=== PATIENT | male | born 1955 | race Caucasian/White ===

== ENCOUNTER 2019-01-12 19:38 | Emergency (ER) | payer BC, SELFPAY ==
[2019-01-12 20:09] VITALS: BP 138/86; PULSE 68; RESP 16; TEMP 36.8; O2SAT 96
--- NOTE | 2019-01-12 20:43 | W.ED.GENAD ---
Discharge Plan Disposition Patient Disposition: HOME Discharge Details Chief Complaint: EyeProblem Clinical Impression: Acute viral conjunctivitis of right eye Primary Care Provider: Jadiel Gregorio ED Provider: Dawit Lewis Home Meds and New Rx's Prescriptions: No Action multivitamin [Daily Multi-Vitamin] 1 EACH tablet 1 ea PO DAILY RF: 0 aspirin 325 MG tablet 325 mg PO DAILY Qty: 1 RF: 0 ibuprofen 200 MG capsule 200 mg PO PRN RF: 0 citalopram [Celexa] 10 MG tablet 10 mg PO DAILY Qty: 90 RF: 4 hydrochlorothiazide 25 MG tablet 25 mg PO QAM Qty: 90 RF: 4 Flovent HFA 220 mcg/actuation HFA aerosol inhaler 440 mcg Inhalation DAILY Qty: 1 RF: 12 Discharge Instructions Instructions: Conjunctivitis (ED) Additional Instructions: Her symptoms are most likely due to a virus, commonly the adenovirus. This condition is highly contagious, fortunately it is usually short-lived and self-limited, meaning that it should resolve similar to the way a common cold runs its course. We recommend Visine drops for symptom relief, warm wet washcloth application to eyelid 3-4 times daily as needed for symptom relief. In the event that you develop eye pain, change in vision, nausea and vomiting, headache, fever, chills or any worsening condition, we recommend returning promptly to the emergency depart. Referrals: Jadiel Gregorio, [Primary Care Provider] - [facility] General Date/Time Provider Initiated Documentation: 01/12/19 20:15. HPI Narrative: Patient presents with a 3-day history of right eye irritation and redness, with clear drainage as of the last 2 days. Today he has developed a scratchy throat as well. He states his granddaughter had same symptoms when he saw her 4 days ago. Her symptoms have resolved. He denies any eye pain, vision change, headache, nausea, vomiting. He does not wear contact lenses. No recent injury or illness. Related Data Home Medications Medication Instructions Recorded Confirmed multivitamin [Daily Multi-Vitamin] 1 ea PO DAILY 09/27/15 01/12/19 aspirin 325 mg PO DAILY #1 tab-cap 05/08/16 01/12/19 ibuprofen 200 mg PO PRN 01/25/17 01/12/19 citalopram [Celexa] 10 mg PO DAILY #90 tab-cap 11/06/17 01/12/19 hydrochlorothiazide 25 mg PO QAM #90 tab-cap 11/06/17 01/12/19 fluticasone propionate 220 440 mcg INHALATION DAILY #1 inhaler 09/01/18 01/12/19 mcg/actuation HFA aerosol inhaler Previous Rx's Medication Instructions Recorded citalopram [Celexa] 10 mg PO DAILY #90 tab-cap 11/06/17 hydrochlorothiazide 25 mg PO QAM #90 tab-cap 11/06/17 fluticasone propionate 220 440 mcg INHALATION DAILY #1 inhaler 09/01/18 mcg/actuation HFA aerosol inhaler Allergies Allergy/AdvReac Type Severity Reaction Status Date / Time cyclobenzaprine Allergy Unknown Itching Unverified 01/12/19 20:12 enoxaparin AdvReac Severe Thrombocyto Unverified 01/12/19 20:12 penia ropinirole AdvReac Severe severe Unverified 01/12/19 20:12 twitching all over General Stated Complaint: EyeProblem ANDRA: 4 Review of Systems Constitutional Denies chills, Denies fatigue, Denies fever(s) and Denies lethargy Eyes Denies loss of vision ENT Denies nasal congestion and Denies sore throat Cardiovascular Denies chest pain and Denies dyspnea Respiratory Denies cough and Denies dyspnea Gastrointestinal Denies abdominal pain, Denies nausea and Denies vomiting Musculoskeletal Denies back pain, Denies muscle weakness and Denies numbness Integumentary/Breasts Denies rash Neurologic Denies focal weakness, Denies loss of vision and Denies numbness Endocrine Denies fatigue Hematologic/Lymphatic Denies easy bruising COUNTS INCLUDE 234 BEDS AT THE [facility] Medical History Asthma GERD (gastroesophageal reflux disease) HTN (hypertension) Sleep apnea Surgical History Arthroplasty of knee Colonoscopy - MAC (05/31/17) Fracture, Open Treatment MPI (~12/2011) José Fundoplication (~11/1998) Repair of inguinal hernia (~1999) Vasectomy Family History FAMILY HISTORY Heart disease Mother Neoplasm Father Heart disease Grandmother Neoplasm Son No problems noted. Daughter No problems noted. Maternal Aunt Neoplasm Maternal Aunt Neoplasm Social History Smoking/Tobacco Use Status: Never Alcohol Intake: never Drug use: Current Sobriety Do you feel safe at home: Yes Do you feel safe in your relationship?: Yes Exam Const General: cooperative, healthy appearing and no acute distress HENMT Head: normal to inspection Ears: hearing grossly normal bilaterally Eyes Eyelids: eyelids normal Conjunctivae: conjunctival abnormality right conjunctival injection Sclera: sclerae normal Pupils: PERRL EOM: EOM intact bilaterally Resp Effort & Inspection: normal respiratory effort Auscultation: clear to auscultation bilaterally Cardio Rate: regular rate Rhythm: regular rhythm Heart Sounds: no murmurs Skin General skin exam: no rashes or lesions noted Neuro General: alert, awake and oriented x3 Speech: speech normal Extrem General: normal to inspection Course Vital Signs Temperature 36.8 C 01/12/19 20:09 Pulse 68 01/12/19 20:09 Respiratory Rate 16 01/12/19 20:09 Blood Pressure 138/86 01/12/19 20:09 Pulse Oximetry 96 01/12/19 20:09 Temperature 36.8 C 01/12/19 20:09 Temperature Source Skin 01/12/19 20:09 Pulse 68 01/12/19 20:09 Respiratory Rate 16 01/12/19 20:09 Respiratory Effort Non-Labored 01/12/19 20:13 Blood Pressure 138/86 01/12/19 20:09 Blood Pressure Position Sitting 01/12/19 20:09 Pulse Oximetry 96 01/12/19 20:09 Oxygen Delivery Method Room Air 01/12/19 20:09 Oxygen Flow Rate 0 01/12/19 20:09 Pain Level 0 01/12/19 20:09
--- NOTE | 2019-01-12 23:05 | ED.GENADUL_ITS ---
Discharge Plan Disposition Patient Disposition: HOME Discharge Details Chief Complaint: EyeProblem Clinical Impression: Acute viral conjunctivitis of right eye Primary Care Provider: Jadiel Gregorio ED Provider: Dawit Lewis Home Meds and New Rx's Prescriptions: No Action multivitamin [Daily Multi-Vitamin] 1 EACH tablet 1 ea PO DAILY RF: 0 aspirin 325 MG tablet 325 mg PO DAILY Qty: 1 RF: 0 ibuprofen 200 MG capsule 200 mg PO PRN RF: 0 citalopram [Celexa] 10 MG tablet 10 mg PO DAILY Qty: 90 RF: 4 hydrochlorothiazide 25 MG tablet 25 mg PO QAM Qty: 90 RF: 4 Flovent HFA 220 mcg/actuation HFA aerosol inhaler 440 mcg Inhalation DAILY Qty: 1 RF: 12 Discharge Instructions Instructions: Conjunctivitis (ED) Additional Instructions: Her symptoms are most likely due to a virus, commonly the adenovirus. This condition is highly contagious, fortunately it is usually short-lived and self- limited, meaning that it should resolve similar to the way a common cold runs its course. We recommend Visine drops for symptom relief, warm wet washcloth application to eyelid 3-4 times daily as needed for symptom relief. In the event that you develop eye pain, change in vision, nausea and vomiting, headache, fever, chills or any worsening condition, we recommend returning promptly to the emergency depart. Referrals: Jadiel Gregorio, [Primary Care Provider] - [facility] General Date/Time Provider Initiated Documentation: 01/12/19 20:15 . HPI Narrative: Patient presents with a 3-day history of right eye irritation and redness, with clear drainage as of the last 2 days. Today he has developed a scratchy throat as well. He states his granddaughter had same symptoms when he saw her 4 days ago. Her symptoms have resolved. He denies any eye pain, vision change, headache, nausea, vomiting. He does not wear contact lenses. No recent injury or illness. Related Data Home Medications Medication Instructions Recorded Confirmed multivitamin [Daily Multi-Vitamin] 1 ea PO DAILY 09/27/15 01/12/19 aspirin 325 mg PO DAILY #1 tab-cap 05/08/16 01/12/19 ibuprofen 200 mg PO PRN 01/25/17 01/12/19 citalopram [Celexa] 10 mg PO DAILY #90 tab-cap 11/06/17 01/12/19 hydrochlorothiazide 25 mg PO QAM #90 tab-cap 11/06/17 01/12/19 fluticasone propionate 220 440 mcg INHALATION DAILY #1 inhaler 09/01/18 01/12/19 mcg/actuation HFA aerosol inhaler Previous Rx's Medication Instructions Recorded citalopram [Celexa] 10 mg PO DAILY #90 tab-cap 11/06/17 hydrochlorothiazide 25 mg PO QAM #90 tab-cap 11/06/17 fluticasone propionate 220 440 mcg INHALATION DAILY #1 inhaler 09/01/18 mcg/actuation HFA aerosol inhaler Allergies Allergy/AdvReac Type Severity Reaction Status Date / Time cyclobenzaprine Allergy Unknown Itching Unverified 01/12/19 20:12 enoxaparin AdvReac Severe Thrombocyto Unverified 01/12/19 20:12 penia ropinirole AdvReac Severe severe Unverified 01/12/19 20:12 twitching all over General Stated Complaint: EyeProblem ANDRA: 4 Review of Systems Constitutional Denies chills, Denies fatigue, Denies fever(s) and Denies lethargy Eyes Denies loss of vision ENT Denies nasal congestion and Denies sore throat Cardiovascular Denies chest pain and Denies dyspnea Respiratory Denies cough and Denies dyspnea Gastrointestinal Denies abdominal pain, Denies nausea and Denies vomiting Musculoskeletal Denies back pain, Denies muscle weakness and Denies numbness Integumentary/Breasts Denies rash Neurologic Denies focal weakness, Denies loss of vision and Denies numbness Endocrine Denies fatigue Hematologic/Lymphatic Denies easy bruising [facility] Medical History Asthma GERD (gastroesophageal reflux disease) HTN (hypertension) Sleep apnea Surgical History Arthroplasty of knee Colonoscopy - MAC (05/31/17) Fracture, Open Treatment MPI (~12/2011) José Fundoplication (~11/1998) Repair of inguinal hernia (~1999) Vasectomy Family History FAMILY HISTORY Heart disease Mother Neoplasm Father Heart disease Grandmother Neoplasm Son No problems noted. Daughter No problems noted. Maternal Aunt Neoplasm Maternal Aunt Neoplasm Social History Smoking/Tobacco Use Status: Never Alcohol Intake: never Drug use: Current Sobriety Do you feel safe at home: Yes Do you feel safe in your relationship?: Yes Exam Const General: cooperative, healthy appearing and no acute distress HENMT Head: normal to inspection Ears: hearing grossly normal bilaterally Eyes Eyelids: eyelids normal Conjunctivae: conjunctival abnormality right conjunctival injection Sclera: sclerae normal Pupils: PERRL EOM: EOM intact bilaterally Resp Effort & Inspection: normal respiratory effort Auscultation: clear to auscultation bilaterally Cardio Rate: regular rate Rhythm: regular rhythm Heart Sounds: no murmurs Skin General skin exam: no rashes or lesions noted Neuro General: alert, awake and oriented x3 Speech: speech normal Extrem General: normal to inspection Course Vital Signs Temperature 36.8 C 01/12/19 20:09 Pulse 68 01/12/19 20:09 Respiratory Rate 16 01/12/19 20:09 Blood Pressure 138/86 01/12/19 20:09 Pulse Oximetry 96 01/12/19 20:09 Temperature 36.8 C 01/12/19 20:09 Temperature Source Skin 01/12/19 20:09 Pulse 68 01/12/19 20:09 Respiratory Rate 16 01/12/19 20:09 Respiratory Effort Non-Labored 01/12/19 20:13 Blood Pressure 138/86 01/12/19 20:09 Blood Pressure Position Sitting 01/12/19 20:09 Pulse Oximetry 96 01/12/19 20:09 Oxygen Delivery Method Room Air 01/12/19 20:09 Oxygen Flow Rate 0 01/12/19 20:09 Pain Level 0 01/12/19 20:09
== END 2019-01-12 20:15 | disposition home or self-care (01) ==
PROVIDERS: Emergency Provider Physician Assistant Medical; PCP Emergency Medicine
DX: H10.31 Unspecified acute conjunctivitis, right eye (principal); I10 Essential (primary) hypertension
CPT/HCPCS: 99283

== ENCOUNTER 2019-02-25 10:52 | Outpatient (CLI) | payer BC, SELFPAY ==
--- NOTE | 2019-02-25 10:15 | DI.RAD_ITS ---
SYMPTOM/DIAGNOSIS: BILAT KNEE PAIN LEFT KNEE: Medial tibiofemoral joint space narrowing is noted. There is articular sclerosis and mild periarticular hypertrophic spurring evident. The distal portion of an intramedullary amalia and screw fixation device is identified in the distal femur. SUMMARY: Severe DJD left knee. RIGHT KNEE: Medial tibiofemoral joint space narrowing and articular sclerosis and mild hypertrophic spurring are demonstrated. Also patellofemoral joint DJD is evident. There is a probable joint effusion. SUMMARY: Severe DJD right knee.
== END 2019-02-25 11:12 ==
PROVIDERS: PCP Emergency Medicine; Visit Provider Emergency Medicine
DX: Z98.890 Other specified postprocedural states (principal); M25.561 Pain in right knee; M25.562 Pain in left knee; M25.461 Effusion, right knee; M17.0 Bilateral primary osteoarthritis of knee
CPT/HCPCS: 73562

== ENCOUNTER 2019-03-31 01:38 | Outpatient (CLI) | payer BC, SELFPAY ==
[2019-03-31 11:30] LABS: Abs Immature Grans 0.06 k/cumm (0.0-0.09); Absolute Basophil Count 0.03 k/cumm (0.0-0.2); Absolute Eosinophil Count 0.13 k/cumm (0.0-0.7); Absolute Lymphocyte Count 1.54 k/cumm (1.2-3.4); Absolute Monocyte Count 0.58 k/cumm (0.11-0.7); Absolute Neutrophil Count 4.13 k/cumm (1.2-6.7); Basophils % 0.5; HCT 51.6 % (40.0-50.0); HGB 17.1 g/dL (13.5-17.5); Immature Grans % 0.9; Lymphocytes % 23.8; Mean Corp. HGB Concentration 33.1 g/dL (32.0-36.0); Mean Corpuscular Hemoglobin 31.6 pg (27.0-33.0); Mean Corpuscular Volume 95.4 fL (80-95); Mean Platelet Volume 10.2 fL (8.0-11.0); Neutrophils % 63.8; Platelet Count 181 x1000/uL (130-400); RBC 5.41 m/cumm (4.50-6.00); RBC Distribution Width 14.2 % (11.8-14.1); White Blood Cell Count 6.47 k/cumm (4.4-10.8)
[2019-03-31 11:39] LABS: ALT 36 U/L (12-78); AST 29 U/L (15-37); Albumin 3.6 g/dL (3.4-5.0); Alkaline Phosphatase 84 U/L (46-116); Anion Gap 8.3 mmol/L (3-11); BUN 25 mg/dL (7-18); Bilirubin, Total 0.8 mg/dL (0.2-1.0); CO2 28.7 mmol/L (21.0-32.0); CREATININE 1.31 mg/dL (0.70-1.30); Calcium 8.8 mg/dL (8.5-10.1); Calculated LDL 108 mg/dL; Chloride 104 mmol/L (98-107); Cholesterol 180 mg/dL (50-200); Estimated GFR 55.09 (mL/min/1.73m2); Glucose 103 mg/dL (70-100); HDL Cholesterol 50 mg/dL (40-60); Potassium 3.7 mmol/L (3.5-5.1); Sodium 141 mmol/L (136-145); Total Protein 7.2 g/dL (6.4-8.2); Triglyceride 114 mg/dL (30-150)
[2019-03-31 12:02] LABS: C-Reactive Protein 0.44 mg/dL (0.0-0.3)
[2019-03-31 12:48] LABS: ESR 8 mm/hr (1-20)
== END 2019-03-31 01:58 ==
PROVIDERS: PCP Emergency Medicine; Visit Provider Family Medicine
DX: R07.9 Chest pain, unspecified (principal)
CPT/HCPCS: 36415; 80053; 80061; 83721; 85652; 85025; 86140

== ENCOUNTER 2019-04-02 10:38 | Observation (INO) | payer BC, SELFPAY ==
[2019-04-02] VITALS (32 sets, daily range): BP systolic 107–152; BP diastolic 58–89; PULSE 60–76; RESP 13–33; TEMP 36–37.2; O2SAT 92–97
--- NOTE | 2019-04-02 11:00 | DI.RAD_ITS ---
SYMPTOM/DIAGNOSIS: CHEST PAIN, SOB PA AND LATERAL CHEST: The heart appears enlarged. The lungs are generally clear except for some changes of scarring. No gross interval change in appearance in comparison with previous examination of 03/2016. No pleural effusion is seen. IMPRESSION: No evidence of acute process.
--- NOTE | 2019-04-02 11:01 | W.ED.GENAD ---
Discharge Plan Discharge Details Chief Complaint: Chest Pain Primary Care Provider: Jadiel Gregorio ED Provider: Chuck Augustin Home Meds and New Rx's Prescriptions: No Action potassium 99 mg tablet 2.5 meq PO DAILY RF: 0 nitroglycerin [Nitrostat] 0.4 mg tablet, sublingual 0.4 mg SL Q5-15M PRN (Reason: chest pain) Qty: 20 RF: 0 multivitamin [Daily Multi-Vitamin] 1 EACH tablet 1 ea PO DAILY RF: 0 aspirin 325 MG tablet 325 mg PO DAILY Qty: 1 RF: 0 ibuprofen 200 MG capsule 200 mg PO PRN RF: 0 Flovent HFA 220 mcg/actuation HFA aerosol inhaler 440 mcg Inhalation DAILY Qty: 1 RF: 12 citalopram [Celexa] 10 mg tablet 10 mg PO DAILY Qty: 90 RF: 4 hydrochlorothiazide 25 mg tablet 25 mg PO QAM Qty: 90 RF: 4 Medical Decision Making 63-year-old male with a history of hypertension presents to the emergency department complaint of chest pain this morning. He describes approximately 6 months of an escalating pattern of exertional chest discomfort that resolves with rest. He was seen in the primary care physician's office on March 30, states that labs were drawn, he was prescribed nitroglycerin and referred for an outpatient cardiology work-up. This morning he awoke with substernal left-sided chest pain that radiated to the arm. It was mild. He did not take his nitroglycerin but did take his morning aspirin and hydrochlorothiazide. He arrives to the emergency department with a blood pressure 152/73, pulse is 74, normal temperature and oxygenation. He has an unchanged EKG from the office visit on March 30 with the exception of subtle lateral T wave changes. Would note that he has new right bundle branch block pattern versus comparison from treadmill stress test of 2016. At that time at [address] depressions noted in V3 through V6. Differential diagnosis includes angina that is been in a progressive pattern now with rest discomfort this morning, acute NH. 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 He was given single sublingual nitroglycerin, 2 mg of morphine with resolution of his pain. Diagnostic studies reveal unremarkable chest x-ray, CBC that shows hematocrit slightly elevated at 52, chemistries with mild elevation of BUN 21, creatinine 1.2, negative troponin, negative BNP. Given the patient's hypertension, escalating pattern of pain, previously abnormal exercise stress test, I do feel he needs to be admitted for serial cardiac troponins, further risk stratification. ECG Data Attestation: I personally reviewed and interpreted this ECG (s) as follows: Prior ECG tracings: available for review Interpretation: Normal sinus rhythm with a rate of 72, there is interventricular conduction delay and right bundle branch block pattern with T wave inversions throughout the precordium, the slight lateral T wave inversions are somewhat different than that from March 30. Otherwise no significant change. The intraventricular conduction delay is new from comparison of treadmill stress test of April 25, 2016 HPI General Mode of arrival: ambulatory. Date/Time Provider Initiated Documentation: 04/02/19 10:42. Limitations to Documentation: no limitations. Information obtained by: patient and family. History of Present Illness 63 year old M presents to the emergency department with the chief complaint of Chest pain at rest this morning, intermittently for weeks to months, described as mild, with intensity rated at 2. Quality is described as dull and constant, and is localized to the chest and left. Patient extremity. Patient started experiencing this hour(s) and it has been constant. Rest improves symptom(s), Movement worsens symptoms . Patient notes denies shortness of breath and syncope. Patient did receive the following treatments prior to arrival, none Related Data Home Medications Medication Instructions Recorded Confirmed multivitamin [Daily Multi-Vitamin] 1 ea PO DAILY 09/27/15 04/02/19 aspirin 325 mg PO DAILY #1 tab-cap 05/08/16 04/02/19 ibuprofen 200 mg PO PRN 01/25/17 04/02/19 fluticasone propionate 220 440 mcg INHALATION DAILY #1 inhaler 09/01/18 04/02/19 mcg/actuation HFA aerosol inhaler citalopram 10 mg tablet 10 mg PO DAILY #90 tab-cap 01/30/19 04/02/19 hydrochlorothiazide 25 mg tablet 25 mg PO QAM #90 tab-cap 01/30/19 04/02/19 nitroglycerin 0.4 mg sublingual 0.4 mg SL Q5-15M PRN #20 tab 03/30/19 04/02/19 tablet potassium 99 mg tablet 2.5 meq PO DAILY 03/30/19 04/02/19 Previous Rx's Medication Instructions Recorded fluticasone propionate 220 440 mcg INHALATION DAILY #1 inhaler 09/01/18 mcg/actuation HFA aerosol inhaler citalopram 10 mg tablet 10 mg PO DAILY #90 tab-cap 01/30/19 hydrochlorothiazide 25 mg tablet 25 mg PO QAM #90 tab-cap 01/30/19 nitroglycerin 0.4 mg sublingual 0.4 mg SL Q5-15M PRN #20 tab 03/30/19 tablet Allergies Allergy/AdvReac Type Severity Reaction Status Date / Time cyclobenzaprine Allergy Unknown Itching Verified 04/02/19 10:46 enoxaparin AdvReac Severe Thrombocyto Verified 04/02/19 10:46 penia ropinirole AdvReac Severe severe Verified 04/02/19 10:46 twitching all over General Stated Complaint: Chest Pain ANDRA: 2 Review of Systems Review of Systems Reports some curtailing of exertion over the past 6 months due to chest pains. No recent illness. Seen in the office on March 30. systems reviewed and otherwise negative [facility] Medical History Asthma GERD (gastroesophageal reflux disease) HTN (hypertension) Sleep apnea Surgical History Arthroplasty of knee Colonoscopy - MAC (05/31/17) Fracture, Open Treatment MPI (~12/2011) José Fundoplication (~11/1998) Repair of inguinal hernia (~1999) Vasectomy Family History FAMILY HISTORY Heart disease Mother Neoplasm Father Heart disease Grandmother Neoplasm Son No problems noted. Daughter No problems noted. Maternal Aunt Neoplasm Maternal Aunt Neoplasm Social History Smoking/Tobacco Use Status: Never Alcohol Intake: current Alcohol Intake frequency: a few times a week Alcohol type: beer Drug use: Current Sobriety Do you feel safe at home: Yes Do you feel safe in your relationship?: Yes Exam Narrative Exam Narrative: GEN: awake, alert, oriented 3. Pleasant, well groomed, interactive. HEAD: Normocephalic, atraumatic ENT: Mucous membranes moist, oropharynx unremarkable, External ear exam unremarkable EYES: PERRL, EOMI NECK: Full ROM, no PAVITHRA, no menigismus CHEST/RESP: Nontender, clear to auscultation bilateral, no wheeze/rhonchi/rales CARDIOVASCULAR: RRR, no murmur, rub ty. 2+ Rad pulse bilateral ABDOMEN: Soft, nontender, no mass. +Bowel sounds EXT: Full ROM, no edema, no rash Neuro: Grossly normal neurologic exam, conversant, interactive. Psych: Speech fluent, thoughts congruent, affect normal Course Vital Signs Temperature 37.2 C 04/02/19 10:44 Pulse 74 04/02/19 10:44 Respiratory Rate 27 H 04/02/19 10:44 Blood Pressure 152/73 H 04/02/19 10:44 Pulse Oximetry 96 04/02/19 10:44 Temperature 37.2 C 04/02/19 10:44 Temperature Source Temporal Artery Scan 04/02/19 10:44 Pulse 74 04/02/19 10:44 Respiratory Rate 27 H 04/02/19 10:47 Respiratory Effort 04/02/19 10:47 Respiratory Depth Normal 04/02/19 10:47 Respiratory Pattern Normal 04/02/19 10:47 Blood Pressure 152/73 H 04/02/19 10:44 Pulse Oximetry 96 04/02/19 10:44 Oxygen Delivery Method Room Air 04/02/19 10:44 Oxygen Flow Rate 0 04/02/19 10:44 Pain Level 3 04/02/19 10:47
[2019-04-02 11:25] LABS: PTT Activated 24.1 sec (21.0-31.4); Prothrombin Time 10.2 sec (9.3-11.0)
[2019-04-02 11:29] LABS: Abs Immature Grans 0.05 k/cumm (0.0-0.09); Absolute Basophil Count 0.04 k/cumm (0.0-0.2); Absolute Eosinophil Count 0.09 k/cumm (0.0-0.7); Absolute Lymphocyte Count 1.79 k/cumm (1.2-3.4); Absolute Monocyte Count 0.64 k/cumm (0.11-0.7); Absolute Neutrophil Count 4.41 k/cumm (1.2-6.7); Basophils % 0.6; Eosinophils % 1.3; HCT 52.9 % (40.0-50.0); HGB 17.4 g/dL (13.5-17.5); Immature Grans % 0.7; Lymphocytes % 25.5; Mean Corp. HGB Concentration 32.9 g/dL (32.0-36.0); Mean Corpuscular Hemoglobin 31.2 pg (27.0-33.0); Mean Platelet Volume 9.7 fL (8.0-11.0); Monocytes % 9.1; Neutrophils % 62.8; Platelet Count 197 x1000/uL (130-400); RBC 5.57 m/cumm (4.50-6.00); RBC Distribution Width 14.2 % (11.8-14.1); White Blood Cell Count 7.02 k/cumm (4.4-10.8)
[2019-04-02 11:35] LABS: ALT 37 U/L (12-78); AST 21 U/L (15-37); Albumin 3.8 g/dL (3.4-5.0); Alkaline Phosphatase 95 U/L (46-116); Anion Gap 9.4 mmol/L (3-11); BUN 21 mg/dL (7-18); Bilirubin, Total 0.5 mg/dL (0.2-1.0); CO2 27.6 mmol/L (21.0-32.0); CREATININE 1.29 mg/dL (0.70-1.30); Chloride 104 mmol/L (98-107); Estimated GFR 56.07 (mL/min/1.73m2); Glucose 121 mg/dL (70-100); Magnesium 1.9 mg/dL (1.8-2.4); Potassium 3.5 mmol/L (3.5-5.1); Sodium 141 mmol/L (136-145)
[2019-04-02 11:40] LABS: Troponin I < 0.05 ng/mL (0.00-0.06)
[2019-04-02 11:58] LABS: NT-proBNP 14 pg/mL
--- NOTE | 2019-04-02 12:08 | NUR.NOTE ---
2v cxr completed Nursing Note:
[2019-04-02] MEDS: Normal Saline 1,000 ML 125 ML IV ×2 (13:45→21:14)
[2019-04-02] MEDS: Potassium Chloride 20 MEQ TABCR 40 MEQ PO (14:06)
[2019-04-02] MEDS: Magnesium Oxide 400 MG TAB PO (14:07)
[2019-04-02] MEDS: Atorvastatin 40 MG TAB PO (14:10)
[2019-04-02] MEDS: Heparin 5,000 UNITS/ML VIAL 5000 UNITS SC ×2 (15:02→21:13)
[2019-04-02 16:51] LABS: Troponin I < 0.05 ng/mL (0.00-0.06)
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
[2019-04-02] MEDS: Acetaminophen 325 MG TAB PO (18:27)
[2019-04-02 19:27] LABS: Troponin I < 0.05 ng/mL (0.00-0.06)
[2019-04-02] MEDS: Metoprolol 25 MG TAB PO (19:42)
--- NOTE | 2019-04-02 23:16 | NUR.NOTE ---
Pt abdi state she wants to be called tomorrow morning prior to her procedure, CC informed.
[2019-04-03] VITALS (10 sets, daily range): BP systolic 121–138; BP diastolic 64–86; PULSE 54–83; RESP 16–20; TEMP 35.8–37.1; O2SAT 94–97
[2019-04-03] MEDS: Normal Saline 1,000 ML 125 ML IV ×3 (04:06→18:34)
[2019-04-03] MEDS: Heparin 5,000 UNITS/ML VIAL 5000 UNITS SC ×2 (06:04→14:57)
[2019-04-03 07:06] LABS: Abs Immature Grans 0.07 k/cumm (0.0-0.09); Absolute Basophil Count 0.05 k/cumm (0.0-0.2); Absolute Eosinophil Count 0.19 k/cumm (0.0-0.7); Absolute Lymphocyte Count 1.77 k/cumm (1.2-3.4); Absolute Monocyte Count 0.51 k/cumm (0.11-0.7); Absolute Neutrophil Count 3.07 k/cumm (1.2-6.7); Basophils % 0.9; Eosinophils % 3.4; HGB 16.1 g/dL (13.5-17.5); Immature Grans % 1.2; Lymphocytes % 31.3; Mean Corp. HGB Concentration 32.9 g/dL (32.0-36.0); Mean Corpuscular Hemoglobin 31.5 pg (27.0-33.0); Mean Corpuscular Volume 95.9 fL (80-95); Mean Platelet Volume 9.5 fL (8.0-11.0); Neutrophils % 54.2; Platelet Count 177 x1000/uL (130-400); RBC 5.11 m/cumm (4.50-6.00); RBC Distribution Width 14.1 % (11.8-14.1); White Blood Cell Count 5.66 k/cumm (4.4-10.8)
[2019-04-03 07:30] LABS: Anion Gap 9.6 mmol/L (3-11); BUN 20 mg/dL (7-18); CO2 24.4 mmol/L (21.0-32.0); CREATININE 1.23 mg/dL (0.70-1.30); Calcium 8.3 mg/dL (8.5-10.1); Calculated LDL 81 mg/dL; Chloride 108 mmol/L (98-107); Cholesterol 143 mg/dL (50-200); Estimated GFR 59.24 (mL/min/1.73m2); Glucose 94 mg/dL (70-100); HDL Cholesterol 38 mg/dL (40-60); Magnesium 1.9 mg/dL (1.8-2.4); Potassium 4.1 mmol/L (3.5-5.1); Sodium 142 mmol/L (136-145); Triglyceride 124 mg/dL (30-150)
[2019-04-03 07:32] LABS: Troponin I < 0.05 ng/mL (0.00-0.06)
[2019-04-03] MEDS: Citalopram 10 MG TAB PO (07:44)
[2019-04-03] MEDS: Omeprazole 20 MG CAPCR PO (07:44)
[2019-04-03] MEDS: Mometasone 220 MCG 14 DOSE INHALER 2 PUFF IH (08:23)
--- NOTE | 2019-04-03 09:00 | MERGE_ITS ---
*[facility]* *[facility]* [address] [place] [address] Date of study: 04/03/2019 Transthoracic Echocardiography M-mode, complete 2D, complete spectral Doppler, and color Doppler *STUDY CONCLUSIONS* Summary: 1. Left ventricle: The cavity size was normal. Wall thickness was increased in a pattern of mild LVH. Systolic function was normal. The estimated ejection fraction was 60-65%. Wall motion was normal; there were no regional wall motion abnormalities. 2. Right ventricle: The cavity size was normal. Systolic function was normal. 3. Pulmonary arteries: Pulmonary systolic pressure was increased, in the range of 40mm Hg to 45mm Hg. 4. Inferior vena cava: The vessel was patent and normal in size. The respirophasic diameter changes were in the normal range (greater than or equal to 50%), consistent with normal central venous pressure. *PATIENT PRESENTATION* Height: 170.2cm (67in ) S/D Pressure: 132 / 86 Weight: 112.9kg (248.5lb ) BSA: 2.36m^2 Test start time: 09:10 AM. Test stop time: 10:00 AM. PERFORMING Unknown CONSULTING Ovidio Paz ORDERING Ovidio Paz REFERRING Ovidio Paz PERFORMING [facility] SALOON KEEPER RT Janelle Gloria)(KEITH)LUCIANO *PROCEDURE DATA* Procedure information: The patient was identified by two identifiers. This study was interpreted by [facility]. Pertinent images and digital data are archived for permanent storage and are available for subsequent review. No prior study was available for comparison. Study status: Routine. Transthoracic echocardiography. M-mode, complete 2D, complete spectral Doppler, and color Doppler. A Transthoracic Echocardiogram was performed. Scanning was performed from the parasternal, apical, subcostal, and suprasternal notch acoustic windows. Images were obtained using an [id number] cardiac ultrasound machine. Image quality was adequate. Study completion: The patient tolerated the procedure well. There were no complications. History: PMH: Chest pain. *CARDIAC ANATOMY* Left ventricle: The cavity size was normal. Wall thickness was increased in a pattern of mild LVH. Systolic function was normal. The estimated ejection fraction was 60-65%. Wall motion was normal; there were no regional wall motion abnormalities. Findings consistent with diastolic dysfunction. There was no evidence of elevated ventricular filling pressure by Doppler parameters. Aortic valve: Trileaflet; normal thickness leaflets. Mobility was not restricted. Doppler: Transvalvular velocity was within the normal range. There was no stenosis. There was no significant regurgitation. VTI ratio of LVOT to aortic valve: 0.89. Valve area (VTI): 2.7cm^2. Indexed valve area (VTI): 1.2cm^2/m^2. Peak velocity ratio of LVOT to aortic valve: 0.87. Valve area (Vmax): 2.7cm^2. Indexed valve area (Vmax): 1.1cm^2/m^2. Mean velocity ratio of LVOT to aortic valve: 0.79. Valve area (Vmean): 2.4cm^2. Indexed valve area (Vmean): 1cm^2/m^2. Mean gradient (S): 4mm Hg. Peak gradient (S): 7.9mm Hg. Aorta: Aortic root: The aortic root was normal in size. Ascending aorta: The ascending aorta was normal in size. Mitral valve: Structurally normal valve. Mobility was not restricted. Doppler: Transvalvular velocity was within the normal range. There was no evidence for stenosis. There was trivial regurgitation. Valve area by pressure half-time: 4.3cm^2. Indexed valve area by pressure half-time: 1.8cm^2/m^2. Peak gradient (D): 3.6mm Hg. Left atrium: The atrium was normal in size. Right ventricle: The cavity size was normal. Systolic function was normal. Pulmonic valve: The pulmonary valve appears to be grossly normal. Doppler: Transvalvular velocity was within the normal range. There was no evidence for stenosis. There was no significant regurgitation. Tricuspid valve: Structurally normal valve. Doppler: Transvalvular velocity was within the normal range. There was no evidence for stenosis. There was mild regurgitation. Pulmonary artery: Poorly visualized. Pulmonary systolic pressure was increased, in the range of 40mm Hg to 45mm Hg. Right atrium: The atrium was normal in size. Pericardium: There was no pericardial effusion. Systemic veins: Inferior vena cava: Well visualized. The vessel was patent and normal in size. The respirophasic diameter changes were in the normal range (greater than or equal to 50%), consistent with normal central venous pressure. Baseline ECG: Normal sinus rhythm. Measurements Left ventricle Value Reference LV ID, ED, PLAX 4.4 cm 3.5 - 6.0 LV ID, ES, PLAX 2.6 cm 2.1 - 4.0 LV PW thickness, ED, PLAX 1.3 cm --------- LV end-diastolic volume, 1-p A2C 82 ml --------- LV ejection fraction, 1-p A2C 75 % --------- LV end-diastolic volume, 1-p A4C 88 ml --------- LV ejection fraction, 1-p A4C 73 % --------- LV e', lateral 0.116 m/sec --------- LV E/e', lateral 8 --------- LV e', medial 0.094 m/sec --------- LV E/e', medial 10 --------- LV e', average 0.105 m/sec --------- LV E/e', average 9 --------- Ventricular septum Value Reference IVS thickness, ED, PLAX 1.3 cm --------- LVOT Value Reference LVOT ID, A-P 2.0 cm --------- LVOT area 3.1 cm^2 --------- LVOT peak velocity, S 1.21 m/sec --------- LVOT mean velocity, S 0.75 m/sec --------- LVOT VTI, S 27.7 cm --------- LVOT peak gradient, S 5.9 mm Hg --------- LVOT mean gradient, S 2.7 mm Hg --------- Stroke volume (SV), LVOT DP 85 ml --------- Stroke index (SV/bsa), LVOT DP 36 ml/m^2 --------- Aortic valve Value Reference Aortic valve peak velocity, S 1.4 m/sec --------- Aortic valve mean velocity, S 0.9 m/sec --------- Aortic valve VTI, S 31.0 cm --------- Aortic mean gradient, S 4 mm Hg --------- Aortic peak gradient, S 7.9 mm Hg --------- VTI ratio, LVOT/AV 0.89 --------- Aortic valve area, VTI 2.7 cm^2 --------- Velocity ratio, peak, LVOT/AV 0.87 --------- Aortic valve area, peak velocity 2.7 cm^2 --------- Velocity ratio, mean, LVOT/AV 0.79 --------- Aortic valve area, mean velocity 2.4 cm^2 --------- Aortic valve area/bsa, mean velocity 1 cm^2/m^2 --------- Aorta Value Reference Aortic root ID, ED 3.4 cm --------- Ascending aorta ID, A-P, S 3.1 cm --------- Left atrium Value Reference LA ID, A-P, ES 4.0 cm --------- LA ID/bsa, A-P 1.7 cm/m^2 <=2.2 LA volume/bsa, ES, 1-p A4C 19 ml/m^2 --------- LA/aortic root ratio 1.19 --------- Mitral valve Value Reference Mitral E-wave peak velocity 0.95 m/sec --------- Mitral A-wave peak velocity 0.65 m/sec --------- Mitral deceleration time 176 ms 150 - 230 Mitral pressure half-time 51 ms --------- Mitral peak gradient, D 3.6 mm Hg --------- Mitral E/A ratio, peak 1.47 --------- Mitral valve area, PHT, DP 4.3 cm^2 --------- Pulmonary veins Value Reference Pulmonary vein peak velocity, S 0.61 m/sec --------- Pulmonary vein peak velocity, D 0.72 m/sec --------- Pulmonary vein velocity ratio, peak, 0.84 --------- S/D Pulmonary vein A-wave reversal peak 0.42 m/sec --------- velocity Tricuspid valve Value Reference Tricuspid regurg peak velocity 3.4 m/sec --------- Tricuspid peak RV-RA gradient 46.2 mm Hg --------- Legend: (L) and (H) maribell values outside specified reference range. I have personally reviewed the images and have reviewed and edited the reported findings. Electronically signed by Belia Hadley 04/03/2019 10:37
[2019-04-03] MEDS: Normal Saline Flush 10 ML SYR IVP ×3 (09:08→17:56)
--- NOTE | 2019-04-03 10:30 | MERGEMPI_ITS ---
*[facility]* [address] [place] [address] Myocardial Perfusion Imaging - SPECT Regadenoson Date of study: 04/03/2019 *PATIENT PRESENTATION* Height: 170.2cm (67in) Blood Pressure: Weight: 113.6kg (250lb) BSA: 2.37m^2 Referring physician: Belia Hadley Ordering physician: Ovidio Paz Impressions: Abnormal study after pharmacologic stress. Summary: 1. Myocardial perfusion imaging: There is a moderate sized, moderately intense, fully reversible defect involving the apical anterior and apical wall(s). This suggests moderate ischemia in the distribution of the left anterior descending coronary artery. 2. The calculated left ventricular ejection fraction after stress: 53%. LV global systolic function is normal. No left ventricular regional motion abnormality. History: REASON FOR TESTING: PROGRESSIVE MIDSTERNAL CHEST PAIN, PREVIOUSLY WITH EXERTION, NOW AT REST. PREVIOUS STRESS TEST IN 2016 PMH: JUSTIN WITH CPAP USE, PMR, ASTHMA, HX OF PE, HYPERTENSION, GERD WITH BETTYE FUNDOPLICATION, BPH AND DEPRESSION, OBESITY. FAMILY HX: FATHER-CAD, ANGINA. SON-WPW WITH SURGERY AT AGE 18. SMOKING: NEVER SMOKER EXCERCISE: NO REGULAR EXCERCISE. Risk factors: Family history of coronary artery disease. Obesity. Cholesterol: 143mg/dl. HDL: 38mg/dl. LDL: 81mg/dl. Triglycerides: 124mg/dl. ALLERGIES: CYCLOBENAZPRINE, ENOXAPARIN, ROPINROLE. HOME MEDICATIONS: POTASSIUM CHLORIDE 2.5 MEQ DAILY, NITROGLYCERIN 0.4 MG PRN, MULTIVITAMIN 1 DAILY, HYDROCHLOROTHIAZIDE 25 MG DAILY, FLUTICASONE PROPIONATE 22MCG/ACT HFA AEROSOL INHALER, CITALOPRAM 10 MG DAILY. ASPIRIN 325 MG DAILY. SEE INPATIENT MED LIST. Imaging Technique: Protocol: Regadenoson. Acquisition: Gated SPECT; 1 day - rest/stress. The patient was imaged in the supine position. Attenuation correction used. Isotope administration: - Rest. Tc[99m]-sestamibi. Dose: 12.1mCi. Injection time: 11:00 AM. Injection to stress time: 00:45. - Stress. Tc[99m]-sestamibi. Dose: 37mCi. Injection time: 12:52 PM. 1-2 min before end of exercise Baseline ECG: LAST EKG 04/02/19 SINUS RHYTHM , RBBB WITH LEFT AXIS-BIFASCICULAR BLOCK, NON-SPECIFIC T-ABNORMALITY. TODAY'S EKG- SINUS RHYTHM, HR 62. Stress protocol: +--------+--+ + + !Stage !HR!BP (mmHg) !Comments ! +--------+--+ + + !Baseline!62!162/86 (111)! ! +--------+--+ + + !1 min !76!172/90 (117)!Inject Regadenoson.! +--------+--+ + + !2 min !90!162/84 (110)! ! +--------+--+ + + !4 min !85!166/86 (113)! ! +--------+--+ + + !6 min !79!168/86 (113)! ! +--------+--+ + + * Stress results: The rate-pressure product for the peak heart rate and blood pressure was 49243qv Hg/min. Stress ECG: LEXISCAN TESTING ENDED IN 6 MINS, 45 SECS EFFECT OF MEDICATION NO LONGER PRESENT. MAX HR WAS 93, WITH A HYPERTENSIVE BLOOD PRESSURE RESPONSE. ECTOPY:NONE NOTED. ANGINA: REPORTED 1/10 CHEST PRESSURE IN MINUTE 4 OF TESTING, 0/10 AT MINUTE 6. ISCHEMIA: NO ISCHEMIC CHANGES NOTED. Myocardial perfusion: Imaging information: gated. Left ventricular size is normal. There is a moderate sized, moderately intense, fully reversible defect involving the apical anterior and apical wall(s). This suggests moderate ischemia in the distribution of the left anterior descending coronary artery. Ventricular Function (Wall Motion): The calculated left ventricular ejection fraction after stress: 53%. LV global systolic function is normal. No left ventricular regional motion abnormality. Study data: Belia Hadley MD supervised and was readily available during the procedure. This study was interpreted by [facility]. Study status: Routine. Consent: The risks, benefits, and alternatives to the procedure were explained to the patient and informed consent was obtained. Procedure: Initial setup. A baseline ECG was recorded. Surface ECG leads and manual cuff blood pressure measurements were monitored. Heart sounds: Normal. Lung sounds: Normal. Regadenoson stress test. Stress testing was performed, with regadenoson by intravenous bolus, for a total dose of 0.4mgover 10.00sec, followed by a 5ml saline flush. The infusion was terminated due to per protocol. The patient was unable to exercise due to I20.9. Study completion: All catheters inserted during the procedure were removed. The patient tolerated the procedure well and was discharged from the lab. Discharge: The patient left the laboratory in stable condition. Birthdate: Patient birthdate: 1955. Sex: Gender: male. Study date: Study date: 04/03/2019. Study time: 00:01 AM. Signature Documentation: - The imaging portion of this study was interpreted by Nuclear Digital Business Analyst Belia Hadley MD. - The imaging portion of this study was interpreted by Nuclear Radiologist Chuck Omer MD. - The Stress ECG portion of this study was interpreted by Belia Hadley MD. Electronically signed by Belia Hadley 04/03/2019 15:26
[2019-04-03] MEDS: Magnesium Oxide 400 MG TAB PO (11:44)
[2019-04-03] MEDS: Regadenoson 0.4 MG/5 ML SYR IVP (13:29)
[2019-04-03] MEDS: Acetaminophen 325 MG TAB PO (15:55)
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
[2019-04-03 17:38] LABS: PTT Activated 25.4 sec (21.0-31.4)
--- NOTE | 2019-04-03 17:45 | NUR.NOTE ---
Nursing Note: Report phoned to Saundra at [facility]. All questions answered
[2019-04-03] MEDS: Atorvastatin 40 MG TAB PO (17:54)
[2019-04-03] MEDS: Aspirin 325 MG TAB PO (17:54)
[2019-04-03] MEDS: Multivitamin TAB 1 TAB PO (17:55)
[2019-04-03] MEDS: hydroCHLOROthiazide 25 MG TAB PO (17:55)
== END 2019-04-03 19:04 | disposition short-term general hospital (02) ==
LOC: ER 13:20 → MS 14:02
PROVIDERS: Admitting Provider Internal Medicine; Emergency Provider Emergency Medicine; PCP Emergency Medicine; Visit Provider Internal Medicine
DX: R07.9 Chest pain, unspecified (principal); I24.9 Acute ischemic heart disease, unspecified; K21.9 Gastro-esophageal reflux disease without esophagitis; I10 Essential (primary) hypertension; G47.33 Obstructive sleep apnea (adult) (pediatric); F32.9 Major depressive disorder, single episode, unspecified
CPT/HCPCS: 36415; 78452; 80048; 80053; 80061; 83721; 93005; 94640; 99219; 99239; 99285; 71046; 83735; 83880; 84484; 85025; 85610; 85730; 93010; 93017; 93306; 99217; 99284; G0378; J1644; J2785

== ENCOUNTER 2019-05-18 11:30 | Outpatient (RCR) | payer BC, SELFPAY | END 2019-05-25 23:59 | disposition home or self-care (01) | LOC: CR 11:30 | PROVIDERS: PCP Emergency Medicine; Visit Provider Family Medicine | DX: Z51.89 Encounter for other specified aftercare (principal) ==

== ENCOUNTER 2019-05-26 04:28 | Outpatient (RCR) | payer BC, SELFPAY | END 2019-06-25 23:59 | disposition home or self-care (01) | LOC: CR 04:28 | PROVIDERS: PCP Emergency Medicine; Visit Provider Family Medicine | DX: Z51.89 Encounter for other specified aftercare (principal) ==

== ENCOUNTER 2019-06-12 01:32 | Outpatient (CLI) | payer BC, SELFPAY ==
[2019-06-12 12:55] LABS: HCT 48.5 % (40.0-50.0); HGB 16.3 g/dL (13.5-17.5); Mean Corp. HGB Concentration 33.6 g/dL (32.0-36.0); Mean Corpuscular Hemoglobin 31.5 pg (27.0-33.0); Mean Corpuscular Volume 93.8 fL (80-95); Mean Platelet Volume 10.1 fL (8.0-11.0); Platelet Count 234 x1000/uL (130-400); RBC 5.17 m/cumm (4.50-6.00); RBC Distribution Width 13.7 % (11.8-14.1); White Blood Cell Count 6.28 k/cumm (4.4-10.8)
[2019-06-12 13:05] LABS: INR 1.1 (0.9-1.1); Prothrombin Time 10.6 sec (9.3-11.0)
[2019-06-12 13:19] LABS: Calculated LDL 39 mg/dL; Cholesterol 101 mg/dL (50-200); HDL Cholesterol 46 mg/dL (40-60); Triglyceride 83 mg/dL (30-150)
== END 2019-06-12 01:52 ==
PROVIDERS: PCP Emergency Medicine; Visit Provider Emergency Medicine
DX: I24.9 Acute ischemic heart disease, unspecified (principal); R23.8 Other skin changes
CPT/HCPCS: 36415; 80061; 85027; 85610

== ENCOUNTER 2019-10-22 19:01 | Emergency (ER) | payer OTHER, SELFPAY ==
--- NOTE | 2019-10-22 19:00 | DI.RAD_ITS ---
EXAM: XR HIP LT COMPLETE AP PELVIS INDICATION: fall, left hip pain, s/p ORIF. COMPARISON: LEFT HIP 1 VIEW from 10/13/2015 TECHNIQUE: 2D digital imaging was performed. FINDINGS: Intramedullary amalia and compression screw are again noted. There is an old healed proximal femoral fr acture. No new femoral fracture is seen. There is been no change in the hardware alignment. The hi p joint space is well maintained. There is no widening of the SI joints or pubic symphysis. Degener ative changes are noted in the lower lumbar spine. IMPRESSION: No acute abnormality. DATA REPOSITORY: RADIATION DOSE DELIVERED:
[2019-10-22 19:03] VITALS: PULSE 74; RESP 16; TEMP 36.8; O2SAT 97
--- NOTE | 2019-10-22 19:54 | DI.VRAD_ITS ---
Addendum created by Trent Kaur MD on 10/22/2019 9:25:38 PM EST Please see the report of the CT scan of the left lower extremity of 10/22/2019 for description of a minimally displaced left acetabular fracture. Initial report created on 10/22/2019 7:53:48 PM EST PROCEDURE INFORMATION: Exam: XR Left Hip with Pelvis when Performed Exam date and time: 10/22/2019 7:25 PM Age: 63 years old Clinical indication: Other: Fall, lt hip pain, S/P orif in 2014 TECHNIQUE: Imaging protocol: XR Left hip with pelvis when performed. Views: 2 or 3 views. COMPARISON: CR LEFT HIP 1 VIEW 10/13/2015 9:30 AM FINDINGS: Bones/joints: Bone mineralization is normal. There has been ORIF of a left intertrochanteric femoral fracture. And orthopedic nail is seen transfixing the left intertrochanteric femoral region and femoral head. There is a long intramedullary amalia extending to the supracondylar region of the left femur. No acute fractures identified. The orthopedic hardware appears in stable, expected position. There is no evidence of dislocation of the left hip or pelvis. 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 There is degenerative disc disease of the lower lumbar and lumbosacral spine. Soft tissues: Unremarkable. Vasculature: Prostatic calcifications overlie the symphysis pubis. IMPRESSION: 1. No acute fracture or dislocation. 2. Status post ORIF of an old, healed fracture of the left proximal femur without evidence of complication. 3. Degenerative disc disease and spondylosis at the lumbosacral junction. Dictated and Authenticated by: Trent Kuar MD. Ordering:ANNIE Katz MD
--- NOTE | 2019-10-22 19:58 | W.ED.GENAD ---
Discharge Plan Disposition Patient Disposition: HOME Discharge Details Chief Complaint: Orthopedic Clinical Impression: Closed pelvic fracture Primary Care Provider: Jadiel Gregorio ED Provider: Sterling Go Home Meds and New Rx's Prescriptions: No Action potassium 99 mg tablet 2.5 meq PO DAILY RF: 0 nitroglycerin [Nitrostat] 0.4 mg tablet, sublingual 0.4 mg SL Q5-15M PRN (Reason: chest pain) Qty: 20 RF: 0 aspirin 81 mg tablet,chewable 81 mg PO DAILY RF: 0 clopidogrel [Plavix] 75 mg tablet 75 mg PO DAILY RF: 0 atorvastatin [Lipitor] 80 mg tablet 80 mg PO DAILY RF: 0 amlodipine 2.5 mg tablet 2.5 mg PO DAILY Qty: 90 RF: 3 multivitamin [Daily Multi-Vitamin] 1 EACH tablet 1 ea PO DAILY RF: 0 hydrochlorothiazide 25 mg tablet 25 mg PO QAM Qty: 90 RF: 4 metoprolol succinate 50 mg tablet extended release 24 hr 50 mg PO DAILY Qty: 90 RF: 3 Discharge Instructions Instructions: Pelvic Fracture (ED) Additional Instructions: Your x-rays/CAT scans are significant for a fracture involving the socket of your pelvis. This is a nonsurgical injury. Discussed these findings with the on-call orthopedist Dr. Whiting. He recommends weightbearing as tolerated with a Anurag and/or walker. Take Tylenol 1000 mg every 8 hours for pain. If pain becomes severe despite rest and Tylenol return to the emergency department or contact your primary care provider's office. Ortho will contact you within the next 5 to 7 days for follow-up. Referrals: Corey Jama MD [ [facility] STAFF PHYSICIAN] - 1 week Discharge Data Discharge Date/Time-TO BE ENTERED AT DEPARTURE: 10/22/19 22:20 Medical Decision Making This is a nontoxic-appearing 63-year-old male who presents to the emergency department status post fall status post slipping on the ice. His initial x-ray is negative for acute fracture involving the proximal left femur. ORIF hardware intact. Attempted to have patient place full weight on his left lower extremity and was unable to do so secondary to pain. Therefore was decided to pursue CT scan. CT scan of his lower extremity demonstrates a acute traumatic fracture of the left acetabular roof extending down the anterior acetabular pillar with minimal separation. This is not seen on plain films. Case discussed with Dr. Whiting from orthopedics. He recommends weightbearing as tolerated and DVT prophylaxis with baby aspirin. Patient already on aspirin and Plavix. Discussed findings with the patient and the need for Ortho follow-up. He is comfortable with this plan and will be discharged home [facility] General Date/Time Provider Initiated Documentation: 10/22/19 19:10. HPI Narrative: Patient is a 63-year-old male with significant past medical history status post left ORIF for hip fracture presents to the emergency department status post fall. Patient states that he slipped on the ice landing on his left hip. He had pain along the posterior lateral aspect of his left hip. No groin pain. Is been unable to place weight over the extremity. He denies any head injury or LOC. Has not taken anything for the pain. Related Data Home Medications Medication Instructions Recorded Confirmed multivitamin [Daily Multi-Vitamin] 1 ea PO DAILY 09/27/15 10/22/19 hydrochlorothiazide 25 mg tablet 25 mg PO QAM #90 tab-cap 01/30/19 10/22/19 nitroglycerin 0.4 mg sublingual 0.4 mg SL Q5-15M PRN #20 tab 03/30/19 10/22/19 tablet potassium 99 mg tablet 2.5 meq PO DAILY 03/30/19 10/22/19 amlodipine 2.5 mg tablet 2.5 mg PO DAILY #90 tab 04/08/19 10/22/19 aspirin 81 mg chewable tablet 81 mg PO DAILY 04/08/19 10/22/19 atorvastatin 80 mg tablet 80 mg PO DAILY 04/08/19 10/22/19 clopidogrel 75 mg tablet 75 mg PO DAILY 04/08/19 10/22/19 metoprolol succinate 50 mg 50 mg PO DAILY #90 tab 09/09/19 10/22/19 tablet,extended release 24 hr Previous Rx's Medication Instructions Recorded hydrochlorothiazide 25 mg tablet 25 mg PO QAM #90 tab-cap 01/30/19 nitroglycerin 0.4 mg sublingual 0.4 mg SL Q5-15M PRN #20 tab 03/30/19 tablet amlodipine 2.5 mg tablet 2.5 mg PO DAILY #90 tab 04/08/19 metoprolol succinate 50 mg 50 mg PO DAILY #90 tab 09/09/19 tablet,extended release 24 hr Allergies Allergy/AdvReac Type Severity Reaction Status Date / Time cyclobenzaprine Allergy Unknown Itching Verified 10/22/19 19:17 enoxaparin AdvReac Severe Thrombocyto Verified 10/22/19 19:17 penia ropinirole AdvReac Severe severe Verified 10/22/19 19:17 twitching all over General Stated Complaint: Orthopedic ANDRA: 3 Review of Systems Musculoskeletal Musculoskeletal: Reports abnormal gait, Denies deformity, Reports limited range of motion, Denies muscle weakness, Denies numbness and Denies tingling Neurologic Neurologic: Reports abnormal gait, Denies numbness and Denies tingling [facility] Medical History Acute coronary syndromes (Acute) LAD stent Asthma GERD (gastroesophageal reflux disease) HTN (hypertension) Sleep apnea Surgical History Arthroplasty of knee Colonoscopy - MAC (05/31/17) 03/10/2010 Fracture, Open Treatment 12/06/14; FIRST METATARSAL 06/12/15; LEFT FEMUR FX MPI (~12/2011) NEG José Fundoplication (~11/1998) Repair of inguinal hernia (~1999) LEFT Vasectomy Family History FAMILY HISTORY Heart disease Mother Neoplasm BREAST Father Heart disease Grandmother Neoplasm BREAST Son No problems noted. Daughter No problems noted. Maternal Aunt Neoplasm BREAST Maternal Aunt Neoplasm BREAST Social History Smoking/Tobacco Use Status: Never Alcohol Intake: current Alcohol Intake frequency: a few times a week Alcohol type: beer Drug use: Current Sobriety Do you feel safe at home: Yes Do you feel safe in your relationship?: Yes Exam Const General: cooperative, comfortable and no acute distress Orientation: alert, awake and oriented x3 HENMT Head: normal to inspection, no palpable skull fracture, normocephalic and atraumatic Eyes General: appearance normal, both eyes and all related structures Neck Neck: normal visual inspection and full ROM Chest Chest: normal inspection of the chest and normal palpation of entire chest wall Resp Effort & Inspection: normal respiratory effort and able to speak in complete sentences Cardio Pulses: normal peripheral pulses Back/Spine/Pelvis Thoracic/Lumbar Spine: thoracic and lumbar spine normal to inspection Pelvis: no pain with anterior-posterior compression Skin Trauma: no lacerations or abrasions Neuro General: alert, awake and oriented x3 Cranial Nerves: CN's II-XI intact bilaterally Motor: muscle tone normal throughout Sensory Exam: no sensory deficits noted Extrem Left lower extremity: full ROM and hip/thigh Details: tenderness Location: of the hip Location: laterally, posteriorly and over the great trochanter and normal ROM; no abrasions, no ecchymosis and no crepitus Course Vital Signs Vital signs: Vital Signs Temperature 36.8 C 10/22/19 19:03 Pulse 74 10/22/19 19:03 Respiratory Rate 16 10/22/19 19:03 Pulse Oximetry 97 10/22/19 19:03 Temperature 36.8 C 10/22/19 19:03 Temperature Source Skin 10/22/19 19:03 Pulse 74 10/22/19 19:03 Respiratory Rate 16 10/22/19 19:03 Respiratory Effort 10/22/19 19:03 Pulse Oximetry 97 10/22/19 19:03 Oxygen Delivery Method Room Air 10/22/19 19:03 Oxygen Flow Rate 0 10/22/19 19:03 Pain Level 3 10/22/19 19:03
[2019-10-22] MEDS: Ketorolac 15 MG/ML VIAL IVP (20:02)
[2019-10-22 20:15] VITALS: BP 133/66; PULSE 57; RESP 16; O2SAT 95
--- NOTE | 2019-10-22 20:27 | NUR.NOTE ---
Nursing Note: Attempted to ambulate patient per providers orders. Pt able to stand with minimal weightbearing, but unable to ambulate due to pain. Provider informed.
[2019-10-22 20:30] VITALS: BP 139/66; PULSE 61; RESP 16; O2SAT 97
--- NOTE | 2019-10-22 20:52 | DI.CT_ITS ---
EXAM: CT LOWER EXTREMITY LT WO CLINICAL HISTORY: severe left hip pain, unable to WB, s/p ORIF TECHNIQUE: Noncontrast. The field of view includes above the acetabulum through the proximal femora l shaft. FINDINGS: There is a nondisplaced fracture through the anterior column of the acetabulum which extends to invo lve a small portion of the acetabular roof. There is no significant separation at the articular surfa ce. Orthopedic hardware is again noted in the left proximal femur. No acute femoral fracture is seen . IMPRESSION: Nondisplaced fracture of the anterosuperior acetabulum.
[2019-10-22 21:00] VITALS: BP 133/75; PULSE 56; RESP 16; O2SAT 96
--- NOTE | 2019-10-22 21:22 | DI.VRAD_ITS ---
PROCEDURE INFORMATION: Exam: CT Left Lower Extremity Without Contrast, Hip Exam date and time: 10/22/2019 8:46 PM Age: 63 years old Clinical indication: Patient HX: Severe left hip pain. Unable to weight bear, S/P orif. TECHNIQUE: Imaging protocol: CT of the Left lower extremity without contrast was performed. Exam focused on the hip. Radiation optimization: All CT scans at this facility use at least one of these dose optimization techniques: automated exposure control; mA and/or kV adjustment per patient size (includes targeted exams where dose is matched to clinical indication); or iterative reconstruction. COMPARISON: CR XR HIP LT COMPLETE AP PELVIS 10/22/2019 7:24 PM FINDINGS: Bones/joints: There has been ORIF of a proximal left femoral intertrochanteric fracture. And orthopedic pin is seen transfixing the left femoral neck and head. There is a long intramedullary amalia in expected position. Its distal tip is not included in the CT study, but is seen in the comparison digital examination of 10/22/2019. There is a minimally displaced acute traumatic fracture of the left acetabular roof extending down the anterior pillar of the citalopram. Some cortical step-offs are seen. This fracture is not clearly seen on the comparison plain film examination of 10/22/2019. There is no evidence of dislocation at the left hip joint. Soft tissues: There is mild hemarthrosis. IMPRESSION: 1. Acute traumatic fracture of the left acetabular roof extending down the anterior acetabular pillar with minimal separation of a bony fragment. 2. Mild hemarthrosis. Dictated and Authenticated by: Trent Kaur MD. Ordering:ANNIE Katz MD
[2019-10-22 22:15] VITALS: BP 135/66; PULSE 56; RESP 16; O2SAT 95
== END 2019-10-22 22:20 | disposition home or self-care (01) ==
PROVIDERS: Emergency Provider Physician Assistant; PCP Emergency Medicine
DX: M25.552 Pain in left hip (principal); S32.435A Nondisplaced fracture of anterior column [iliopubic] of left acetabulum, initial encounter for closed fracture; W00.0XXA Fall on same level due to ice and snow, initial encounter; Y99.0 Civilian activity done for income or pay; I10 Essential (primary) hypertension
CPT/HCPCS: 96374; 99284; 73502; 73700; E0114; J1885

== ENCOUNTER 2019-12-22 12:59 | Outpatient (CLI) | payer OTHER, SELFPAY ==
--- NOTE | 2019-12-22 12:45 | DI.RAD_ITS ---
EXAM: XR PELVIS AP CLINICAL HISTORY: fu pelvis fracture TECHNIQUE: COMPARISON: LEFT FEMUR from 06/12/2015 LEFT HIP 1 VIEW from 09/01/2015 XR HIP LT COMPLETE AP PELVIS from 10/22/2019 FINDINGS: Single AP view was obtained. There is no significant change in alignment of previously noted gamma n ail of the left femur. Previously noted acetabular fracture appears unchanged in alignment in compar talya with the examination of October 22. No additional new findings. IMPRESSION:
== END 2019-12-22 13:19 ==
PROVIDERS: PCP Emergency Medicine; Visit Provider Student in an Organized Health Care Education/Training Program
DX: S32.435D Nondisplaced fracture of anterior column [iliopubic] of left acetabulum, subsequent encounter for fracture with routine healing (principal)
CPT/HCPCS: 72170

== ENCOUNTER 2020-04-27 12:46 | Outpatient (REF) | payer BC, SELFPAY ==
[2020-04-27 23:38] LABS: Anion Gap 9.2 mmol/L (3-11); BUN 22 mg/dL (7-18); CO2 27.8 mmol/L (21.0-32.0); CREATININE 1.12 mg/dL (0.70-1.30); Calcium 9.3 mg/dL (8.5-10.1); Calculated LDL 66 mg/dL (<100); Chloride 106 mmol/L (98-107); Cholesterol 136 mg/dL (<200); Glucose 89 mg/dL (74-106); HDL Cholesterol 48 mg/dL (40-60); Potassium 3.7 mmol/L (3.5-5.1); Sodium 143 mmol/L (136-145); Triglyceride 110 mg/dL (<150)
[2020-04-28 18:09] LABS: PSA, Screening 0.3 ng/mL (0.0-4.5)
== END 2020-04-27 13:06 ==
LOC: LBN 12:46
PROVIDERS: PCP Emergency Medicine; Visit Provider Emergency Medicine
DX: I25.119 Atherosclerotic heart disease of native coronary artery with unspecified angina pectoris (principal); I10 Essential (primary) hypertension; Z12.5 Encounter for screening for malignant neoplasm of prostate
CPT/HCPCS: 80048; 80061; 84153

== ENCOUNTER 2020-05-09 00:41 | Outpatient (CLI) | payer BC, SELFPAY ==
--- NOTE | 2020-05-09 07:15 | DI.NM_ITS ---
APPROVED REPORT Exam: Pharmacologic Patient Location: Out-Patient Room/Bed: Stress Nurse: Kina Caban RN BMI: 40.34 Baseline Rhythm: Sinus Rhythm, RBBB Indications: Patient reports intermittent left sided chest ???aching??? pain with both rest and activ ity (lasting approximately 15 seconds), similar to symptoms prior to his stent placements. He also st ates he has been having episodes where he ???feels like my heart beat is up into my throat???, and he just feels odd when this happens. Medical History Cardiac Medications: Atorvastatin, Amlodipine, Metoprolol, Aspirin, Hydrochlorothiazide, Nitroglyceri ne. Allergies: Enoxaparin, Ropinirole, Cyclobenzaprine. Cardiac Risk Factors: FHX of CAD, HTN, Hyperlipidemia, Asthma Previous Cardiac Procedures: PCI, Stent placement X2 in March of 2019 per patient. Pretest Chest Pain Characteristics: None reported per patient. Exercise History: Sedentary Physical Disabilities: Knees, Back. Lung Sounds: Clear to auscultation Heart Sounds: Regular Stress Test Details Test: Pharmacologic stress testing performed using 0.4 mg of regadenoson per 5 mL given IV over 10 s econds. Reason for pharmacologic stress test: physical limitation. Nuclear Acquisition: Rest Tc-99m/Stress Tc-99m 1 day Rest Isotope: Tc-99m Sestamibi. Dose: 12.1 Date: 05/09/2020 Injection Time: 0910 Stress Isotope: Tc-99m Sestamibi. Dose: 37.3 Date: 05/09/2020 Injection Time: 1115 HR Resting HR Supine: 56 bpm Max Heart Rate (APMHR): 155 bpm Target HR (85% APMHR): 131 bpm Max HR Achieved: 85 bpm % of APMHR: 54 BP Resting BP Supine: 144/82 mmHg Max BP: 150/86 mmHg ECG Resting ECG: Sinus Rhythm, RBBB Comment: Noted T wave inversion in lead V2 post Lexiscan injection--remained inverted throughout stre ss test. ST Change: No significant St segment wave changes noted. Arrhythmia: None Recovery ECG: Sinus Rhythm Recovery ST Change: Normal Recovery Arrhythmia: None Clinical Stress Symptoms: No symptoms reported per patient. Stress ECG Conclusion 1. This is a pharmacological stress test. 2. There was no symptoms suggestive of ischemia. 3. The EKG portion of this exam is nondiagnostic. Stress Test Summary STAGE HR BP Symptoms NOTES Supine 56 144/82 1 min post Lexiscan injection 72 150/86 3 min post Lexiscan injection 76 140/90 6 min post Lexiscan injection 75 144/76 9 min post Lexiscan injection 69 142/80 MPI Conclusion Ejection fraction was 54% with stress. There were no wall motion abnormalities. There is no evidence of ischemia on the imaging portion of the exam. This represents a normal SPECT stress test. Radiologist Interpretation Radiologist agrees with Statistician [employer]'s Interpretation. Radiologist Interpretation by: Chuck Omer MD Interpretation Date/Time: 05/09/2020 14:44:55
[2020-05-09] MEDS: Regadenoson 0.4 MG/5 ML SYR IVP (11:56)
== END 2020-05-09 01:01 ==
PROVIDERS: PCP Emergency Medicine; Visit Provider Emergency Medicine
DX: R07.89 Other chest pain (principal); Z95.5 Presence of coronary angioplasty implant and graft; Z82.49 Family history of ischemic heart disease and other diseases of the circulatory system; I10 Essential (primary) hypertension; E78.5 Hyperlipidemia, unspecified; I45.19 Other right bundle-branch block
CPT/HCPCS: 78452; 93017; J2785

== ENCOUNTER 2021-03-17 13:17 | Outpatient (CLI) | payer BC, SELFPAY ==
--- NOTE | 2021-03-17 | DI.RAD_ITS ---
Exam(s) XR HUMERUS LT EXAM: XR HUMERUS LT CLINICAL HISTORY: LT ARM PAIN, M79.602. TECHNIQUE: 2D digital imaging was performed. COMPARISON: No exams were available for comparison FINDINGS: BONES: No acute fracture is present. No bony destructive lesion is seen. Mild degenerative changes a t the glenohumeral joint with spurring at the undersurface of the acromion and AC joint. Elbow joint unremarkable. SOFT TISSUE: Normal. IMPRESSION: Degenerative changes of the shoulder. DATA REPOSITORY: RADIATION DOSE DELIVERED:
--- NOTE | 2021-03-17 | DI.RAD_ITS ---
Exam(s) XR FOREARM LT EXAM: XR FOREARM LT CLINICAL HISTORY: ARM PAIN LT, M79.602. TECHNIQUE: 2D digital imaging was performed. COMPARISON: CR XR HUMERUS LT from 03/17/2021 FINDINGS: BONES: No acute fracture is present. No bony destructive lesion is seen. Visualized portion of elbow and wrist joints are unremarkable. SOFT TISSUE: Small metallic bony density seen in the ne medial distal subcutaneous fat. IMPRESSION: Small metallic foreign body. No fracture dislocation. DATA REPOSITORY: RADIATION DOSE DELIVERED:
--- NOTE | 2021-03-17 16:35 | DI.VRAD_ITS ---
PROCEDURE INFORMATION: Exam: XR Left Humerus Exam date and time: 03/17/2021 4:01 PM Age: 65 years old Clinical indication: Other: Left arm pain after fall last week TECHNIQUE: Imaging protocol: XR Left humerus. Views: 2 or more views. COMPARISON: CR LEFT SHOULDER COMPLETE 06/12/2015 12:55 PM FINDINGS: Bones/joints: No evidence for a fracture, Soft tissues: Unremarkable. IMPRESSION: Unremarkable radiographic study. No fracture identified. Dictated and Authenticated by: Thai Garcia MD. Ordering:MABEL Stout MD
--- NOTE | 2021-03-17 16:35 | DI.VRAD_ITS ---
PROCEDURE INFORMATION: Exam: XR Left Forearm Exam date and time: 03/17/2021 4:01 PM Age: 65 years old Clinical indication: Patient HX: Left arm pain after fall last week. TECHNIQUE: Imaging protocol: XR Left forearm. Views: 2 views. COMPARISON: No relevant prior studies available. FINDINGS: Bones/joints: No evidence for a fracture. Alignment is anatomic. Soft tissues: Unremarkable. IMPRESSION: Unremarkable radiographic study. No fracture identified. Dictated and Authenticated by: Thai Garcia MD. Ordering:MABEL Stout MD
== END 2021-03-17 13:37 ==
PROVIDERS: PCP Emergency Medicine; Visit Provider Physician Assistant Medical
DX: M79.602 Pain in left arm (principal); M19.012 Primary osteoarthritis, left shoulder; M79.5 Residual foreign body in soft tissue
CPT/HCPCS: 73060; 73090

== ENCOUNTER 2021-03-28 09:39 | Outpatient (CLI) | payer BC, SELFPAY ==
--- NOTE | 2021-03-28 13:30 | DI.MRI_ITS ---
Exam(s) MR UPPER JOINT LT WO EXAM: MR UPPER JOINT LT WO CLINICAL HISTORY: S59.842A L ARM INJURY S46.212A STRAIN OF MUSCLE, FASCIA AND TENDON TECHNIQUE: Multiplanar multisequence MRI of the shoulder was performed. COMPARISON: CR,XR XR HUMERUS LT from 03/17/2021 CR,XR XR FOREARM LT from 03/17/2021 CR,XR XR FOREARM LT from 03/17/2021 CR,XR XR HUMERUS LT from 03/17/2021 FINDINGS: MARROW:There is no evidence of fracture,, bone contusion, nor significant osseous lesions ARTICULATIONS: No significant elbow joint effusion evident MEDIAL EPICONDYLE/COMMON FLEXOR TENDON: No significant findings MEDIAL COLLATERAL LIGAMENT COMPLEX: The anterior bundle between the medial epicondyle to the sublime tubercle of the coronoid process of the ulna is intact. The posterior bundle is also intact. LATERAL EPICONDYLE/COMMON EXTENSOR TENDON: There is fluid signal abnormality at the attachment site o f the common extensor tendon to the lateral epicondyle, consistent with focal tearing. LATERAL COLLATERAL LIGAMENT COMPLEX: No significant findings. TRICEPS TENDON: No significant findings. BRACHIALIS TENDON: No significant findings. BICEPS BRACHII TENDON: There is a full-thickness tear of the biceps tendon at the level of the radial tuberosity. The tendon is torn and retracted approximately 5 centimetres. There is also edema in t he musculotendinous junction of the biceps. CUBITAL TUNNEL: Ulnar nerve exhibits normal appearance and position no evidence of impingement. IMPRESSION: 1. There is a full-thickness tear of the distal biceps tendon. The tendon is retracted approximately 5 centimetres. There is no abnormal intraosseous signal at the level of the radial tuberosity itsel f. 2. Lateral epicondylitis with partial tearing of the common extensor tendon attachment. 3. No collateral ligament tears evident. DATA REPOSITORY:
--- NOTE | 2021-03-28 16:38 | DI.VRAD_ITS ---
PROCEDURE INFORMATION: Exam: MR Left Upper Extremity Joint Without Contrast; Elbow Exam date and time: 03/28/2021 4:11 PM Age: 65 years old Clinical indication: Pain; Elbow; Left; Patient HX: Recent injury TECHNIQUE: Imaging protocol: MR of the Left upper extremity without contrast. Exam focused on the elbow. COMPARISON: CR XR FOREARM LT 03/17/2021 4:10 PM FINDINGS: Bones and cartilage: Normal Joint spaces: Normal Ulnar (medial) collateral ligament: Unremarkable. No tear. Radial collateral ligament of the elbow: Unremarkable. No tear. Annular ligament of the radius: Unremarkable. No tear. Tendon of the biceps brachii: Full-thickness tear of the biceps tendon from its attachment to the bicipital tuberosity of the radius. Torn tendon is retracted approximately 5 cm and the retracted portion of the tendon is thickened and irregular and surrounded by soft tissue thickening and edema. No fluid collection is identified and no discrete hematoma is identified. There is edema in the distal myotendinous junction of the biceps muscle. Heterogeneous appearance of the biceps aponeurosis suspicious for partial tearing. Tendon of the brachialis: Unremarkable. No tear. Triceps tendon: Unremarkable. No tear. Common flexor tendon: Unremarkable. No tear. Common extensor tendon: Thickening and increased T2 signal of the common extensor tendon where it attach is to the humerus with fluid along the undersurface attachment consistent with focal tearing. The fluid is signal measures approximately 9 mm by 4 mm by 8 mm in craniocaudad, transverse, and AP dimension.. Muscles: Edema in the distal myotendinous biceps muscle. Soft tissues: Unremarkable. IMPRESSION: 1. Full-thickness tear of the distal biceps tendon from its attachment to the radius with approximately 5 cm of retraction 2. Probable partial tearing of the biceps aponeurosis 3. Lateral epicondylitis with high-grade partial tearing the common extensor tendon attachment at the humerus. Dictated and Authenticated by: Tasia Lund MD. Ordering:YESSICA Desai MD
== END 2021-03-28 09:59 ==
PROVIDERS: PCP Emergency Medicine; Visit Provider Physician Assistant
DX: S46.212A Strain of muscle, fascia and tendon of other parts of biceps, left arm, initial encounter (principal); M77.12 Lateral epicondylitis, left elbow; X58.XXXA Exposure to other specified factors, initial encounter
CPT/HCPCS: 73221

== ENCOUNTER 2021-03-29 11:24 | Outpatient (CLI) | payer BC, SELFPAY ==
[2021-03-29 11:52] LABS: Source Nasal/Nares
[2021-03-29 14:24] LABS: COVID-19 PCR Negative (Negative)
== END 2021-03-29 11:25 | disposition home or self-care (01) ==
LOC: LBO 11:25
PROVIDERS: PCP Emergency Medicine; Visit Provider Student in an Organized Health Care Education/Training Program
DX: Z20.822 Contact with and (suspected) exposure to COVID-19 (principal); Z01.818 Encounter for other preprocedural examination
CPT/HCPCS: 87635

== ENCOUNTER 2021-03-30 09:17 | Day surgery (SDC) | payer BC, SELFPAY ==
[2021-03-30] VITALS (9 sets, daily range): BP systolic 109–151; BP diastolic 65–83; PULSE 63–72; RESP 10–16; TEMP 36.3–36.7; O2SAT 94–97; BMI 42.0
[2021-03-30] MEDS: Lactated Ringers 1,000 ML 100 ML IV (10:19)
--- NOTE | 2021-03-30 10:30 | RT.EKG_ITS ---
APPROVED REPORT Exam: Resting ECG Reason for Exam: Preop Testing, Cardiac History Patient Location: O HR:62 bpm ECG Measurements Heart Rate 62 AXIS DE 187 P 47 QRSd 136 QRS -33 QT 438 T 8 QTc 443 Conclusion Sinus rhythm...normal P axis, V-rate 60- 99 Right bundle branch block...QRSd>120, terminal axis(90,270)
--- NOTE | 2021-03-30 10:32 | ANES.PREOP_ITS ---
General Info Date of Service Date Performed: 03/30/21 Height: 5 ft 6 in Weight: 118.2 kg Body Mass Index (BMI): 42.0 Surgical Procedure: Operation Date: 03/30/21 10:25 Proposed Procedures Side Surgeon p Distal Biceps Tendon Repair, PA Assist Left Kevin Whiting MD Meds Allergies and Home Medications Allergies Allergy/AdvReac Type Severity Reaction Status Date / Time cyclobenzaprine Allergy Unknown Itching Verified 03/30/21 09:29 enoxaparin AdvReac Severe Thrombocyto Verified 03/30/21 09:29 penia ropinirole AdvReac Severe severe Verified 03/30/21 09:29 twitching all over Home Medication Medication Instructions Recorded multivitamin [Daily Multi-Vitamin] 1 ea PO DAILY 09/27/15 potassium 99 mg tablet 2.5 meq PO DAILY 03/30/19 aspirin 81 mg chewable tablet 81 mg PO DAILY #90 tab 08/02/20 nitroglycerin 0.4 mg sublingual 0.4 mg SL Q5-15M PRN #20 tab 02/14/21 tablet metoprolol succinate 50 mg 25 mg PO HS tab 03/28/21 tablet,extended release 24 hr amlodipine 2.5 mg PO HS 03/29/21 atorvastatin 20 mg PO HS 03/29/21 hydrochlorothiazide 25 mg PO QAM 03/29/21 Current Visit Medications: Current Medications Generic Name Dose Route Start Last Admin Trade Name Freq PRN Reason Stop Dose Admin Ringer's Solution 1,000 mls @ 100 mls/hr 03/30/21 06:00 03/30/21 10:19 IV 04/28/21 23:59 100 mls/hr INFUSION TIM Administration Cefazolin Sodium 3,000 mg/ 100 mls @ 200 mls/hr 03/30/21 06:00 Sodium Chloride IVPB 03/30/21 16:00 PREOP TIM IV Miscellaneous Supplies 1 each 03/30/21 06:00 Iv Access IV 04/28/21 23:59 DIRECTED TIM Sodium Chloride 0 ml 03/30/21 06:00 Normal Saline Flush 10 Ml Syr IV 04/28/21 23:59 PRN PRN Sodium Chloride 0 ml 03/30/21 06:00 Normal Saline 10 Ml Vial IJ 04/28/21 23:59 DIRECTED PRN Sterile Water 0 ml 03/30/21 06:00 Water,Injection,Sterile 10 Ml Vial IJ 04/28/21 23:59 DIRECTED PRN [facility] Active Problems Active Problems: Problem Status Onset Code Microhematuria 02/09/14 R31.29 Sleep apnea, unspecified 01/25/17 G47.30 Polyp of colon K63.5 Polymyalgia rheumatica M35.3 Myoclonic jerking while sleeping 09/27/15 G25.3 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 Mild intermittent asthma without complication 05/08/16 J45.20 Microhematuria 01/25/17 R31.29 Increased body mass index R63.8 Iatrogenic pulmonary embolism and infarction 07/25/79 T81.718A, I26.99 Hypertension I10 Gastroesophageal reflux disease K21.9 Fracture of right hip 09/27/15 S72.001A Dyspnea on effort 05/08/16 R06.09 Depressive disorder F32.9 BPH without urinary obstruction N40.0 Status post vasectomy Z98.52 Status post inguinal hernia repair Z98.890, Z87.19 Status post José fundoplication Z98.890 Hyperuricemia E79.0 History of orthopedic surgery 06/13/15 Z98.890 History of open reduction and internal fixation (ORIF) procedure Z98.890 History of lumbar discectomy Z98.890 History of arthroscopy of knee Z98.890 Chest pain at rest R07.9 DVT prophylaxis Z29.9 Discharge planning issues Z02.9 Closed pelvic fracture 10/22/19 S32.9XXA 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 Walter last seen 01/2021 doesnt need to f/u for 1 year Angina concurrent with and due to arteriosclerosis of coronary artery Asthma GERD (gastroesophageal reflux disease) History of herniated intervertebral disc patient reports 03/2008 HTN (hypertension) Rupture of left distal biceps tendon Sleep apnea Surgical History Surgical History Arthroplasty of knee Colonoscopy - MAC (05/31/17) 03/10/2010 Fracture, Open Treatment 12/06/14; FIRST METATARSAL 06/12/15; LEFT FEMUR FX MPI (~12/2011) NEG José Fundoplication (~11/1998) Repair of inguinal hernia (~1999) LEFT Vasectomy Tobacco Smoking/Tobacco Use Status: Never Alcohol Alcohol Intake: current Alcohol intake frequency: a few times a week Alcohol type: beer Substance Use Substance use: Current Sobriety Substance use type: does not use Vital Signs and Lab Results Vital Signs Most Recent Vital Signs in EMR: Most Recent Vital Signs Temp Pulse Resp BP Pulse Ox 36.7 C 68 16 127/83 94 03/30/21 09:36 03/30/21 09:36 03/30/21 09:36 03/30/21 09:36 03/30/21 09:36 Lab Results Blood Type / Crossmatch: No Data to Display Complete Blood Count: No Data to Display Complete Metabolic Panel: No Data to Display Liver Function Panel: No Data to Display Coagulation Panel: No Data to Display Cardiac Panel: No Data to Display Arterial Blood Gas: No Data to Display Venous Blood Gas: No Data to Display Pancreas Panel: No Data to Display Thyroid Panel: No Data to Display Infectious Disease: Coronavirus (COVID-19)(PCR) Negative (Negative) 03/29/21 11:46 03/29/21 Coronavirus 2019 Source Nasal/Nares 03/29/21 11:46 03/29/21 Blood Cultures: No Data to Display Toxicology Panel: No Data to Display Imaging and Studies Imaging and Studies Stress Test Summary: Date of Exam: 05/09/20 Indications: Patient reports intermittent left sided chest ???aching??? pain with both rest and activity (lasting approximately 15 seconds), similar to symptoms prior to his stent placements. He also states he has been having episodes where he ???feels like my heart beat is up into my throat???, and he just feels odd when this happens. Stress ECG Conclusion 1. This is a pharmacological stress test. 2. There was no symptoms suggestive of ischemia. 3. The EKG portion of this exam is nondiagnostic. Echocardiogram Summary: Date of Exam: 04/03/19 Summary: 1. Left ventricle: The cavity size was normal. Wall thickness was increased in a pattern of mild LVH. Systolic function was normal. The estimated ejection fraction was 60-65%. Wall motion was normal; there were no regional wall motion abnormalities. 2. Right ventricle: The cavity size was normal. Systolic function was normal. 3. Pulmonary arteries: Pulmonary systolic pressure was increased, in the range of 40mm Hg to 45mm Hg. 4. Inferior vena cava: The vessel was patent and normal in size. The respirophasic diameter changes were in the normal range (greater than or equal to 50%), consistent with normal central venous pressure. Pulmonary Function Summary: DATE OF SERVICE: April 16, 2016 IMPRESSION: Mild obstructive airways disease with significant bronchodilator response. Elevated diffusion capacity sometimes can be seen with asthma. Therefore, clinical correlation recommended. If the diagnosis of asthma is in question and further clarification is needed, proceeding with methacholine challenge testing may prove to be useful. Anesthesia Assessment and Plan Anesthesia History Personal History: No History of Anesthesia Complications Family History: No Family History of Anesthesia Complications Exercise Tolerance Exercise Tolerance: Metabolic Equivalents>4 Pertinent Negatives Pertinent Negatives: No Symptoms of GERD Cardiac & Pulmonary Exam Cardiac Exam: Normal S1/S2 Heart Sounds Pulmonary Exam: Clear Bilateral Breath Sounds Airway Exam Known Difficult Airway: No Mallampati Class: 2 Mouth Opening: Normal (> 3cm) Thyromental Distance: Greater than 3 cm Neck Range of Motion: Full ROM Neck Circumference: Normal Teeth Condition: Normal Dentition ASA Classification ASA Score: ASA 3 Emergency Case?: No NPO Status NPO Status: NPO Clears >2 hours, Solids >8 hours Anesthesia Plan Resuscitation Status: Full Code Anesthesia Technique: General Anesthesia Airway Planned: LMA Monitors Used: Standard Monitors
--- NOTE | 2021-03-30 10:45 | DI.RAD_ITS ---
Exam(s) XR ELBOW LT LIMITED EXAM: XR ELBOW LT LIMITED CLINICAL HISTORY: Rupture of left distal biceps tendon. TECHNIQUE: 2D digital imaging was performed. COMPARISON: No exams were available for comparison FINDINGS: Fluoroscopy was provided intraoperatively during distal biceps tendon repair. Radiologist not present. Please refer to procedure report for details. IMPRESSION: Total fluoroscopy time 1:12 0.7 seconds Cumulative dose 0.40mGy DATA REPOSITORY: RADIATION DOSE DELIVERED:
--- NOTE | 2021-03-30 10:59 | NUR.NOTE ---
Fitted patient for left arm sling. DME paperwork signed by patient, need physician to sign.
--- NOTE | 2021-03-30 11:05 | NUR.NOTE ---
Nursing Note: Pt was brought over to the OR for Anesthesia to do a block. The MD has not been over to see the patient yet and surgical site has not been marked yet. Anesthesia was made aware and will touch base with MD. Also MD needs to sign the DME form for sling.
[2021-03-30] MEDS: ceFAZolin 3,000 MG in Normal Saline 100 ML 200 MG IVPB (11:33)
[2021-03-30] MEDS: Ketorolac 15 MG/ML VIAL IVP (14:13)
--- NOTE | 2021-03-30 14:14 | W.PM.DSUDISC ---
Discharge Plan Disposition Patient Disposition: HOME Condition: Stable Discharge Details Reason For Visit: L DISTAL TENDON BICEP REPAIR Attending Provider: Kevin Whiting Primary Care Provider: Jadiel Gregorio Home Meds and New Rx's Prescriptions: New naproxen 250 mg tablet 250 - 500 mg PO BID PRN (Reason: Moderate pain or swelling) Qty: 30 RF: 0 tramadol 50 mg Tablet 50 mg PO Q8H PRN PRN (Reason: severe pain) Qty: 12 RF: 0 Continued potassium 99 mg tablet 2.5 meq PO DAILY RF: 0 metoprolol succinate 50 mg tablet extended release 24 hr 25 mg PO HS RF: 0 multivitamin [Daily Multi-Vitamin] 1 EACH tablet 1 ea PO DAILY RF: 0 aspirin 81 mg tablet,chewable 81 mg PO DAILY Qty: 90 RF: 8 nitroglycerin [Nitrostat] 0.4 mg tablet, sublingual 0.4 mg SL Q5-15M PRN (Reason: chest pain) Qty: 20 RF: 0 atorvastatin 20 mg tablet 20 mg PO HS RF: 0 amlodipine 2.5 mg tablet 2.5 mg PO HS RF: 0 hydrochlorothiazide 25 mg tablet 25 mg PO QAM RF: 0 Discharge Instructions Additional Instructions: Surgery: Left distal biceps tendon repair Activity: May use hand and wrist for light activities of daily living. Do not lift any weight. Sling for 6 weeks when out of the home. Otherwise, may rest forearm on pillows or carry at your side. Recommend ice and elevation to minimize swelling and discomfort. Gently progress to full range of motion of the elbow. May start strengthening after 8 weeks. Gradual return to heavy lifting after 3 months. A physical therapy prescription will be sent electronically to start in a few weeks. Resume Aspirin 81 mg daily tomorrow morning Naproxen 250 mg take 1-2 every 12 hours with a meal as needed for moderate pain Tramadol 50 mg take 1 every 8 hours as needed for severe pain You may use [id number] Tylenol (acetaminophen) as needed for mild pain. These pain medications may be taken all at once or in different combinations as needed. Also, recommend Colace (docusate) as a stool softener as surgery and pain medicine cause constipation. Dressings: Leave dressing in place until follow-up. Keep clean and dry at all times. May shower after 5 days by covering operative site. May adjust, unwrapped, and rewrap Joe bandage as necessary for comfort. Follow-up: 10-[address] Whiting (10:45 AM on 04/12/21) Let us know right away if you develop any redness, drainage, fevers, chest pain, or trouble breathing. Do not drink alcohol or drive for at least 24 hours after anesthesia. Please call the office during business hours with any questions or concerns. Referrals: Kevin Whiting MD [ [facility] STAFF PHYSICIAN] - Discharge Orders Discharge Orders: Discharge Order (Routine); Ordered 03/30/21 Ordered By: Kevin Whiting DS: Diagnosis Discharge Diagnosis (1) Rupture of left distal biceps tendon: Status: Suspected
--- NOTE | 2021-03-30 14:15 | W.PM.OP ---
Date of service: 03/30/21 Time of Service: 12:00 Operative Note Operative Note DATE OF PROCEDURE: 03/30/21 PRE-OP DIAGNOSIS: Left distal biceps tendon rupture POST-OP DIAGNOSIS: same PROCEDURE: Left distal biceps tendon repair, CPT #57695 SURGEON: Kevin Whiting SOCIAL WORK ASSISTANT: Edward Wen ANESTHESIA TYPE: Local By Surgeon, General LMA/ETT and Primary Nerve Block Refer to Anesthesia Record ESTIMATED BLOOD LOSS: 15 PATHOLOGY: none sent TOURNIQUET TIME: 0 COMPLICATIONS: None Patient was transported to: PACU Patient's condition: stable Implants: Arthrex distal biceps button Indications: Please see complete medical record for details. Findings: Completely ruptured and moderately retracted and scarred distal biceps tendon Procedure Description: In the operating room, general anesthesia was induced. The patient was positioned supine on the operating room table. All bony prominences were well-padded. Preoperative antibiotics were administered. The upper extremity was prepped and draped in the usual sterile fashion. The correct patient, procedure, and side of the procedure were all verified prior to incision. Fluoroscopy was used to localize the radial tuberosity. 15 cc of 1% lidocaine containing epinephrine was infiltrated about the planned transverse incision distal to the antecubital fossa. Sharp incision was used through the skin followed by blunt dissection for all deeper layers. Superficial branching veins and nerves were released with Metzenbaums and retracted radially and laterally. The radial tuberosity was approached with the elbow in full supination. Careful hemostasis was achieved by avoiding branching vessels. The radial tuberosity was exposed and cleared of bursal tissue and minimal tendon remnant. Attention was then turned to finding the tendon, and it was located at the proximal margin of the incision and delivered in felxion into reach of a clamp. It was bulbous, enlarged and had adhesions to surrounding tissue. Once freed up, bulbous end was trimmed and sized to fit an 8 mm socket. Fiber loop FiberWire was used to prep the end of the tendon and it was placed into a 8 mm graft tube for sizing confirmation and compression. The tendon was then placed back in the wound out of the way. Retractors placed with minimal tension radially exposing the radial tuberosity once again and position and trajectory optimized. Proper location of the guidepin confirmed with AP fluoroscopy. The bicortical spade tip was then carefully drilled in an anterior to posterior direction taking care to stop immediately after penetrating the far cortex. An 8 mm low-profile reamer was then used over the spade tip guidewire to ream a unicortical socket while taking care to thoroughly irrigate and remove all bony debris and avoid any cortical perforation ulnarly or dorsally. The FiberWire suture ends were then passed appropriately through the cortical button. A free tapered needle was then used to pass the free end of each FiberWire back through the distal tendon stump a few centimeters proximally exiting just above the third to last whipstitch and repeated for each free end. The cortical button was then placed on the handle and manual tension placed on the sutures while the administrative sales assistant maintained appropriate supination and flexion. The spade tip guidewire was removed. The socket and wound were copiously irrigated exposing the prepared socket and bicortical path. The button was passed into the socket and through the far cortex. The handle was used to release the button and then downward pressure used to ensure the button deployed on the far side. The sutures were manually withdrawn as unit confirming button fixation and placement on the far cortex. Next, under direct visualization each free suture and was sequentially tensioned delivering the tendon end into the socket. An elevator was used to confirm no tendon catching socket edge and the tendon was fully seated in the socket with creep removed from the construct and tension maintained with the elbow flexed, pronated, and extended. Final AP and lateral fluoroscopy confirmed appropriate socket creation and hardware placement. Final tension was confirmed and the suture ends were securely tied together over the tendon maintaining compression into the socket. The elbow was tested through full extension and pronation and the tendon repair demonstrated excellent anatomy and secure fixation. The elbow was then bumped into gentle flexion to release tension from the repair. The wound was copiously irrigated with normal saline. There was excellent hemostasis deeply and superficially. Subcutaneous tissue was closed using 2-0 Monocryl. The skin was closed using skin glue followed by a Mepilex bandage. Given the stability of repair, the extremity was placed into a sling to maintain 90 degrees of flexion while allowing progressive early motion. Radial pulse was confirmed. The patient awoke from anesthesia without complication and was transferred to the recovery room in a stable condition.
--- NOTE | 2021-03-30 14:15 | W.ANESPOSTOP ---
Postoperative Evaluation Date, Time and Location Date Performed: 03/30/21 Time Performed: 14:00 Patient Location: Day Surgery Unit Vital Signs Most Recent Imported Vital Signs: Most Recent Vital Signs Temp Pulse Resp BP Pulse Ox 36.5 C 68 15 137/78 96 03/30/21 13:54 03/30/21 13:54 03/30/21 13:54 03/30/21 13:54 03/30/21 13:54 Pain Score Most Recent Pain Score: Most Recent Pain Score Pain Level 0 03/30/21 13:54 Assessment Mental Status: Awake (Alert & Oriented to Patient Baseline) Airway and Respiratory Function: Patent airway with normal (patient baseline) respiratory exam Cardiovascular Function: Hemodynamically Stable Hydration Status: Adequately Hydrated Nausea & Vomiting: No Nausea or Vomiting Pain: Pt. Denies Any Pain Peripheral Nerve Block: Regional nerve block not resolved at time of post operative discharge
--- NOTE | 2021-03-30 14:34 | W.ANESNERVE ---
Nerve Block Single Injection Procedure Date and Time Date Performed: 03/30/21 Procedure Start: 11:47 Location Where Procedure Performed Procedure Location: PACU Reason Performed: Postoperative Analgesia Requesting Provider: Kevin Whiting Timeout Performed Timeout Performed: Yes Monitoring Used ECG, Blood Pressure and SpO2 Sterility Sterility: Hand Hygiene, Surgical Cap, Surgical Mask, Sterile Gloves and Chlorhexidine Sedation Given During Procedure Sedation Given (Indicate Dose Given): Versed IV Dose:: 2mg versed Patient Mental Status Patient Mental Status: Awake Nerve Block 1st Nerve Block: Laterality: Left Block Type: Supraclavicular Needle / Catheter Used: 80mm SonoPlex II Local Anesthetic Bolus (Indicate Dose Given): Lidocaine used for local infiltration of skin, Injected in 3-5ml increments after negative blood aspiration, Bupivacaine 0.5% Dose:: 10mL and Exparel Dose:: 10mL Additives (Indicate Dose Given): None Ultrasound: Sterile probe cover and gel used Ultrasound Image Saved?: Yes Nerve Stimulator: Not Used Paresthesia: None Procedure Tolerated: No Complications and Patient tolerated well Procedure Outcome: Successful Performed By: Yesy Ceron Supervised By: Jordan Wolfe
[2021-03-30] MEDS: Acetaminophen 500 MG TAB 1000 MG PO (14:38)
== END 2021-03-30 15:32 | disposition home or self-care (01) ==
PROVIDERS: PCP Emergency Medicine; Visit Provider Student in an Organized Health Care Education/Training Program
PROC: (CPT 24341; principal; 2021-03-30 10:15)
DX: S46.212A Strain of muscle, fascia and tendon of other parts of biceps, left arm, initial encounter (principal); W10.9XXA Fall (on) (from) unspecified stairs and steps, initial encounter; I25.10 Atherosclerotic heart disease of native coronary artery without angina pectoris; I25.2 Old myocardial infarction; Z95.5 Presence of coronary angioplasty implant and graft; J45.909 Unspecified asthma, uncomplicated
CPT/HCPCS: 24342; 76942; 73070; 93005; 93010; J0690; J1100; J1885; J2001; J2250; J2405; J2704

== ENCOUNTER 2021-04-28 01:50 | Outpatient (CLI) | payer BC, SELFPAY ==
[2021-04-28 12:39] LABS: Anion Gap 9.6 mmol/L (3-11); BUN 21 mg/dL (7-18); CO2 27.4 mmol/L (21.0-32.0); CREATININE 1.3 mg/dL (0.70-1.30); Calculated LDL 59 mg/dL (<100); Chloride 105 mmol/L (98-107); Cholesterol 130 mg/dL (<200); Estimated GFR 55.23 (mL/min/1.73m2); Glucose 148 mg/dL (74-106); HDL Cholesterol 47 mg/dL (40-60); Potassium 3.6 mmol/L (3.5-5.1); Sodium 142 mmol/L (136-145); Triglyceride 122 mg/dL (<150)
== END 2021-04-28 01:51 | disposition home or self-care (01) ==
LOC: LOS 01:50
PROVIDERS: PCP Emergency Medicine; Visit Provider Emergency Medicine
DX: I10 Essential (primary) hypertension (principal); I24.9 Acute ischemic heart disease, unspecified
CPT/HCPCS: 36415; 80048; 80061

== ENCOUNTER 2022-02-27 15:12 | Outpatient (REF) | payer BC, SELFPAY | END 2022-02-27 15:13 | disposition home or self-care (01) | LOC: LBN 15:12 | PROVIDERS: PCP Nurse Practitioner Family; Visit Provider Family Medicine | DX: R31.9 Hematuria, unspecified (principal) | CPT/HCPCS: 87086 ==

== ENCOUNTER 2022-03-01 04:19 | Outpatient (CLI) | payer BC, SELFPAY ==
[2022-03-01 12:57] LABS: ALT 45 U/L (16-63); AST 28 U/L (15-37); Albumin 3.8 g/dL (3.4-5.0); Alkaline Phosphatase 85 U/L (46-116); Anion Gap 9.6 mmol/L (3-11); BUN 25 mg/dL (7-18); Bilirubin, Total 0.6 mg/dL (0.2-1.0); CO2 25.4 mmol/L (21.0-32.0); CREATININE 1.3 mg/dL (0.70-1.30); Calcium 9.4 mg/dL (8.5-10.1); Chloride 103 mmol/L (98-107); Estimated GFR 55.06 (mL/min/1.73m2); Glucose 100 mg/dL (74-106); Potassium 3.6 mmol/L (3.5-5.1); Sodium 138 mmol/L (136-145); Total Protein 7.6 g/dL (6.4-8.2)
[2022-03-01 13:12] LABS: Calculated LDL 57 mg/dL (<100); Cholesterol 128 mg/dL (<200); HDL Cholesterol 55 mg/dL (40-60); Triglyceride 80 mg/dL (<150)
[2022-03-01 22:49] LABS: PSA, Diagnostic 0.3 ng/mL (<=4.5)
[2022-03-02 09:56] LABS: HIV-1/2 Ag & Ab Screen Negative (Negative)
[2022-03-02 10:14] LABS: Hepatitis C Ab w Rflx HCV PCR Negative (Negative)
== END 2022-03-01 04:20 | disposition home or self-care (01) ==
LOC: LOS 04:19
PROVIDERS: PCP Nurse Practitioner Family; Visit Provider Family Medicine
DX: I10 Essential (primary) hypertension (principal); I24.9 Acute ischemic heart disease, unspecified; N40.1 Benign prostatic hyperplasia with lower urinary tract symptoms; Z11.59 Encounter for screening for other viral diseases; Z11.4 Encounter for screening for human immunodeficiency virus [HIV]
CPT/HCPCS: 36415; 80053; 80061; 86803; 87389; 84153

== ENCOUNTER → 2023-06-21 08:11 | Outpatient (BNVA) | payer MEDICARE, SELFPAY | PROVIDERS: PCP Nurse Practitioner Family; Referring Provider Nurse Practitioner Family | DX: M17.11 Unilateral primary osteoarthritis, right knee (principal); M17.12 Unilateral primary osteoarthritis, left knee | CPT/HCPCS: 20610; J1040 ==

== ENCOUNTER 2023-08-20 19:49 | Emergency (ER) | payer MEDICARE, SELFPAY ==
[2023-08-20 20:15] VITALS: BP 148/83; PULSE 81; RESP 18; TEMP 36.6; O2SAT 94
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
--- NOTE | 2023-08-20 20:30 | DI.RAD_ITS ---
Exam(s) XR CHEST 2V PA LATERAL EXAM: XR CHEST 2V PA LATERAL CLINICAL HISTORY: cough. TECHNIQUE: 2D digital imaging was performed. COMPARISON: No exams were available for comparison FINDINGS: 2 views: Heart size is normal. The mediastinum is not widened. Lungs are clear. No infiltrates nor pleural effusions. IMPRESSION: No acute pulmonary findings. DATA REPOSITORY: RADIATION DOSE DELIVERED:
[2023-08-20] MEDS: Dexamethasone 10 MG/ML VIAL PO (20:57)
--- NOTE | 2023-08-20 21:48 | DI.VRAD_ITS ---
PROCEDURE INFORMATION: Exam: XR Chest Exam date and time: 08/20/2023 9:02 PM Age: 67 years old Clinical indication: Shortness of breath TECHNIQUE: Imaging protocol: Radiologic exam of the chest. Views: 2 views. COMPARISON: CR XR CHEST 2V PA LATERAL 04/02/2019 11:58 AM FINDINGS: Lungs: There is slightly increased lung markings at the bases bilaterally, suggestive of mild linear atelectasis. No significant pulmonary consolidation. Small round density in the left hilum may represent a calcified granuloma. Pleural spaces: No pneumothorax. No pleural effusion. Heart/Mediastinum: No cardiomegaly. Bones/joints: Decreased height in the lower thoracic vertebral bodies are suggestive of compression deformities, acute versus chronic. IMPRESSION: 1. No significant consolidation. 2. Compression deformities in the lower thoracic spine. Correlate with clinical findings and any point tenderness to evaluate acuity/chronicity. Dictated and Authenticated by: Micaela Lopez MD. Ordering:GALE Zarate MD
--- NOTE | 2023-08-21 07:53 | NUR.NOTE ---
Accessed chart to determine orders for EKG and to determine whether or not one needs to be cancelled. Nursing Note:
== END 2023-08-20 22:00 | disposition home or self-care (01) ==
PROVIDERS: Emergency Provider Emergency Medicine; PCP Nurse Practitioner Family
DX: R05.9 Cough, unspecified (principal); R06.02 Shortness of breath
CPT/HCPCS: 94640; 99283; 71046; J1100

== ENCOUNTER 2023-10-29 09:41 | Outpatient (CLI) | payer MEDICARE, SELFPAY ==
[2023-10-29 10:23] LABS: Hemoglobin A1C 5.4 % (<5.7)
[2023-10-29 10:50] LABS: CREATININE 1.2 mg/dL (0.70-1.30); Calculated LDL 61 mg/dL (<100); Cholesterol 133 mg/dL (<200); Estimated GFR 65.87 (mL/min/1.73m2); HDL Cholesterol 51 mg/dL (40-60); Potassium 3.3 mmol/L (3.5-5.1); TSH (W/Ref FT4) 0.46 uIU/mL (0.36-3.74); Triglyceride 106 mg/dL (<150)
== END 2023-10-29 09:42 | disposition home or self-care (01) ==
LOC: LBO 09:42
PROVIDERS: PCP Nurse Practitioner Family; Visit Provider Nurse Practitioner Family
DX: I24.9 Acute ischemic heart disease, unspecified (principal); R53.83 Other fatigue; E66.01 Morbid (severe) obesity due to excess calories
CPT/HCPCS: 36415; 80061; 82565; 83036; 84132; 84443

== ENCOUNTER → 2024-02-10 08:05 | Outpatient (BNVA) | payer MEDICARE, SELFPAY | PROVIDERS: PCP Nurse Practitioner Family; Referring Provider Nurse Practitioner Family | DX: M17.11 Unilateral primary osteoarthritis, right knee (principal); M17.12 Unilateral primary osteoarthritis, left knee | CPT/HCPCS: 99213 ==

== ENCOUNTER 2024-03-26 11:41 | Outpatient (CLI) | payer MEDICARE, SELFPAY ==
--- NOTE | 2024-03-26 09:45 | DI.RAD_ITS ---
Exam(s) XR KNEE LT 2V AP,LAT XR KNEE RT 2V AP,LAT XR STANDING ALIGNMENT EXAM: XR STANDING ALIGNMENT and XR bilateral knee 2 V CLINICAL HISTORY: eval alignment , pre TKA. TECHNIQUE: 2D digital imaging was performed. Eight images were obtained. COMPARISON: CR XR knee RT 3V AP,lat,luz from 02/25/2019 CR XR knee LT 3V AP,lat,luz from 02/25/2019 CR,XR XR HIP LT COMPLETE AP PELVIS from 10/22/2019 CR XR PELVIS AP from 12/22/2019 FINDINGS: BONES: There is again seen an intramedullary amalia in the healed proximal left femoral fracture. Joint s are well maintained. In the left knee, there is marked narrowing of the medial femoral tibial join t. There is chondrocalcinosis seen in the lateral femoral tibial joint. Osteophytes are seen in all 3 joint compartments. In the right knee, there is marked narrowing of the medial femoral tibial leandro nt. Osteophytes are seen in the patella and the medial femoral tibial joint. There is narrowing of the patellofemoral joint. There is a small joint effusion. The ankles are well maintained. There i s a left tibial deformity suggesting an old healed fracture.The right lower extremity is 1.4 cm longe r than the left lower extremity. SOFT TISSUE: Normal. IMPRESSION: Marked degenerative changes of the knees as described above. DATA REPOSITORY: RADIATION DOSE DELIVERED:
== END 2024-03-26 11:42 | disposition home or self-care (01) ==
LOC: DIORS 11:41
PROVIDERS: PCP Nurse Practitioner Family; Referring Provider Nurse Practitioner Family; Visit Provider Student in an Organized Health Care Education/Training Program
DX: M17.12 Unilateral primary osteoarthritis, left knee (principal); M17.11 Unilateral primary osteoarthritis, right knee
CPT/HCPCS: 20610; J1010; 73560; 77073

== ENCOUNTER 2024-04-30 03:23 | Outpatient (CLI) | payer MEDICARE, SELFPAY ==
[2024-04-30 08:57] LABS: HCT 48.4 % (40.0-50.0); HGB 16.5 g/dL (13.5-17.5); MCHC 34.1 % (32.0-36.0); MCV 94 fL (80-95); MPV 9.3 fL (8.0-11.0); Platelet Count 176 10^3/uL (130-400); RBC 5.16 10^6/uL (4.36-5.78); RDW 13.5 % (11.8-14.1); RDW-SD 46.2 fL; WBC 6.96 10^3/uL (4.4-10.8)
[2024-04-30 09:21] LABS: Anion Gap 8.1 mmol/L (3-11); BUN 20 mg/dL (7-18); CO2 27.9 mmol/L (21.0-32.0); CREATININE 1.4 mg/dL (0.70-1.30); Calcium 9.6 mg/dL (8.5-10.1); Chloride 103 mmol/L (98-107); Estimated GFR 54.41 (mL/min/1.73m2); Glucose 110 mg/dL (74-106); Potassium 3.4 mmol/L (3.5-5.1); Sodium 139 mmol/L (136-145)
== END 2024-04-30 03:24 | disposition home or self-care (01) ==
LOC: LBO 03:23
PROVIDERS: PCP Nurse Practitioner Family; Visit Provider Student in an Organized Health Care Education/Training Program
DX: M17.12 Unilateral primary osteoarthritis, left knee (principal); Z01.818 Encounter for other preprocedural examination
CPT/HCPCS: 36415; 80048; 85027

== ENCOUNTER 2024-05-12 07:06 | Day surgery (SDC) | payer MEDICARE, SELFPAY ==
[2024-05-12] VITALS (21 sets, daily range): BP systolic 123–146; BP diastolic 63–78; PULSE 57–76; RESP 11–22; TEMP 36.1–36.7; O2SAT 88–99; BMI 44.2
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
[2024-05-12] MEDS: Celecoxib 200 MG CAP 400 MG PO (07:44)
[2024-05-12] MEDS: Gabapentin 300 MG CAP PO (07:44)
[2024-05-12] MEDS: Acetaminophen 500 MG TAB 1000 MG PO (07:45)
[2024-05-12] MEDS: Lactated Ringers 1,000 ML 80 ML IV (07:58)
--- NOTE | 2024-05-12 08:44 | ANES.PREOP_ITS ---
General Info Date of Service Date Performed: 05/12/24 Height: 5 ft 6 in Weight: 124.3 kg Body Mass Index (BMI): 44.2 Surgical Procedure: Operation Date: 05/12/24 09:25 Proposed Procedure Side Surgeon p Knee Total Arthroplasty w/OrthAlign, Cementless CR Left Corey Jama MD Meds Allergies and Home Medications Allergies Allergy/AdvReac Type Severity Reaction Status Date / Time cyclobenzaprine Allergy Unknown Itching Verified 05/12/24 07:36 enoxaparin AdvReac Severe Thrombocyto Verified 05/12/24 07:36 penia ropinirole AdvReac Severe severe Verified 05/12/24 07:36 twitching all over Home Medication ?Medication ?Instructions ?Recorded multivitamin (Daily Multi-Vitamin 1 ea PO DAILY 09/27/15 tablet) metoprolol succinate 50 mg 50 mg PO DAILY #90 tabs 05/15/23 tablet,extended release 24 hr atorvastatin 20 mg tablet 20 mg PO HS #90 tabs 06/10/23 albuterol sulfate 90 mcg/actuation 2 puff inhalation Q6H PRN 08/22/23 aerosol inhaler shortness of breath or wheezing #8.5 grams citalopram 10 mg tablet (Celexa) 10 mg PO DAILY #90 tab-caps 11/11/23 amlodipine 2.5 mg tablet 2.5 mg PO HS #90 tabs 03/16/24 hydrochlorothiazide 25 mg tablet 25 mg PO QAM #90 tabs 03/19/24 nitroglycerin 0.4 mg sublingual 0.4 mg sublingual Q5-15M PRN chest 04/02/24 tablet (Nitrostat) pain #20 tabs acetaminophen 500 mg tablet 1,000 mg (2 x 500 mg) PO Q8H PRN 05/12/24 pain #90 tabs aspirin 81 mg tablet,delayed 81 mg PO BID 30 days #60 tabs 05/12/24 release celecoxib 200 mg capsule (Celebrex) 200 mg PO BID PRN #60 caps 05/12/24 dexamethasone 4 mg tablet 4 mg PO DAILY #2 tabs 05/12/24 docusate sodium 100 mg capsule 100 mg PO BID #30 caps 05/12/24 (Colace) gabapentin 300 mg capsule 300 mg PO QHS #14 caps 05/12/24 oxycodone 5 mg tablet 5 mg PO Q4H PRN #18 tabs 05/12/24 pantoprazole 40 mg tablet,delayed 40 mg PO DAILY #14 tabs 05/12/24 release Current Visit Medications: Current Medications Generic Name Dose Route Start Last Admin Trade Name Aury PRN Reason Stop Dose Admin Acetaminophen 1,000 mg 05/12/24 06:00 05/12/24 07:45 Acetaminophen 500 Mg Tab PO 06/10/24 23:59 1,000 mg PREOP TIM Administration Celecoxib 400 mg 05/12/24 06:00 05/12/24 07:44 Celecoxib 200 Mg Cap PO 06/10/24 23:59 400 mg PREOP TIM Administration Gabapentin 300 mg 05/12/24 06:00 05/12/24 07:44 Gabapentin 300 Mg Cap PO 06/10/24 23:59 300 mg PREOP TIM Administration Hydromorphone HCl 0.5 mg 05/12/24 07:14 Hydromorphone 2 Mg/Ml Syr IVP 06/11/24 07:13 Q2H PRN PRN Ringer's Solution 1,000 mls @ 80 mls/hr 05/12/24 06:00 05/12/24 07:58 IV 06/10/24 23:59 80 mls/hr INFUSION TIM Administration Cefazolin Sodium 3,000 mg/ 100 mls @ 200 mls/hr 05/12/24 06:00 Sodium Chloride IV 06/10/24 23:59 PREOP TIM Tranexamic Acid/Sodium Chloride 1,000 mg in 100 mls @ 600 mls/hr 05/12/24 06:00 IVPB 06/10/24 23:59 PREOP TIM Cefazolin Sodium/Dextrose 1 gm in 50 mls @ 100 mls/hr 05/12/24 08:00 Ancef Duplex IVPB 05/13/24 00:29 Q8H TIM IV Miscellaneous Supplies 1 each 05/12/24 06:00 Iv Access IV 06/10/24 23:59 DIRECTED TIM Oxycodone HCl 0 mg 05/12/24 07:14 Oxycodone 5 Mg Tab PO 06/11/24 07:13 Q3H PRN PRN Pain Sodium Chloride 0 ml 05/12/24 06:00 Normal Saline Flush 10 Ml Syr IV 06/10/24 23:59 PRN PRN Sodium Chloride 0 ml 05/12/24 06:00 Normal Saline 10 Ml Vial IJ 06/10/24 23:59 DIRECTED PRN Sterile Water 0 ml 05/12/24 06:00 Water,Injection,Sterile 10 Ml Vial IJ 06/10/24 23:59 DIRECTED PRN PFSH Active Problems Active Problems: Problem Status Onset Code Arthritis of left knee Acute M17.12 Obesity, morbid, BMI 40.0-49.9 Acute E66.01 Abnormal blood creatinine level Acute R79.89 Benign localized prostatic hyperplasia with lower urinary tract symptoms (LUTS) Acute N40.1 Arthritis of right knee Chronic M17.11 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 Acute coronary syndromes Acute I24.9 Hyperuricemia Acute E79.0 Depressive disorder Acute F32.9 Dyspnea on effort Acute 05/08/16 R06.09 Fracture of right hip Acute 09/27/15 S72.001A Hypertension Acute I10 Iatrogenic pulmonary embolism and infarction Acute 07/25/79 T81.718A, I26.99 Microhematuria Acute 01/25/17 R31.29 Mild intermittent asthma without complication Acute 05/08/16 J45.20 Good's metatarsalgia Acute G57.60 Myoclonic jerking while sleeping Acute 09/27/15 G25.3 Polyp of colon Acute K63.5 Sleep apnea, unspecified Acute 01/25/17 G47.30 Medical History Medical History (Updated 05/08/24 @ 15:44 by Rogers Oviedo) Hx of myocardial infarction 2019 History of herniated intervertebral disc patient reports 03/2008 Gastroesophageal reflux disease Hernia surgery and no more GERD. Polymyalgia rheumatica Does not bother him at this point. 10/18 Asthma HTN (hypertension) GERD (gastroesophageal reflux disease) Sleep apnea Surgical History Surgical History Vasectomy José Fundoplication (~11/1998) MPI (~12/2011) NEG Repair of inguinal hernia (~1999) LEFT Fracture, Open Treatment 12/06/14; FIRST METATARSAL 06/12/15; LEFT FEMUR FX Colonoscopy - MAC (05/31/17) 03/10/2010 Tobacco Smoking/Tobacco Use Status: Never Second hand exposure: Yes Alcohol Alcohol Intake: current Alcohol intake frequency: holidays/special occasions only Alcohol type: beer Substance Use Substance use: Never Substance use type: does not use Vital Signs and Lab Results Vital Signs Most Recent Vital Signs in EMR: Most Recent Vital Signs Temp Pulse Resp BP Pulse Ox 36.7 C 67 18 137/78 95 05/12/24 07:38 05/12/24 07:38 05/12/24 07:38 05/12/24 07:38 05/12/24 07:38 Lab Results Blood Type / Crossmatch: No Data to Display Complete Blood Count: White Blood Count 6.96 10^3/uL (4.4-10.8) 04/30/24 08:45 Red Blood Count 5.16 10^6/uL (4.36-5.78) 04/30/24 08:45 Hemoglobin 16.5 g/dL (13.5-17.5) 04/30/24 08:45 Hematocrit 48.4 % (40.0-50.0) 04/30/24 08:45 Platelet Count 176 10^3/uL (130-400) 04/30/24 08:45 Complete Metabolic Panel: Sodium 139 mmol/L (136-145) 04/30/24 08:45 Potassium 3.4 mmol/L (3.5-5.1) L 04/30/24 08:45 Chloride 103 mmol/L (98-107) 04/30/24 08:45 Carbon Dioxide 27.9 mmol/L (21.0-32.0) 04/30/24 08:45 BUN 20 mg/dL (7-18) H 04/30/24 08:45 Creatinine 1.4 mg/dL (0.70-1.30) H 04/30/24 08:45 Est GFR (CKD-EPI 2020) 54.41 (mL/min/1.73m2) 04/30/24 08:45 Calcium 9.6 mg/dL (8.5-10.1) 04/30/24 08:45 Glucose 110 mg/dL (74-106) H 04/30/24 08:45 Liver Function Panel: No Data to Display Coagulation Panel: No Data to Display Cardiac Panel: No Data to Display Arterial Blood Gas: No Data to Display Venous Blood Gas: No Data to Display Pancreas Panel: No Data to Display Thyroid Panel: No Data to Display Infectious Disease: No Data to Display Blood Cultures: No Data to Display Toxicology Panel: No Data to Display Imaging and Studies Imaging and Studies Study information below may be from another EMR and interpreted by another provider. Please see original notes in EMR for more complete details. EKG Summary: 03/30/21 Sinus rhythm...normal P axis, V-rate 60- 99 Right bundle branch block...QRSd>120, terminal axis(90,270 Stress Test Summary: Date: 05/05/24 No ischemia Inferolateral infarct pattern due to diaphragmatic attenuation: no true myocardial infarct Preserved global and regional LV systolic function Date of Exam: 05/09/20 Indications: Patient reports intermittent left sided chest ???aching??? pain with both rest and activity (lasting approximately 15 seconds), similar to symptoms prior to his stent placements. He also states he has been having episodes where he ???feels like my heart beat is up into my throat???, and he just feels odd when this happens. Stress ECG Conclusion 1. This is a pharmacological stress test. 2. There was no symptoms suggestive of ischemia. 3. The EKG portion of this exam is nondiagnostic. Echocardiogram Summary: Date of Exam: 04/03/19 Summary: 1. Left ventricle: The cavity size was normal. Wall thickness was increased in a pattern of mild LVH. Systolic function was normal. The estimated ejection fraction was 60-65%. Wall motion was normal; there were no regional wall motion abnormalities. 2. Right ventricle: The cavity size was normal. Systolic function was normal. 3. Pulmonary arteries: Pulmonary systolic pressure was increased, in the range of 40mm Hg to 45mm Hg. 4. Inferior vena cava: The vessel was patent and normal in size. The respirophasic diameter changes were in the normal range (greater than or equal to 50%), consistent with normal central venous pressure. Pulmonary Function Summary: DATE OF SERVICE: April 16, 2016 IMPRESSION: Mild obstructive airways disease with significant bronchodilator response. Elevated diffusion capacity sometimes can be seen with asthma. Therefore, clinical correlation recommended. If the diagnosis of asthma is in question and further clarification is needed, proceeding with methacholine challenge testing may prove to be useful. Anesthesia Assessment and Plan Anesthesia History Personal History: No History of Anesthesia Complications Family History: No Family History of Anesthesia Complications Exercise Tolerance Exercise Tolerance: Metabolic Equivalents>4 Pertinent Negatives Pertinent Negatives: No Symptoms of GERD, No Major Cardiovascular Symptoms or Complaints (Hx of STENTS), No Major Pulmonary Symptoms or Complaints and No Hi story of CVA/TIA Cardiac & Pulmonary Exam Cardiac Exam: Normal S1/S2 Heart Sounds Pulmonary Exam: Clear Bilateral Breath Sounds Implantable Cardiac Device Does patient have a Pacemaker or an ICD?: No Airway Exam Known Difficult Airway: No Mallampati Class: 2 Mouth Opening: Normal (> 3cm) Thyromental Distance: Greater than 3 cm Neck Range of Motion: Full ROM Neck Circumference: Normal Teeth Condition: Normal Dentition ASA Classification ASA Score: ASA 3 Emergency Case?: No NPO Status NPO Status: NPO Clears >2 hours, Solids >8 hours Anesthesia Plan Resuscitation Status: Full Code Anesthesia Technique: Spinal Anesthesia Airway Planned: Natural Airway Pain Management: Surgeon and patient request nerve block Monitors Used: Standard Monitors
--- NOTE | 2024-05-12 09:40 | W.ANESNERVE ---
Nerve Block Single Injection Procedure Date and Time Date Performed: 05/12/24 Procedure Start: 09:21 Location Where Procedure Performed Procedure Location: Day Surgery Unit Reason Performed: Postoperative Analgesia Requesting Provider: Corey Jama Timeout Performed Timeout Performed: Yes Monitoring Used ECG, Blood Pressure, SpO2 and See EMR for corresponding vital signs Sterility Sterility: Hand Hygiene, Surgical Cap, Surgical Mask, Sterile Gloves and Chlorhexidine Sedation Given During Procedure Sedation Given (Indicate Dose Given): No Sedation given Patient Mental Status Patient Mental Status: Awake Nerve Block 1st Nerve Block: Laterality: Left Block Type: Adductor Canal Ultrasound Image Saved?: Yes Needle / Catheter Used: 120mm SonoPlex II Local Anesthetic Bolus (Indicate Dose Given): Lidocaine used for local infiltration of skin, Injected in 3-5ml increments after negative blood aspiration and Bupivacaine 0.25% Dose:: 15ml Additives (Indicate Dose Given): None Ultrasound: Sterile probe cover and gel used Nerve Stimulator: Supplement to Ultrasound use Paresthesia: None Procedure Tolerated: No Complications Procedure Outcome: Successful Performed By: Reid Valdes Supervised By: Blanca Joshua
[2024-05-12] MEDS: ceFAZolin 3,000 MG in Normal Saline 100 ML 200 MG IV (10:05)
[2024-05-12] MEDS: TRANEXAMIC ACID/SOD. CHL. 1,000 MG/100 ML BAG 600 MG IVPB (10:14)
--- NOTE | 2024-05-12 13:19 | W.PM.OP ---
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 Depuy Attune Cementless Cruciate Retaining Femoral Component, Size 7 2. Depuy Attune Cementless Fixed Bearing Tibial Component, Size 7 3. Depuy Attune 7x8 CR/FB Poly 4. Depuy Attune Patellar Component, Size 38 Indications: I have seen Rico in clinic for symptoms of LEFT knee arthritis, confirmed with radiographic findings. [NAME] has exhausted nonoperative methods and was having significant limitations in daily function and desired better function and less pain. I discussed the technical details of a knee replacement. I explained the risks of the procedure to include, but not limited to, bleeding, infection, pain, stiffness, fracture, damage to nerves and vessels, damage to muscles and tendons, loosening, need for repeat procedure, blood clot and cardiopulmonary demise. Despite these risks, [NAME] elected to proceed. Findings: There was significant signs of arthritis throughout the knee. Procedure Description: Rico was greeted in the preoperative holding area where the correct side was identified and marked. The consent was reviewed with the patient and signed. The history and physical was updated. All questions were answered. Preoperative mediacations were administered: Acetaminophen 1000mg, Celebrex 400mg, and Gabapentin 300mg. An adductor canal block was then administered by the anesthesia team in the DSU. Rico was taken back to the operating room. A spinal anesthestic was then administered. The patient was placed into the supine position on the operating room table. A nonsterile tourniquet was placed high onto the leg. Posts were placed for positioning during the procedure. All bony prominences were well padded. Prophylactic antibiotics in the form of Cefazolin were administered. 1g of Tranxemic Acid was given intravenously within 30 minutes of incision. The left leg was then prepped with Chloraprep and draped in a standard fashion with impervious stockinette. A second prep with Chloraprep was performed prior to application of Iodine impregnated skin protection. A timeout to confirm correct identity, side and site, procedure, allergies, anesthesia, and medical concerns was performed. With the knee in some flexion, a midline incision was made overlying the knee. Full thickness skin flaps were raised once the extensor mechanism was encountered. These were raised medially and laterally. Any bleeding was controlled with electrocautery. Once the extensor mechanism was fully exposed, a medial parapatellar arthrotomy was performed in a flexed position. All bleeding from the arthrotomy and the geniculate arteries was coagulated. A medial subperiosteal peel was performed with electrocautery to the midcoronal plane. Due to the significant varus deformity the entire medial tibial plateau was exposed. The fat pad was removed while keeping the patellar tendon protected. The anterior distal femur synovium was removed for later visualization. The ACL and PCL were resected and the anterior horn of the lateral meniscus was transected. The knee was then flexed with the patella everted. Large osteophytes from the tibia were removed. Large osteophytes from the femur were removed. There was large amounts of bone projecting medially off the femur and in the soft tissues in the medial capsule. These are slowly released and resected out of the soft tissue envelope and off of their host bone. A single starting pin was then placed 1cm anterior to the PCL insertion and the notch in the direction of the femoral head. The OrthoAlign device was applied over the pin. It was oriented to be in line with the epicondylar axis and the trochlear groove. It was then pinned into place. The navigation computer was then turned on and calibrated. The distal femur cut was set at 1 degrees varus and 3.5 degrees flexion. The distal femur cutting guide then was positioned for a 9mm cut. The distal femur was cut with an oscillating saw while protecting the soft tissues. The tibia was then addressed. The OrthoAlign device was placed over the tibial tubercle and medial tibia and secured into position. Once again, OrthoAlign was calibrated and then set for a 2 degree varus cut and 5.5 degrees of posterior slope. With this locked into position, the cut thickness stylus was used to assess cut thickness. The medial side, most involved side, was set for a 2mm cut. This was then held in position and pinned into place with 2 additional pins and a cross pin for stability. The medial and lateral collateral ligaments were protected and the cut was performed. With this completed, it was assessed and noted to be of appropriate dimensions. The guide and OrthoAlign was removed. A spacer block was inserted and the knee was brought into extension to ensure enough space was present. . The Orthoalign gap balancing device was then placed in extension. This was used to ensure that the ligaments were properly balanced with up to 2 to 3 mm laxity laterally compared medially. The extension gap was measured as 18mm. The knee was then brought into 90 degrees of flexion and the ligament wireline operator was once again placed. Under the same amount of force the flexion gap was measured. The Attune specific jig was placed and the flexion gap was made to match the extension gap. The femur was then sized as a size 7. The 4-in-1 cutting guide was the placed. An bianca wing was used to confirm appropriate position of the anterior cut to avoid notching. This cutting guide was ensured to be flush on the cut surface and then pinned into place with headed pins. While protecting the soft tissues, quad tendon, and collateral ligaments, the anterior and posterior cuts were performed with a saw. The central two pins were removed and the posterior and anterior chamfers were cut next. The notch-cutting guide was placed. This was pinned to lateralize the femoral component as much as possible while keeping it flush on the cut surface. This was then pinned into position. A saw was used to make the notch cut. A rasp smoothed the cut surfaces. The medial and lateral menisci were removed. A trial femoral component was then inserted, impacted down to the cut surfaces, and the lug holes were drilled. A provisional trial tibial component was placed and the knee was brought through range of motion. There was noted to be excellent extension and flexion. There was no significant instability. The patella was tracking without thumbs. A size 8mm polyethylene component provided the best range of motion and stability with less than 2mm gapping with medial and lateral stress and full extension without significant hyperextension. The tibial cut surface was fully exposed. The tibia was then sized as a 7. The tibia had been previously marked during trialing to correspond to the center of the tibial component to help with rotation. The trial was aligned to this maribell, approximately rotated to the medial 1/3rd of the tibial tubercle. The trial was pinned into place. The tibia was prepared with a reamer and a keel punch and lug holes. The knee was then brought into extension and the patella was measured as 27mm. Using the patellar clamp and cut guide, this was resected to a flat surface with at least 13mm of thickness remaining. The size 38 patella fit the best. This was oriented and then clamped into position. The lugs were drilled. The trial components were removed. The final components were opened on the back table. The periosteal and capsular tissues, especially posteriorly, around the knee were then systematically injected with a periarticular cocktail consisting of 246mg of Ropivacaine, 0.5mg of Epinephrine, 0.08mg of Clonidine, and 30mg of Ketorolac, diluted to 100cc. On the back table, with the implants opened, the cement was mixed. One batch of high viscosity cement was prepared with vacuum assistance. After the cement was ready a small amount was placed on the cut surface of the patella and the patellar button was clamped into position and held. While the cement was hardening, the cementless knee components were placed. Starting with the tibial component, the tibia was subluxed anteriorly and the lug holes of the component were lined up. The tibia was then impacted with an impactor and mallet until the tibial component was in contact with the tibia. Then, the femoral component was inserted. The lug holes were aligned and the component was impacted into position. The final polyethylene component was inserted. The knee was irrigated with Surgiphor Betadine solution. This was allowed to sit in the knee for 3 minutes and then it was thoroughly irrigated out with saline. After the cement had finally cured, approximately 15min, the clamp was removed from the patella and the knee was taken through range of motion. The patella was tracking with a no-thumbs technique. The capsule was then reapproximated with a No. 1 Vicryl and a #2 FiberWire at multiple locations. The capsule was finally closed with a No. 2 Stratafix, barbed suture. The second dosing of 1g TXA was started. Deep tissues were then reapproximated with 0 Vicryl and 2-0 Vicryl. The skin was closed with a running 3-0 Monocryl in a subcuticular fashion. This was reinforced with skin glue. A Mepilex silver dressing was applied along with a [id number] DARA wrap. A CryoCuff was applied. Rico was transferred to the hospital bed without difficulty an suffering no apparent complication. He has a good prognosis. Physical therapy will start today and without restrictions, weight-bearing as tolerated. Aspirin 81mg BID will be used for DVT prophylaxis.
--- NOTE | 2024-05-12 13:55 | W.ANESPOSTOP ---
Postoperative Evaluation Date, Time and Location Date Performed: 05/12/24 Time Performed: 13:55 Patient Location: Day Surgery Unit Vital Signs Most Recent Imported Vital Signs: Most Recent Vital Signs Temp Pulse Resp BP Pulse Ox 36.1 C L 74 16 123/63 94 05/12/24 13:36 05/12/24 13:36 05/12/24 13:36 05/12/24 13:36 05/12/24 13:36 Pain Score Most Recent Pain Score: Most Recent Pain Score Pain Level 2 05/12/24 13:36 Assessment Mental Status: Awake (Alert & Oriented to Patient Baseline) Airway and Respiratory Function: Patent airway with normal (patient baseline) respiratory exam Cardiovascular Function: Hemodynamically Stable Hydration Status: Adequately Hydrated Nausea & Vomiting: No Nausea or Vomiting Pain: Pain is tolerable per patient Peripheral Nerve Block: Regional nerve block not resolved at time of post operative discharge Teaching Patient Teaching: Discussed Safe Use of Pain Medication Given Likely or Known JUSTIN
--- NOTE | 2024-05-12 14:28 | PT.INIE ---
PT Notes Visit Reasons: left knee DJD Physical Therapy Day Surgery Initial Evaluation Date: 05-12-2024 Referring Doctor: Dr. Jama PT Orders: PT CONSULT: PT eval and treat status post Ortho surgery Precautions: As tolerated Patient Profile/Admitting Diagnosis: Patient is 68-year-old man presenting status post elective left TKA on 05/12/2024. Postop uncomplicated. PMHX: OA left knee, obesity BPH, arthritis right knee, ACS, depressive disorder, NGUYEN, PE, history of right hip fracture, HTN, asthma, Good's metatarsalgia, sleep apnea Social History/Home Situation: patient resides with in single-family home 3 steps to enter with railing on right. Patient independent ambulation, ADLs. 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 Patient assist with outdoor tasks. 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 Equipment Owned/DME: Crutches, walker, cane, tub seat, hand-held shower, adjustable bed Subjective: Patient reports slight numbness in left lower extremity which she is present prior to surgery. Objective: General Observation: Patient awake seated in chair Cryo/Cuff in place to left knee. Mental Status: Alert and oriented x 4; slight delay in response to questions Pain: Left knee 2/10 pre and post session ROM: [] Right Upper Extremity: Within normal limits Left Upper Extremity: Within normal limits Right Lower Extremity: Within normal limits Left Lower Extremity: Left hip and ankle within normal limits, knee 5 to 94 degrees Strength: [] Right Upper Extremity: 5/5 Left Upper Extremity: 5/5 Right Lower Extremity: 5/5 Left Lower Extremity: Hip 3 -/5; knee 3 -/5 unable to perform long arc quad and straight leg raise without lag patient required cues to perform quad set without use of compensation from hamstring and glutes. Ankle 3 out of 5 Sensation: Intact left lower extremity except slightly diminished left foot which patient reports is present prior to hospitalization Bed Mobility/Transfers: Supine to sit independent Sit to supine min assist for left lower extremity Sit to stand supervision Stand to sit supervision Bed to chair supervision with FWW Gait: Patient ambulates with FWW step to pattern decreased left knee flexion during swing phase, early heel off, absent heel strike foot flat on acceptance on left 100 feet supervision Balance: [] Static Sitting: Normal Dynamic Sitting: Good Static Standing: Good with FWW Dynamic Standing: Fair plus with FWW Special Tests: [] Mobility Limitations Standardized Measure [] [facility] AM-PAC 6 clicks Basic Mobility Inpatient Short Form: [] Raw Score: 20 CMS Score: 35.83% disability Informed Consent/Education: Patient instructed in purpose of PT consult. Packet containing TKA exercise protocol has been given to patient. Education and training on initial set of exercises that can be done at home have been completed with patient. Patient and instructed in techniques to ensure compensation for/assessment of lightheadedness/dizziness upon standing to reduce risk for falls Assessment: Patient presents with clinical signs and symptoms consistent with current/admitting diagnoses that have resulted to mobility limitations, gait instability, generalized weakness, and impairment of motor control as demonstrated by the following impairment level findings: 1. Decreased strength to left knee major muscle groups 2. Impaired standing balance 3. Limitation of joint range of motion in left knee Impairments are contributing to the following functional limitations: 1. Inability to safely ambulate without assistive device 2. Increase completion time for mobility ADL performance 3. Increased fall risk Patient is assessed as a moderate complexity based on the following: History: 68-year-old male with impairment level findings, functional limitations, and past medical history as indicated above Examination: Demonstrable impairment in strength, balance, and mobility level with underlying impairments and functional limitations as documented above Presentation: Stable Decision Making: Moderate Goals: N/A Plan of Care/Treatment Plan: N/A. DISCHARGE RECOMMENDATIONS: Home with outpatient PT as scheduled; home exercise program until follow-up TREATMENT CODE/TIME: 51159, [id number] Thank you for the opportunity to participate in the care of this patient. Please sign an return this page within 30 days if you agree with the above POC. Thank you! Physician Signature Date [facility]
== END 2024-05-12 14:40 | disposition home or self-care (01) ==
PROVIDERS: PCP Nurse Practitioner Family; Visit Provider Student in an Organized Health Care Education/Training Program
PROC: (CPT 27447; principal; 2024-05-12 09:15)
DX: M17.12 Unilateral primary osteoarthritis, left knee (principal); M21.162 Varus deformity, not elsewhere classified, left knee; I10 Essential (primary) hypertension; K21.9 Gastro-esophageal reflux disease without esophagitis; G47.30 Sleep apnea, unspecified; I25.2 Old myocardial infarction; J45.20 Mild intermittent asthma, uncomplicated; E66.01 Morbid (severe) obesity due to excess calories; Z68.41 Body mass index [BMI] 40.0-44.9, adult
CPT/HCPCS: 20985; 27447; 76942; 97162; 97530; C1776; J0665; J0690; J1100; J2001; J2371; J2401; J2405; J2704

== ENCOUNTER 2024-05-25 11:45 | Outpatient (CLI) | payer MEDICARE, SELFPAY ==
--- NOTE | 2024-05-25 09:26 | DI.RAD_ITS ---
Exam(s) XR KNEE LT 1V XR STANDING ALIGNMENT EXAM: XR STANDING ALIGNMENT and XR knee LT 1 V CLINICAL HISTORY: 1ST POST OP S/P L TKA. TECHNIQUE: 2D digital imaging was performed. Five images were obtained. COMPARISON: CR XR KNEE RT 2V AP,LAT from 03/26/2024 CR XR STANDING ALIGNMENT from 03/26/2024 CR XR KNEE LT 2V AP,LAT from 03/26/2024 FINDINGS: BONES: The hips are well maintained. There is again seen an intramedullary amalia within a healed left proximal femoral fracture. Marked degenerative changes are seen in the medial compartment of the rig ht knee. The findings are characterized by joint space narrowing and osteophytes. The patient is no w status post left total knee replacement. The orthopedic hardware appears in good position. The an kles are well maintained. There is an old healed deformity of the distal left tibia.The right lower extremity is 1.6 cm longer than the left lower extremity. Postsurgical changes are seen of the 1st m etatarsal of the left foot. SOFT TISSUE: Normal. IMPRESSION: 1. Status post left total knee replacement. 2. Marked degenerative changes are again seen in the medial right knee. DATA REPOSITORY: RADIATION DOSE DELIVERED:
== END 2024-05-25 11:46 | disposition home or self-care (01) ==
LOC: DIORS 11:46
PROVIDERS: PCP Nurse Practitioner Family; Visit Provider Student in an Organized Health Care Education/Training Program
DX: Z96.652 Presence of left artificial knee joint (principal); Z47.1 Aftercare following joint replacement surgery
CPT/HCPCS: 99024; 73560; 77073

== ENCOUNTER → 2024-07-06 09:58 | Outpatient (BNVA) | payer MEDICARE, SELFPAY | PROVIDERS: PCP Nurse Practitioner Family; Visit Provider Student in an Organized Health Care Education/Training Program ==

== ENCOUNTER 2024-07-06 13:04 | Outpatient (CLI) | payer MEDICARE, SELFPAY ==
[2024-07-06 11:13] LABS: HCT 47.7 % (40.0-50.0); HGB 15.8 g/dL (13.5-17.5); MCH 31.3 pg (27.0-33.0); MCHC 33.1 % (32.0-36.0); MCV 95 fL (80-95); MPV 9.2 fL (8.0-11.0); Platelet Count 191 10^3/uL (130-400); RBC 5.04 10^6/uL (4.36-5.78); RDW 13.5 % (11.8-14.1); RDW-SD 46.7 fL
[2024-07-06 11:50] LABS: Anion Gap 8.8 mmol/L (3-11); BUN 18 mg/dL (7-18); CO2 29.2 mmol/L (21.0-32.0); CREATININE 1.3 mg/dL (0.70-1.30); Calcium 9.6 mg/dL (8.5-10.1); Chloride 105 mmol/L (98-107); Estimated GFR 59.47 (mL/min/1.73m2); Glucose 105 mg/dL (74-106); Potassium 3.7 mmol/L (3.5-5.1); Sodium 143 mmol/L (136-145)
--- OUTSIDE RECORDS SUMMARY | 2024-07-06 13:08 | XMS_ITS | Encounter Summary ---
Author Organization [facility] Address [facility] [place] [address] Care Team Providers Care Outdoor Advertising Leasing Agent Name Role Phone Jg, Jadiel MARTINEZ Primary Care Provider [phone] Reason for Visit * Reason Comments Coronary Artery Disease Hypertension Encounter Details Date Type Department Care Team (Latest Contact Info) Description 02/19/2022 2:20 PM EDT Office Visit Cardiology at [address] [place] [id number] Jerzy Espinal MD [facility] [place] [address] ASCVD (arteriosclerotic cardiovascular disease); Essential hypertension Social History Tobacco Use Types Packs/Day Years Used Date Smoking Tobacco: Never Smokeless Tobacco: Never Alcohol Use Standard Drinks/Week Comments Yes 5 (1 standard drink = 0.6 oz pur e alcohol) ocassoinal Sex and Gender Information Value Date Recorded Sex Assigned at Not on file Gender Identity Not on file Sexual Orientation Not on file documented as of this encounter Last Filed Vital Signs Vital Sign Reading Time Taken Comments Blood Pressure 148/84 02/19/2022 2:22 PM EDT Pulse 71 02/19/2022 2:22 PM EDT Temperature - - Respiratory Rate - - Oxygen Saturation - - Inhaled Oxygen Concentration - - Weight 122.5 kg (270 lb) 02/19/2022 2:17 PM EDT Height 167.6 cm (5' 6) 02/19/2022 2:17 PM EDT Body Mass Index 43.58 02/19/2022 2:17 PM EDT documented in this encounter Patient Instructions * Patient Instructions* Jerzy Espinal MD - 02/19/2022 3:04 PM EDT Please take your blood pressure once in the morning, and after 7-10 readings give us a call with those results documented in this encounter Progress Notes * Jerzy Espinal MD - 02/19/2022 2:20 PM EDT Images from the original note were not included. Subjective: Patient ID: Cj De Los Santos is a 66 y.o. male who presents on follow-up for: Chief Complaint Patient presents with ??? Coronary Artery Disease ??? Hypertension HPI Last seen by me 01/2021, at which time no changes were made. Since then, he has been doing relatively well. Has chronic nyha ii dyspnea unchanged, no orthopnea/pnd. No angina at reasonable activity level. Current Outpatient Medications: ??? atorvastatin (Lipitor) 20 mg Tablet, TAKE ONE TABLET BY MOUTH EVERY EVENING, Disp: 90 tablet, Rfl: 2 ??? aspirin 81 mg Tablet, Chewable, CHEW AND SWALLOW 1 TABLET BY MOUTH ONCE DAILY, Disp: 90 tablet,Rfl: 2 ??? amLODIPine (NORVASC) 2.5 mg Tablet, Take 2.5 mg by mouth daily., Disp: , Rfl: ??? MULTI-VITAMIN ORAL, Take 1 tablet by mouth daily., Disp: , Rfl: ??? hydroCHLOROthiazide (HYDRODIURIL) 25 mg Tablet, Take 25 mg by mouth daily., Disp: , Rfl: 0 ??? citalopram (CELEXA) 10 mg Tablet, Take 10 mg by mouth nightly., Disp: , Rfl: 0 ??? Potassium 99 mg Tablet, Take 99 mg by mouth daily., Disp: , Rfl: ??? metoprolol succinate (TOPROL XL) 50 mg Tablet Sustained Release 24 hr, Take 1 tablet by mouth daily. (Patient not taking: Reported on 02/19/2022), Disp: 30 tablet, Rfl: 12 ??? nitroGLYcerin (NITROSTAT) 0.4 mg Tablet, Sublingual, Take 0.4 mg by mouth as needed. Chest pain, Disp: , Rfl: 0 Patient Active Problem List Diagnosis ??? Obesity ??? ASCVD (arteriosclerotic cardiovascular disease) Cardiac Catheterization: (04/06/2019) LEFT dominance Access: 6F RRA Indication: USA Artery Lesion Intervention LM Mild diffuse LAD m TO D2: os 90% 2.75 x 12 Rj Angioplasty --> 40% LCx Mild diffuse RCA Mild diffuse EF 65%, no wmas ??? Essential hypertension ??? JUSTIN (obstructive sleep apnea) Objective: BP 148/84 (BP Location (NBP): Left arm, Patient Position: Sitting, BP Cuff Sizes: Large Adult (32-43 cm)) Pulse 71 Ht 167.6 cm (5' 6) Wt 122.5 kg (270 lb) BMI 43.58 kg/m?? Gen: pleasant male in NAD Cor: rrr, s1/s2 of nl character and amplitude, no m/r/g. Estimated RAP not elevated. Carotids with normal upstroke without bruit. Pulm: CTAB. Normal diaphragmatic movement without use of accessory muscles Assessment and Plan: ASCVD (arteriosclerotic cardiovascular disease) No angina per history. - Anti-Thrombosis: asa 81. - Statin: lipitor 20 - Anti-anginals: norvacs 2.5, GTN PRN Essential hypertension Well controlled on current regimen. - norvasc 2.5 - hctz 25 RTC 6p months Jerzy Espinal MD documented in this encounter Miscellaneous Notes * Assessment & Plan Note - Jerzy Espinal MD - 03/21/2022 8:18 AM EDT Associated Problem(s): Hyperpiesia Well controlled on current regimen. - norvasc 2.5 - hctz 25 * Assessment & Plan Note - Jerzy Espinal MD - 02/19/2022 2:45 PM EDT Associated Problem(s): ASCVD (arteriosclerotic cardiovascular disease) No angina per history. - Anti-Thrombosis: asa 81. - Statin: lipitor 20 - Anti-anginals: norvacs 2.5, GTN PRN documented in this encounter Plan of Treatment Upcoming Encounters Date Type Department Care Team (Late st Contact Info) Description 04/20/2025 9:00 AM EDT Office Visit Cardiology at [address] [place] [address] Jerzy Espinal MD [facility] [place] [address] documented as of this encounter Visit Diagnoses Diagnosis ASCVD (arteriosclerotic cardiovascular disease) Unspecified cardiovascular disease Essential hypertension Unspecified essential hypertension documented in this encounter Care Teams Outdoor Advertising Leasing Agent Relationship Specialty Start Date End Date Jadiel Gregorio DO [address] [place] [address] PCP - General 10/17/10 06/25/22 documented as of this encounter
--- OUTSIDE RECORDS SUMMARY | 2024-07-06 13:08 | XMS_ITS | Encounter Summary ---
Author Organization Formerly [facility], 1928–1983 Address [facility] [place] [address] Care Team Providers Care Radiology Technician Name Role Phone Tim Octaviano Reed APRN Primary Care Provider +1- [phone] Reason for Visit * Reason Comments Coronary Artery Disease Preoperative Cardiovascular Encounter Details Date Type Department Care Team (Latest Contact Info) Description 04/20/2024 11:00 AM EDT Office Visit Cardiology at [address] [phone] Jerzy Espinal MD [facility] [place] [address] ASCVD (arteriosclerotic cardiovascular disease); Hyperpiesia Social History Tobacco Use Types Packs/Day Years [...] Sign Reading Time Taken Comments Blood Pressure 144/94 04/20/2024 11:01 AM EDT Pulse 69 04/20/2024 11:01 AM EDT Temperature - - Respiratory Rate - - Oxygen Saturation - - Inhaled Oxygen Concentration - - Weight 124.7 kg (275 lb) 04/20/2024 11:01 AM EDT Height 167.6 cm (5' 6) 04/20/2024 11:01 AM EDT Body Mass Index 44.39 04/20/2024 11:01 AM EDT documented in this encounter Progress Notes * Jerzy Espinal MD - 04/20/2024 11:00 AM EDT Images from the original note were not included. Subjective: Patient ID: Cj De Los Santos is a 68 y.o. male who presents on follow-up for: Chief Complaint Patient presents with Coronary Artery Disease Preoperative Cardiovascular HPI Last seen by me 02/2023, at which time no changes were made. Since then, his exertion level has become increasingly limited by his knees. In this setting, he has become more reliant on things like scooters to locomote about a store, and thus has beocme increasingly dyspneic when trying to do things around the house (ie: if I'm on my feet for more than 5 minutes I have to sit down). He is seeking surgical therapy for the bilateral knee ailment (will startwith left knee) Does not check bp at home. Recent other OV's had been with SBP 120s, and thus he stopped toprol. Current Outpatient Medications Medication Instructions amLODIPine (NORVASC) 2.5 mg, Oral, DAILY aspirin 81 mg Tablet, Chewable CHEW AND SWALLOW 1 TABLET BY MOUTH ONCE DAILY atorvastatin (Lipitor) 20 mg Tablet TAKE ONE TABLET BY MOUTH EVERY EVENING citalopram (CELEXA) 10 mg, Oral, NIGHTLY hydroCHLOROthiazide (HYDRODIURIL) 25 mg, Oral, DAILY metoprolol succinate XL (TOPROL XL) 50 mg, Oral, DAILY MULTI-VITAMIN ORAL 1 tablet, Oral, DAILY nitroGLYcerin (NITROSTAT) 0.4 mg, Oral, PRN, Chest pain Patient Active Problem List Diagnosis ASCVD (arteriosclerotic cardiovascular disease) Cardiac Catheterization: (04/06/2019) LEFT dominance Access: 6F RRA Indication: USA Artery Lesion Intervention LM Mild diffuse LAD m TO D2: os 90% 2.75 x 12 Rj Angioplasty --> 40% LCx Mild diffuse RCA Mild diffuse EF 65%, no wmas Obesity Hyperpiesia JUSTIN (obstructive sleep apnea) Objective: BP (!) 144/94 (BP Location (NBP): Right arm, Patient Position: Sitting, BP Cuff Sizes: Large Adult (32-43 cm)) Pulse 69 Ht 167.6 cm (5' 6) Wt 124.7 kg (275 lb) BMI 44.39 kg/m?? Gen: pleasant male in NAD Cor: rrr, s1/s2 of nl character and amplitude, no pathologic m/r/g. Estimated RAP not elevated. Carotids with normal upstroke without bruit. Pulm: CTAB. Normal diaphragmatic movement without use of accessory muscles EKG: nsr via RBBB Assessment and Plan: ASCVD (arteriosclerotic cardiovascular disease) No angina per history. - Anti-Thrombosis: asa 81 - Statin: lipitor 20 - Anti-anginals: GTN PRN, norvasc Hyperpiesia Not untowardly uncontrolled here. With upcoming surgery I would defer on making any changes at thistime. However, should SBP > 135 more often than not at home, would advise increasing norvasc to 5 - norvasc 2.5 - hctz 25 Patient cannot get to > 4 METs of exertion by history. Thus, per guidelines stress testing is indicated for risk stratification. Of note, only if there is a severe photopenia will his low-intermediate cardiac risk be altered for an intermediate risk surgery.. Would optimally remain on ASA during the jovani- operative interface to reduce risk of MACE, unless surgical team felt it posed a prohibitive risk of bleeding (if such were the case, can hold ASA 7 days prior and restart as per surgical team). - RxNST RTC 12 months Jerzy Espinal MD Addendum RxNST reviewed. No ischemia. Preserved LV systolic function. No further cardiac diagnostics/therapeutics indicated prior to planned orthopedic surgery, with risk stratification profile aforementioned. documented in this encounter Miscellaneous Notes * Assessment & Plan Note - Jerzy Espinal MD - 04/20/2024 11:22 AM EDT Associated Problem(s): Hyperpiesia Not untowardly uncontrolled here. With upcoming surgery I would defer on making any changes at thistime. However, should SBP > 135 more often than not at home, would advise increasing norvasc to 5 - norvasc 2.5 - hctz 25 * Assessment & Plan Note - Jerzy Espinal MD - 04/20/2024 11:11 AM EDT Associated Problem(s): ASCVD (arteriosclerotic cardiovascular disease) No angina per history. - Anti-Thrombosis: asa 81 - Statin: lipitor 20 - Anti-anginals: GTN PRN, norvasc documented in this encounter Plan of Treatment Upcoming Encounters Date Type Department Care Team (Late st Contact Info) Description 04/20/2025 9:00 AM EDT Office Visit Cardiology at [address] [place] [phone] Jerzy Espinal MD [facility] [place] [address] documented as of this encounter Visit Diagnoses Diagnosis ASCVD (arteriosclerotic cardiovascular disease) Unspecified cardiovascular disease Hyperpiesia Unspecified essential hypertension documented in this encounter Care Teams Radiology Technician Relationship Specialty Start Date End Date Octaviano Dumont APRN [address] [facility] [address] [place] [address] PCP - General Family Medicine 06/26/22 documented as of this encounter
--- OUTSIDE RECORDS SUMMARY | 2024-07-06 13:08 | XMS_ITS | Encounter Summary ---
Author Organization [facility] Address [facility] [place] [address] Care Team Providers Care Upfitter Name Role Phone Tim Octaviano Reed APRN Primary Care Provider +1- [phone] Encounter Details Date Type Department Care Team (Latest Contact Info) Description 05/05/2024 9:20 AM EDT Ext Surgery or Single Event [address] [place] [address] Jerzy Espinal MD [facility] [place] [address] ASCVD (arteriosclerotic cardiovascular disease); Pre-operative cardiovascular examination Social History Tobacco Use Types Packs/Day Years Used Date Smoking Tobacco: Never Smokeless Tobacco: Never Alcohol Use Standard Drinks/Week Comments Yes 5 (1 standard drink = 0.6 oz pur e alcohol) ocassoinal Sex and Gender Information Value Date Recorded Sex Assigned at Not on file Gender Identity Not on file Sexual Orientation Not on file documented as of this encounter Progress Notes * Jerzy Espinal MD - 05/05/2024 9:20 AM EDT Lexiscan MIBI Stress Test- Final Report Cj De Los Santos 1955 [facility] Referring: Manan Indication: pre-operative Date: 05/05/2024 Clinical: Max Exercise: Lexiscan 0.4mg IV Symptoms: none EKG Baseline: nsr via rbbb Ischemic Changes: none Arrhythmias: none Details: Rest Images: 10.5 mC MIBI, SPECT: - moderate intensity inferolateral perfusion deficit Stress Images: 29.2 mC MIBI, SPECT: -mild intesntiy inferolateral perfusion deficit Gated Images: no wall motion abnormalities, EF normal, no TID IMPRESSION: No ischemia 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 Electronically Signed: Jerzy Espinal MD, 05/05/2024 6:13 PM documented in this encounter Plan of Treatment Upcoming Encounters Date Type Department Care Team (Late st Contact Info) Description 04/20/2025 9:00 AM EDT Office Visit Cardiology at [address] [phone] Jerzy Espinal MD [facility] [place] [address] documented as of this encounter Procedures Procedure Name Priority Date/Time Associated Diagnosis Comments STRESS TEST SCAN 05/05/2024 12:0 0 AM EDT ECG SCAN 05/05/2024 12:00 AM EDT documented in this encounter Results * Scan Doc: Stress Test (05/05/2024 12:00 AM EDT) Anatomical Region Laterality Modality Other Narrative 05/05/2024 12:00 AM EDT Ordered by an unspecified provider. Scanning Provider MEDIA MGR SCAN EXT O RDR/RSLT * Scan Doc: ECG (05/05/2024 12:00 AM EDT) Narrative 05/05/2024 12:00 AM EDT Ordered by an unspecified provider. Scanning Provider MEDIA MGR SCAN EXT O RDR/RSLT documented in this encounter Visit Diagnoses Diagnosis ASCVD (arteriosclerotic cardiovascular disease) Unspecified cardiovascular disease Pre-operative cardiovascular examination documented in this encounter Care Teams Upfitter Relationship Specialty Start Date End Date Octaviano Dumont APRN [address] [place], [place] [address] [place] [address] PCP - General Family Medicine 06/26/22 documented as of this encounter
--- OUTSIDE RECORDS SUMMARY | 2024-07-06 13:08 | XMS_ITS | Encounter Summary ---
Author Organization [facility] [place] [address] Care Team Providers Care Leader Writer Name Role Phone Tim Octaviano Reed APRN Primary Care Provider +1- [phone] Encounter Details Date Type Department Care Team (Late st Contact Info) Description 03/31/2024 Telephone Cardiology at [address] [place] [address] Jerzy Espinal MD [facility] [place] [address] Social History Tobacco Use Types Packs/Day Years Used Date Smoking Tobacco: Never Smokeless Tobacco: Never Alcohol Use Standard Drinks/Week Comments Yes 5 (1 standard drink = 0.6 oz pur e alcohol) ocassoinal Sex and Gender Information Value Date Recorded Sex Assigned at Not on file Gender Identity Not on file Sexual Orientation Not on file documented as of this encounter Miscellaneous Notes * Telephone Encounter - Kym Tavares RN - 03/31/2024 1:15 PM EDT Kayla from [facility] calls regarding an upcoming surgery for patient. He is scheduled to have a left total knee replacement done on 05/12/[address] Espinal to clear patient for surgery during his March office visit. Kayla states they do not have a form for the belting and webbing inspector to fill out; a mention of clearing for surgery in the office note would suffice. documented in this encounter Plan of Treatment Upcoming Encounters Date Type Department Care Team (Late st Contact Info) Description 04/20/2025 9:00 AM EDT Office Visit Cardiology at [address] [place] [address] Jerzy Espinal MD [facility] [place] [address] documented as of this encounter Visit Diagnoses Not on filedocumented in this encounter Care Teams Leader Writer Relationship Specialty Start Date End Date Octaviano Dumont APRN [address] [place] [address] [address] [facility] [address] [place] [address] PCP - General Family Medicine 06/26/22 documented as of this encounter
--- OUTSIDE RECORDS SUMMARY | 2024-07-06 13:08 | XMS_ITS | Encounter Summary ---
Author Organization [facility] Address [facility] [place] [address] Care Team Providers Care Studio Technician Video Operator Name Role Phone TimCarrieabdirahman Reed APRN Primary Care Provider +1- [phone] Reason for Visit * Reason Comments Coronary Artery Disease Hypertension Encounter Details Date Type Department Care Team (Latest Contact Info) Description 03/18/2023 8:40 AM EDT Office Visit Cardiology at [address] [phone] Jerzy Espinal MD [facility] [place] [address] ASCVD (arteriosclerotic cardiovascular disease); Hyperpiesia Social History [...] Sign Reading Time Taken Comments Blood Pressure 141/79 03/18/2023 8:53 AM EDT Pulse 72 03/18/2023 8:53 AM EDT Temperature - - Respiratory Rate 18 03/18/2023 8:53 AM EDT Oxygen Saturation - - Inhaled Oxygen Concentration - - Weight 121.6 kg (268 lb) 03/18/2023 8:53 AM EDT Height 170.2 cm (5' 7) 03/18/2023 8:53 AM EDT Body Mass Index 41.97 03/18/2023 8:53 AM EDT documented in this encounter Progress Notes * Jerzy Espinal MD - 03/18/2023 8:40 AM EDT Images from the original note were not included. Subjective: Patient ID: Cj De Los Santos is a 67 y.o. male who presents on follow-up for: Chief Complaint Patient presents with Coronary Artery Disease Hypertension HPI Last seen by me 06/2022, at which time no changes were made. Since then, he has been doing well. Is not active, and has put on about 20 caloric lbs since June. With this, he has noted an increase in chronic dyspnea to nyha Ii-iii. No orthopnea, pnd, angina. Mild circadian peripheral edema Does not check bp often at home. However, at other providers' offices it has been reasonable Current Outpatient Medications Medication Instructions amLODIPine (NORVASC) [...] Hyperpiesia JUSTIN (obstructive sleep apnea) Objective: BP 141/79 (BP Location (NBP): Left arm, Patient Position: Sitting, BP Cuff Sizes: Large Adult (32-43 cm)) Pulse 72 Resp 18 Ht 170.2 cm (5' 7) Wt 121.6 kg (268 lb) BMI 41.97 kg/m?? Gen: pleasant male in NAD Cor: rrr, s1/s2 of nl character and amplitude, no m/r/g. Estimated RAP not elevated. Carotids with normal upstroke without bruit. Pulm: CTAB. Normal diaphragmatic movement without use of accessory muscles Assessment and Plan: ASCVD (arteriosclerotic cardiovascular disease) No angina per history. - Anti-Thrombosis: asa 81 - Statin: lipitor 20 - Anti-anginals: GTN PRN, norvasc 2.5, toprol 50 Hyperpiesia Well controlled on current regimen. Advised increasing activity, for both conditioning and weight loss. - norvasc 2.5 - hctz 25 - NB: toprol has had a beneficial effect on the bp Dyspnea is due to deconditioning/caloric weight gain. I do not see volume overload on exam RTC 12 months Jerzy Espinal MD documented in this encounter Miscellaneous Notes * Assessment & Plan Note - Jerzy Espinal MD - 03/18/2023 9:10 AM EDT Associated Problem(s): Hyperpiesia Well controlled on current regimen. Advised increasing activity, for both conditioning and weight loss. - norvasc 2.5 - hctz 25 - NB: toprol has had a beneficial effect on the bp * Assessment & Plan Note - Jerzy Espinal MD - 03/18/2023 8:56 AM EDT Associated Problem(s): ASCVD (arteriosclerotic cardiovascular disease) No angina per history. - Anti-Thrombosis: asa 81 - Statin: lipitor 20 - Anti-anginals: GTN PRN, norvasc 2.5, toprol 50 documented in this encounter Plan of Treatment Upcoming Encounters Date Type Department Care Team (Late st Contact Info) Description 04/20/2025 9:00 AM EDT Office Visit Cardiology at [address] [phone] Jerzy Espinal MD [facility] [place] [address] documented as of this encounter Visit Diagnoses Diagnosis ASCVD (arteriosclerotic cardiovascular disease) Unspecified cardiovascular disease Hyperpiesia Unspecified essential hypertension documented in this encounter Care Teams Studio Technician Video Operator Relationship Specialty Start Date End Date Octaviano Dumont APRN [address] [place] [address] PCP - General Family Medicine 06/26/22 documented as of this encounter
--- OUTSIDE RECORDS SUMMARY | 2024-07-06 13:08 | XMS_ITS | Encounter Summary ---
Author Organization [facility] [place] [address] Care Team Providers Care Regional Sales Leader Name Role Phone Octaviano Dumont APRN Primary Care Provider +1- [phone] Encounter Details Date Type Department Care Team (Latest Contact Info) Description 03/18/2023 Travel Social History Tobacco Use Types Packs/Day Years Used Date Smoking Tobacco: Never Smokeless Tobacco: Never Alcohol Use Standard Drinks/Week Comments Yes 5 (1 standard drink = 0.6 oz pur e alcohol) ocassoinal Sex and Gender Information Value Date Recorded Sex Assigned at Not on file Gender Identity Not on file Sexual Orientation Not on file documented as of this encounter Plan of Treatment Upcoming Encounters Date Type Department Care Team (Late st Contact Info) Description 04/20/2025 9:00 AM EDT Office Visit Cardiology at [address] [place] [address] Jerzy Espinal MD [facility] [place] [address] documented as of this encounter Visit Diagnoses Not on filedocumented in this encounter Care Teams Regional Sales Leader Relationship Specialty Start Date End Date Octaviano Dumont APRN [address] [place] [address] PCP - General Family Medicine 06/26/22 documented as of this encounter
--- OUTSIDE RECORDS SUMMARY | 2024-07-06 13:08 | XMS_ITS | Encounter Summary ---
Author Organization [facility] [place] [address] Care Team Providers Care Director Of User Experience Name Role Phone Jg, Jaidel MARTINEZ Primary Care Provider [phone] Reason for Visit * Reason Comments Medication Refill Encounter Details Date Type Department Care Team (Late st Contact Info) Description 07/31/2020 Refill Cardiology at [address] [phone] Jerzy Espinal MD [facility] [place] [address] Medication Refill Social History Tobacco Use Types Packs/Day Years [...] 9:00 AM EDT Office Visit Cardiology at [address] [phone] Jerzy Espinal MD [facility] [place] [address] documented as of this encounter Visit Diagnoses Diagnosis Atherosclerosis of cherokee coronary artery of cherokee heart, angina presence unspecified documented in this encounter Care Teams Director Of User Experience Relationship Specialty Start Date End Date Jadiel Gregorio DO [address] [place] [address] PCP - General 10/17/10 06/25/22 documented as of this encounter
--- OUTSIDE RECORDS SUMMARY | 2024-07-06 13:08 | XMS_ITS | Encounter Summary ---
Author Organization [facility] Address [facility] [place] [address] Care Team Providers Care House Painting Instructor Name Role Phone Tim Octaviano Reed APRN Primary Care Provider +1- [phone] Reason for Visit * Reason Onset Date Comments Medical Clearance 05/06/2024 Encounter Details Date Type Department Care Team (Late st Contact Info) Description 05/06/2024 Telephone Cardiology at [address] [place] [address] Jerzy Espinal MD [facility] [place] [address] Medical Clearance Social History Tobacco Use Types Packs/Day Years [...] encounter Miscellaneous Notes * Telephone Encounter - Veronika Augustin RN - 05/07/2024 1:56 PM EDT Nuclear Stress Test was reviewed. Normal study. OK to proceed with surgery * Telephone Encounter - Veronika Augustin RN - 05/07/2024 10:45 AM EDT Cj called again requesting results/clearance related to stress test and communication of this to [facility] * Telephone Encounter - Veronika Augustin, RN - 05/06/2024 10:37 AM EDT Cj called to remind that he needs cardiac/medical clearance for [facility] before procedure next Saturday documented in this encounter Plan of Treatment Upcoming Encounters Date Type Department Care Team (Late st Contact Info) Description 04/20/2025 9:00 AM EDT Office Visit Cardiology at [address] [place] [phone] Jerzy Espinal MD [facility] [place] [place] [address] documented as of this encounter Visit Diagnoses Not on filedocumented in this encounter Care Teams House Painting Instructor Relationship Specialty Start Date End Date Octaviano Dumont APRN [address] [facility] [facility] [address] [facility] [address] [place] [address] PCP - General Family Medicine 06/26/22 documented as of this encounter
--- OUTSIDE RECORDS SUMMARY | 2024-07-06 13:08 | XMS_ITS | Encounter Summary ---
Author Organization [facility] [place] [address] Care Team Providers Care Painter Helper Name Role Phone Jadiel Gregorio DO Primary Care Provider [phone] Reason for Visit * Reason Onset Date Comments Reminder Appointment 02/10/2021 telephonic reminder to [place] Encounter Details Date Type Department Care Team (Late st Contact Info) Description 02/10/2021 Telephone Cardiology at [address] [address] Veronika Augustin, RN Reminder Appointment (telephonic reminder to [place]) Social History Tobacco Use Types Packs/Day Years [...] 9:00 AM EDT Office Visit Cardiology at [address] [address] Jerzy Espinal MD [facility] [place] [address] documented as of this encounter Visit Diagnoses Not on filedocumented in this encounter Care Teams Painter Helper Relationship Specialty Start Date End Date Jadiel Gregorio DO [address] [place] [address] [address] [place] [address] PCP - General 10/17/10 06/25/22 documented as of this encounter
--- OUTSIDE RECORDS SUMMARY | 2024-07-06 13:08 | XMS_ITS | Continuity of Care Document ---
Author Organization [facility] Address [address] [place] [address] Care Team Providers Care Sampler First Name Role Phone MATI MEANS Primary Care Physicia n Encounter LTTL_PR FIN NBR [id number] Date(s): 05/05/24 - 05/05/24 [facility] [address] [place] [address] [place] Discharge Disposition: Home or Self Care Attending Physician: LULU MCQUEEN MD Admitting Physician: LULU MCQUEEN MD Referring Physician: LULU MCQUEEN MD Allergies, Adverse Reactions, Alerts Substance Criticality Severity Reaction Reaction Severity Status enoxaparin Unable to assess criticality Unknown Thrombocytopenia Active Flexeril Unable to assess criticality Unknown Itching Active rOPINIRole Unable to assess criticality Unknown Agitation Active Vital Signs Most recent to oldest [Reference Range]: 1 Weight 124.7 kg (04/30/24 9:37 AM) Weight Dosing 124.700 kg (04/30/24 9:37 AM) Height 167.6 cm (04/30/24 9:37 AM) Patient Care team information Care Team Personnel Name: MATI MEANS Position: No Access Member Role: Primary Care Physician Address: [address] [place], [place] [address] [place], [place] [address] Care Team Related Persons Name: CAITY BURRIS Insurance Providers Guarantor name: LIZA FATUMA Health Plan Information #: 1 Payer: MEDICARE [facility] Member Number: [id number] Policy Number: NA Health Plan Information #: 2 Payer: [employer] MEDICARE [facility] Member Number: [id number] Policy Number: NA Health Plan Information #: 3 Payer: [employer] Member Number: NA Policy Number: NA
--- OUTSIDE RECORDS SUMMARY | 2024-07-06 13:08 | XMS_ITS | Encounter Summary ---
Author Organization [facility] [place] [address] Care Team Providers Care Career Counselor Name Role Phone Octaviano Dumont APRN Primary Care Provider +1- [phone] Encounter Details Date Type Department Care Team (Latest Contact Info) Description 04/20/2024 Travel Social History Tobacco Use Types Packs/Day [...] 9:00 AM EDT Office Visit Cardiology at [address] [place] [address] Jerzy Espinal MD [facility] [place] [address] documented as of this encounter Visit Diagnoses Not on filedocumented in this encounter Care Teams Career Counselor Relationship Specialty Start Date End Date Octaviano Dumont APRN [address] [place] [address] PCP - General Family Medicine 06/26/22 documented as of this encounter
--- OUTSIDE RECORDS SUMMARY | 2024-07-06 13:08 | XMS_ITS | Encounter Summary ---
Author Organization [facility] [place] [address] Care Team Providers Care Index Editor Name Role Phone Tim Octaviano Reed APRN Primary Care Provider +[phone]- [phone] Encounter Details Date Type Department Care Team (Late st Contact Info) Description 04/21/2024 Telephone Cardiology at [address] [place] [address] Jerzy Espinal MD [facility] [place] [address] Social History Tobacco Use Types Packs/Day Years [...] Telephone Encounter - Veronika Augustin RN - 04/21/2024 12:05 PM EDT The conversation and discussion centered on Rico's goal for clearance to have surgery May 12 and can he have that now. He does not recollect being told yesterday that the EKG was not normal and that he must have a stress test before Dr. Espinal can give cardiac clearance information to his surgeon. Talking points, all of which Rico heard, but with hesitancy to accept: EKG was abnormal No way can Dr. Espinal approve you for surgery without a stress test Rico hopes the stress test scheduling is expedited. * Telephone Encounter - Francy Mace - 04/21/2024 9:19 AM EDT Patient called on 04/21/24 @ 9:15 a.m.. He said he would like to know the results of his EKG done @ his OV on 04/20/24 w/ Dr. Espinal. He can be reached @ [phone]. documented in this encounter Plan of Treatment Upcoming Encounters Date Type Department Care Team (Late st Contact Info) Description 04/20/2025 9:00 AM EDT Office Visit Cardiology at [address] [place] [address] Jerzy Espinal MD [facility] [place] [address] documented as of this encounter Visit Diagnoses Not on filedocumented in this encounter Care Teams Index Editor Relationship Specialty Start Date End Date Octaviano Dumont, SUE [address] [facility] [address] [place] [address] PCP - General Family Medicine 06/26/22 documented as of this encounter
--- OUTSIDE RECORDS SUMMARY | 2024-07-06 13:08 | XMS_ITS | Encounter Summary ---
Author Organization [facility]ly [facility] Address [facility] [place] [address] Care Team Providers Care Light Rail Vehicle Operator Name Role Phone Jg, Jadiel MARTINEZ Primary Care Provider [phone] Reason for Visit * Reason Comments Coronary Artery Disease Encounter Details Date Type Department Care Team (Late st Contact Info) Description 02/13/2021 1:40 PM EDT Office Visit Cardiology at [address] [place] [phone] Jerzy Espinal MD [facility] [place] [address] Coronary artery disease involving twin hills coronary artery of twin hills heart without angina pectoris; Hyperpiesia Social History Tobacco Use Types Packs/Day [...] Sign Reading Time Taken Comments Blood Pressure 133/81 02/13/2021 1:43 PM EDT Pulse 66 02/13/2021 1:43 PM EDT Temperature - - Respiratory Rate - - Oxygen Saturation - - Inhaled Oxygen Concentration - - Weight 117.9 kg (260 lb) 02/13/2021 1:39 PM EDT Height 167.6 cm (5' 6) 02/13/2021 1:39 PM EDT Body Mass Index 41.97 02/13/2021 1:39 PM EDT documented in this encounter Patient Instructions * Patient Instructions* Jerzy Espinal MD - 02/13/2021 1:40 PM EDT Decrease Metoprolol to [id number] per day for 3 days. If the top number of your blood pressure remains less than 150, you can stop the metoprolol. documented in this encounter Progress Notes * Jerzy Espinal MD - 02/13/2021 1:40 PM EDT Images from the original note were not included. Subjective: Patient ID: Cj De Los Santos is a 65 y.o. male who presents on follow-up for: Chief Complaint Patient presents with ??? Coronary Artery Disease HPI Last seen by me 03/2020 via telephony, at which time plavix was discontinued. Since then, he has been doing well, without issue of angina nor new untoward dyspnea. hes enjoying the warm weather without exertional encumbrance. Chronic nyha ii dyspnea due to obesity bp well controlled at home Current Outpatient Medications: ??? atorvastatin (Lipitor) 20 [...] by mouth daily., Disp: , Rfl: ??? Potassium 99 mg Tablet, Take 99 mg by mouth daily., Disp: , Rfl: ??? metoprolol succinate (TOPROL XL) 50 mg Tablet Sustained Release 24 hr, Take 1 tablet by mouth daily., Disp: 30 tablet, Rfl: 12 ??? hydroCHLOROthiazide (HYDRODIURIL) 25 mg Tablet, Take 25 mg by mouth daily., Disp: , Rfl: 0 ??? nitroGLYcerin (NITROSTAT) 0.4 mg Tablet, Sublingual, Take 0.4 mg by mouth as needed. Chest pain, Disp: , Rfl: 0 ??? citalopram (CELEXA) 10 mg Tablet, Take 10 mg by mouth nightly., Disp: , Rfl: 0 Patient Active Problem List Diagnosis ??? Coronary artery disease involving twin hills coronary artery of [place] heart without angina pectoris Cardiac Catheterization: (04/06/2019) LEFT dominance Access: 6F RRA Indication: USA Artery Lesion Intervention LM Mild diffuse LAD m TO D2: os 90% 2.75 x 12 Angioplasty --> 40% LCx Mild diffuse RCA Mild diffuse EF 65%, no wmas ??? Hyperpiesia ??? JUSTIN (obstructive sleep apnea) Objective: BP 133/81 (BP Location (NBP): Left arm, Patient Position: Standing, BP Cuff Sizes: Adult (25-34 cm)) Pulse 66 Ht 167.6 cm (5' 6) Wt 117.9 kg (260 lb) BMI 41.97 kg/m?? Gen: pleasant male in NAD Cor: rrr, s1/s2 of nl character and amplitude, no m/r/g. Estimated RAP not elevated. Carotids with normal upstroke without bruit. Pulm: CTAB. Normal diaphragmatic movement without use of accessory muscles Assessment and Plan: Coronary artery disease involving twin [place] coronary artery of twin [place] heart without angina pectoris No angina per history. - Anti-Thrombosis: asa 81. - Statin: lipitor 20 - Anti-anginals: norvacs 2.5, toprol 50, GTN PRN Hyperpiesia Well controlled on current regimen. - norvasc 2.5 - hctz 25 RTC 12 months Jerzy Espinal MD documented in this encounter Miscellaneous Notes * Assessment & Plan Note - Jerzy Espinal MD - 02/15/2021 1:37 PM EDT Associated Problem(s): Hyperpiesia Well controlled on current regimen. - norvasc 2.5 - hctz 25 * Assessment & Plan Note - Jerzy Espinal MD - 02/15/2021 1:36 PM EDT Associated Problem(s): ASCVD (arteriosclerotic cardiovascular disease) No angina per history. - Anti-Thrombosis: asa 81. - Statin: lipitor 20 - Anti-anginals: norvacs 2.5, toprol 50, GTN PRN documented in this encounter Plan of Treatment Upcoming Encounters Date Type Department Care Team (Late st Contact Info) Description 04/20/2025 9:00 AM EDT Office Visit Cardiology at [address] [place] [address] Jerzy Espinal MD [facility] [place] [address] documented as of this encounter Visit Diagnoses Diagnosis Coronary artery disease involving twin [place] coronary artery of [place] heart without angina pectoris Hyperpiesia Unspecified essential hypertension documented in this encounter Care Teams Light Rail Vehicle Operator Relationship Specialty Start Date End Date Jadiel Gregorio DO [address] [place] [address] [place] [address] PCP - General 10/17/10 06/25/22 documented as of this encounter
--- OUTSIDE RECORDS SUMMARY | 2024-07-06 13:08 | XMS_ITS | Encounter Summary ---
Author Organization [facility] Address [facility] [address] Care Team Providers Care Casino Porter Name Role Phone Tim Octaviano Reed APRN Primary Care Provider [phone]- [phone] Encounter Details Date Type Department Care Team (Latest Contact Info) Description 06/26/2022 9:00 AM EDT Office Visit Cardiology at [address] [phone] Jerzy Espinal MD [facility] [place] [address] ASCVD (arteriosclerotic cardiovascular disease); Hyperpiesia Social History [...] Sign Reading Time Taken Comments Blood Pressure 116/68 06/26/2022 9:06 AM EDT Pulse 60 06/26/2022 9:06 AM EDT Temperature - - Respiratory Rate - - Oxygen Saturation - - Inhaled Oxygen Concentration - - Weight 112 kg (247 lb) 06/26/2022 9:06 AM EDT Height 167.6 cm (5' 6) 06/26/2022 9:06 AM EDT Body Mass Index 39.87 06/26/2022 9:06 AM EDT documented in this encounter Progress Notes * Jerzy Espinal MD - 06/26/2022 9:00 AM EDT Images from the original note were not included. Subjective: Patient ID: Cj De Los Santos is a 66 y.o. male who presents on follow-up for: No chief complaint on file. HPI Last seen by me 01/2022, at which time no changes were made. Since then, he has intentionally lost about 23 lbs of caloric weight. He has been using a variety of OTC/herbal medicines for this task. He had stopped the toprol for time, but noted his SBP would increase to 150- 160s; he restarted it and the BP has come back to normal. NO angina nor untoward dyspnea. Current Outpatient Medications: ??? atorvastatin (Lipitor) 20 [...] mouth nightly., Disp: , Rfl: 0 ??? metoprolol succinate XL (Toprol XL) 50 mg Tablet Sustained Release 24 hr, Take 1 tablet by mouth daily., Disp: 30 tablet, Rfl: 12 Patient Active Problem List Diagnosis ??? Obesity ??? ASCVD (arteriosclerotic cardiovascular disease) Cardiac Catheterization: (04/06/2019) LEFT dominance Access: 6F RRA Indication: [place] Artery Lesion Intervention LM Mild diffuse LAD m TO D2: os 90% 2.75 x 12 Rj Angioplasty --> 40% LCx Mild diffuse RCA Mild diffuse EF 65%, no wmas ??? Hyperpiesia ??? JUSTIN (obstructive sleep apnea) Objective: BP 116/68 (BP Location (NBP): Left arm, Patient Position: Sitting, BP Cuff Sizes: Large Adult (32-43 cm)) Pulse 60 Ht 167.6 cm (5' 6) Wt 112 kg (247 lb) BMI 39.87 kg/m?? Gen: pleasant male in NAD Cor: rrr, s1/s2 of nl character and amplitude, no m/r/g. Estimated RAP not elevated. Carotids with normal upstroke without bruit. Pulm: CTAB. Normal diaphragmatic movement without use of accessory muscles Assessment and Plan: ASCVD (arteriosclerotic cardiovascular disease) No angina per history. - Anti-Thrombosis: asa 81. - Statin: lipitor 20 - Anti-anginals: GTN PRN, norvasc 2.5, toprol 50 Hyperpiesia Well controlled on current regimen. Reviewed that as weight loss continues, I'd imagine the medications for BP will be able to be trimmed. He will call in 2 weeks with BP log; if SBP < 130, will recommend stopping the hctz. - norvasc 2.5 - hctz 25 - because it seems like he had a beneficial bp response to toprol, will continue it RTC 7 months Jerzy Espinal MD documented in this encounter Miscellaneous Notes * Assessment & Plan Note - Jerzy Espinal MD - 06/26/2022 9:27 AM EDT Associated Problem(s): Hyperpiesia Well controlled on current regimen. Reviewed that as weight loss continues, I'd imagine the medications for BP will be able to be trimmed. He will call in 2 weeks with BP log; if SBP < 130, will recommend stopping the hctz. - norvasc 2.5 - hctz 25 - because it seems like he had a beneficial bp response to toprol, will continue it * Assessment & Plan Note - Jerzy Espinal MD - 06/26/2022 9:26 AM EDT Associated Problem(s): ASCVD (arteriosclerotic cardiovascular disease) No angina per history. - Anti-Thrombosis: asa 81. - Statin: lipitor 20 - Anti-anginals: GTN PRN, norvasc 2.5, toprol 50 documented in this encounter Plan of Treatment Upcoming Encounters Date Type Department Care Team (Late st Contact Info) Description 04/20/2025 9:00 AM EDT Office Visit Cardiology at [address] [place] [address] Jerzy Espinal MD [facility] [place] [address] documented as of this encounter Visit Diagnoses Diagnosis ASCVD (arteriosclerotic cardiovascular disease) Unspecified cardiovascular disease Hyperpiesia Unspecified essential hypertension documented in this encounter Care Teams Casino Porter Relationship Specialty Start Date End Date Octaviano Dumont, BORING MILL SET UP OPERATOR [address] [place] [address] PCP - General Family Medicine 06/26/22 documented as of this encounter
--- OUTSIDE RECORDS SUMMARY | 2024-07-06 13:08 | XMS_ITS | Encounter Summary ---
Author Organization [facility] [place] [address] Care Team Providers Care Salesperson Women'S Hats Name Role Phone TimCarrieabdirahman Reed APRN Primary Care Provider [phone]- [phone] Encounter Details Date Type Department Care Team (Late st Contact Info) Description 04/21/2024 Orders Only Cardiology at [address] [phone] Jerzy Espinal MD [facility] [place] [address] ASCVD (arteriosclerotic cardiovascular disease); Pre-operative cardiovascular examination [...] 9:00 AM EDT Office Visit Cardiology at [address] [phone] Jerzy Espinal MD [facility] [place] [address] Scheduled Orders Name Type Priority Associated Diagnoses Orde r Schedule Nuclear Pharmacologic Stress Cardiology Cardiac Services Routine ASCVD (arteriosclerotic cardiovascular disease) Pre-operative cardiovascular examination Expected: 04/21/2024, Expires: 10/21/2024 documented as of this encounter Visit Diagnoses Diagnosis ASCVD (arteriosclerotic cardiovascular disease) Unspecified cardiovascular disease Pre-operative cardiovascular examination documented in this encounter Care Teams Salesperson Women'S Hats Relationship Specialty Start Date End Date Octaviano Dumont APRN [address] [place] [address] PCP - General Family Medicine 06/26/22 documented as of this encounter
--- OUTSIDE RECORDS SUMMARY | 2024-07-06 13:08 | XMS_ITS | Encounter Summary ---
Author Organization [facility] Address [facility] [place] [address] Care Team Providers Care Mammography Tech Name Role Phone Octaviano Dumont APRN Primary Care Provider [phone]- [phone] Encounter Details Date Type Department Care Team (Late st Contact Info) Description 09/17/2023 Telephone Cardiology at [address] [place] [address] Jerzy Espinal MD [facility] [place] [address] Social History Tobacco Use Types Packs/Day Years [...] Telephone Encounter - Kym Tavares RN - 09/17/2023 9:00 AM EST Cj calls into the office to request moving his next appointment with Dr. Espinal up. Per patient he is experiencing fatigue that has been ongoing since his last visit with Dr. Espinal in February 2023. He states he has had no new diagnosis or medications. Per Cj he has been wearing his bipap every night but still wakes up fatigued. He states he had a recent cold and has some ongoing shortnessof breath but no pain or edema. He states he has not contacted his PCP and it was encouraged for him to update his PCP with his symptoms and Dr. Espinal would be made aware of above. documented in this encounter Plan of Treatment Upcoming Encounters Date Type Department Care Team (Late st Contact Info) Description 04/20/2025 9:00 AM EDT Office Visit Cardiology at [address] [place] [address] Jerzy Espinal MD [facility] [place] [address] documented as of this encounter Visit Diagnoses Not on filedocumented in this encounter Care Teams Mammography Tech Relationship Specialty Start Date End Date Octaviano Dumont APRN [address] [facility] 1 [place] [address] PCP - General Family Medicine 06/26/22 documented as of this encounter
--- OUTSIDE RECORDS SUMMARY | 2024-07-06 13:08 | XMS_ITS | Encounter Summary ---
Author Organization [facility] [place] [address] Care Team Providers Care Computer Systems Security Administrator Name Role Phone Jadiel Gregorio DO Primary Care Provider [phone] Reason for Visit * Reason Comments Medication Refill Encounter Details Date Type Department Care Team (Late st Contact Info) Description 09/11/2020 Refill Cardiology at [address] [phone] Jerzy Espinal MD [facility] [place] [address] Medication Refill Social History Tobacco Use Types [...] 9:00 AM EDT Office Visit Cardiology at [address] [phone] Jerzy Espinal MD [facility] [place] [address] documented as of this encounter Visit Diagnoses Not on filedocumented in this encounter Care Teams Computer Systems Security Administrator Relationship Specialty Start Date End Date Jadiel Gregorio DO [address] [place] [address] PCP - General 10/17/10 06/25/22 documented as of this encounter
--- OUTSIDE RECORDS SUMMARY | 2024-07-06 13:08 | XMS_ITS | Encounter Summary ---
Author Organization [facility] [place] [address] Care Team Providers Care Merit System Director Name Role Phone Jadiel Gregorio Primary Care Provider Encounter Details Date Type Department Care Team (Late st Contact Info) Description 02/13/2021 External Results Cardiology at [address] [phone] Jerzy Espinal MD [facility] [place] [address] Social History Tobacco Use Types Packs/Day Years [...] 9:00 AM EDT Office Visit Cardiology at [address] [phone] Jerzy Espinal MD [facility] [place] [address] documented as of this encounter Procedures Procedure Name Priority Date/Time Associated Diagnosis Comments BASIC METABOLIC PANEL Routine 04/27/2020 documented in this encounter Results * Basic Metabolic Panel (non-fasting) (04/27/2020) Glucose 89 Blood Urea Nitrogen 22 Creatinine 1.12 Est Glomerular Filtration Rate >60 Sodium 143 Potassium 3.7 Chloride 106 Carbon Dioxide 28 Calcium 9.3 Blood 04/27/2020 Historical Provider CHEMISTRY ORDERAB LES documented in this encounter Visit Diagnoses Not on filedocumented in this encounter Care Teams Merit System Director Relationship Specialty Start Date End Date Jadiel Gregorio DO [address] [place] [address] PCP - General 10/17/10 06/25/22 documented as of this encounter
--- OUTSIDE RECORDS SUMMARY | 2024-07-06 13:08 | XMS_ITS | Continuity of Care Document ---
Author Organization [facility] Address [address] [place] [address] Care Team Providers Care News Intern Name Role Phone Octaviano Dumont Primary Care Physician Encounter [facility] [id number] Date(s): 04/23/24 - 04/23/24 [facility] [address] [place] [address] Discharge Disposition: Home Allergies, Adverse Reactions, Alerts Substance Criticality Severity Reaction Reaction Severity Status cyclobenzaprine Unable to assess criticality Unknown Active enoxaparin Unable to assess criticality Unknown Active rOPINIRole Unable to assess criticality Unknown Active Assessment and Plan Future Appointments Medications amLODIPine 2.5 mg oral tablet 2.5 mg = 1 tab, Oral, Daily, # 30 tab, 0 Refill(s) Start Date: 01/05/23 Status: Ordered aspirin 81 mg oral capsule 81 mg = 1 cap, Oral, Daily, do not exceed 48 capsules in 24 hours, # 30 cap, 0 Refill(s) Start Date: 01/05/23 Status: Ordered atorvastatin 20 mg oral tablet 20 mg = 1 tab, Oral, Daily, # 30 tab, 0 Refill(s) Start Date: 01/05/23 Status: Ordered citalopram 10 mg oral tablet 10 mg = 1 tab, Oral, Daily, # 90 tab, 0 Refill(s) Start Date: 01/05/23 Status: Ordered hydroCHLOROthiazide 25 mg oral tablet 25 mg = 1 tab, Oral, Daily, 0 Refill(s) Start Date: 01/05/23 Status: Ordered naproxen 250 mg oral tablet 250 mg = 1 tab, Oral, BID, # 180 tab, 0 Refill(s) Start Date: 01/05/23 Status: Ordered nitroglycerin 0.4 mg sublingual tablet 0.4 mg = 1 tab, SL, every 5 min, PRN as needed for chest pain, not to exceed 3 doses/15 min--if pain persists, seek medical attention, # 25 tab, 0 Refill(s) Start Date: 01/05/23 Status: Ordered potassium chloride 99 mg oral tablet 99 mg = 1 tab, Oral, Daily, # 100 tab, 0 Refill(s) Start Date: 01/05/23 Status: Ordered Problem List Condition Confirmation Course Effective Dates Status H ealth Status Informant Acute ischemic heart disease Confirmed Active Benign essential HTN Confirmed Active Coronary arteriosclerosis Confirmed Active Obesity Confirmed Active Obstructive sleep apnea, adult Confirmed Active Social History Social History Type Response Tobacco Never tobacco user T obacco Use:. Sex Male Sex Representation Male (finding) Patient Care team information Care Team Personnel Name: Octaviano Dumont Position: No Access Member Role: Primary Care Physician Address: [address] Care Team Related Persons Name: CAITY BURRIS Insurance Providers Guarantor name: JADE BURRIS Health Plan Information #: 1 Payer: [employer] Member Number: NA Policy Number: NA Health Plan Information #: 2 Payer: [employer] Member Number: NA Policy Number: NA
--- OUTSIDE RECORDS SUMMARY | 2024-07-06 13:08 | XMS_ITS | Clinical Summary ---
Author Organization [facility] Address [facility] [place] [address] Care Team Providers Care Head Of Product Name Role Phone Tim Octaviano Reed APRN Primary Care Provider [phone] Allergies Active Allergy Reactions Criticality Noted Date Comments Enoxaparin Other (See Comments) Medium 04/03/2019 thrombocytopenia Cyclobenzaprine Itching Medium 04/03/2019 Ropinirole Other (See Comments) Medium 04/03/2019 Increased agitation Medications Medication Sig Dispensed Refills Start Date End Date Status hydroCHLOROthiazide (HYDRODIURIL) 25 mg Tablet Take 25 mg by mouth daily. 0 01/30/2019 Active nitroGLYcerin (NITROSTAT) 0.4 mg Tablet, Sublingual Take 0.4 mg by mouth as needed. Chest pain 0 03/30/2019 Active citalopram (CELEXA) 10 mg Tablet Take 10 mg by mouth nightly. 0 01/30/2019 Active amLODIPine (NORVASC) 2.5 mg Tablet Take 2.5 mg by mouth daily. Active MULTI-VITAMIN ORAL Take 1 tablet by mouth daily. Active aspirin 81 mg Tablet, ChewableIndications :Atherosclerosis of [place] coronary artery of [place] heart, angina presence unspecified CHEW AND SWALLOW 1 TABLET BY MOUTH ONCE DAILY 90 tablet 2 08/01/2020 Active atorvastatin (Lipitor) 20 mg Tablet TAKE ONE TABLET BY MOUTH EVERY EVENING 90 tablet 2 09/12/2020 Active metoprolol succinate XL (Toprol XL) 50 mg Tablet Sustained Release 24 hr Take 1 tablet by mouth daily. 30 tablet 12 06/26/2022 Active Additional Information Patient not taking.Reported on 04/20/2024 Active Problems Problem Noted Date Diagnosed Date Obesity 07/24/2021 ASCVD (arteriosclerotic cardiovascular disease) 04/03/2019 Overview (02/19/2022): Cardiac Catheterization: (04/06/2019) LEFT dominance Access: 6F RRA Indication: [place] Artery Lesion Intervention LM Mild diffuse LAD m TO D2: os 90% 2.75 x 12 [place] Angioplasty --> 40% LCx Mild diffuse RCA Mild diffuse EF 65%, no wmas Assessment & Plan (04/20/2024 11:11 AM EDT): No angina per history. - Anti-Thrombosis: asa 81 - Statin: lipitor 20 - Anti-anginals: GTN PRN, norvasc Assessment & Plan (03/18/2023 8:56 AM EDT): No angina per history. - Anti-Thrombosis: asa 81 - Statin: lipitor 20 - Anti-anginals: GTN PRN, norvasc 2.5, toprol 50 Assessment & Plan (06/26/2022 9:27 AM EDT): No angina per history. - Anti-Thrombosis: asa 81. - Statin: lipitor 20 - Anti-anginals: GTN PRN, norvasc 2.5, toprol 50 Assessment & Plan (02/19/2022 2:45 PM EDT): No angina per history. - Anti-Thrombosis: asa 81. - Statin: lipitor 20 - Anti-anginals: norvacs 2.5, GTN PRN Assessment & Plan (02/15/2021 1:36 PM EDT): No angina per history. - Anti-Thrombosis: asa 81. - Statin: lipitor 20 - Anti-anginals: norvacs 2.5, toprol 50, GTN PRN Assessment & Plan (04/19/2020 8:41 AM EDT): No angina per history. - Anti-Thrombosis: asa 81. Can stop plavix - Statin: lipitor 20 - Anti-anginals: norvacs 2.5, toprol 50, GTN PRN Assessment & Plan (07/20/2019 8:46 AM EST): No angina per history. - Antiplatelets: continue dapt x 1 year (03/2020). Asa lifelong - Statin: continue lipitor 40 for now; may decrease to 20 after running out in setting of rather low LDL - anti-anginals: toprol 50, norvasc 2.5 - endorsed increased activity Assessment & Plan (04/16/2019 4:30 PM EDT): No evidence of angina since cath. - Antiplatelets: continue dapt x 1 year (03/2020). Asa lifelong - Statin: lipitor 80 can be decreased to 40 (non-STEMI presentation) - anti-anginals: toprol 50, norvasc 2.5 - endorsed cardiac rehab Hyperpiesia 04/03/2019 Assessment & Plan (04/20/2024 11:22 AM EDT): Not untowardly uncontrolled here. With upcoming surgery I would defer on making any changes at this time. However, should SBP > 135 more often than not at home, would advise increasing norvasc to 5 - norvasc 2.5 - hctz 25 Assessment & Plan (03/18/2023 9:10 AM EDT): Well controlled on current regimen. Advised increasing activity, for both conditioning and weight loss. - norvasc 2.5 - hctz 25 - NB: toprol has had a beneficial effect on the bp Assessment & Plan (06/26/2022 9:28 AM EDT): Well controlled on current regimen. Reviewed that as weight loss continues, I'd imagine the medications for BP will be able to be trimmed. He will call in 2 weeks with BP log; if SBP < 130, will recommend stopping the hctz. - norvasc 2.5 - hctz 25 - because it seems like he had a beneficial bp response to toprol, will continue it Assessment & Plan (03/21/2022 8:18 AM EDT): Well controlled on current regimen. - norvasc 2.5 - hctz 25 Assessment & Plan (02/15/2021 1:37 PM EDT): Well controlled on current regimen. - norvasc 2.5 - hctz 25 Assessment & Plan (04/19/2020 8:40 AM EDT): Well controlled on current regimen. Reviewed that with weight loss the BP will improve and he will be able to possibly discontinue some medications - norvasc 2.5 - hctz 25 Assessment & Plan (07/20/2019 8:45 AM EST): BP well controlled at home. No changes to current regimen Assessment & Plan (04/16/2019 4:29 PM EDT): Controlled here. - continue norvasc 2.5, hctz 25 - BP log; to bring to f/u appt JUSTIN (obstructive sleep apnea) 11/30/2010 Resolved Problems Problem Noted Date Diagnosed Date Resolved Date Obstructive sleep apnea syndrome 02/19/2022 02/19/2022 Acute ischemic heart disease 07/24/2021 02/19/2022 Encounters Date Type Department Care Team Description 05/06/2024 Telephone Cardiology at [address] [phone] Jerzy Espinal MD Medical Clearance 05/05/2024 9:20 AM EDT Ext Surgery or Single Event [facility] [address] [place] [address] Jerzy Espinal MD ASCVD (arteriosclerotic cardiovascular disease); Pre-operative cardiovascular examination 04/21/2024 Orders Only Cardiology at [address] [phone] Jerzy Espinal MD ASCVD (arteriosclerotic cardiovascular disease); Pre-operative cardiovascular examination 04/21/2024 Telephone Cardiology at [address] [phone] Jerzy Espinal MD 04/20/2024 11:00 AM EDT Office Visit Cardiology at [place] [address] [place] [address] Jerzy Espinal MD ASCVD (arteriosclerotic cardiovascular disease); Hyperpiesia 04/20/2024 Travel from Last 3 Months Immunizations Name Administration Dates Next Due Td Adult (not absorbed) 09/03/2006,04/22/1998 Family History Medical History Relation Comments Chronic Obstructive Pulmonary Disease Father Coronary Artery Disease Father Cancer Mother breast Relation Status Comments Father Mother Social History Tobacco Use Types Packs/Day Years Used Date Smoking Tobacco: Never Smokeless Tobacco: Never Alcohol Use Standard Drinks/Week Comments Yes 5 (1 standard drink = 0.6 oz pur e alcohol) ocassoinal Sex and Gender Information Value Date Recorded Sex Assigned at Not on file Gender Identity Not on file Sexual Orientation Not on file Last Filed Vital Signs Vital Sign Reading Time Taken Comments Blood Pressure 144/94 04/20/2024 11:01 AM EDT Pulse 69 04/20/2024 11:01 AM EDT Temperature 36.7 ??C (98.1 ??F) 04/06/2019 8:18 AM ED T Respiratory Rate 18 03/18/2023 8:53 AM EDT Oxygen Saturation 96% 04/06/2019 10:52 AM EDT Inhaled Oxygen Concentration - - Weight 124.7 kg (275 lb) 04/20/2024 11:01 AM EDT Height 167.6 cm (5' 6) 04/20/2024 11:01 AM EDT Body Mass Index 44.39 04/20/2024 11:01 AM EDT Plan of Treatment Upcoming Encounters Date Type Department Care Team (Late st Contact Info) Description 04/20/2025 9:00 AM EDT Office Visit Cardiology at [place] [address] [place] [phone] Jerzy Espinal MD [facility] [place] [address] Health Maintenance Due Date Last Done Comments CT Colonography 1954 Colonoscopy 1954 Colorectal Cancer Screening 1954 FIT DNA 1954 FIT 1954 Sigmoidoscopy (10 year) with FIT yearly 1954 Sigmoidoscopy 1954 Hepatitis C Screening 1972 Zoster vaccine (1 of 2) 2004 Tetanus/Diphtheria/Pertussis Vaccines (1 - Tdap) 09/04/2006 09/03/2006, 04/22/1998 Advance Directive 2009 Pneumoccocal Vaccine: 65+ (1 of 1 - PCV) 11/23/2019 Diabetes Screening (HgbA1C o r Glucose) 04/27/2023 04/27/2020, 04/06/2019, 04/05/2019, Additional history exists Covid-19 Vaccine (1 - 2023-2 5 season) 2024 Influenza (Flu) vaccine (1 o f 1 - Influenza standard series) 04/26/2024 Procedures Procedure Name Priority Date/Time Associated Diagnosis Comments ECG SCAN 05/05/2024 12:00 AM EDT STRESS TEST SCAN 05/05/2024 12:0 0 AM EDT EKG 12-LEAD Routine 04/20/2024 11:16 AM EDT BASIC METABOLIC PANEL Routine 04/27/2020 from Last 3 Months or Most Recently Relevant to Health Maintenance Results * Scan Doc: Stress Test (05/05/2024 12:00 AM EDT) Anatomical Region Laterality Modality Other Narrative 05/05/2024 12:00 AM EDT Ordered by an unspecified provider. Scanning Provider MEDIA MGR SCAN EXT O RDR/RSLT * Scan Doc: ECG (05/05/2024 12:00 AM EDT) Narrative 05/05/2024 12:00 AM EDT Ordered by an unspecified provider. Scanning Provider MEDIA MGR SCAN EXT O RDR/RSLT * EKG 12 Lead (04/20/2024 11:16 AM EDT) Ventricular rate 69 BPM MUSE SYSTEM Atrial Rate 69 BPM MUSE SYSTEM P-R Interval 166 ms MUSE SYSTEM QRS Duration 130 ms MUSE SYSTEM Q-T Interval 412 ms MUSE SYSTEM QTC Calculated (Bezet) 441 ms MUSE SYSTEM Calculated P Broadway 15 degrees MUSE SYSTEM Calculated R [place] -37 degrees MUSE SYSTEM Calculated T [place] 15 degrees MUSE SYSTEM INTERPRETATION Normal sinus rhythm Left axis deviation Right bundle branch block Abnormal ECG When compared with ECG of 20-JUL-2019 08:22, No significant change was found Confirmed by MD Espinal Daniel ([id number]) on 04/30/2024 10:41:36 AM MUSE SYSTEM 04/20/2024 11:1 6 AM EDT 04/30/2024 10:41 AM EDT Unknown ECG ORDERABLES MUSE SYSTEM * Basic Metabolic Panel (non-fasting) (04/27/2020) Glucose 89 Blood Urea Nitrogen 22 Creatinine 1.12 Est Glomerular Filtration Rate >60 Sodium 143 Potassium 3.7 Chloride 106 Carbon Dioxide 28 Calcium 9.3 Blood 04/27/2020 Historical Provider CHEMISTRY ORDERAB LES from Last 3 Months or Most Recently Relevant to Health Maintenance Advance Directives * Full Code (Latest Code Status on File) Date Activated Date Inactivated Comments 04/03/2019 9:32 PM 04/06/2019 2:23 PM Question Answer Comments Does patient have capacity to make decision: Yes Care Teams Head Of Product Relationship Specialty Start Date End Date Octaviano Dumont APRN [address] [place] [address] [address] [place] [address] PCP - General Family Medicine 06/26/22
--- OUTSIDE RECORDS SUMMARY | 2024-07-06 13:08 | XMS_ITS | Encounter Summary ---
Author Organization [facility] [place] [address] Care Team Providers Care Wheel Of Fortune Dealer Name Role Phone JgJadiel hernandes Primary Care Provider Encounter Details Date Type Department Care Team (Late st Contact Info) Description 02/06/2021 External Results Cardiology at [address] [phone] Jerzy Espinal MD [facility] [place] [address] Social History Tobacco Use Types Packs/Day Years [...] 9:00 AM EDT Office Visit Cardiology at [address] [phone] Jerzy Espinal MD [facility] [place] [address] documented as of this encounter Procedures Procedure Name Priority Date/Time Associated Diagnosis Comments EXTERNAL LIPID LAB RESULTS PANEL Routine 04/03/2019 documented in this encounter Results * Lipid External Results (04/03/2019) Cholesterol, Total 143 HDL Cholesterol 38 LDL Cholesterol 81 Triglyceride 124 04/03/2019 Historical Provider POINT OF CARE LAURIE T ORDERABLES documented in this encounter Visit Diagnoses Not on filedocumented in this encounter Care Teams Wheel Of Fortune Dealer Relationship Specialty Start Date End Date Jadiel Gregorio DO [address] [place] [address] PCP - General 10/17/10 06/25/22 documented as of this encounter
--- OUTSIDE RECORDS SUMMARY | 2024-07-06 13:09 | XMS_ITS | Encounter Summary ---
Author Organization [facility] [place] [address] Care Team Providers Care Jewelry Jobber Name Role Phone Jadiel Gregorio DO Primary Care Provider Encounter Details Date Type Department Care Team (Late st Contact Info) Description 01/08/2014 [place] [phone] Jadiel Gregorio DO [address] [place], [place] [address] Social History Tobacco Use Types Packs/Day Years Used Date Smoking Tobacco: Never Assessed Sex and Gender Information Value Date Recorded Sex Assigned at Not on file Gender Identity Not on file Sexual Orientation Not on file documented as of this encounter Plan of Treatment Upcoming Encounters Date Type Department Care Team (Late st Contact Info) Description 04/20/2025 9:00 AM EDT Office Visit Cardiology at [address] [place] [phone] Jerzy Espinal MD [facility] [place] [address] documented as of this encounter Visit Diagnoses Not on filedocumented in this encounter Care Teams Jewelry Jobber Relationship Specialty Start Date End Date Jadiel Gregorio DO [address] [place], [place] [address] PCP - General 10/17/10 06/25/22 documented as of this encounter
--- OUTSIDE RECORDS SUMMARY | 2024-07-06 13:09 | XMS_ITS | Encounter Summary ---
Author Organization [facility] Address [facility] [place] [address] Care Team Providers Care Fueler Name Role Phone Jg, Jadiel MARTINEZ Primary Care Provider [phone] Reason for Visit * Reason Comments Coronary Artery Disease Encounter Details Date Type Department Care Team (Latest Contact Info) Description 04/19/2020 8:20 AM EDT TH Visit (TeleHealth) Cardiology at [address] [phone] Jerzy Espinal MD [facility] [place] [address] Coronary artery disease involving [place] coronary artery of [place] heart without angina pectoris; Hyperpiesia Social History [...] Sign Reading Time Taken Comments Blood Pressure 125/81 04/19/2020 8:10 AM EDT Pulse 61 04/19/2020 8:10 AM EDT Temperature - - Respiratory Rate - - Oxygen Saturation - - Inhaled Oxygen Concentration - - Weight 115.2 kg (254 lb) 04/19/2020 8:10 AM EDT Height 167.6 cm (5' 6) 04/19/2020 8:10 AM EDT Body Mass Index 41 04/19/2020 8:10 AM EDT documented in this encounter Progress Notes * Jerzy Espinal MD - 04/19/2020 8:20 AM EDT CARDIOLOGY TELE VISIT NOTE, 04/19/20 The patient consented to this being a virtual visit. Patient Active Problem List Diagnosis ??? Coronary artery disease involving [place] coronary artery of [place] heart without angina pectoris Cardiac Catheterization: (04/06/2019) LEFT dominance Access: 6F RRA Indication: [place] Artery Lesion Intervention LM Mild diffuse LAD m TO D2: os 90% 2.75 x 12 Angioplasty --> 40% LCx Mild diffuse RCA Mild diffuse EF 65%, no wmas ??? Hyperpiesia ??? JUSTIN (obstructive sleep apnea) HPI: Cj De Los Santos is a 64 y.o. year old male who presents on follow-up for: Chief Complaint Patient presents with ??? Coronary Artery Disease Last seen by me 06/2019, at which time no changes were made Since then, he has been doing well. He gets chronic nyha ii dyspnea, but overall feels better sincethe PCI last year. No angina pectoris. BP well controlled at home No bleeding on dapt Brief ROS: + fatigue, has to nap in the PM + odd work hours Else negative Medications (Reviewed with patient): Current Outpatient Medications: ??? atorvastatin (LIPITOR) 20 mg Tablet, Take 1 tablet by mouth every evening., Disp: 90 tablet, Rfl: 3 ??? aspirin 81 mg Tablet, Chewable, Take 81 mg by mouth daily., Disp: 90 tablet, Rfl: 3 ??? amLODIPine (NORVASC) 2.5 mg Tablet, Take [...] by mouth nightly., Disp: , Rfl: 0 Objective Data: BP 125/81 Pulse 61 Ht 167.6 cm (5' 6) Wt 115.2 kg (254 lb) BMI 41.00 kg/m?? Hyperpiesia Well controlled on current regimen. Reviewed that with weight loss the BP will improve and he will be able to possibly discontinue some medications - norvasc 2.5 - hctz 25 Coronary artery disease involving [place] coronary artery of [place] heart without angina pectoris No angina per history. - Anti-Thrombosis: asa 81. Can stop plavix - Statin: lipitor 20 - Anti-anginals: norvacs 2.5, toprol 50, GTN PRN RTC 9 months Jerzy Espinal MD documented in this encounter Miscellaneous Notes * Assessment & Plan Note - Jerzy Espinal MD - 04/19/2020 8:41 AM EDT Associated Problem(s): ASCVD (arteriosclerotic cardiovascular disease) No angina per history. - Anti-Thrombosis: asa 81. Can stop plavix - Statin: lipitor 20 - Anti-anginals: norvacs 2.5, toprol 50, GTN PRN * Assessment & Plan Note - Jerzy Espinal MD - 04/19/2020 8:37 AM EDT Associated Problem(s): Hyperpiesia Well controlled on current regimen. Reviewed that with weight loss the BP will improve and he will be able to possibly discontinue some medications - norvasc 2.5 - hctz 25 documented in this encounter Plan of Treatment Upcoming Encounters Date Type Department Care Team (Late st Contact Info) Description 04/20/2025 9:00 AM EDT Office Visit Cardiology at [address] [place] [phone] Jerzy Espinal MD [facility] [place] [address] documented as of this encounter Visit Diagnoses Diagnosis Coronary artery disease involving [place] coronary artery of [place] heart without angina pectoris Hyperpiesia Unspecified essential hypertension documented in this encounter Care Teams Fueler Relationship Specialty Start Date End Date Jadiel Gregorio DO [address] [place] [address] PCP - General 10/17/10 06/25/22 documented as of this encounter
--- OUTSIDE RECORDS SUMMARY | 2024-07-06 13:09 | XMS_ITS | Encounter Summary ---
Author Organization [facility] [place] [address] Care Team Providers Care Training Facilitator Name Role Phone Jadiel Gregorio DO Primary Care Provider [phone] Encounter Details Date Type Department Care Team (Latest Contact Info) Description 01/11/2014 9:45 AM EDT - 01/11/2014 11:59 PM EDT Hospital Encounter XRay at [address] [place] [address] CLINIC, DR MCCOLLUM Discharge Disposition: Home Social History Tobacco Use Types Packs/Day Years Used Date Smoking Tobacco: Never Assessed Sex and Gender Information Value Date Recorded Sex Assigned at Not on file Gender Identity Not on file Sexual Orientation Not on file documented as of this encounter Medications at Time of Discharge Medication Sig Dispensed Refills Start Date End Date citalopram (CELEXA) 10 mg/5 mL suspension Take 10 mg by mouth daily. 04/03/2019 documented as of this encounter Plan of Treatment Upcoming Encounters Date Type Department Care Team (Late st Contact Info) Description 04/20/2025 9:00 AM EDT Office Visit Cardiology at [address] [place] [address] Jerzy Espinal MD [facility] [place] [address] documented as of this encounter Visit Diagnoses Not on filedocumented in this encounter Care Teams Training Facilitator Relationship Specialty Start Date End Date Jadiel Gregorio DO [address] [place] [address] [facility] [address] [place] [address] PCP - General 10/17/10 06/25/22 documented as of this encounter
--- OUTSIDE RECORDS SUMMARY | 2024-07-06 13:09 | XMS_ITS | Encounter Summary ---
Author Organization [facility] [place] [address] Care Team Providers Care Camera Technician Name Role Phone Jadiel Gregorio DO Primary Care Provider [phone] Encounter Details Date Type Department Care Team (Late st Contact Info) Description 08/14/2019 Orders Only Cardiology at [address] [phone] Araceli Robert RN Atherosclerosis of [place] coronary artery of [place] heart, angina presence unspecified Social History Tobacco Use Types Packs/Day Years [...] AM EDT Office Visit Cardiology at [address] [phone] Jerzy Espinal MD [facility] [place] [address] documented as of this encounter Visit Diagnoses Diagnosis Atherosclerosis of [place] coronary artery of [place] heart, angina presence unspecified documented in this encounter Care Teams Camera Technician Relationship Specialty Start Date End Date Jadiel Gregorio DO [address] [place] [address] [address] [place] [address] PCP - General 10/17/10 06/25/22 documented as of this encounter
--- OUTSIDE RECORDS SUMMARY | 2024-07-06 13:09 | XMS_ITS | Encounter Summary ---
Author Organization [facility] [place] [address] Care Team Providers Care Laborer Landscape Name Role Phone Jadiel Gregorio DO Primary Care Provider Encounter Details Date Type Department Care Team (Late st Contact Info) Description 11/06/2010 2:40 PM EDT Office [place] [address] Damien Shea MD [facility] [place] [address] Social History Tobacco Use Types Packs/Day Years [...] 9:00 AM EDT Office Visit Cardiology at [address] [place] [phone] Jerzy Espinal MD [facility] [place] [address] documented as of this encounter Visit Diagnoses Not on filedocumented in this encounter Care Teams Laborer Landscape Relationship Specialty Start Date End Date Jadiel Gregorio DO [address] [place], [place] [address] PCP - General 10/17/10 06/25/22 documented as of this encounter
--- OUTSIDE RECORDS SUMMARY | 2024-07-06 13:09 | XMS_ITS | Encounter Summary ---
Author Organization [facility] [address] Care Team Providers Care Personnel Worker Name Role Phone JgJadiel hernandes Primary Care Provider [phone] Reason for Visit * Reason Onset Date Comments Pre Procedure Call 08/20/2012 Encounter Details Date Type Department Care Team (Late st Contact Info) Description 08/20/2012 Telephone [facility] [address] [place] [phone] Leonila Gutierres LPN Pre Procedure Call Social History Tobacco Use Types Packs/Day Years Used Date Smoking Tobacco: Never Assessed Sex and Gender Information Value Date Recorded Sex Assigned at Not on file Gender Identity Not on file Sexual Orientation Not on file documented as of this encounter Miscellaneous Notes * Telephone Encounter - Leonila Gutierres LPN - 08/20/2012 9:21 AM EST . documented in this encounter Plan of Treatment Upcoming Encounters Date Type Department Care Team (Late st Contact Info) Description 04/20/2025 9:00 AM EDT Office Visit Cardiology at [address] [phone] Jerzy Espinal MD [facility] [place] [address] documented as of this encounter Visit Diagnoses Not on filedocumented in this encounter Care Teams Personnel Worker Relationship Specialty Start Date End Date Jadiel Gregorio DO [address] [place] [address] PCP - General 10/17/10 06/25/22 documented as of this encounter
--- OUTSIDE RECORDS SUMMARY | 2024-07-06 13:09 | XMS_ITS | Encounter Summary ---
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 Name Role Phone Jadiel Gregorio DO Primary Care Provider Encounter Details Date Type Department Care Team (Late st Contact Info) Description 01/11/2014 [place] [phone] Jadiel Gregorio DO [address] [place] [address] Social History Tobacco Use Types Packs/Day Years [...] 9:00 AM EDT Office Visit Cardiology at [address] [place] [phone] Jerzy Espinal MD [facility] [address] documented as of this encounter Procedures Procedure Name Priority Date/Time Associated Diagnosis Comments REQUEST FOR 2ND READ CT CHEST Routine 01/11/2014 10:13 AM EDT documented in this encounter Results * Request for 2nd read CT Chest (01/11/2014 10:13 AM EDT) Anatomical Region Laterality Modality Chest Other 01/11/2014 10:1 3 AM EDT Narrative 01/11/2014 10:37 AM EDT Examination OUTSIDE CT CHEST Clinical History COUGH W/ABNORMAL CHEST XRAY CHEST CT: I BELIEVE A REINTERPRETATION OF THIS EXAM MAY ALTER CARE OF PATIENT Comparison None Technique The patient was scanned from the thoracic inlet through the diaphragm using IV contrast. Findings There are bibasilar opacities more on the right than left most consistent with platelike atelectasis (series 3, image 40, series 25122, image 11 and series 66577, image 13). ??However, a small component of pneumonia cannot be completely excluded. ??The lungs are otherwise clear. ??No enlarged lymph nodes or pleural effusions are seen. ?? Below the diaphragm, the density of the liver, 50 HU, is much less than that of the spleen, 94 HU, (series 3 image 55) suggesting diffuse fatty infiltration of the liver. There are few surgical clips in the region of the GE junction. The upper abdomen is otherwise unremarkable. No significant bony abnormality is seen. ?? Impression Mild bibasilar atelectasis. Hepatic steatosis. Procedure Note Crow Ramos MD - 01/11/[address] CHEST Clinical History COUGH W/ABNORMAL CHEST XRAY CHEST CT: I BELIEVE A REINTERPRETATION OF THIS EXAM MAY ALTER CARE OF PATIENT Comparison None Technique The patient was scanned from the thoracic inlet through the diaphragmusing IV contrast. Findings There are bibasilar opacities more on the right than left most consistentwith platelike atelectasis (series 3, image 40, series 18900, image 11 andseries 53345, image 13). However, a small component of pneumonia cannot becompletely excluded. The lungs are otherwise clear. No enlarged lymph nodes orpleural effusions are seen. Below the diaphragm, the density of the liver, 50 HU, is much less thanthat of the spleen, 94 HU, (series 3 image 55) suggesting diffuse fattyinfiltration of the liver. There are few surgical clips in the region of the GE junction.The upper abdomen is otherwise unremarkable. No significant bony abnormality is seen. Impression Mild bibasilar atelectasis. Hepatic steatosis. Jadiel Gregorio DO IMG OUTSIDE INTERPRE TATION ORDERABLES documented in this encounter Visit Diagnoses Not on filedocumented in this encounter Care Teams Basting Machine Operator Relationship Specialty Start Date End Date Jadiel Gregorio DO [address] [place] [address] PCP - General 10/17/10 06/25/22 documented as of this encounter
--- OUTSIDE RECORDS SUMMARY | 2024-07-06 13:09 | XMS_ITS | Encounter Summary ---
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 Interventions Self-Care Promotion independence encouraged -- Potter Fall Risk History of Falling -- 0 Secondary Diagnosis -- 15 Ambulatory Aids -- 0 Intravenous Therapy/Heparin/Saline Lock -- 20 Gait/Transferring -- 0 Mental Status -- 0 Score -- 35 OTHER Potter Fall Risk -- Med Goal: Infection Control Outcome: Ongoing (Interventions Implemented as Appropriate) 04/05/19 0739 Safety Interventions Isolation Precautions standard precautions maintained Infection Prevention rest/sleep promoted Coping Strategies Supportive Measures active listening utilized Goal: Interdisciplinary Rounds/Family Conf Outcome: Ongoing (Interventions Implemented as Appropriate) OUTCOME EVALUATION NOTE: OUTCOME SUMMARY: VSS on RA. SR. No complaints of CP or SOB. No reports of pain or discomfort this shift. Will continue to monitor PLAN MOVING FORWARD: D/C planning as appropriate INDIVIDUALIZED FALL PREVENTION INTERVENTIONS: Patient-specific fall risk factors per assessment: [current deficits]: Unfamiliar environment, telemetry, pulse ox, general weakness Assistance [level of assistance required for transfers and ambulation]: SBA, non-stick socks/slippers Supervision [direct monitoring required during toileting and ADLs]: Eyes on, arms reach, hands on Surveillance [continuous indirect monitoring]: Hourly purposeful rounding, call madera in reach, roomkept free of obstacles Patient-specific fall prevention interventions for sensory deficits provided, if applicable: Lighting adjusted for task/safety CPG GOAL OUTCOME EVALUATION: Ongoing * Plan of Care - Love García RN - 04/05/2019 4:05 AM EDT Problem: Patient Care Overview Goal: Plan of Care Review Outcome: Ongoing (Interventions Implemented as Appropriate) 04/04/19201804/05/19 0403 Coping/Psychosocial Plan Of Care Reviewed With patient -- Plan of Care Review Progress -- improving OUTCOME EVALUATION NOTE: OUTCOME SUMMARY: Rico had an uneventful night. Sinus rhythm/sinus adryn on tele with very little ectopy. Denied painor shortness of breath through shift. O2 sats maintained in mid/high 90s on room air. Slept well between cares. Right radial and right femoral sites WDL. PLAN MOVING FORWARD: Discharge INDIVIDUALIZED FALL PREVENTION INTERVENTIONS: Patient-specific fall risk factors per assessment: [current deficits]: Assistance [level of assistance required for transfers and ambulation]: Supervision [direct monitoring required during toileting and ADLs]: Surveillance [continuous indirect monitoring]: telemetry and pulse ox Patient-specific fall prevention interventions for sensory deficits provided, if applicable: CPG GOAL OUTCOME EVALUATION: * Plan of Care - Te Sullivan RN - 04/04/2019 5:55 PM EDT Problem: Patient Care Overview Goal: Plan of Care Review Outcome: Ongoing (Interventions Implemented as Appropriate) 04/04/19 1745 Coping/Psychosocial Plan Of Care Reviewed With patient;spouse;daughter Goal: Fall Prevention-Safe Patient Handling Outcome: Ongoing (Interventions Implemented as Appropriate) 04/03/19 2100 04/04/19 0513 04/04/19 0600 Restraint Interventions Safety Promotion/Fall Prevention -- -- safety round/check completed Activity Activity Type -- activity adjusted per tolerance;ambulated in room -- Activity Assistance Provided -- assistance, stand-by -- Assistive Device Utilized none -- -- Positioning Body Position -- independent -- Daily Care Interventions Self-Care Promotion -- independence encouraged -- Potter Fall Risk History of Falling 0 -- -- Secondary Diagnosis 15 -- -- Ambulatory Aids 0 -- -- Intravenous Therapy/Heparin/Saline Lock 20 -- -- Gait/Transferring 0 -- -- Mental Status 0 -- -- Score 35 -- -- OTHER Potter Fall Risk Med -- -- Goal: Infection Control Outcome: Ongoing (Interventions Implemented as Appropriate) 04/03/19 2100 04/04/19 0513 Safety Interventions Isolation Precautions -- standard precautions maintained Infection Prevention -- rest/sleep promoted;environmental surveillance performed Coping Strategies Supportive Measures active listening utilized;self-care encouraged;verbalization of feelings encouraged -- Goal: Interdisciplinary Rounds/Family Conf Outcome: Ongoing (Interventions Implemented as Appropriate) OUTCOME EVALUATION NOTE: OUTCOME SUMMARY: VSS on RA. SR/SB on tele. Cardiac cath successful. Pt received a WAITE to the mid LAD, 100% occluded.Pt c/o CP when arrived back to [facility] 11/02. Sublingual nitro relieved some of the pain. Pt also c/onausea which resolved on its own. Approach through right radial and right femoral, no hematoma on either site. TR band off at 1500. VS stable, denies CP; will continue to monitor. PLAN MOVING FORWARD: D/C planning as appropriate INDIVIDUALIZED FALL PREVENTION INTERVENTIONS: Patient-specific fall risk factors per assessment: [current deficits]: Unfamiliar environment, telemetry, pulse ox, general weakness Assistance [level of assistance required for transfers and ambulation]: SBA, non-stick socks/slippers Supervision [direct monitoring required during toileting and ADLs]: Eyes on, arms reach, hands on Surveillance [continuous indirect monitoring]: Hourly purposeful rounding, call madera in reach, roomkept free of obstacles Patient-specific fall prevention interventions for sensory deficits provided, if applicable: Lighting adjusted for task/safety CPG GOAL OUTCOME EVALUATION: Ongoing * Brief Op Note - Balwinder Black MD - 04/04/2019 12:43 PM EDT Images from the original note were not included. Preliminary Cardiac Catheterization Procedure Note: Patient Name: Jade Burris : [id number] MR#: [id number] Case Date: 04/04/2019 Shipping Agent: Surgeon(s) and Role: * Balwinder Black MD - Primary * James Garza PA - Physician Freight Delivery Driver Preoperative diagnosis: acs Postoperative diagnosis: * ASCVD * Procedure(s) performed: Coronary angio Stent insertion Bilateral injection Access: right radial, right MACHINE MAINTENANCE (Perclosed) A time-out was conducted prior to the start of the procedure to verify the correct patient and procedure, procedure location, and all relevant critical information. Preliminary findings: 1. 911 EMERGENCY SERVICES DISPATCHER of the mid LAD; crossed with 911 EMERGENCY SERVICES DISPATCHER techniques and dual injections 2. Left dominant, mild disease in other vessels. Angiomax used for anticoagulation in light of potential heparin allergy. Plavix loaded post procedure. The patient tolerated the procedures smoothly and was transferred from the cardiac catheterization lab to the next level of care in stable condition. No evident early complications. Full report to follow. Balwinder Black MD * Plan of Care - Natalie Bonilla PA - 04/04/2019 10:47 AM EDT Images from the original note were not included. Cardiac cath Pre Procedure Note The indications, expected benefits and potential risks of heart catheterization were reviewed in detail with the patient. The potential for , heart attack, stroke, kidney failure, hemorrhage, allergic reaction, vascular complications and infection were reviewed in detail. The possibility of stenting and other percutaneous intervention with associated risk was reviewed. The possible need for emergent coronary artery bypass surgery was reviewed. After a discussion about the above, and havinganswered all questions posed, the patient was provided with a consent which was reviewed and signed. ASA: 2: Patient with mild systemic disease Mallampati: I: soft palate, fauces, tonsillar pillars and uvula can be seen Sedation Plan: moderate (conscious sedation) Assessment and Plan: Proceed with cardiac cath today, see progress note from today for further details. MILTON DONOVAN 04/04/2019 Pager [phone] * Plan of Care - Andi Stuart RN - 04/04/2019 5:21 AM EDT Problem: Patient Care Overview Goal: Plan of Care Review Outcome: Ongoing (Interventions Implemented as Appropriate) 04/03/192099 Coping/Psychosocial Plan Of Care Reviewed With patient;spouse;daughter OUTCOME EVALUATION NOTE: OUTCOME SUMMARY: Rico had a good night. VS/I&O as documented, see flowsheet. Sinus daryn on telemetry, see scanned docs. Pt denies CP and SOB. Patient kept NPO after midnight for cath upcoming procedure. Call madera within reach. Will continue to monitor. PLAN MOVING FORWARD: Cath procedure. Discharge Planning. CPG GOAL OUTCOME EVALUATION: Ongoing. Goal: Fall Prevention-Safe Patient Handling Outcome: Ongoing (Interventions Implemented as Appropriate) 04/03/19209904/04/19512 Restraint Interventions Safety Promotion/Fall Prevention -- safety round/check completed;activity supervised;nonskid shoes/slippers when out of bed Activity Activity Type -- activity adjusted per tolerance;ambulated in room Activity Assistance Provided -- assistance, stand-by Assistive Device Utilized none -- Positioning Body Position -- independent Daily Care Interventions Self-Care Promotion -- independence encouraged Goal: Infection Control Outcome: Ongoing (Interventions Implemented as Appropriate) 04/03/19 2100 04/04/19 0513 Safety Interventions Isolation Precautions -- standard precautions maintained Infection Prevention -- rest/sleep promoted;environmental surveillance performed Coping Strategies Supportive Measures active listening utilized;self-care encouraged;verbalization of feelings encouraged -- documented in this encounter Plan of Treatment Upcoming Encounters Date Type Department Care Team (Late st Contact Info) Description 04/20/2025 9:00 AM EDT Office Visit Cardiology at [address] [place] [address] Jerzy Espinal MD [facility] [place] [address] [place] [address] Scheduled Referrals Name Type Priority Associated Diagnoses Orde r Schedule Referral to Cardiac Rehab Outpatient Referral Routine S/P coronary artery stent placement Ordered: 04/06/2019 documented as of this encounter Procedures Procedure Name Priority Date/Time Associated Diagnosis Comments ECHO COMPLETE Routine 04/06/2019 9:02 AM EDT Unstable angina BMP W/FASTING GLUCOSE Routine 04/06/2019 5:05 AM EDT HEMOGRAM Routine 04/06/2019 5:05 AM EDT DIFFERENTIAL, AUTOMATED Routine 04/06/20 19 5:05 AM EDT CBC (WITH DIFF) Routine 04/06/2019 5:05 AM EDT TROPONIN STAT 04/06/2019 5:05 AM EDT CK Routine 04/06/2019 5:05 AM EDT BMP W/FASTING GLUCOSE Routine 04/05/2019 4:17 AM EDT HEMOGRAM Routine 04/05/2019 4:17 AM EDT DIFFERENTIAL, AUTOMATED Routine 04/05/20 19 4:17 AM EDT CBC (WITH DIFF) Routine 04/05/2019 4:17 AM EDT TROPONIN STAT 04/05/2019 4:17 AM EDT CK Routine 04/05/2019 4:17 AM EDT TROPONIN STAT 04/04/2019 4:52 PM EDT CK STAT 04/04/2019 4:52 PM EDT EKG 12-LEAD Routine 04/04/2019 1:10 PM EDT Unstable angina CARDIAC CATHETERIZATION Routine 04/04/20 12:50 PM EDT EKG 12-LEAD STAT 04/04/2019 12:38 PM EDT Unstable angina APTT Timed 04/04/2019 7:00 AM EDT HEMOGRAM Routine 04/04/2019 2:55 AM EDT DIFFERENTIAL, AUTOMATED Routine 04/04/20 19 2:55 AM EDT CREATININE Routine 04/04/2019 2:55 AM EDT APTT Timed 04/04/2019 2:55 AM EDT CBC (WITH DIFF) Routine 04/04/2019 2:55 AM EDT BUN Routine 04/04/2019 2:55 AM EDT TROPONIN STAT 04/04/2019 2:55 AM EDT HEMOGLOBIN A1C Routine 04/04/2019 2:55 AM EDT ELECTROLYTES PANEL Routine 04/04/2019 2: 55 AM EDT EKG 12-LEAD Routine 04/03/2019 10:56 PM EDT Unstable angina HEPARIN (UNFRACTIONATED) LEVEL STAT 04/03/2019 9:55 PM EDT HEMOGRAM Routine 04/03/2019 9:55 PM EDT DIFFERENTIAL, AUTOMATED Routine 04/03/20 19 9:55 PM EDT APTT STAT 04/03/2019 9:55 PM EDT PROTHROMBIN TIME STAT 04/03/2019 9:55 PM EDT CBC (WITH DIFF) Routine 04/03/2019 9:55 PM EDT TROPONIN Routine 04/03/2019 9:55 PM EDT PRO-BRAIN NATRIURETIC PEPTIDE Routine 04/03/2019 9:55 PM EDT MAGNESIUM Routine 04/03/2019 9:55 PM EDT HEPATIC FUNCTION PANEL Routine 9 9:55 PM EDT BASIC METABOLIC PANEL Routine 04/03/2019 9:55 PM EDT documented in this encounter Results * ECHO COMPLETE (04/06/2019 9:02 AM EDT) EF 65 HEARTLAB SYSTEM Anatomical Region Laterality Modality Other 04/06/2019 Narrative 04/06/2019 9:14 AM EDT Procedure: ?Transthoracic Echocardiogram Patient: ?FATUMA Chase ? (Age): 1955(63y) Med Rec#: ? [id number] ?Sex: ?M ? [place] [facility] [place] / Wt: ??167(cm)/112(kg) Pt. Loc: ?Adult Floor ? BSA: ?2.18 Study Date: ?? 04/06/2019 ?Pt. Type: Outpatient Tape: ? Referring: OVIDIO PAZ A Reading: Felipe Porras ??([id number]) Gamer: Jonatan Lombardo RDCS Diagnosis: *Unstable angina (I20.0) Indication: ?? Unstable angina Rhythm: ? Sinus BP: ? 145/88 SUMMARY: 1. The left ventricular chamber size is normal. Mild concentric left ventricular hypertrophy is observed. There is normal global left ventricular systolic function. The quantitative left ventricular ejection fraction by biplane Ledbetter's method is 65%. There are no left ventricular segmental wall motion abnormalities. 2. Right ventricular chamber size and systolic function are within normal limits. The estimated pulmonary artery systolic pressure is 27 mmHg. 3. The left atrium is normal in size. The right atrium appears normal. 4. There is no hemodynamically significant valve disease. 5. See remainder of report for additional findings. 6. No prior study for comparison. Findings ? : Study Quality: ? Adequate Left Ventricle: ? The left ventricular chamber size is normal. ?Mild concentric left ventricular hypertrophy is observed. ?There is no evidence of LVOT obstruction. ?No ventricular septal defect is visualized. ?There is normal global left ventricular systolic function. ?The quantitative left ventricular ejection fraction by biplane Ledbetter's method is 65%. ?There are no left ventricular segmental wall motion abnormalities. ?Doppler assessment is consistent with normal left sided filling pressure. Left Atrium: ? The left atrium is normal in size. 31 ml/m2. ?No atrial septal defect is visualized. Right Ventricle: ? Right ventricular chamber size, wall thickness, and systolic function are within normal limits. ?No pulmonary hypertension is noted. ?The estimated pulmonary artery systolic pressure is 27 mmHg. Right Atrium: ? The right atrium appears normal. Aortic Valve: ? The aortic valve is trileaflet. The leaflets are thin with normal excursion. There is no aortic stenosis or regurgitation present. Mitral Valve: ? The mitral valve appears normal in structure and function. ?There is no evidence of mitral valve leaflet prolapse. ?There is trace mitral regurgitation present. Tricuspid Valve: ? The tricuspid valve appears normal in structure and function. ?There is trace tricuspid regurgitation present. Pulmonic Valve: ? The pulmonic valve appears normal in structure and function. Pericardium: ? The pericardium appears normal and there is no evidence of a pericardial effusion. Aorta: ? The aortic root is normal in size. ?The ascending aorta was not well visualized. ?There is no evidence of coarctation of the aorta. Pulmonary Artery: ? The main pulmonary artery appears normal. Venous: ? The inferior vena cava appears normal in size. ?There is a greater than 50% respiratory change in the inferior vena cava dimension. Misc: ? There is no hemodynamically significant valve disease. ?See remainder of report for additional findings. ?Two-dimensional echo, spectral Doppler and color Doppler performed. Chambers 2D ?Value ?Units (Range) ? IVSd (2D) ? 1.3 ?cm ? LVPWd (2D) ?1.1 ?cm ? IVS:LVPW ratio (2D) 1.1 ?ratio ? RWT (2D) ?0.5 ?ratio ? RWT PW (2D) ? 0.4 ?ratio ? LVIDd (2D) ?5.1 ?cm ? LVIDs (2D) ?3.5 ?cm ? LVIDd (2D) index ?2.3 ?cm/m2 ? LVIDs (2D) index ?1.6 ?cm/m2 ? LV FS (2D) ?30 ? % ? EF Teichholz (2D) ?? 57 ? % ? Ao root diameter (2D3.3 ?cm (2.1 - 3.6) ? Volumes/Mass ?Value ?Units (Range) ? LA Area 4 CH ?22 ? cm2 (<21) ? RA AREA 4CH ? 15 ? cm2 ? LA ESV BP (MOD) inde30.7 ? ml/m2 ? LV ESV SP 4CH (MOD) 51 ? ml ? LV ESV SP 2CH (MOD) 60 ? ml ? LV EDV BP ? 167 ?ml ? LV ESV BP ? 58 ? ml ? LV EDV BP index ? 76.6 ? ml/m2 ? LV ESV BP index ? 26.6 ? ml/m2 ? BP EF (MOD) ? 65 ? % ? LV mass (2D) ?238.3 ?g ? LV mass (2D) index ??109.3 ?g/m2 ? Diastolic/Systolic Function ?Value ?Units (Range) ? MV E-wave Vmax ?0.8 ?m/sec ? MV deceleration [id number] ?msec ? MV A-wave Vmax ?0.5 ?m/sec ? MV E:A ratio ?1.6 ?ratio ? LV septal e' Vmax ?? 0.1 ?m/sec ? LV lateral e' Vmax ??0.1 ?m/sec ? LV average e' Vmax ??0.1 ?m/sec ? LV E:e' septal ratio8.2 ?ratio ? LV E:e' lateral rati6.7 ?ratio ? LV average E:e' rati7.5 ?ratio ? Tricuspid Valve ?Value ?Units (Range) ? TAPSE ? 2.6 ?cm ? RV lateral s' Vmax ??0.1 ?m/sec ? TR Vmax ? 2.5 ?m/sec ? TR peak gradient ?24 ? mmHg ? RAP ? 3 ?mmHg ? RVSP ?27 ? mmHg ? Wall Motion: Segment Name ?Rest ? Base-Anteroseptal ?? Normal ? Base-Anterior ? Normal ? Base-Anterolateral ??Normal ? Base-Posterolateral Normal ? Base-Inferior ? Normal ? Base-Inferoseptal ?? Normal ? Mid-Anteroseptal ?Normal ? Mid-Anterior ?Normal ? Mid-Anterolateral ?? Normal ? Mid-Posterolateral ??Normal ? Mid-Inferior ?Normal ? Mid-Inferoseptal ?Normal ? Reva-Septal ? Normal ? Reva-Anterior ? Normal ? Reva-Lateral ?Normal ? Reva-Inferior ? Normal ? Reva-Tip ?Normal ? This report has been electronically signed by: Felipe Porras MD ? 04/06/2019 09:13:38 Images reviewed and interpretation verified [facility] Procedure Note Felipe Porras MD - 04/06/2019 Procedure: Transthoracic Echocardiogram Patient: FATUMA WYLIE(Age): 1955(63y) Med Rec#: [id number] Sex: M [place] [facility] [place] Wt: 167(cm)/112(kg) Pt. Loc: Adult Floor BSA: 2.18 Study Date: 04/06/2019 Pt. Type: Outpatient Tape: Referring: OVIDIO PAZ A Reading: Felipe Porars ([id number]) Gamer: Jonatan Lombardo [facility] Diagnosis: *Unstable angina (I20.0) Indication: Unstable angina Rhythm: Sinus BP: 145/88 SUMMARY: 1. The left ventricular chamber size is normal. Mild concentric left ventricular hypertrophy is observed. There is normal global left ventricular systolic function. The quantitative left ventricular ejection fraction by biplane Ledbetter's method is 65%. There are no left ventricular segmental wall motion abnormalities. 2. Right ventricular chamber size and systolic function are within normal limits. The estimated pulmonary artery systolic pressure is 27 mmHg. 3. The left atrium is normal in size. The right atrium appears normal. 4. There is no hemodynamically significant valve disease. 5. See remainder of report for additional findings. 6. No prior study for comparison. Findings : Study Quality: Adequate Left Ventricle: The left ventricular chamber size is normal. Mild concentric left ventricular hypertrophy is observed. There is no evidence of LVOT obstruction. No ventricular septal defect is visualized. There is normal global left ventricular systolic function. The quantitative left ventricular ejection fraction by biplane Ledbetter's method is 65%. There are no left ventricular segmental wall motion abnormalities. Doppler assessment is consistent with normal left sided filling pressure. Left Atrium: The left atrium is normal in size. 31 ml/m2. No atrial septal defect is visualized. Right Ventricle: Right ventricular chamber size, wall thickness, and systolic function are within normal limits. No pulmonary hypertension is noted. The estimated pulmonary artery systolic pressure is 27 mmHg. Right Atrium: The right atrium appears normal. Aortic Valve: The aortic valve is trileaflet. The leaflets are thin with normal excursion. There is no aortic stenosis or regurgitation present. Mitral Valve: The mitral valve appears normal in structure and function. There is no evidence of mitral valve leaflet prolapse. There is trace mitral regurgitation present. Tricuspid Valve: The tricuspid valve appears normal in structure and function. There is trace tricuspid regurgitation present. Pulmonic Valve: The pulmonic valve appears normal in structure and function. Pericardium: The pericardium appears normal and there is no evidence of a pericardial effusion. Aorta: The aortic root is normal in size. The ascending aorta was not well visualized. There is no evidence of coarctation of the aorta. Pulmonary Artery: The main pulmonary artery appears normal. Venous: The inferior vena cava appears normal in size. There is a greater than 50% respiratory change in the inferior vena cava dimension. Misc: There is no hemodynamically significant valve disease. See remainder of report for additional findings. Two-dimensional echo, spectral Doppler and color Doppler performed. Chambers 2D Value Units (Range) IVSd (2D) 1.3 cm LVPWd (2D) 1.1 cm IVS:LVPW ratio (2D) 1.1 ratio RWT (2D) 0.5 ratio RWT PW (2D) 0.4 ratio LVIDd (2D) 5.1 cm LVIDs (2D) 3.5 cm LVIDd (2D) index 2.3 cm/m2 LVIDs (2D) index 1.6 cm/m2 LV FS (2D) 30 % EF Teichholz (2D) 57 % Ao root diameter (2D3.3 cm (2.1 - 3.6) Volumes/Mass Value Units (Range) LA Area 4 CH 22 cm2 (<21) RA AREA 4CH 15 cm2 LA ESV BP (MOD) inde30.7 ml/m2 LV ESV SP 4CH (MOD) 51 ml LV ESV SP 2CH (MOD) 60 ml LV EDV BP 167 ml LV ESV BP 58 ml LV EDV BP index 76.6 ml/m2 LV ESV BP index 26.6 ml/m2 BP EF (MOD) 65 % LV mass (2D) 238.3 g LV mass (2D) index 109.3 g/m2 Diastolic/Systolic Function Value Units (Range) MV E-wave Vmax 0.8 m/sec MV deceleration [id number] msec MV A-wave Vmax 0.5 m/sec MV E:A ratio 1.6 ratio LV septal e' Vmax 0.1 m/sec LV lateral e' Vmax 0.1 m/sec LV average e' Vmax 0.1 m/sec LV E:e' septal ratio8.2 ratio LV E:e' lateral rati6.7 ratio LV average E:e' rati7.5 ratio Tricuspid Valve Value Units (Range) TAPSE 2.6 cm RV lateral s' Vmax 0.1 m/sec TR Vmax 2.5 m/sec TR peak gradient 24 mmHg RAP 3 mmHg RVSP 27 mmHg Wall Motion: Segment Name Rest Base-Anteroseptal Normal Base-Anterior Normal Base-Anterolateral Normal Base-Posterolateral Normal Base-Inferior Normal Base-Inferoseptal Normal Mid-Anteroseptal Normal Mid-Anterior Normal Mid-Anterolateral Normal Mid-Posterolateral Normal Mid-Inferior Normal Mid-Inferoseptal Normal Reva-Septal Normal Reva-Anterior Normal Reva-Lateral Normal Reva-Inferior Normal Reva-Tip Normal This report has been electronically signed by: Felipe Porras MD 04/06/2019 09:13:38 Images reviewed and interpretation verified [facility] Pauline Winn MD ECHO ORDERABLES * (ABNORMAL) Differential, Automated (04/06/2019 5:05 AM EDT) Neutrophil % 62.4 % [facility] Neutrophil Absolute 4.69 1.70 - 6.10 x10(3)/[facility] Lymph % 23.1 % [facility] Lymphocytes Abs 1.7 0.9 - 3.2 x10(3)/[facility] Monocyte % 10.5 % [facility] Monocyte Abs 0.8 0.3 - 0.9 x10(3)/[facility] Eos % 1.7 % [facility] Eosinophils Abs 0.1 0.0 - 0.4 x10(3)/[facility] Basophil % 0.8 % [facility] Baso Absolute 0.1 0.0 - 0.1 x10(3)/[facility] Immature Gran % 1.50 % [facility] Comment: Immature granulocytes(IG's)percentage and absolute count will include metamyelocytes, myelocytes, and promyelocytes. Blood smears from CBCs yielding IG's will be scanned manually for concordance. If this scan disagrees with the automated IG or if promyelocytes are noted, a manual differential will be performed. Immature Gran Absolute 0.11(H) 0.00 - 0.04 x10(3)/[facility] Blood specimen (specimen) 04/06/2019 5:05 AM EDT 04/06/2019 5:34 AM EDT Narrative Resulting Agency Comment Spec In Lab Ashutosh Morelos MD HEMATOLOGY [facility] [facility] [place] [address] * (ABNORMAL) Hemogram (04/06/2019 5:05 AM EDT) White Blood Cell 7.5 4.0 - 9.5 x10(3)/[facility] LAB[facility]AT[facility] Red Blood Cell 5.19 4.58 - 5.54 x10(6)/[facility] LAB[facility]ORY Hemoglobin 16.3 13.7 - 16.5 gm/dL [facility] Hematocrit 49.5(H) 40.5 - 48.5 % [facility] Mean Cell Volume 95.4(H) 82.9 - 93.1 fL [facility] Mean Cell Hemoglobin 31.4 27.5 - 32.1 pg [facility] Mean Cell Hemoglobin Concentration 32.9 32.0 - 35.7 gm/dL [facility] Platelet 156 145 - 357 x10(3)/mc L [facility] RDW Standard Deviation 47.3(H) 36.0 - 45.0 fL [facility] RDW coefficient of variation 13.3 11.4 - 13.8 % [facility] Mean Platelet Volume 9.5 7.6 - 12.9 [facility] LAB[facility]ATORY NRBC% auto 0.0 % [facility] NRBC Absolute 0.000 0.000 - 0.000 x10(3)/mc L [facility] Blood specimen (specimen) 04/06/2019 5:05 AM EDT 04/06/2019 5:34 AM EDT Narrative Resulting Agency Comment Spec In Lab Ashutosh Morelos MD HEMATOLOGY [place]RE[place] GIRARD [facility] [place] [address] * (ABNORMAL) BMP w/fasting Glucose (04/06/2019 5:05 AM EDT) Glucose Fasting 95 65 - 99 mg/dL [facility] Comment: ?Fasting* Glucose Interpretive Criteria Normal ?65-99 mg/dL Impaired Fasting glucose ?100-125 mg/dL Consistent with Diabetes Mellitus ? >or= 126 mg/dL *Fasting is defined as no caloric intake for at least 8 hours In the absence of unequivocal hyperglycemia a plasma glucose value of >or= 126 mg/dL should be repeated on a subsequent day. Diagnosis and Classification of Diabetes Mellitus, Position Statement from the [place] [employer]. ??Diabetes Care, Volume 33, Supplement 1, Aug 2009 Blood Urea Nitrogen 21(H) 10 - 20 mg/dL [facility] Creatinine 1.09 0.80 - 1.50 mg/dL [facility] Sodium 140 135 - 145 mmol/L [facility] Potassium 4.1 3.5 - 5.0 mmol/L [facility] Comment: Please note: ??Patients with WBC >100,000 may have falsely elevated Potassium levels. ??For accurate Potassium quantification in these patients send serum separator tube (gold top) for subsequent determinations. ??Contact the Clinical Chemistry Laboratory if there are any questions. Chloride 108(H) 98 - 107 mmol/L [facility] Carbon Dioxide 25 22 - 31 mmol/L [facility] Anion Gap 7 5 - 15 mmol/L [facility] Calcium 8.7 8.5 - 10.5 mg/dL [facility] Est Glomerular Filtration Rate 71 >=60 mL/min/1. 73 m?? [facility] Comment: The eGFR was calculated using the CKD-EPI equation. As with all creatinine based estimates of kidney function, eGFR values calculated with the CKD-EPI equation are not accurate in patients with acute kidney failure, extremes of body mass or the acutely ill. http://[employer]/[facility] TULS[facility]kf eGFR 83 >=60 mL/min/1. 73 m?? [facility] Comment: The eGFR was calculated using the CKD-EPI equation. As with all creatinine based estimates of kidney function, eGFR values calculated with the CKD-EPI equation are not accurate in patients with acute kidney failure, extremes of body mass or the acutely ill. http://[employer]/DHnkf Blood specimen (specimen) 04/06/2019 5:05 AM EDT 04/06/2019 5:34 AM EDT Narrative Resulting Agency Comment Spec In Lab Pauline Winn MD CHEMISTRY ORDERABLE S Performing Organization Address City/[facility]/ZIP Co de Phone Number [facility] [place] [address] * CK (04/06/2019 5:05 AM EDT) Creatine Kinase 123 0 - 200 unit/L [facility] Blood specimen (specimen) 04/06/2019 5:05 AM EDT 04/06/2019 5:34 AM EDT Narrative Resulting Agency Comment Spec In Lab Pauline Winn MD CHEMISTRY ORDERABLE S Performing Organization Address [facility] Co de Phone Number [facility] [place] [address] * (ABNORMAL) Troponin (04/06/2019 5:05 AM EDT) Troponin-T 0.05(H) 0.00 - 0.00 ng/mL [facility] Comment: The 99th percentile for Troponin T is less than 0.01 ng/mL, any detectable cTnT concentration using this assay should be considered elevated. According to the third universal definition of myocardial infarction the following criteria with a clinical presentation consistent with acute myocardial ischemia meets the diagnosis for a myocardial infarction (ID). Detection of a rise and/or fall of cTnT, with at least one value greater than the 99th percentile (> or = 0.01) and with at least one of the following ?? Symptoms of ischemia ?? New or presumed new significant OP-lixmhnd-K wave (ST-T) changes or new left bundle branch block (LBBB) ?? Development of pathologic Q waves in the ECG ?? Imaging evidence of new loss of viable myocardium or new regional wall motion abnormality ?? Identification of an intracoronary thrombus by angiography or autopsy Samples for cTnT testing should be obtained serially upon first assessment and again 3 to 6 hours later. If the clinical suspicion is high and previous samples have been negative an additional sample may be indicated. Reference: Third Maskell Definition of Myocardial Infarction. Journal of the [place] [employer] 2012;60:1581-98 Blood specimen (specimen) 04/06/2019 5:05 AM EDT 04/06/2019 5:34 AM EDT Narrative Resulting Agency Comment Spec In Lab Pauline Winn MD CHEMISTRY ORDERABLE S [facility] [place] [address] * (ABNORMAL) Differential, Automated (04/05/2019 4:17 AM EDT) Neutrophil % 66.6 % [facility] Neutrophil Absolute 6.24(H) 1.70 - 6.10 x10(3)/[facility] Lymph % 20.8 % [facility] Lymphocytes Abs 2.0 0.9 - 3.2 x10(3)/[facility] Monocyte % 10.1 % [facility] Monocyte Abs 1.0(H) 0.3 - 0.9 x10(3)/[facility] Eos % 1.4 % [facility] Eosinophils Abs 0.1 0.0 - 0.4 x10(3)/[facility] Basophil % 0.4 % [facility] Baso Absolute 0.0 0.0 - 0.1 x10(3)/[facility] LAB[facility] Immature Gran % 0.70 % [facility] Comment: Immature granulocytes(IG's)percentage and absolute count will include metamyelocytes, myelocytes, and promyelocytes. Blood smears from CBCs yielding IG's will be scanned manually for concordance. If this scan disagrees with the automated IG or if promyelocytes are noted, a manual differential will be performed. Immature Gran Absolute 0.07(H) 0.00 - 0.04 x10(3)/ L [facility] Blood specimen (specimen) 04/05/2019 4:17 AM EDT 04/05/2019 4:45 AM EDT Narrative Resulting Agency Comment Spec In Lab Ashutosh Morelos MD HEMATOLOGY [place]RE[place]IRARD [facility] [place] [address] * (ABNORMAL) Hemogram (04/05/2019 4:17 AM EDT) White Blood Cell 9.4 4.0 - 9.5 x10(3)/mc L [facility] Red Blood Cell 5.22 4.58 - 5.54 x10(6)/mc L [facility] Hemoglobin 16.5 13.7 - 16.5 gm/dL [facility] Hematocrit 49.2(H) 40.5 - 48.5 % [facility] Mean Cell Volume 94.3(H) 82.9 - 93.1 fL [facility] Mean Cell Hemoglobin 31.6 27.5 - 32.1 pg [facility] Mean Cell Hemoglobin Concentration 33.5 32.0 - 35.7 gm/dL [facility] Platelet 171 145 - 357 x10(3)/mc L [facility] RDW Standard Deviation 45.9(H) 36.0 - 45.0 fL [facility] RDW coefficient of variation 13.2 11.4 - 13.8 % [facility] Mean Platelet Volume 9.5 7.6 - 12.9 fL [facility] NRBC% auto 0.0 % [facility] NRBC Absolute 0.000 0.000 - 0.000 x10(3)/mc L [facility] Blood specimen (specimen) 04/05/2019 4:17 AM EDT 04/05/2019 4:45 AM EDT Narrative Resulting Agency Comment Spec In Lab Ashutosh Morelos MD HEMATOLOGY [place]IRARD [facility] [place] [address] * BMP w/fasting Glucose (04/05/2019 4:17 AM EDT) Glucose Fasting 97 65 - 99 mg/dL [facility] Comment: ?Fasting* Glucose Interpretive Criteria Normal ?65-99 mg/dL Impaired Fasting glucose ?100-125 mg/dL Consistent with Diabetes Mellitus ? >or= 126 mg/dL *Fasting is defined as no caloric intake for at least 8 hours In the absence of unequivocal hyperglycemia a plasma glucose value of >or= 126 mg/dL should be repeated on a subsequent day. Diagnosis and Classification of Diabetes Mellitus, Position Statement from the [place] [employer]. ??Diabetes Care, Volume 33, Supplement 1, Aug 2009 Blood Urea Nitrogen 19 10 - 20 mg/dL [facility] Creatinine 0.93 0.80 - 1.50 mg/dL [facility] Sodium 141 135 - 145 mmol/L [facility] Potassium 4.2 3.5 - 5.0 mmol/L [facility] Comment: Please note: ??Patients with WBC >100,000 may have falsely elevated Potassium levels. ??For accurate Potassium quantification in these patients send serum separator tube (gold top) for subsequent determinations. ??Contact the Clinical Chemistry Laboratory if there are any questions. Chloride 104 98 - 107 mmol/L [facility] Carbon Dioxide 27 22 - 31 mmol/L [facility] Anion Gap 10 5 - 15 mmol/L [facility] Calcium 9.2 8.5 - 10.5 mg/dL [facility] Est Glomerular Filtration Rate 86 >=60 mL/min/1. 73 m?? [facility] Comment: The eGFR was calculated using the CKD-EPI equation. As with all creatinine based estimates of kidney function, eGFR values calculated with the CKD-EPI equation are not accurate in patients with acute kidney failure, extremes of body mass or the acutely ill. http://[employer]/[facility]kf eGFR 100 >=60 mL/min/1. 73 m?? [facility] Comment: The eGFR was calculated using the CKD-EPI equation. As with all creatinine based estimates of kidney function, eGFR values calculated with the CKD-EPI equation are not accurate in patients with acute kidney failure, extremes of body mass or the acutely ill. http://[employer]/DHnkf Blood specimen (specimen) 04/05/2019 4:17 AM EDT 04/05/2019 4:45 AM EDT Narrative Resulting Agency Comment Spec In Lab Pauline Winn MD CHEMISTRY ORDERABLE S Performing Organization Address [facility] Co de Phone Number [facility] [place] [address] * CK (04/05/2019 4:17 AM EDT) Creatine Kinase 122 0 - 200 unit/L [facility] Blood specimen (specimen) 04/05/2019 4:17 AM EDT 04/05/2019 4:45 AM EDT Narrative Resulting Agency Comment Spec In Lab Pauline Winn MD CHEMISTRY ORDERABLE S Performing Organization Address [facility] Co de Phone Number [facility] [place] [address] * (ABNORMAL) Troponin (04/05/2019 4:17 AM EDT) Troponin-T 0.03(H) 0.00 - 0.00 ng/mL [facility] Comment: The 99th percentile for Troponin T is less than 0.01 ng/mL, any detectable cTnT concentration using this assay should be considered elevated. According to the third universal definition of myocardial infarction the following criteria with a clinical presentation consistent with acute myocardial ischemia meets the diagnosis for a myocardial infarction (ID). Detection of a rise and/or fall of cTnT, with at least one value greater than the 99th percentile (> or = 0.01) and with at least one of the following ?? Symptoms of ischemia ?? New or presumed new significant DS-hklaclf-I wave (ST-T) changes or new left bundle branch block (LBBB) ?? Development of pathologic Q waves in the ECG ?? Imaging evidence of new loss of viable myocardium or new regional wall motion abnormality ?? Identification of an intracoronary thrombus by angiography or autopsy Samples for cTnT testing should be obtained serially upon first assessment and again 3 to 6 hours later. If the clinical suspicion is high and previous samples have been negative an additional sample may be indicated. Reference: Third Maskell Definition of Myocardial Infarction. Journal of the [place] [employer] 2012;60:1581-98 Blood specimen (specimen) 04/05/2019 4:17 AM EDT 04/05/2019 4:45 AM EDT Narrative Resulting Agency Comment Spec In Lab Pauline Winn MD CHEMISTRY ORDERABLE S Performing Organization Address [facility] Co de Phone Number [facility] [place] [address] * CK (04/04/2019 4:52 PM EDT) Creatine Kinase 131 0 - 200 unit/L [facility] Blood specimen (specimen) 04/04/2019 4:52 PM EDT 04/04/2019 4:57 PM EDT Narrative Resulting Agency Comment Spec In Lab Pauline Winn MD CHEMISTRY ORDERABLE S Performing Organization Address [facility] Co de Phone Number [facility] [place] [address] * Troponin (04/04/2019 4:52 PM EDT) Troponin-T <0.01 0.00 - 0.00 ng/mL [facility] Comment: The 99th percentile for Troponin T is less than 0.01 ng/mL, any detectable cTnT concentration using this assay should be considered elevated. According to the third universal definition of myocardial infarction the following criteria with a clinical presentation consistent with acute myocardial ischemia meets the diagnosis for a myocardial infarction (ID). Detection of a rise and/or fall of cTnT, with at least one value greater than the 99th percentile (> or = 0.01) and with at least one of the following ?? Symptoms of ischemia ?? New or presumed new significant SX-icbxcum-P wave (ST-T) changes or new left bundle branch block (LBBB) ?? Development of pathologic Q waves in the ECG ?? Imaging evidence of new loss of viable myocardium or new regional wall motion abnormality ?? Identification of an intracoronary thrombus by angiography or autopsy Samples for cTnT testing should be obtained serially upon first assessment and again 3 to 6 hours later. If the clinical suspicion is high and previous samples have been negative an additional sample may be indicated. Reference: Third Maskell Definition of Myocardial Infarction. Journal of the [place] [employer] 2012;60:1581-98 Blood specimen (specimen) 04/04/2019 4:52 PM EDT 04/04/2019 4:57 PM EDT Narrative Resulting Agency Comment Spec In Lab Pauline Winn MD CHEMISTRY ORDERABLE S Performing Organization Address [facility] Co de Phone Number [facility] [place] [address] * EKG 12 Lead (04/04/2019 1:10 PM EDT) Ventricular rate 52 BPM MUSE SYSTEM Atrial Rate 52 BPM MUSE SYSTEM P-R Interval 168 ms MUSE SYSTEM QRS Duration 126 ms MUSE SYSTEM Q-T Interval 454 ms MUSE SYSTEM QTC Calculated (Bezet) 422 ms MUSE SYSTEM Calculated P Ovando 8 degrees MUSE SYSTEM Calculated R Ovando -40 degrees MUSE SYSTEM Calculated T Ovando -2 degrees MUSE SYSTEM INTERPRETATION Sinus bradycardia Left axis deviation Right bundle branch block Abnormal ECG When compared with ECG of 04-APR-2019 12:38, No significant change was found Confirmed by MD Franklyn, Ryan Reed ([id number]) on 04/05/2019 11:43:16 AM MUSE SYSTEM 04/04/2019 1:10 PM EDT 04/05/2019 11:43 AM EDT Ashutosh Morelos MD ECG ORDERABLES Performing Organization Address [facility] Co de Phone Number MUSE SYSTEM * CARDIAC CATHETERIZATION (04/04/2019 12:50 PM EDT) Anatomical Region Laterality Modality Other Narrative 04/04/2019 12:49 PM EDT ?[facility] ? Cardiac Catheterization/Intervention Report ? Patient Name: Fatmua, Jade ? Procedure Date: 04/04/2019 ? A #: [id number] ? Primary Physician: Wayne, Balwinder T ? Case #: [id number] ? File Name: [id number] ? Catheterization Order Number: [id number] ? [facility] ? Final Report [place], [place] ? Patient Name: ? Jade Burris ?ID#: ?[id number] ? : ?1955 ? Procedure Date: ? April 04, 2019 ?Case #: ? [id number] ? Room: ? 5 ? Case Physician: ? Balwinder Black M.D. ?Start: ?11:28 ? Admission: ??04/03/2019 ? Referring Physician: ??Ovidio Paz M.D. ?Discharge: ??04/06/2019 ? Procedures: ?* Coronary Angiography ?* Coronary Angioplasty ?* Coronary Stent Insertion ?* Vascular Closure Device Deployment ?* Access Site Angiography ? History ?Jade Burris is a 63 year old man. He has hypertension and a family ?history of coronary artery disease. The patient's smoking status is ?Never. He has hypercholesterolemia managed by diet and lipid therapy. The ?patient is also status post an acute non-ST elevation myocardial ?infarction. Prior to the initiation of this procedure, the patient was ?designated as ASA Class III. The [facility] clinical frailty scale is 5: Mildly ?Frail. ? Diagnostic Tests: ?Prior Coronary Angiography: ? LV ejection fraction within 6 months is 60%. ?Electrocardiography: ? EKG was assessed by ECG. EKG was Abnormal. EKG showed other ? abnormality. ?Medications Prior to Procedure: ? ASA, Beta Tate and Statin. ? Indications for Diagnostic Cath: ?The priority of the diagnostic procedure was Urgent. The indication for ?the lab technician visit is worsening angina. Chest pain symptom assessment ?was: Typical Angina. ? Technique: ?A 6 SLFr sheath was inserted in the right radial artery utilizing the ?Seldinger technique. A 6Fr sheath was inserted in the right femoral ?artery utilizing the Seldinger technique. The left coronary artery was ?injected utilizing a 5Fr ZULLY RADIAL catheter. A 5Fr ZULLY RADIAL ?catheter was used to inject the right coronary artery. Coronary ?angioplasty and coronary stent insertion were performed and the equipment ?utilized will be described in the intervention summary section. A total ?of 400cc of Omnipaque were opened, 240cc of Omnipaque were administered ?and 160cc of Omnipaque were wasted. Radiation: Fluoro time was 15.7 ?minutes, dose area product was 110,192 mGYcm2 and air kerma was 2,681 ?mGY. See the case log for additional details. ?The patient received the following medications prior to and during the ?procedure: ? Bivalirudin and Clopidogrel. ? Hemodynamics: ?Left Heart Pressures ? Resting: ? Syst Diast ? EDP ?a ?v ? m ?Ao 120 ?? 78 ?97 ? Coronary Angiography: ?Dominance: Left ?Left Main ? There was mild diffuse (<=25% stenosis) disease of the entire vessel ? segment of the left main artery. ?Left Anterior Descending ? There was mild diffuse (<=25% stenosis) disease of the entire vessel ? segment of the left anterior descending artery (LAD). ??The mid ? segment of the LAD had a single discrete total occlusion. ??Distal ? flow was via collaterals from the LAD and collaterals from the RCA. ? As a consequence of the catheterization/intervention procedures, a ? 90% stenosis developed in the ostial segment of the second diagonal ? branch (Diagonal 2) of the LAD. ?Left Circumflex ? There was mild diffuse (<=25% stenosis) disease of the entire vessel ? segment of the left circumflex artery (LCX). ?Right Coronary Artery ? There was mild diffuse (<=25% stenosis) disease of the entire vessel ? segment of the right coronary artery (RCA). ? Indication for Intervention: ?Coronary intervention was indicated for treatment of stable angina. The ?priority for the procedure was Urgent. The NCDR indication for the ?procedure was Other PCI Indication. LVEF within one week was 65%. Syntax ?Score was Low. ? Intervention Summary: ?Left Anterior Descending Artery ? Mid 100% ? Stent insertion was performed on the total occlusion in the ? mid segment of the LAD. This was a chronic total occlusion ? lesion. According to the ACC/AHA classification system, this ? lesion was a type C moderate risk lesion. Primary prevention ? of restenosis was the indication for stent insertion. This was ? the culprit lesion. A guidewire was placed across this lesion. ? Vessel flow pre intervention was GALILEO 0. Lesion length was ? 12mm. The lesion involves a bifurcation with the D2. This ? bifurcation lesion was treated with a single stent, side ? branch dilated post stent technique and a final kissing ? balloon post-dilation. ? Stent insertion was accomplished through a 6 Fr. EBU 3.5 ? guide. ??The lesion was predilated with a 2.50mm SPRINTER OTW ? 15 MM balloon with a maximum inflation pressure of 12 ? atmospheres. ??A premounted 2.75 x 12 mm Resolute YAMILA (MITCH) ? was deployed with a maximum inflation pressure of 16 ? atmospheres. ??Following stent deployment, the lesion was ? dilated using a 2.50mm NC EUPHORA 12 MM balloon with a maximum ? inflation pressure of 18 atmospheres. ? The final outcome was defined as successful. A coronary ? arteriolar vasodilator was administered as part of the ? intervention on this lesion. The residual stenosis following ? this intervention was 5%. The final GALILEO flow was 3. ?Second Diagonal Branch of the LAD ? Ostial 90% ? Angioplasty was performed on the 90% stenosis in the ostial ? segment of the Diagonal 2. This was a de terence lesion. This ? lesion was designated a type B1 low risk lesion based on ? ACC/AHA classification system. A guidewire was placed across ? this lesion. Vessel flow pre intervention was GALILEO 3. Lesion ? length was 8mm. ? Angioplasty was accomplished through a 6 Fr EBU 3.5 guide ? utilizing an APEX 12 MM balloon with a maximum size of 2.00mm ? and a maximum inflation pressure of 14 atmospheres. ? The final outcome was defined as successful. The residual ? stenosis following this intervention was 40%. The final GALILEO ? flow was 3. ? Vascular Access: ?Vascular Access Angiogram: ? A selective angiogram at the right femoral artery revealed mild ? diffuse disease. ?Vascular Access Management: ? Mechanical Compression of the right radial artery access site was ? performed. ? A Perclose was deployed at the right femoral artery access site. ? This device was successful. ? Dual Antiplatelet (DAPT) Recommendations: ?Drug eluting stent (MITCH) inserted. ?P2Y12 Loading dose Clopidogrel 600 mg PO given in lab. ?Recommend continuing clopidogrel 75 mg PO daily for 12 months. ??Recommend ?continuing aspirin 81 mg unless intolerant. ?The DAPT score is 2. ??The DAPT score calculates net clinical benefit of ?prolonged dual antiplatelet therapy following percutaneous coronary ?intervention. A DAPT Score of equal or greater than 2 suggests an ?increased risk of late stent thrombosis and MACCE. If the DAPT score is ?equal or greater than 2 and the patient tolerates the recommended ?duration of DAPT without bleeding or side effects, consider extending the ?DAPT to 30 months post procedure. ? Conclusions: ?* One vessel coronary artery disease (LAD) ?* Successful stent insertion of the mid LAD lesion ?* Successful angioplasty of the ostial D2 lesion ?* Recommend continuing clopidogrel 75 mg PO daily for 12 months (see DAPT ?Recommendations above for more information.) ? Complications/Events: ?The patient had no complications during these procedures. ? Recommendations: ?Based upon the results of this procedure, it was recommended that medical ?therapy be considered. ? Comments: ?911 EMERGENCY SERVICES DISPATCHER of the LAD with robust collaterals from a conus vessel from the RCA. ?Attempted anterograde crossing with contralateral injections. ??First wire ?was Fielder XT which was unable to cross. ??We then switched to a ?Confienza Pro which was able to cross into the more distal LAD. ??Position ?confirmed with distal injection. ??Switched to a Luge and balloon and ?stenting performed with final kissing inflation across the LAD/D1. ??Good ?angigoraphic result. ?The attending physician was present for the entire procedure. ?Dr. Balwinder Black M.D. was present during the moderate sedation ?intraservice time as documented by the sedation nurse. ??Case time = 00:53. ?Dr. Balwinder Black M.D. performed the coronary angiography, ?angioplasty-coronary, stent insertion-coronary, access site angiography and ?vascular closure device. ? Balwinder Black, M.D. ? Electronically Signed by: Balwinder Black, M.D. ? Report Finalized: 04/04/2019 ??12:43 ? Report Last Ammended: 08/06/2019 ??10:54 ? Procedure Note Balwinder Black MD - 08/06/2019 [facility] Cardiac Catheterization/Intervention Report Patient Name: Jade Burris Procedure Date: 04/04/2019 A #: [id number] Primary Physician: Balwinder Black Case #: [id number] File Name: [id number] Catheterization Order Number: [id number] [facility] FinalReport [place], [place] Patient Name: Jade Burris ID#:[id number] :1955 Procedure Date: April 04, 2019 Case #: [id number] Room: 5 Case Physician: Balwinder Black M.D. Start: 11:28 Admission:04/03/2019 Referring Physician: Ovidio Paz M.D. Discharge:04/06/2019 Procedures: * Coronary Angiography * Coronary Angioplasty * Coronary Stent Insertion * Vascular Closure Device Deployment * Access Site Angiography History Jade Burris is a 63 year old man. He has hypertension and afamily history of coronary artery disease. The patient's smoking status is Never. He has hypercholesterolemia managed by diet and lipidtherapy. The patient is also status post an acute non-ST elevation myocardial infarction. Prior to the initiation of this procedure, the patientwas designated as ASA Class III. The [facility] clinical frailty scale is 5:Mildly Frail. Diagnostic Tests: Prior Coronary Angiography: LV ejection fraction within 6 months is 60%. Electrocardiography: EKG was assessed by ECG. EKG was Abnormal. EKG showed other abnormality. Medications Prior to Procedure: ASA, Beta Tate and Statin. Indications for Diagnostic Cath: The priority of the diagnostic procedure was Urgent. The indicationfor the lab technician visit is worsening angina. Chest pain symptomassessment was: Typical Angina. Technique: A 6 SLFr sheath was inserted in the right radial artery utilizingthe Seldinger technique. A 6Fr sheath was inserted in the right femoral artery utilizing the Seldinger technique. The left coronary arterywas injected utilizing a 5Fr ZULLY RADIAL catheter. A 5Fr ZULLY RADIAL catheter was used to inject the right coronary artery. Coronary angioplasty and coronary stent insertion were performed and theequipment utilized will be described in the intervention summary section. Atotal of 400cc of Omnipaque were opened, 240cc of Omnipaque wereadministered and 160cc of Omnipaque were wasted. Radiation: Fluoro time was 15.7 minutes, dose area product was 110,192 mGYcm2 and air kerma was2,681 mGY. See the case log for additional details. The patient received the following medications prior to and duringthe procedure: Bivalirudin and Clopidogrel. Hemodynamics: Left Heart Pressures Resting: Syst Diast EDP a v m Ao 120 78 97 Coronary Angiography: Dominance: Left Left Main There was mild diffuse (<=25% stenosis) disease of the entirevessel segment of the left main artery. Left Anterior Descending There was mild diffuse (<=25% stenosis) disease of the entirevessel segment of the left anterior descending artery (LAD). The mid segment of the LAD had a single discrete total occlusion.Distal flow was via collaterals from the LAD and collaterals from theRCA. As a consequence of the catheterization/interventionprocedures, a 90% stenosis developed in the ostial segment of the seconddiagonal branch (Diagonal 2) of the LAD. Left Circumflex There was mild diffuse (<=25% stenosis) disease of the entirevessel segment of the left circumflex artery (LCX). Right Coronary Artery There was mild diffuse (<=25% stenosis) disease of the entirevessel segment of the right coronary artery (RCA). Indication for Intervention: Coronary intervention was indicated for treatment of stable angina.The priority for the procedure was Urgent. The NCDR indication for the procedure was Other PCI Indication. LVEF within one week was 65%.Syntax Score was Low. Intervention Summary: Left Anterior Descending Artery Mid 100% Stent insertion was performed on the total occlusion inthe mid segment of the LAD. This was a chronic totalocclusion lesion. According to the ACC/AHA classification system,this lesion was a type C moderate risk lesion. Primaryprevention of restenosis was the indication for stent insertion.This was the culprit lesion. A guidewire was placed across thislesion. Vessel flow pre intervention was GALILEO 0. Lesion lengthwas 12mm. The lesion involves a bifurcation with the D2. This bifurcation lesion was treated with a single stent, side branch dilated post stent technique and a final kissing balloon post-dilation. Stent insertion was accomplished through a 6 Fr. EBU 3.5 guide. The lesion was predilated with a 2.50mm SPRINTEROTW 15 MM balloon with a maximum inflation pressure of 12 atmospheres. A premounted 2.75 x 12 mm Resolute YAMILA(MITCH) was deployed with a maximum inflation pressure of 16 atmospheres. Following stent deployment, the lesion was dilated using a 2.50mm NC EUPHORA 12 MM balloon with amaximum inflation pressure of 18 atmospheres. The final outcome was defined as successful. A coronary arteriolar vasodilator was administered as part of the intervention on this lesion. The residual stenosisfollowing this intervention was 5%. The final GALILEO flow was 3. Second Diagonal Branch of the LAD Ostial 90% Angioplasty was performed on the 90% stenosis in theostial segment of the Diagonal 2. This was a de terence lesion.This lesion was designated a type B1 low risk lesion based on ACC/AHA classification system. A guidewire was placedacross this lesion. Vessel flow pre intervention was GALILEO 3.Lesion length was 8mm. Angioplasty was accomplished through a 6 Fr EBU 3.5 guide utilizing an APEX 12 MM balloon with a maximum size of2.00mm and a maximum inflation pressure of 14 atmospheres. The final outcome was defined as successful. The residual stenosis following this intervention was 40%. The finalTIMI flow was 3. Vascular Access: Vascular Access Angiogram: A selective angiogram at the right femoral artery revealed mild diffuse disease. Vascular Access Management: Mechanical Compression of the right radial artery access sitewas performed. A Perclose was deployed at the right femoral artery accesssite. This device was successful. Dual Antiplatelet (DAPT) Recommendations: Drug eluting stent (MITCH) inserted. P2Y12 Loading dose Clopidogrel 600 mg PO given in lab. Recommend continuing clopidogrel 75 mg PO daily for 12 months.Recommend continuing aspirin 81 mg unless intolerant. The DAPT score is 2. The DAPT score calculates net clinical benefitof prolonged dual antiplatelet therapy following percutaneous coronary intervention. A DAPT Score of equal or greater than 2 suggests an increased risk of late stent thrombosis and MACCE. If the DAPT scoreis equal or greater than 2 and the patient tolerates the recommended duration of DAPT without bleeding or side effects, considerextending the DAPT to 30 months post procedure. Conclusions: * One vessel coronary artery disease (LAD) * Successful stent insertion of the mid LAD lesion * Successful angioplasty of the ostial D2 lesion * Recommend continuing clopidogrel 75 mg PO daily for 12 months (seeDAPT Recommendations above for more information.) Complications/Events: The patient had no complications during these procedures. Recommendations: Based upon the results of this procedure, it was recommended thatmedical therapy be considered. Comments: 911 [employer] DISPATCHER of the LAD with robust collaterals from a conus vessel from theRCA. Attempted anterograde crossing with contralateral injections. Firstwire was Fielder XT which was unable to cross. We then switched to a Confienza Pro which was able to cross into the more distal LAD.Position confirmed with distal injection. Switched to a Luge and balloon and stenting performed with final kissing inflation across the LAD/D1.Good angigoraphic result. The attending physician was present for the entire procedure. Dr. Balwinder Black M.D. was present during the moderate sedation intraservice time as documented by the sedation nurse. Case time =00:53. Dr. Balwinder Black M.D. performed the coronary angiography, angioplasty-coronary, stent insertion-coronary, access siteangiography and vascular closure device. Balwinder Black M.D. Electronically Signed by: Balwinder Black M.D. Report Finalized: 04/04/2019 12:43 Report Last Ammended: 08/06/2019 10:54 Balwinder Black MD CARDIAC CATH ORDERAB LES * EKG 12 Lead (04/04/2019 12:38 PM EDT) Ventricular rate 51 BPM MUSE SYSTEM Atrial Rate 51 BPM MUSE SYSTEM P-R Interval 180 ms MUSE SYSTEM QRS Duration 138 ms MUSE SYSTEM Q-T Interval 450 ms MUSE SYSTEM QTC Calculated (Bezet) 414 ms MUSE SYSTEM Calculated P Ovando 12 degrees MUSE SYSTEM Calculated R Ovando -51 degrees MUSE SYSTEM Calculated T Ovando -5 degrees MUSE SYSTEM INTERPRETATION Sinus bradycardia Right bundle branch block Left anterior fascicular block Bifascicular block Cannot rule out Inferior infarct (masked by fascicular block?) , age undetermined Abnormal ECG When compared with ECG of 03-APR-2019 22:56, No significant change was found Confirmed by MD AMITA, PAULINE ([id number]) on 04/04/2019 12:51:40 PM MUSE SYSTEM 04/04/2019 12:3 8 PM EDT 04/04/2019 12:51 PM EDT Pauline Winn MD ECG ORDERABLES Performing Organization Address City/[facility]/ZIP Co de Phone Number MUSE SYSTEM * (ABNORMAL) APTT (04/04/2019 7:00 AM EDT) Partial Thromboplastin Time 60(H) 25 - 37 sec [facility] Comment: The PTT is NOT appropriate for heparin monitoring. Use the Anti-Xa level for heparin monitoring (HEP UFH) or LMWH monitoring (HEP LMW). A PTT less than 37 seconds generally indicates adequate hemostasis. Blood specimen (specimen) 04/04/2019 7:00 AM EDT 04/04/2019 7:12 AM EDT Narrative Resulting Agency Comment Spec In Lab Pauline Winn MD HEMATOLOGY ORDERABL ES [facility] [place] [address] * Troponin (04/04/2019 2:55 AM EDT) [facility] Troponin-T <0.01 0.00 - 0.00 ng/mL [facility] Comment: The 99th percentile for Troponin T is less than 0.01 ng/mL, any detectable cTnT concentration using this assay should be considered elevated. According to the third universal definition of myocardial infarction the following criteria with a clinical presentation consistent with acute myocardial ischemia meets the diagnosis for a myocardial infarction (ID). Detection of a rise and/or fall of cTnT, with at least one value greater than the 99th percentile (> or = 0.01) and with at least one of the following ?? Symptoms of ischemia ?? New or presumed new significant QB-yrwiybn-M wave (ST-T) changes or new left bundle branch block (LBBB) ?? Development of pathologic Q waves in the ECG ?? Imaging evidence of new loss of viable myocardium or new regional wall motion abnormality ?? Identification of an intracoronary thrombus by angiography or autopsy Samples for cTnT testing should be obtained serially upon first assessment and again 3 to 6 hours later. If the clinical suspicion is high and previous samples have been negative an additional sample may be indicated. Reference: Third Maskell Definition of Myocardial Infarction. Journal of the [place] [employer] 2012;60:1581-98 Blood specimen (specimen) 04/04/2019 2:55 AM EDT 04/04/2019 3:05 AM EDT Narrative Resulting Agency Comment Spec In Lab Ashutosh Morelos MD CHEMISTRY ORDER LOU [facility] [place] [address] * (ABNORMAL) Differential, Automated (04/04/2019 2:55 AM EDT) [facility] Neutrophil % 57.6 % [facility] Neutrophil Absolute 4.52 1.70 - 6.10 x10(3)/mc L [facility] Lymph % 27.3 % [facility] Lymphocytes Abs 2.1 0.9 - 3.2 x10(3)/[facility] Monocyte % 10.2 % [facility] Monocyte Abs 0.8 0.3 - 0.9 x10(3)/[facility] Eos % 3.1 % [facility] Eosinophils Abs 0.2 0.0 - 0.4 x10(3)/[facility] Basophil % 0.9 % [facility] Baso Absolute 0.1 0.0 - 0.1 x10(3)/[facility] Immature Gran % 0.90 % [facility] Comment: Immature granulocytes(IG's)percentage and absolute count will include metamyelocytes, myelocytes, and promyelocytes. Blood smears from CBCs yielding IG's will be scanned manually for concordance. If this scan disagrees with the automated IG or if promyelocytes are noted, a manual differential will be performed. Immature Gran Absolute 0.07(H) 0.00 - 0.04 x10(3)/[facility] Blood specimen (specimen) 04/04/2019 2:55 AM EDT 04/04/2019 3:05 AM EDT Narrative Resulting Agency Comment Spec In Lab Ashutosh Morelos MD HEMATOLOGY GARRETT GIRARD [facility] [place] [address] * (ABNORMAL) Hemogram (04/04/2019 2:55 AM EDT) White Blood Cell 7.8 4.0 - 9.5 x10(3)/[facility] Red Blood Cell 5.12 4.58 - 5.54 x10(6)/[facility] Hemoglobin 16.5 13.7 - 16.5 gm/dL [facility] Hematocrit 48.7(H) 40.5 - 48.5 % [facility] Mean Cell Volume 95.1(H) 82.9 - 93.1 fL [facility] Mean Cell Hemoglobin 32.2(H) 27.5 - 32.1 pg [facility] Mean Cell Hemoglobin Concentration 33.9 32.0 - 35.7 gm/dL [facility] Platelet 159 145 - 357 x10(3)/mc L [facility] RDW Standard Deviation 46.9(H) 36.0 - 45.0 fL [facility] RDW coefficient of variation 13.2 11.4 - 13.8 % [facility] Mean Platelet Volume 9.4 7.6 - 12.9 fL [facility] NRBC% auto 0.0 % [facility] NRBC Absolute 0.000 0.000 - 0.000 x10(3)/mc L [facility] Blood specimen (specimen) 04/04/2019 2:55 AM EDT 04/04/2019 3:05 AM EDT Narrative Resulting Agency Comment Spec In Lab Ashutosh Morelos MD HEMATOLOG[place] [address] * (ABNORMAL) APTT (04/04/2019 2:55 AM EDT) Partial Thromboplastin Time 66(H) 25 - 37 sec [facility] Comment: The PTT is NOT appropriate for heparin monitoring. Use the Anti-Xa level for heparin monitoring (HEP UFH) or LMWH monitoring (HEP LMW). A PTT less than 37 seconds generally indicates adequate hemostasis. Blood specimen (specimen) 04/04/2019 2:55 AM EDT 04/04/2019 3:05 AM EDT Narrative Resulting Agency Comment Spec In Lab Pauline Winn MD HEMATOLOGY ORDERABL ES [facility] [place] [address] * Creatinine (04/04/2019 2:55 AM EDT) Creatinine 0.92 0.80 - 1.50 mg/dL [facility] Est Glomerular Filtration Rate 88 >=60 mL/min/1.7 3 m?? [facility] Comment: The eGFR was calculated using the CKD-EPI equation. As with all creatinine based estimates of kidney function, eGFR values calculated with the CKD-EPI equation are not accurate in patients with acute kidney failure, extremes of body mass or the acutely ill. http://[employer]/[facility] TULSAnkf eGFR 102 >=60 mL/min/1.7 3 m?? [facility] Comment: The eGFR was calculated using the CKD-EPI equation. As with all creatinine based estimates of kidney function, eGFR values calculated with the CKD-EPI equation are not accurate in patients with acute kidney failure, extremes of body mass or the acutely ill. http://[employer]/[facility] Blood specimen (specimen) 04/04/2019 2:55 AM EDT 04/04/2019 3:05 AM EDT Narrative Resulting Agency Comment Spec In Lab Ashutosh Morelos MD CHEMISTRY ORDER LOU Performing Organization Address [facility] Co de Phone Number [facility] [place] [address] * BUN (04/04/2019 2:55 AM EDT) Blood Urea Nitrogen 19 10 - 20 mg/dL [facility] Blood specimen (specimen) 04/04/2019 2:55 AM EDT 04/04/2019 3:05 AM EDT Narrative Resulting Agency Comment Spec In Lab Ashutosh Morelos MD CHEMISTRY ORDER LOU Performing Organization Address City/[facility] Co de Phone Number [facility] [place] [address] * Electrolytes panel (04/04/2019 2:55 AM EDT) Sodium 140 135 - 145 mmol/L [facility] Potassium 4.1 3.5 - 5.0 mmol/L [facility] Comment: Please note: ??Patients with WBC >100,000 may have falsely elevated Potassium levels. ??For accurate Potassium quantification in these patients send serum separator tube (gold top) for subsequent determinations. ??Contact the Clinical Chemistry Laboratory if there are any questions. Chloride 106 98 - 107 mmol/L [facility] Carbon Dioxide 26 22 - 31 mmol/L [facility] Anion Gap 8 5 - 15 mmol/L [facility] Blood specimen (specimen) 04/04/2019 2:55 AM EDT 04/04/2019 3:05 AM EDT Narrative Resulting Agency Comment Spec In Lab Ashutosh Morelos MD CHEMISTRY ORDER LOU [facility] [place] [address] * Hemoglobin A1c (04/04/2019 2:55 AM EDT) Pathologist [facility] Hemoglobin A1c 5.3 4.3 - 5.6 % [facility] Comment: Reference Range: 4.3 - 5.6% 5.7 - 6.4% - Increased Risk of Developing Diabetes Mellitus >= 6.5% - Consistent with diagnosis of Diabetes Mellitus In the absence of hyperglycemia (i.e. plasma glucose > 200 mg/dL) or classic symptoms of hyperglycemia a repeat measurement of HbA1c should be performed on a separate sample to confirm the diagnosis. Diagnosis and Classification of Diabetes Mellitus, Diabetes Care 2013; 36: Suppl. 1, B27-96 Estimated Average Glucose 106 mg/dL [facility] Comment: eAG equivalents for HbA1c percentages: HbA1c(%) ?eAG(mg/dL) 6.0 ?126 6.5 ?140 7.0 ?154 7.5 ?169 8.0 ?183 8.5 ?197 9.0 ?212 9.5 ?226 10.0 ? 240 Limitations: The eAG calculation has not been validated on women, individuals below 18 years old and above 70 years old, and individuals with hemoglobinopathies. Additional resources are available on the ADA website. James QUIROZ, Karthik J, Yeyo R, et al. ??Translating the A1C assay into estimated average glucose values. ??Diabetes Care 2008:31(8):0896-1211. Blood specimen (specimen) 04/04/2019 2:55 AM EDT 04/04/2019 3:05 AM EDT Narrative Resulting Agency Comment Spec In Lab Ashutosh Morelos MD CHEMISTRY ORDER LOU [facility] [place] [address] * EKG 12 Lead (04/03/2019 10:56 PM EDT) Ventricular rate 55 BPM MUSE SYSTEM Atrial Rate 55 BPM MUSE SYSTEM P-R Interval 172 ms MUSE SYSTEM QRS Duration 130 ms MUSE SYSTEM Q-T Interval 454 ms MUSE SYSTEM QTC Calculated (Bezet) 434 ms MUSE SYSTEM Calculated P Ovando 16 degrees MUSE SYSTEM Calculated R Ovando -49 degrees MUSE SYSTEM Calculated T Ovando 8 degrees MUSE SYSTEM INTERPRETATION Sinus bradycardia Right bundle branch block Left anterior fascicular block Bifascicular block Abnormal ECG No previous ECGs available Confirmed by MD Espinal Daniel ([id number]) on 04/04/2019 12:40:14 PM MUSE SYSTEM 04/03/2019 10:5 6 PM EDT 04/04/2019 12:40 PM EDT Ashutosh Morelos MD ECG ORDERABLES MUSE SYSTEM * (ABNORMAL) APTT (04/03/2019 9:55 PM EDT) Partial Thromboplastin Time 59(H) 25 - 37 sec [facility] Comment: The PTT is NOT appropriate for heparin monitoring. Use the Anti-Xa level for heparin monitoring (HEP UFH) or LMWH monitoring (HEP LMW). A PTT less than 37 seconds generally indicates adequate hemostasis. Blood specimen (specimen) Venous Draw / Unknown 04/03/2019 9:55 PM EDT 04/03/2019 10:00 PM EDT Narrative Resulting Agency Comment Spec In Lab Ashutosh Morelos MD HEMATOLOGY ORDKatherin GIRARD Performing Organization Address [facility] de Phone Number [facility] [place] [address] * Prothrombin Time (04/03/2019 9:55 PM EDT) [facility] Prothrombin Time 12.3 9.4 - 12.5 sec [facility] International Normalization Ratio 1.1 [facility] Comment: An INR <2.0 indicates adequate procoagulant activity for hemostasis in most patients without underlying bleeding disorders, though the INR may not adequately reflect hemostatic capacity in patients with liver disease and synthetic impairment. The recommended target INR range for therapeutic anticoagulation is 2.0 ? 3.0 for most applications, though lower and higher ranges may be appropriate depending on clinical circumstances. Blood specimen (specimen) Venous Draw / Unknown 04/03/2019 9:55 PM EDT 04/03/2019 10:00 PM EDT Narrative Resulting Agency Comment Spec In Lab Ashutosh Morelos MD HEMATOLOGY ORDKatherin GIRARD Performing Organization Address City/[facility] Co de Phone Number [facility] [place] [address] * Troponin (04/03/2019 9:55 PM EDT) [facility] Troponin-T <0.01 0.00 - 0.00 ng/mL [facility] Comment: The 99th percentile for Troponin T is less than 0.01 ng/mL, any detectable cTnT concentration using this assay should be considered elevated. According to the third universal definition of myocardial infarction the following criteria with a clinical presentation consistent with acute myocardial ischemia meets the diagnosis for a myocardial infarction (ID). Detection of a rise and/or fall of cTnT, with at least one value greater than the 99th percentile (> or = 0.01) and with at least one of the following ?? Symptoms of ischemia ?? New or presumed new significant KQ-rskxjji-H wave (ST-T) changes or new left bundle branch block (LBBB) ?? Development of pathologic Q waves in the ECG ?? Imaging evidence of new loss of viable myocardium or new regional wall motion abnormality ?? Identification of an intracoronary thrombus by angiography or autopsy Samples for cTnT testing should be obtained serially upon first assessment and again 3 to 6 hours later. If the clinical suspicion is high and previous samples have been negative an additional sample may be indicated. Reference: Third Maskell Definition of Myocardial Infarction. Journal of the [place] [employer] 2012;60:1581-98 Blood specimen (specimen) Venous Draw / Unknown 04/03/2019 9:55 PM EDT 04/03/2019 10:00 PM EDT Narrative Resulting Agency Comment Spec In Lab Ashutosh Morelos MD CHEMISTRY ORDER LOU [facility] [place] [address] * (ABNORMAL) Differential, Automated (04/03/2019 9:55 PM EDT) Neutrophil % 64.7 % [facility] Neutrophil Absolute 5.98 1.70 - 6.10 x10(3)/mc L [facility] Lymph % 22.1 % [facility] Lymphocytes Abs 2.0 0.9 - 3.2 x10(3)/mc L [facility] Monocyte % 9.6 % [facility] Monocyte Abs 0.9 0.3 - 0.9 x10(3)/[facility] Eos % 2.5 % [facility] Eosinophils Abs 0.2 0.0 - 0.4 x10(3)/[facility] Basophil % 0.6 % [facility] Baso Absolute 0.1 0.0 - 0.1 x10(3)/[facility] Immature Gran % 0.50 % [facility] Comment: Immature granulocytes(IG's)percentage and absolute count will include metamyelocytes, myelocytes, and promyelocytes. Blood smears from CBCs yielding IG's will be scanned manually for concordance. If this scan disagrees with the automated IG or if promyelocytes are noted, a manual differential will be performed. Immature Gran Absolute 0.05(H) 0.00 - 0.04 x10(3)/[facility] Blood specimen (specimen) 04/03/2019 9:55 PM EDT 04/03/2019 10:00 PM EDT Narrative Resulting Agency Comment Spec In Lab Ashutosh Morelos MD HEMATOLOGY [place] [facility] [place] [address] * (ABNORMAL) Hemogram (04/03/2019 9:55 PM EDT) White Blood Cell 9.3 4.0 - 9.5 x10(3)/[facility] Red Blood Cell 4.96 4.58 - 5.54 x10(6)/[facility] Hemoglobin 15.9 13.7 - 16.5 gm/dL [facility] Hematocrit 46.2 40.5 - 48.5 % [facility] Mean Cell Volume 93.1 82.9 - 93.1 fL [facility] Mean Cell Hemoglobin 32.1 27.5 - 32.1 pg [facility] Mean Cell Hemoglobin Concentration 34.4 32.0 - 35.7 gm/dL [facility] Platelet 170 145 - 357 x10(3)/mc L [facility] RDW Standard Deviation 45.5(H) 36.0 - 45.0 fL [facility] RDW coefficient of variation 13.3 11.4 - 13.8 % [facility] Mean Platelet Volume 9.5 7.6 - 12.9 fL [facility] NRBC% auto 0.0 % [facility] NRBC Absolute 0.000 0.000 - 0.000 x10(3)/mc L [facility] Blood specimen (specimen) 04/03/2019 9:55 PM EDT 04/03/2019 10:00 PM EDT Narrative Resulting Agency Comment Spec In Lab Ashutosh Morelos MD HEMATOLOGY [place] Performing Organization Address City/[facility] Co de Phone Number [facility] [place] [address] * Hepatic Function Panel (04/03/2019 9:55 PM EDT) Protein, Total 6.5 6.1 - 8.0 gm/dL [facility] Albumin 3.5 3.2 - 5.2 gm/dL [facility] Aspartate Aminotransferase 22 0 - 39 unit/L [facility] Alanine Aminotransferase 22 0 - 55 unit/L [facility] Alkaline Phosphatase 68 40 - 130 unit/L [facility] Bilirubin, Total 0.4 0.2 - 1.3 mg/dL [facility] Bilirubin, Direct 0.1 0.0 - 0.3 mg/dL [facility] Blood specimen (specimen) 04/03/2019 9:55 PM EDT 04/03/2019 10:00 PM EDT Narrative Resulting Agency Comment Spec In Lab Ashutosh Morelos MD CHEMISTRY ORDER LOU [facility] [place] [address] * (ABNORMAL) pro-Brain Natriuretic Peptide (04/03/2019 9:55 PM EDT) [facility] NT-proBNP 198(H) <=125 pg/mL [facility] Blood specimen (specimen) 04/03/2019 9:55 PM EDT 04/03/2019 10:00 PM EDT Narrative Resulting Agency Comment Spec In Lab Ashutosh Morelos MD CHEMISTRY ORDER LOU [facility] [place] [address] * Magnesium (04/03/2019 9:55 PM EDT) [facility] Magnesium 0.86 0.69 - 1.07 mmol/L [facility] Blood specimen (specimen) 04/03/2019 9:55 PM EDT 04/03/2019 10:00 PM EDT Narrative Resulting Agency Comment Spec In Lab Ashutosh Morelos MD CHEMISTRY ORDER LOU Performing Organization Address City/[facility]/ZIP Co de Phone Number [facility] [place] [address] * Basic Metabolic Panel (non-fasting) (04/03/2019 9:55 PM EDT) [facility] Glucose 104 65 - 199 mg/dL [facility] Comment:Diabetes: >=200 mg/d L plus symptoms Blood Urea Nitrogen 19 10 - 20 mg/dL [facility] Creatinine 1.06 0.80 - 1.50 mg/dL [facility] Sodium 139 135 - 145 mmol/L [facility] Potassium 4.0 3.5 - 5.0 mmol/L [facility] Comment: Please note: ??Patients with WBC >100,000 may have falsely elevated Potassium levels. ??For accurate Potassium quantification in these patients send serum separator tube (gold top) for subsequent determinations. ??Contact the Clinical Chemistry Laboratory if there are any questions. Chloride 105 98 - 107 mmol/L [facility] Carbon Dioxide 24 22 - 31 mmol/L [facility] Anion Gap 10 5 - 15 mmol/L [facility] Calcium 8.9 8.5 - 10.5 mg/dL [facility] Est Glomerular Filtration Rate 74 >=60 mL/min/1. 73 m?? [facility] Comment: The eGFR was calculated using the CKD-EPI equation. As with all creatinine based estimates of kidney function, eGFR values calculated with the CKD-EPI equation are not accurate in patients with acute kidney failure, extremes of body mass or the acutely ill. http://[employer] eGFR 86 >=60 mL/min/1. 73 m?? [facility] Comment: The eGFR was calculated using the CKD-EPI equation. As with all creatinine based estimates of kidney function, eGFR values calculated with the CKD-EPI equation are not accurate in patients with acute kidney failure, extremes of body mass or the acutely ill. http://[employer]/[facility] – TULSAnkf Blood specimen (specimen) 04/03/2019 9:55 PM EDT 04/03/2019 10:00 PM EDT Narrative Resulting Agency Comment Spec In Lab Ashutosh Morelos MD CHEMISTRY ORDER LOU [facility] [place] [address] * Heparin (unfractionated) Level (04/03/2019 9:55 PM EDT) UF Heparin 0.34 IU/mL [facility] Comment: Guidelines for therapeutic unfractionated heparin levels are summarized below. Heparin (Anti-Xa) levels should be determined in a plasma sample that has been drawn 6 hours after a dose change i.e., steady-state has been reached. DRUG ?Dosing Schedule ? Target Peak Steady-State ?Heparin (Anti-Xa) Levels (Units/mL) Unfractionated ?Continuous infusion ?0.3-0.7 Heparin ?0.3-0.6 for some neurology indications Blood specimen (specimen) 04/03/2019 9:55 PM EDT 04/03/2019 10:00 PM EDT Narrative Resulting Agency Comment Spec In Lab Ashutosh Morelos MD HEMATOLOGY [place]IR[place] Performing Organization Address City/State/[facility] Co de Phone Number [facility] [place] [address] documented in this encounter Visit Diagnoses Diagnosis Unstable angina Intermediate coronary syndrome S/P coronary artery stent placement Postsurgical percutaneous transluminal coronary angioplasty status Unstable angina Intermediate coronary syndrome Hypertension Unspecified essential hypertension documented in this encounter Administered Medications Inactive Administered Medications - up to 3 most recent administrations Medication Order MAR Action Action Date Dose Rate Site acetaminophen (TYLENOL) tablet 650 mg 650 mg, Oral, EVERY 4 HOURS PRN, Starting on Sat04/03/19 at 2133, Until 04/06/19 at 1423, Pain, Headaches, Maximum dose of acetaminophen is 4000 mg from all sources in 24 hours., Routine Given 04/03/2019 11:01 PM EDT 650 mg argatroban 250 mg in sodium chloride 0.9% 250 mL infusion 2 mcg/kg/min ? 113.4 kg (13.608 mL/hr, rounded to 13.6 mL/hr), Intravenous, CONTINUOUS, Starting on Sat04/03/19 at 2230, Until 04/04/19 at 2040, All adjustments must be ordered by the prescriber aPTT less than 46 seconds = increase rate 20% aPTT 46-93 seconds = no change aPTT 94 seconds - 130 seconds = hold infusion for 2 hours, decrease infusion rate by 50% aPTT greater than 130 = hold infusion and repeat aPTT every 2 hours until aPTT 90 seconds or less, decrease infusion rate by 50% on restart Consult hematology if infusion rate adjustment will exceed 10 mcg/kg/min If aPTT is ABOVE goal, STOP infusion and contact prescriber STAT for new orders. New Bag 04/03/2019 11:00 PM EDT 2 mcg/kg/min 13.6 mL/hr aspirin chewable tablet 81 mg 81 mg, Oral, DAILY, First dose on Sat04/04/19 at 0900, Until Discontinued, Routine Given 04/06/2019 8:15 AM EDT 81 mg Given 04/05/2019 8:29 AM EDT 81 mg Given 04/04/2019 8:41 AM EDT 81 mg atorvastatin (LIPITOR) tablet 80 mg 80 mg, Oral, EVERY EVENING, First dose on Sat04/03/19 at 2200, Until Discontinued, Routine Given 04/05/2019 5:00 PM EDT 80 mg Given 04/04/2019 5:00 PM EDT 80 mg Given 04/03/2019 10:01 PM EDT 80 mg citalopram (CeleXA) tablet 10 mg 10 mg, Oral, NIGHTLY, First dose on Sat04/03/19 at 2200, Until Discontinued, Routine Given 04/05/2019 8:31 PM EDT 10 mg Given 04/04/2019 8:25 PM EDT 10 mg Given 04/03/2019 10:00 PM EDT 10 mg clopidogrel (PLAVIX) tablet 75 mg 75 mg, Oral, DAILY, First dose on Sat04/05/19 at 0900, Until Discontinued, Recovery (Recovery-Hospital Unit), Routine Given 04/06/2019 8:15 AM EDT 75 mg Given 04/05/2019 8:29 AM EDT 75 mg fluticasone propionate (FLOVENT) 220 mcg/actuation inhaler 2 puff 2 puff, Inhalation, 2 TIMES DAILY, First dose on Sat04/03/19 at 2300, Until Discontinued, Shake well; Rinse mouth after administration., Routine Given 04/06/2019 8:14 AM EDT 2 puffs Given 04/05/2019 8:30 PM EDT 2 puffs Given 04/05/2019 9:00 AM EDT 2 puffs HYDROmorphone (DILAUDID) tablet 2 mg 2 mg, Oral, EVERY 4 HOURS PRN, Starting on Sat04/04/19 at 1250, Until Sat04/06/19 at 1423, Pain, Cath (Recovery-Hospital Unit), Routine metoprolol succinate (TOPROL-XL) XL tablet 50 mg 50 mg, Oral, DAILY, First dose on Sat04/06/19 at 1200, Until Discontinued, DO NOT CRUSH OR OPEN, Routine Given 04/06/2019 11:08 AM EDT 50 mg metoprolol tartrate (LOPRESSOR) tablet 25 mg 25 mg, Oral, EVERY 6 HOURS SCHEDULED, First dose on Sat04/04/19 at 0000, Until Discontinued, Hold for SBP less than 100 mmHG or HR less than 50 beats per minute, Routine Given 04/06/2019 6:02 AM EDT 25 mg Given 04/06/2019 12:46 AM EDT 25 mg Given 04/05/2019 6:00 PM EDT 25 mg sodium chloride 0.9 % (flush) flush 5 mL 5 mL, Intravenous, 2 TIMES DAILY, First dose on Sat04/03/19 at 2200, Until Discontinued, Routine Given 04/06/2019 9:00 AM EDT 5 mLs Given 04/05/2019 9:00 AM EDT 5 mLs Given 04/04/2019 9:00 PM EDT 5 mLs sodium chloride 0.9 % (flush) flush 5 mL 5 mL, Intravenous, EVERY 12 HOURS, First dose on Sat04/03/19 at 2200, Until Discontinued, Cath (Day of Procedure), Routine Given 04/05/2019 10:00 PM EDT 5 mLs Given 04/03/2019 11:04 PM EDT 5 mLs sodium chloride 0.9 % (flush) flush 5-20 mL 5-20 mL, Intravenous, EVERY 1 MIN PRN, Starting on Sat04/03/19 at 2133, Until Sat04/06/19 at 1423, flush, Flush pertains to all indwelling lines. Flush per protocol found in the job aid using the link provided on this medication record., Routine Given 04/03/2019 10:07 PM EDT 5 mLs sodium chloride 0.9% infusion 125 mL/hr, Intravenous, CONTINUOUS, Starting on Sat04/04/19 at 1315, Until Sat04/04/19 at 1614, Recovery (Recovery-Hospital Unit) New Bag 04/04/2019 1:11 PM EDT 125 mL/hr 125 mL /hr documented in this encounter Active and Recently Administered Medications Times are shown in EDT. Scheduled Medication Order 04/04/2019 04/05/2019 04/06/2019 aspirin chewable tablet 81 mg 81 mg, Oral, DAILY, First dose on Sat04/04/19 at 0900, Until Discontinued, Routine 0841 (Given - Provider: Te Sullivan RN)1226 (OCT Hold - Provider: Admin Adt - Reason: Transfer to a Procedural area)1303 ([facility] Unhold - Provider: Admin Adt) 0829 (Given - Provider: Te Sullivan RN) 0815 (Given - Provider: Roxana Lamb, ANGELA) atorvastatin (LIPITOR) tablet 80 mg 80 mg, Oral, EVERY EVENING, First dose on Sat04/03/19 at 2200, Until Discontinued, Routine 1226 (OCT Hold - Provider: Admin Adt - Reason: Transfer to a Procedural area)1303 ([facility] Unhold - Provider: Admin Adt)1700 (Given - Provider: Te Sullivan RN) 1700 (Given - Provider: Te Sullivan RN) citalopram (CeleXA) tablet 10 mg 10 mg, Oral, NIGHTLY, First dose on Sat04/03/19 at 2200, Until Discontinued, Routine 1226 (OCT Hold - Provider: Admin Adt - Reason: Transfer to a Procedural area)1303 ([facility] Unhold - Provider: Admin Adt)2024 (Given - Provider: Love García RN) 2030 (Given - Provider: Love García RN) clopidogrel (PLAVIX) tablet 75 mg 75 mg, Oral, DAILY, First dose on Sat04/05/19 at 0900, Until Discontinued, Recovery (Recovery-Hospital Unit), Routine 0829 (Given - Provider: Te Sullivan RN) 0815 (Given - Provider: Roxana Lamb, ANGEAL) fluticasone propionate (FLOVENT) 220 mcg/actuation inhaler 2 puff 2 puff, Inhalation, 2 TIMES DAILY, First dose on Sat04/03/19 at 2300, Until Discontinued, Shake well; Rinse mouth after administration., Routine 0900 (Given - Provider: Te Sullivan RN)1226 ([facility] Hold - Provider: Admin Adt - Reason: Transfer to a Procedural area)1303 ([facility] Unhold - Provider: Admin Adt)202 (Given - Provider: Love García RN) 0900 (Given - Provider: Te Sullivan RN)2030 (Given - Provider: Love García RN) 0814 (Given - Provider: Roxana Lamb, ANGELA) metoprolol succinate (TOPROL-XL) XL tablet 50 mg 50 mg, Oral, DAILY, First dose on 04/06/19 at 1200, Until Discontinued, DO NOT CRUSH OR OPEN, Routine 1108 (Given - Provider: Roxana Lamb, ANGELA) metoprolol tartrate (LOPRESSOR) tablet 25 mg (CANCELED) 25 mg, Oral, EVERY 6 HOURS SCHEDULED, First dose on Sat04/04/19 at 0000, Until Discontinued, Hold for SBP less than 100 mmHG or HR less than 50 beats per minute, Routine 0110 (Given - Provider: Andi Stuart RN)0727 (Given - Provider: Andi Stuart RN)1200 (Not Given - Provider: Te Sullivan RN - Reason: See comment - Comment: HR 56)1226 ([facility] Hold - Provider: Admin Adt - Reason: Transfer to a Procedural area)1303 ([facility] Unhold - Provider: Admin Adt)1701 (Given - Provider: Te Sullivan RN) 0022 (Given - Provider: Love García RN)0523 (Given - Provider: Love García RN)1200 (Not Given - Provider: Te Sullivan RN - Reason: See comment - Comment: Sinus daryn. Dose withheld due to HR of 57)1800 (Given - Provider: Te Sullivan RN) 0046 (Given - Provider: Love García RN)0602 (Given - Provider: Love García RN) sodium chloride 0.9 % (flush) flush 5 mL 5 mL, Intravenous, 2 TIMES DAILY, First dose on Sat04/03/19 at 2200, Until Discontinued, Routine 0900 (Given - Provider: Te Sullivan RN)1226 ([facility] Hold - Provider: Admin Adt - Reason: Transfer to a Procedural area)1303 ([facility] Unhold - Provider: Admin Adt)2100 (Given - Provider: Love García RN) 0900 (Given - Provider: Te Sullivan RN)2100 (Not Given - Provider: Love García RN - Reason: See comment - Comment: IV site appears phelbitic. IV team paged.) 0900 (Given - Provider: Roxana Lamb, ANGELA) sodium chloride 0.9 % (flush) flush 5 mL 5 mL, Intravenous, EVERY 12 HOURS, First dose on Sat04/03/19 at 2200, Until Discontinued, Cath (Day of Procedure), Routine 1000 (Not Given - Provider: Te Sullivan RN - Reason: See comment - Comment: IV infusing.)2200 (Not Given - Provider: Love García RN - Reason: See comment - Comment: duplicate order. IV flushed earlier in shift.) 1000 (Not Given - Provider: Te Sullivan RN - Reason: See comment - Comment: already flushed)2200 (Given - Provider: Love García RN) 1000 (Not Given - Provider: Roxana Lamb RN - Reason: See comment - Comment: flushed earlier) Continuous Medication Order 04/04/2019 04/05/2019 04/06/2019 sodium chloride 0.9% infusion () 125 mL/hr, Intravenous, CONTINUOUS, Starting on 04/04/19 at 1315, Until 04/04/19 at 1614, Recovery (Recovery-Hospital Unit) 1311 (New Bag - Provider: Te Sullivan RN) PRN Medication Order 04/04/2019 04/05/2019 04/06/2019 acetaminophen (TYLENOL) tablet 650 mg 650 mg, Oral, EVERY 4 HOURS PRN, Starting on Sat04/03/19 at 2133, Until 04/06/19 at 1423, Pain, Headaches, Maximum dose of acetaminophen is 4000 mg from all sources in 24 hours., Routine 1226 ([facility] Hold - Provider: Admin Adt - Reason: Transfer to a Procedural area)1303 ([facility] Unhold - Provider: Admin Adt) alum-mag hydroxide-simeth (Maalox) (40 mg-40 mg-4 mg/mL) oral liquid (CANCELED) ONCE PRN, Starting on 04/04/19 at 1229, Until 04/04/19 at 1246, Cath (Intra-Procedure), Routine 1229 (Given - Provider: Maria Guadalupe Sue, ANGELA) bivalirudin (ANGIOMAX) 250 mg (CROZE MACHINE OPERATOR) in sodium chloride 0.9% 50 mL infusion (CANCELED) CONTINUOUS PRN, Starting on 04/04/19 at 1153, Until 04/04/19 at 1246, Cath (Intra-Procedure), Routine 1153 (New Bag - Provider: Vincent Wallis RN)1220 (Stopped - Provider: Maria Guadalupe Sue, ANGELA) bivalirudin (ANGIOMAX) bolus from bag (CANCELED) ONCE PRN, Starting on 04/04/19 at 1152, Until 04/04/19 at 1246, Intra-Operative (Intra-Procedure), Routine 1152 (Given - Provider: Vincent Wallis, ANGELA) clopidogrel (PLAVIX) tablet (CANCELED) ONCE PRN, Starting on 04/04/19 at 1210, Until 04/04/19 at 1246, Intra-Operative (Intra-Procedure), Routine 1210 (Given - Provider: Vincent Wallis RN) fentaNYL 50 mcg/mL multi-dose injection (CANCELED) ONCE PRN, Starting on 04/04/19 at 1129, Until 04/04/19 at 1246, Intra-Operative (Intra-Procedure), Routine 1129 (Given - Provider: Vincent Wallis RN)1221 (Given - Provider: Vincent Wallis, RN) HYDROmorphone (DILAUDID) tablet 2 mg 2 mg, Oral, EVERY 4 HOURS PRN, Starting on 04/04/19 at 1250, Until 04/06/19 at 1423, Pain, Cath (Recovery-Hospital Unit), Routine iohexol (OMNIPAQUE) 350 mg/mL solution (CANCELED) ONCE PRN, Starting on 04/04/19 at 1233, Until 04/04/19 at 1246, Cath (Intra-Procedure), Routine 1233 (Given - Provider: Balwinder Black MD) lidocaine (XYLOCAINE) 10 mg/mL (1 %) injection 3 mg 3 mg (0.3 mL), Subcutaneous, ONCE PRN, 1 dose, Starting on Sat04/03/19 at 2133, Until 04/06/19 at 1423, for discomfort with PIV insertion, Routine 1226 ([facility] Hold - Provider: Admin Adt - Reason: Transfer to a Procedural area)1303 ([facility] Unhold - Provider: Admin Adt) midazolam (PF) (VERSED) multi-dose injection (CANCELED) ONCE PRN, Starting on 04/04/19 at 1129, Until 04/04/19 at 1246, Cath (Intra-Procedure), Routine 1129 (Given - Provider: Vincent Wallis RN) nitroGLYcerin (NITROSTAT) SL tablet 0.4 mg 0.4 mg, Sublingual, EVERY 5 MIN PRN, Starting on Sat04/03/19 at 2133, Until Sat04/06/19 at 1423, Chest pain, May repeat every 5 minutes for a total of three doses. Notify provider if chest pain not relieved with nitroglycerin. Do not administer nitroglycerin if the patient has received or taken phosphodiesterase (PDE-5) inhibitors such as sildenafil, tadalafil or vardenafil within the last 24 to 72 hours., Routine 1226 ([facility] Hold - Provider: Admin Adt - Reason: Transfer to a Procedural area)1303 ([facility] Unhold - Provider: Admin Adt) nitroGLYcerin 100 mcg/mL intracoronary dilution (CANCELED) ONCE PRN, Starting on 04/04/19 at 1129, Until 04/04/19 at 1246, Cath (Intra-Procedure), Routine 1129 (Given - Provider: Balwinder Black MD)1218 (Given - Provider: Balwinder Black MD) sodium chloride 0.9 % (flush) flush 5-20 mL 5-20 mL, Intravenous, EVERY 1 MIN PRN, Starting on Sat04/03/19 at 2133, Until 04/06/19 at 1423, flush, Flush pertains to all indwelling lines. Flush per protocol found in the job aid using the link provided on this medication record., Routine 1226 ([facility] Hold - Provider: Admin Adt - Reason: Transfer to a Procedural area)1303 ([facility] Unhold - Provider: Admin Adt) sodium chloride 0.9 % (flush) flush 5-20 mL 5-20 mL, Intravenous, EVERY 1 MIN PRN, Starting on Sat04/03/19 at 2133, Until 04/06/19 at 1423, flush, Flush pertains to all indwelling lines. Flush per protocol found in the job aid using the link provided on this medication record., Cath (Day of Procedure), Routine verapamil (ISOPTIN) injection (CANCELED) ONCE PRN, Starting on 04/04/19 at 1129, Until 04/04/19 at 1246, Administer over 2 Minutes, Cath (Intra-Procedure) 1129 (Given - Provider: Balwinder Black MD) documented in this encounter Care Teams Spring Tier Relationship Specialty Start Date End Date Jadiel Gregorio DO [address] [place] [address] PCP - General 10/17/10 06/25/22 documented as of this encounter
--- OUTSIDE RECORDS SUMMARY | 2024-07-06 13:09 | XMS_ITS | Encounter Summary ---
Author Organization [facility] [place] [address] Care Team Providers Care Undercollar Maker Name Role Phone Jadiel Gregorio DO Primary Care Provider Encounter Details Date Type Department Care Team (Late st Contact Info) Description 01/08/2014 [place] [id number] Jadiel Gregorio DO [address] [place] [address] Social History Tobacco Use Types Packs/Day Years [...] 9:00 AM EDT Office Visit Cardiology at [address] [place] [address] Jerzy Espinal MD [facility] [place] [address] documented as of this encounter Procedures Procedure Name Priority Date/Time Associated Diagnosis Comments FILM LIBRARY STORAGE ONLY CT CHEST Routine 01/08/2014 9:15 AM EDT documented in this encounter Results * Film Library- Storage only CT Chest (01/08/2014 9:15 AM EDT) Anatomical Region Laterality Modality Chest Other 01/08/2014 9:15 AM EDT Narrative 01/11/2014 10:09 AM EDT This is a Non-reportable exam Procedure Note 01/11/2014 This is a Non-reportable exam Jadiel Gregorio DO IMG FILM LIBRARY ORD ERABLES documented in this encounter Visit Diagnoses Not on filedocumented in this encounter Care Teams Undercollar Maker Relationship Specialty Start Date End Date Jadiel Gregorio DO [address] [place] [address] PCP - General 10/17/10 06/25/22 documented as of this encounter
--- OUTSIDE RECORDS SUMMARY | 2024-07-06 13:09 | XMS_ITS | Encounter Summary ---
Author Organization [facility] [place] [address] Care Team Providers Care Planting Material Unloader Name Role Phone Jg, Jadiel MARTINEZ Primary Care Provider [phone] Encounter Details Date Type Department Care Team (Late st Contact Info) Description 04/03/2019 Telephone Cardiology at [address] [phone] Yariel Carias MD [facility] [place] [address] Social History Tobacco Use Types Packs/Day Years [...] encounter Miscellaneous Notes * Telephone Encounter - Yariel Carias MD - 04/03/2019 3:47 PM EDT Telephone Triage Note Initial Contact Date: 04/03/19 Initial contact time: [phone] Referring Provider: Eneida Patient Location: [facility] Presenting Symptoms per OSH: CP, positive stress test Past Medical History: 63 y/o male PMH obesity, JUSTIN on CPAP, HTN who presents with worsening exertional CP. This has been slowly progressing over the past few months. Admitted yesterday at OSH with exertional CP that has progressed to at rest. He had a nuclear stress test at [facility] that showed moderate ischemia in LAD territory. Echo shows normal function with no WMA. NTG has helped to relieve pain Pertinent Diagnostic Findings: Vitals: BP 138/78 HR 59 SaO2 95% RA EKG : NSR, STD V1-V3 Troponin : neg CXR: OSH Interventions: ASA Metoprolol Statin Assessment/Plan: 63 y/o with worsening chest pain and positive nuclear stress test. He will be transferred for most likely [facility]. Start heparin gtt. - Above recommendations are based on information received over the phone; I have not personally interviewed or examined this patient. Yariel Carias MD Corporate Administrative Assistant PGY 5 P: [phone] documented in this encounter Plan of Treatment Upcoming Encounters Date Type Department Care Team (Late st Contact Info) Description 04/20/2025 9:00 AM EDT Office Visit Cardiology at [address] [place] [address] Jerzy Espinal MD [facility] [place] [place] [address] documented as of this encounter Visit Diagnoses Not on filedocumented in this encounter Care Teams Planting Material Unloader Relationship Specialty Start Date End Date Jadiel Gregorio DO [address] [place] [address] PCP - General 10/17/10 06/25/22 documented as of this encounter
--- OUTSIDE RECORDS SUMMARY | 2024-07-06 13:09 | XMS_ITS | Encounter Summary ---
Author Organization [facility] [place] [address] Care Team Providers Care Livestock Exhibitor Name Role Phone Jadiel Gregorio Primary Care Provider Encounter Details Date Type Department Care Team (Late st Contact Info) Description 04/10/2019 Orders Only Cardiology at [address] [phone] Jerzy Espinal MD [facility] [place] [address] Unstable angina (Primary Dx); Hypertension, unspecified type Social History Tobacco Use Types Packs/Day Years [...] 9:00 AM EDT Office Visit Cardiology at [address] [phone] Jerzy Espinal MD [facility] [place] [address] documented as of this encounter Results * EKG 12 Lead (04/16/2019 11:24 AM EDT) Ventricular rate 56 BPM MUSE SYSTEM Atrial Rate 56 BPM MUSE SYSTEM P-R Interval 178 ms MUSE SYSTEM QRS Duration 142 ms MUSE SYSTEM Q-T Interval 448 ms MUSE SYSTEM QTC Calculated (Bezet) 432 ms MUSE SYSTEM Calculated P [place] 36 degrees MUSE SYSTEM Calculated R [place] -32 degrees MUSE SYSTEM Calculated T [place] 7 degrees MUSE SYSTEM INTERPRETATION Sinus bradycardia Left axis deviation Right bundle branch block Abnormal ECG When compared with ECG of 04-APR-2019 13:10, No significant change was found Confirmed by MD Nadeen, Nilson ([id number]) on 04/16/2019 5:13:32 PM MUSE SYSTEM 04/16/2019 11:2 4 AM EDT 04/16/2019 5:13 PM EDT Jerzy Espinal MD ECG ORDERABLES MUSE SYSTEM documented in this encounter Visit Diagnoses Diagnosis Unstable angina- Primary Intermediate coronary syndrome Hypertension, unspecified type documented in this encounter Care Teams Livestock Exhibitor Relationship Specialty Start Date End Date Jadiel Gregorio DO [address] [place] [address] PCP - General 10/17/10 06/25/22 documented as of this encounter
--- OUTSIDE RECORDS SUMMARY | 2024-07-06 13:09 | XMS_ITS | Encounter Summary ---
[place] [address] Care Team Providers Care Hyperion Essbase Developer Name Role Phone Jg, Jadiel MARTINEZ Primary Care Provider [phone] Encounter Details Date Type Department Care Team (Late st Contact Info) Description 11/29/2010 8:00 PM EDT Procedure visit [place] [address] Damien Buagh MD [facility] [place] [address] JUSTIN (obstructive sleep apnea) (Primary Dx) Social History Tobacco Use Types Packs/Day Years Used Date Smoking Tobacco: Never Assessed Sex and Gender Information Value Date Recorded Sex Assigned at Not on file Gender Identity Not on file Sexual Orientation Not on file documented as of this encounter Last Filed Vital Signs Vital Sign Reading Time Taken Comments Blood Pressure 146/96 11/30/2010 10:21 AM EDT Pulse 66 11/30/2010 10:21 AM EDT Temperature - - Respiratory Rate 12 11/30/2010 10:21 AM EDT Oxygen Saturation - - Inhaled Oxygen Concentration - - Weight 96.2 kg (212 lb) 11/30/2010 10:21 AM EDT Height 167.6 cm (5' 6) 11/30/2010 10:21 AM EDT Body Mass Index 34.22 11/30/2010 10:21 AM EDT documented in this encounter Progress Notes * Damien Baugh MD - 11/30/2010 10:27 AM EDT REPORT OF DIAGNOTIC POLYSOMNOGRAM IDENTIFYING INFORMATION Patient's Name: Cj De Los Santos Date of : 1955 REFERRING PHYSICIAN: No primary provider on file. PRIMARY CARE PHYSICIAN: JADIEL GREGORIO DO Date of Service: 11/29/10 Identification: Cj De Los Santos is a 55 y.o. male who presents for a polysomnogram. Polysomnography: The patient's sleep was [facility] Sleep was monitored in accordance with recommended AASM guidelines. The recording also included oral/nasal airflow, chest and abdominal respiratory effort, nasal pressure, single channel EKG, intercostalEMG, bilateral tibialis EMG, and oxygen saturation (by pulse oximeter). Comments - Sleep/EEG: The study started at 8:18 AM and ended at 4:20 PM, yielding a total recording time (TRT) of 8:02. The sleep onset latency was approximately 11 minutes. Sleep efficiency was estimated to be mildly reduced. Sleep stages captured were N1, N2, N3 and R. Supine REM sleep was captured in sufficient amounts. - Respiratory: The baseline oxygen saturation (SpO2) during the study was 96%. Snoring and obstructive respiratory events were noted in NREM and REM. The SpO2 andry of 84% (the value may have been magnified due to an oximetry artifact) was associated with obstructive events in lateral R. Overall the patient was estimated to meet criteria for moderate to severe obstructive sleep apnea. - EKG: Normal sinus rhythm with occasional premature beats. - EMG: Increased leg movements, often associated with obstructive events. Assessment: Cj De Los Santos is a 55 y.o. male whose polysomnogram reveals obstructive sleep apnea. ICSD diagnosis (code) 327.23 Provisional: Final: Obstructive sleep apnea. Recommendations: 1. Study results and treatment options/recommendations were relayed to the patient. 2. CPAP trial. 3. Follow-up will be arranged after reviewing the CPAP titration study results. Patient Name: Cj De Los Santos Study Date: 11/29/2010 Sex: Male Subject Code: [id number] Date of : 1955 Referring Physician: Jadiel Gregorio M.D. Age: 55 Sleep Specialist: Damien baugh M.D. Height: 66.0 Recording Tech: PO /LG Weight: 212.6 Project: DAY PSG B.M.I: 34.3 Ectopy: OCCASIONAL PVC'S EKG: NSR Sleep Architecture Start Time: Lights Off: 8:18:18 AM End Time: Lights On: 4:20:07 PM Total Recording Time (TRT): 481.8 Total Sleep Period (TSP): 478.8 Total Sleep Time (TST): 423.3 Sleep Efficiency: 87.9% Sleep Onset: 3.0 Total Stage Shifts: 194 WASO: 55.5 Total Awakenings: 41 REM Periods: 3 REM Latency: 127.5 REM Latency (minus Wake time): 112.0 Stage Results Time (min.) % TST Latency (min.) Wake (after sleep onset): 55.5 - - Stage N1: 62.5 14.8% 0.0 Stage N2: 200.3 47.3% 12.0 Stage N3: 37.0 8.7% 16.0 REM: 123.5 29.2% 127.5 Respiratory Events Central Obstructive Mixed Total Apnea Apnea Apnea Apneas RERA Count: 41 48 11 100 1 Index (events/hr.): 5.8 6.8 1.6 14.2 0.1 Mean Duration (sec.): 12.6 13.6 21.3 14.0 19.0 Longest Event (sec.): 15.6 19.3 26.1 26.1 19.0 REM Count: 7 8 0 15 0 NREM Count: 34 40 11 85 1 REM Index: 3.4 3.9 0.0 7.3 0.0 NREM Index: 6.8 8.0 2.2 17.0 0.2 Respiratory Events (cont) Hypopneas Hypopneas Apneas + OD 4% OD 3%/AR Hypopneas Count: 102 295 497 Index (events/hr.): 14.5 41.8 70.4 Mean Duration (sec.): 19.4 17.6 17.2 Longest Event (sec.): 29.5 39.6 39.6 REM Count: 33 55 103 NREM Count: 69 240 394 REM Index: 16.0 26.7 50.0 NREM Index: 13.8 48.0 78.8 Respiratory Body Position Supine Supine Prone Prone Left Body Position Count Index Count Index Count Duration: 4:13:34 0:00:00 0:49:19 Obstructive Apneas: 45 10.6 N/A N/A 2 Central Apneas: 34 8.0 N/A N/A 5 Mixed Apneas: 11 2.6 N/A N/A 0 Hypopnea OD 4%: 85 20.1 N/A N/A 4 Hypopnea OD 3%: 191 45.2 N/A N/A 52 RERA???s: 1 0.2 N/A N/A 0 Total: 367 86.8 N/A N/A 63 Respiratory Events Events Left Right Right Upright Upright Body Position (cont) Index Count Index Count Index Duration: 2:00:26 0:00:00 Obstructive Apneas: 2.4 1 0.5 N/A N/A Central Apneas: 6.1 2 1.0 N/A N/A Mixed Apneas: 0.0 0 0.0 N/A N/A Hypopnea OD 4%: 4.9 13 6.5 N/A N/A Hypopnea OD 3%: 63.3 52 25.9 N/A N/A RERA???s: 0.0 0 0.0 N/A N/A Total: 76.6 68 33.9 N/A N/A Body Position Supine Prone Left Right Upright Duration (Min): 253.6 0.0 49.3 120.4 0.0 % TST: 59.9% 0.0% 11.7% 28.4% 0.0% Respiratory Arousals Total NREM REM Respiratory Count: 437 346 91 Respiratory Index (events/hr): 61.9 69.2 44.2 Spontaneous Count: 42 35 7 Spontaneous Index (events/hr): 6.0 7.0 3.4 Total Count: 479 381 98 Total Index (events/hr): 67.9 76.2 47.6 Limb Movements LMs w Arousals LMs w/o Arousals Total LMs (by Sleep Stages) Count Index Count Index Count Index Total Sleep: 0 0.0 0 0.0 0 0.0 N1: 0 0.0 0 0.0 0 0.0 N2: 0 0.0 0 0.0 0 0.0 N3: 0 0.0 0 0.0 0 0.0 REM: 0 0.0 0 0.0 0 0.0 Oxygen Desaturation Count Index Total Sleep Time: 137 19.4 Wake (after sleep onset): 0 0.0 Non-REM: 102 20.4 REM: 35 20.4 Total Recording Time: 137 17.1 Oxygen Saturation Wake NREM REM TST TIB Mean SaO2%: 92.6 94.6 94.0 94.4 94.2 Min. SaO2%: 0.0 84.0 84.0 84.0 0.0 Max. SaO2%: 100.0 98.0 98.0 98.0 100.0 SaO2 < 89% (min): 1.8 1.1 0.4 1.5 3.2 SaO2 < 88% (min): 1.6 0.3 0.2 0.5 2.1 % Time of SaO2 in range 90 - 100%: 92.0% 99.2% 99.2% 99.2% 98.3% 80 - 90%: 1.0% 0.8% 0.8% 0.8% 0.8% 70 - 80%: 0.0% 0.0% 0.0% 0.0% 0.0% 60 - 70%: 0.0% 0.0% 0.0% 0.0% 0.0% 50 - 60%: 0.0% 0.0% 0.0% 0.0% 0.0% <= 50%: 2.4% 0.0% 0.0% 0.0% 0.3% % Artifact / Bad Data: 4.6% 0.0% 0.0% 0.0% 0.6% ETCO2 Wake NREM REM TST TIB Mean ETCO2: N/A N/A N/A N/A N/A Min. ETCO2: N/A N/A N/A N/A N/A Max. ETCO2: N/A N/A N/A N/A N/A % Time of ETCO2 in range > 80 (mmHg): 0.0% 0.0% 0.0% 0.0% 0.0% 70 - 80 (mmHg): 0.0% 0.0% 0.0% 0.0% 0.0% 60 - 69 (mmHg): 0.0% 0.0% 0.0% 0.0% 0.0% 55 - 59 (mmHg): 0.0% 0.0% 0.0% 0.0% 0.0% 50 - 54 (mmHg): 0.0% 0.0% 0.0% 0.0% 0.0% 45 - 49 (mmHg): 0.0% 0.0% 0.0% 0.0% 0.0% 40 - 44 (mmHg): 0.0% 0.0% 0.0% 0.0% 0.0% 35 - 39 (mmHg): 0.0% 0.0% 0.0% 0.0% 0.0% 30 - 34 (mmHg): 0.0% 0.0% 0.0% 0.0% 0.0% 20 - 29 (mmHg): 0.0% 0.0% 0.0% 0.0% 0.0% 0 - 20 (mmHg): 0.0% 0.0% 0.0% 0.0% 0.0% % Artifact / Bad Data: 100.0% 100.0% 100.0% 100.0% 100.0% Heart Rate Wake NREM REM TST TIB Mean HR (bpm): 69.3 65.3 72.3 67.3 67.5 Min. HR (bpm): 12.0 52.0 54.0 52.0 12.0 Max. HR (bpm): 93.0 81.0 93.0 93.0 93.0 % Time in range > 100 (bpm): 0.0% 0.0% 0.0% 0.0% 0.0% 90 - 100 (bpm): 0.2% 0.0% 0.1% 0.0% 0.1% 80 - 90 (bpm): 4.2% 0.0% 7.0% 2.0% 2.3% 70 - 80 (bpm): 28.3% 7.8% 56.9% 22.1% 22.9% 60 - 70 (bpm): 55.8% 79.3% 32.8% 65.7% 64.5% 50 - 60 (bpm): 4.1% 12.9% 3.1% 10.1% 9.3% <= 50 (bpm): 5.9% 0.0% 0.0% 0.0% 0.7% % Artifact / Bad Data: 1.5% 0.0% 0.0% 0.0% 0.2% documented in this encounter Plan of Treatment Upcoming Encounters Date Type Department Care Team (Late st Contact Info) Description 04/20/2025 9:00 AM EDT Office Visit Cardiology at [address] [place] [address] Jerzy Espinal MD [facility] [place] [address] documented as of this encounter Visit Diagnoses Diagnosis JUSTIN (obstructive sleep apnea)- Primary Obstructive sleep apnea (adult) (pediatric) documented in this encounter Care Teams Hyperion Essbase Developer Relationship Specialty Start Date End Date Jadiel Gregorio DO [address] [place] [address] PCP - General 10/17/10 06/25/22 documented as of this encounter
--- OUTSIDE RECORDS SUMMARY | 2024-07-06 13:09 | XMS_ITS | Encounter Summary ---
Author Organization [facility] [place] [address] Care Team Providers Care Document Image Technician Name Role Phone Jadiel Gregorio DO Primary Care Provider [phone] Encounter Details Date Type Department Care Team (Late st Contact Info) Description 01/01/2014 [place] [phone] Jadiel Gregorio DO [address] [place] [address] Social History Tobacco Use Types Packs/Day Years [...] 9:00 AM EDT Office Visit Cardiology at [address] [place] [address] Jerzy Espinal MD [facility] [place] [address] documented as of this encounter Procedures Procedure Name Priority Date/Time Associated Diagnosis Comments FILM LIBRARY STORAGE ONLY DX CHEST Routine 01/01/2014 9:15 AM EDT documented in this encounter Results * Film Library- Storage only DX Chest (01/01/2014 9:15 AM EDT) Anatomical Region Laterality Modality Other 01/01/2014 9:15 AM EDT Narrative 01/11/2014 10:07 AM EDT This is a Non-reportable exam Procedure Note 01/11/2014 This is a Non-reportable exam Jadiel Gregorio DO IMJoseph FILM LIBRARY ORD ERABLES documented in this encounter Visit Diagnoses Not on filedocumented in this encounter Care Teams Document Image Technician Relationship Specialty Start Date End Date Jadiel Gregorio DO [address] [place] [address] PCP - General 10/17/10 06/25/22 documented as of this encounter
--- OUTSIDE RECORDS SUMMARY | 2024-07-06 13:09 | XMS_ITS | Referral Summary ---
Author Organization [facility] Address [address] [place] [address] Care Team Providers Care Top Dyeing Machine Tender Name Role Phone Jadiel Gregorio DO Primary Care Provider [phone] Social History Tobacco Use Types Packs/Day Years Used Date Smoking Tobacco: Never Assessed Sex and Gender Information Value Date Recorded Sex Assigned at Not on file Legal Sex Male 18:21 EST Gender Identity Not on file Sexual Orientation Not on file Plan of Treatment Not on file Procedures Procedure Name Priority Date/Time Associated Diagnosis Comments HEPATITIS C AB W REFLEX TO HCV RNA BY PCR Routine 03/01/2022 11:43 EDT from Last 3 Months or Most Recently Relevant to Health Maintenance Results * HEPATITIS C AB W REFLEX TO HCV RNA BY PCR (03/01/2022 11:43 EDT) Hep C Antibody Negative Negative 03/02/2022 10:10 EDT [facility] Blood VENOUS BLOOD / Unknown 03/01/2022 11:43 EDT 03/01/2022 21:17 EDT us Provider Outr Resulting Lab CHEMISTRY & BLOOD GA S ORDERABLES Final Result [facility] [address] [place] [address] from Last 3 Months or Most Recently Relevant to Health Maintenance Care Teams Top Dyeing Machine Tender Relationship Specialty Start Date End Date Jadiel Gregorio DO [address] [place] [address] [facility] - General 03/14/10
--- OUTSIDE RECORDS SUMMARY | 2024-07-06 13:09 | XMS_ITS | Encounter Summary ---
Author Organization [facility] Address [facility] [place] [address] Care Team Providers Care Senior Software Engineering Manager Name Role Phone Jadiel Gregorio DO Primary Care Provider Encounter Details Date Type Department Care Team (Late st Contact Info) Description 04/16/2019 11:20 AM EDT Office Visit Cardiology at [address] [phone] Jerzy Espinal MD [facility] [place] [address] Unstable angina; Hypertension, unspecified type; Coronary artery disease involving lone pine coronary artery of lone pine heart without angina pectoris Social History Tobacco Use Types Packs/Day Years [...] Sign Reading Time Taken Comments Blood Pressure 128/77 04/16/2019 10:53 AM EDT Pulse 59 04/16/2019 10:53 AM EDT Temperature - - Respiratory Rate - - Oxygen Saturation - - Inhaled Oxygen Concentration - - Weight 103.6 kg (228 lb 8 oz) 04/16/2019 10:53 A M EDT Height 167.6 cm (5' 6) 04/16/2019 10:53 AM EDT Body Mass Index 36.88 04/16/2019 10:53 AM EDT documented in this encounter Progress Notes * Jerzy Espinal MD - 04/16/2019 11:20 AM EDT CARDIOLOGY OUTPATIENT NEW PATIENT NOTE PRIMARY CARE PROVIDER: Jadiel Gregorio DO PROBLEM LIST: Patient Active Problem List Diagnosis ??? Coronary artery disease involving lone pine coronary artery of lone pine heart without angina pectoris Cardiac Catheterization: (04/06/2019) LEFT dominance Access: 6F RRA Indication: USA Artery Lesion Intervention LM Mild diffuse LAD m TO D2: os 90% 2.75 x 12 Angioplasty --> 40% LCx Mild diffuse RCA Mild diffuse ??? Hypertension ??? JUSTIN (obstructive sleep apnea) MEDICATIONS: Current Outpatient Medications Medication Sig Dispense Refill ??? amLODIPine (NORVASC) 2.5 mg Tablet Take 2.5 mg by mouth daily. ??? MULTI-VITAMIN ORAL Take 1 tablet by mouth daily. ??? Potassium 99 mg Tablet Take 99 mg by mouth daily. ??? aspirin 81 mg Tablet, Chewable Take 81 mg by mouth daily. 30 tablet 3 ??? atorvastatin (LIPITOR) 40 mg Tablet Take 1 tablet by mouth every evening. ??? clopidogrel (PLAVIX) 75 mg Tablet Take 1 tablet by mouth daily. 90 tablet 3 ??? metoprolol succinate (TOPROL XL) 50 mg Tablet Sustained Release 24 hr Take 1 tablet by mouth daily. 30 tablet 12 ??? FLOVENT HFA 220 mcg/actuation HFA Aerosol Inhaler Inhale 2 puffs into the lungs 2 times daily. 1 ??? hydroCHLOROthiazide (HYDRODIURIL) 25 mg Tablet Take 25 mg by mouth daily. 0 ??? nitroGLYcerin (NITROSTAT) 0.4 mg Tablet, Sublingual Take 0.4 mg by mouth as needed. Chest pain 0 ??? citalopram (CELEXA) 10 mg Tablet Take 10 mg by mouth nightly. 0 No current facility-administered medications for this visit. Subjective: Patient ID: Cj De Los Santos is a 63 y.o. male. HPI: 63 M presents on follow-up for USA s/p PCI. See problem list for details of the cardiac cath Since then, he has felt well. He has been lightly walking without exertional chest pain, dyspnea, presyncope. Denies LH, syncope, palpitations, orthopnea, pnd, weight gain, edema. Plans to participate in cardiac rehab. 100% compliant with all medications. No bleeding issues on dapt Does not check BP at home ROS: 11 point ros either negative or per HPI Family history: Family History Problem Relation Age of Onset ??? Cancer Mother breast ??? Coronary Artery Disease Father ??? Chronic Obstructive Pulmonary Disease Father Social history: Social History Tobacco Use ??? Smoking status: Never Smoker ??? Smokeless tobacco: Never Used Substance Use Topics ??? Alcohol use: Yes Alcohol/week: 5.0 standard drinks Types: 5 Cans of beer per week Comment: ocassoinal ??? Drug use: Never Objective: Most Recent Vitals: 04/16/19 1053 BP: 128/77 Pulse: 59 Gen: pleasant male in NAD Cor: rrr, s1/s2 of nl character and amplitude, no m/r/g. Estimated RAP not elevated Pulm: CTAB Ab: soft, nt, nd, nabs throughout Ext: no c/c/e. Dp/pt ++ Neuro: without focal deficit EKG: NSR via RBBB. No ischemia/infarct TTE 03/2019 1. The left ventricular chamber size is [...] There is no hemodynamically significant valve disease. Assessment and Plan: Coronary artery disease involving lone pine coronary artery of lone pine heart without angina pectoris No evidence of angina since cath. - Antiplatelets: continue dapt x 1 year (03/2020). Asa lifelong - Statin: lipitor 80 can be decreased to 40 (non-STEMI presentation) - anti-anginals: toprol 50, norvasc 2.5 - endorsed cardiac rehab Hypertension Controlled here. - continue norvasc 2.5, hctz 25 - BP log; to bring to f/u appt RTC 3 months at [place] (per patient preference) Jerzy Espinal MD * Ekta Ervin Joseph - 04/16/2019 11:20 AM EDT appt scheduled 07/20/2019 8:20 am Informed of appt documented in this encounter Miscellaneous Notes * Assessment & Plan Note - Jerzy Espinal MD - 04/16/2019 4:28 PM EDT Associated Problem(s): Hyperpiesia Controlled here. - continue norvasc 2.5, hctz 25 - BP log; to bring to f/u appt * Assessment & Plan Note - Jerzy Espinal MD - 04/16/2019 4:28 PM EDT Associated Problem(s): ASCVD (arteriosclerotic cardiovascular disease) No evidence of angina since cath. - Antiplatelets: continue dapt x 1 year (03/2020). Asa lifelong - Statin: lipitor 80 can be decreased to 40 (non-STEMI presentation) - anti-anginals: toprol 50, norvasc 2.5 - endorsed cardiac rehab documented in this encounter Plan of Treatment Upcoming Encounters Date Type Department Care Team (Late st Contact Info) Description 04/20/2025 9:00 AM EDT Office Visit Cardiology at [address] [place] [phone] Jerzy Espinal MD [facility] [place] [address] documented as of this encounter Procedures Procedure Name Priority Date/Time Associated Diagnosis Comments EKG 12-LEAD Routine 04/16/2019 11:24 AM EDT Unstable angina Hypertension, unspecified type documented in this encounter Results * EKG 12 Lead (04/16/2019 11:24 AM EDT) Ventricular rate 56 BPM MUSE SYSTEM Atrial Rate 56 BPM MUSE SYSTEM P-R Interval 178 ms MUSE SYSTEM QRS Duration 142 ms MUSE SYSTEM Q-T Interval 448 ms MUSE SYSTEM QTC Calculated (Bezet) 432 ms MUSE SYSTEM Calculated P [place] 36 degrees MUSE SYSTEM Calculated R [place] -32 degrees MUSE SYSTEM Calculated T [place] 7 degrees MUSE SYSTEM INTERPRETATION Sinus bradycardia [...] Diagnoses Diagnosis Unstable angina Intermediate coronary syndrome Hypertension, unspecified type Coronary artery disease involving lone pine coronary artery of lone pine heart without angina pectoris documented in this encounter Care Teams Senior Software Engineering Manager Relationship Specialty Start Date End Date Jadiel Gregorio DO [address] [place] [address] PCP - General 10/17/10 06/25/22 documented as of this encounter
--- OUTSIDE RECORDS SUMMARY | 2024-07-06 13:09 | XMS_ITS | Encounter Summary ---
Author Organization [facility] Address [facility] [place] [address] Care Team Providers Care Logger Name Role Phone Jg, Jadiel MARTINEZ Primary Care Provider [phone] Reason for Visit * Reason Comments Follow-up 3 month F/U CAD, HTN Encounter Details Date Type Department Care Team (Late st Contact Info) Description 07/20/2019 8:20 AM EST Office Visit Cardiology at [address] [place] [address] Jerzy Espinal MD [facility] [place] [address] [place] [address] Coronary artery disease involving [place] coronary artery of [place] heart without angina pectoris; Essential hypertension Social History Tobacco Use Types [...] Sign Reading Time Taken Comments Blood Pressure 128/74 07/20/2019 8:15 AM EST Pulse 63 07/20/2019 8:15 AM EST per e kg Temperature - - Respiratory Rate - - Oxygen Saturation - - Inhaled Oxygen Concentration - - Weight 112.9 kg (249 lb) 07/20/2019 8:15 AM EST Height - - Body Mass Index 40.19 04/16/2019 10:53 AM EDT documented in this encounter Progress Notes * Jerzy Espinal MD - 07/20/2019 8:20 AM EST CARDIOLOGY OUTPATIENT NEW PATIENT NOTE PRIMARY CARE PROVIDER: Jadiel Gregorio DO PROBLEM LIST: Patient Active Problem List Diagnosis ??? Coronary artery disease involving [place] coronary artery of [place] heart without angina pectoris Cardiac Catheterization: (04/06/2019) LEFT dominance Access: 6F RRA Indication: USA Artery Lesion Intervention LM Mild diffuse LAD m TO D2: os 90% 2.75 x 12 Angioplasty --> 40% LCx Mild diffuse RCA Mild diffuse ??? Hypertension ??? JUSTIN (obstructive sleep apnea) MEDICATIONS: Current Outpatient Medications Medication Sig Dispense Refill ??? aspirin 81 mg Tablet, Chewable Take 81 mg by mouth daily. 90 tablet 3 ??? MULTI-VITAMIN ORAL Take 1 tablet by mouth daily. ??? Potassium 99 mg Tablet Take 99 mg by mouth daily. ??? atorvastatin (LIPITOR) 40 mg Tablet Take [...] times daily. Uses twice as needed 1 ??? hydroCHLOROthiazide (HYDRODIURIL) 25 mg Tablet Take 25 mg by mouth daily. 0 ??? nitroGLYcerin (NITROSTAT) 0.4 mg Tablet, Sublingual Take 0.4 mg by mouth as needed. Chest pain 0 ??? citalopram (CELEXA) 10 mg Tablet Take 10 mg by mouth nightly. 0 ??? amLODIPine (NORVASC) 2.5 mg Tablet Take 2.5 mg by mouth daily. No current facility-administered medications for this visit. Subjective: Patient ID: Cj De Los Santos is a 63 y.o. male. HPI: 63 M presents on follow-up for CAD . Last seen by me 03/2019, at which time no changes were made Since then, he continues to do well. He is admittedly sedentary, but feels his breathing has improved drastically since the PCI. Normal daily activities are without exertional chest pain, dyspnea, presyncope. Denies LH, syncope, palpitations, orthopnea, pnd, weight gain, edema. He brings his BP log; it demonstrates BP 120-130s/70s. Compliant with all medications. No bleeding issues on DAPT ROS: 11 point ros either negative or [...] Drug use: Never Objective: Most Recent Vitals: 07/20/19 0815 BP: 128/74 Pulse: 63 Gen: pleasant male in NAD Cor: rrr, s1/s2 of nl character and amplitude, no m/r/g. Estimated RAP not elevated. Carotids with normal upstroke without bruit. Pulm: CTAB. Normal diaphragmatic movement without use of accessory muscles Ab: soft, nt, nd Ext: no c/c/e. Dp/pt ++ Neuro: without focal deficit. Well kempt, good insight and normal affect Skin: WWP, no rashes nor ulcers LDL 39 EKG: NSR via RBBB. No ischemia/infarct TTE [...] Assessment and Plan: Coronary artery disease involving [place] coronary artery of [place] heart without angina pectoris No angina per history. - Antiplatelets: continue dapt x 1 year (03/2020). Asa lifelong - Statin: continue lipitor 40 for now; may decrease to 20 after running out in setting of rather low LDL - anti-anginals: toprol 50, norvasc 2.5 - endorsed increased activity Hypertension BP well controlled at home. No changes to current regimen rtc 9 months Jerzy Espinal MD documented in this encounter Miscellaneous Notes * Assessment & Plan Note - Jerzy Espinal MD - 07/20/2019 8:45 AM EST Associated Problem(s): Hyperpiesia BP well controlled at home. No changes to current regimen * Assessment & Plan Note - Jerzy Espinal MD - 07/20/2019 8:42 AM EST Associated Problem(s): ASCVD (arteriosclerotic cardiovascular disease) No angina per history. - Antiplatelets: continue dapt x 1 year (03/2020). Asa lifelong - Statin: continue lipitor 40 for now; may decrease to 20 after running out in setting of rather low LDL - anti-anginals: toprol 50, norvasc 2.5 - endorsed increased activity documented in this encounter Plan of Treatment Upcoming Encounters Date Type Department Care Team (Late st Contact Info) Description 04/20/2025 9:00 AM EDT Office Visit Cardiology at [address] [address] Jerzy Espinal MD [facility] [place] [address] documented as of this encounter Procedures Procedure Name Priority Date/Time Associated Diagnosis Comments EKG 12-LEAD Routine 07/20/2019 8:22 AM EST documented in this encounter Results * EKG 12 Lead (07/20/2019 8:22 AM EST) Ventricular rate 63 BPM MUSE SYSTEM Atrial Rate 63 BPM MUSE SYSTEM P-R Interval 162 ms MUSE SYSTEM QRS Duration 134 ms MUSE SYSTEM Q-T Interval 406 ms MUSE SYSTEM QTC Calculated (Bezet) 415 ms MUSE SYSTEM Calculated P [place] -9 degrees MUSE SYSTEM Calculated R [place] -35 degrees MUSE SYSTEM Calculated T [place] 7 degrees MUSE SYSTEM INTERPRETATION Normal sinus rhythm Left axis deviation Right bundle branch block Abnormal ECG When compared with ECG of 16-APR-2019 11:24, No significant change was found Confirmed by MD Espinal Daniel ([id number]) on 07/24/2019 8:12:45 AM MUSE SYSTEM 07/20/2019 8:22 AM EST 07/24/2019 8:12 AM EST Unknown ECG ORDERABLES MUSE SYSTEM documented in this encounter Visit Diagnoses Diagnosis Coronary artery disease involving [place] coronary artery of [place] heart without angina pectoris Essential hypertension Unspecified essential hypertension documented in this encounter Care Teams Logger Relationship Specialty Start Date End Date Jadiel Gregorio DO [address] [place] [address] PCP - General 10/17/10 06/25/22 documented as of this encounter
--- OUTSIDE RECORDS SUMMARY | 2024-07-06 13:09 | XMS_ITS | Encounter Summary ---
Author Organization [facility] Address [facility] [place] [address] Care Team Providers Care Glue Mixer Name Role Phone Jg, Jadiel MARTINEZ Primary Care Provider [phone] Encounter Details Date Type Department Care Team (Late st Contact Info) Description 04/17/2019 Telephone Cardiology at [address] [place] [address] Jerzy Espinal MD [facility] [address] Social History Tobacco Use Types Packs/Day Years [...] encounter Miscellaneous Notes * Telephone Encounter - Ekta Ervin - 04/17/2019 1:24 PM EDT Patient called saying he filled our a survey @ [facility] yesterday and he thought you were another Doctor that was with Dr. Segundo. He put in a negative reaction. It was not for you, but for the doctor with Dr. Segundo. He called me to make sure you got his apology. Elizabeth documented in this encounter Plan of Treatment Upcoming Encounters Date Type Department Care Team (Late st Contact Info) Description 04/20/2025 9:00 AM EDT Office Visit Cardiology at [address] [place] [id number] Jerzy Espinal MD [facility] [place] [address] documented as of this encounter Visit Diagnoses Not on filedocumented in this encounter Care Teams Glue Mixer Relationship Specialty Start Date End Date Jadiel Gregorio DO [address] [place] [address] PCP - General 10/17/10 06/25/22 documented as of this encounter
--- OUTSIDE RECORDS SUMMARY | 2024-07-06 13:09 | XMS_ITS | Encounter Summary ---
Author Organization [facility] [place] [address] Care Team Providers Care Aircraft Inspector Name Role Phone Jadiel Gregorio DO Primary Care Provider [phone] Reason for Visit * Auth/Cert Specialty Diagnoses / Procedures Referred By Ignacia wahl Referred To Contact Diagnoses Unstable angina [place] Procedures EMERGENCY IPI Referral ID Status Reason Start Date Expiration Date Visits Re quested Visits Authorized [id number] 1 1 Encounter Details Date Type Department Care Team (Late st Contact Info) Description 04/04/2019 10:24 AM EDT - 04/04/2019 12:14 PM EDT [place] [id number] Balwinder Black MD [facility] [place] [address] CARDIAC CATHETERIZATION Social History Tobacco Use Types Packs/Day Years [...] Sign Reading Time Taken Comments Blood Pressure 153/98 04/04/2019 11:26 AM EDT Pulse 57 04/04/2019 11:26 AM EDT Temperature 37 ??C (98.6 ??F) 04/04/2019 8:08 AM EDT Respiratory Rate 10 04/04/2019 12:0 2 PM EDT Oxygen Saturation 98% 04/04/2019 12: 02 PM EDT Inhaled Oxygen Concentration - - Weight 113.6 kg (250 lb 7.1 oz) 04/04/2019 6:00 AM EDT Height 167.6 cm (5' 6) 04/03/2019 8:40 PM EDT Body Mass Index 40.03 04/03/2019 8:40 PM EDT documented in this encounter Discharge Summaries * Natalie Bonilla PA - 04/04/2019 4:00 PM EDT Discharge Summary Patient Name: Jade Burris Patient Age: 63 y.o. Language: Slovak Race: White Ethnicity: Not nor Admit date: 04/03/2019 Discharge date and time: 04/06/19 Attending Physician: Carlos Levi MD Discharge Physician: Dr. Levi Follow-up Recommendations for Providers: Cardiac Rehab in [place], [place] Patient to see PCP in Patient to see Cardiology April 16 at [facility] [place] Provider Contact Information: Natalie Levi [phone] Discharge Diagnoses (Hospital Problems) and Secondary Diagnoses [...] fundoplication, BPH, depression who was transferred from [facility] with progressively worsening chest pain, positive stress [...] office recently. He was scheduled to see manager heavy duty. He was recommended to be seen in the ED if he develop any significant chest pain. Patient developed chest pain when he woke up on 04/01/2019. It was continuous. Pain was 3-4/10 in intensity. Nonradiating. Presented to [facility] ED. Was given nitroglycerin sublingual x1 with [...] when he walked to bathroom while at [facility]. Currently he denies any chest pain. No recent history of fevers. No cough. No history of GI symptoms. No dysuria. No abdominal pain. No swelling of the joints. No one-sided weakness. Patient was on aspirin prior to admission. He was started on beta-blockers, statins. He was startedon heparin gtt. prior to transfer. Review of patient's records from [facility] that shows enoxaparin as an allergy. Reported as severe thrombocytopenia. Patient is not aware of this. I contacted [facility] to clarify what exactly was the allergy. I could not get any information if he had HIT. He did get heparin subcutaneously previously for last2 days Hospital Course: On admission to [facility], the patient had no complaints of chest pain or shortness of breath. Telemetry was attached which showed normal sinus rhythm. Heparin drip was infusing. [facility] records/transfer records were reviewed. Baseline labs were checked and/or drawn. Chest Pain, slightly elevated trop after PCI Given the patient's risk factors, ECG changes, positive biomarkers, it was decided to proceed with coronary angiography. The patient went to the cardiac laborer ammunition assembly for a diagnostic cath which showed one vessel coronary artery disease (LAD). Patient underwent successful stent insertion of the mid LAD lesion. Successful angioplasty of the ostial D2 lesion. Recommend continuing clopidogrel 75 mg PO daily for 12 months. Echocardiogram showed a preserved LVEF. Please see the full report for details. 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 Hyperlipidemia Patient [...] appointments: During 8am-5pm Saturday through Saturday call [phone] to speak with a nurse in the cardiology clinic All other times call [phone] and ask to speak to the strip mine supervisor quality control tech. Return to work: One week Driving: No driving for 48 hours after catheterization. Follow up Appointments: PCP Jadiel Gregorio DO [phone] to see you in a week. Please set a date and time that will work for you. Patient may return to work on April 13, 2019. Proof Passer Dr. Espinal to see you on April 16 in the [facility]. Please call [phone] with questions. Home oxygen therapy: N/A Arrangements for VNA/home care: none General Instructions None Future Appointments and Orders Future Appointments and Orders Future Appointments Provider Department Dept Phone 04/06/2019 12:10 PM ECHO INPATIENT ADD-ON Non-Invasive Cardiology Lab [facility] Arrive at: Labor Contractor [facility]A [phone] 04/16/2019 11:20 AM Jerzy Espinal MD Cardiology at [place] Arrive at: Labor Contractor Area 4A [phone] Future Orders Complete By Expires Referral to Cardiac Rehab [[id number] Custom] As directed Process Instructions: If no progress note charted, please enter Clinical details in comments. Scheduling Instructions: Questions: My question or request is: [place], PCI- CR at [facility] Discharge References/Attachments PCI (Percutaneous Coronary Intervention): Post-op (Slovak) documented in this encounter Discharge Instructions * Patient Instructions* Natalie Bonilla PA - 04/06/2019 9:39 AM EDT Anti-coagulation follow up: n/a Call your doctor if: Chest pain, shortness of breath, pain or swelling in legs occurs. If you have non-emergent questions between now and the time of your follow up appointments: During 8am-5pm Saturday through Saturday call [phone] to speak with a nurse in the cardiology clinic All other times call [phone] and ask to speak to the strip mine supervisor quality control tech. Return to work: One week Driving: No driving for 48 hours after catheterization. Follow up Appointments: PCP Jadiel Gregorio DO [phone] to see you in a week. Please set a date and time that will work for you. Patient may return to work on April 13, 2019. Proof Passer Dr. Espinal to see you on April 16 in the [facility]. Please call [phone] with questions. Home oxygen therapy: N/A Arrangements for VNA/home care: none * Attachments The following attachments cannot be sent through Care Everywhere. * PCI (Percutaneous Coronary Intervention): Post-op (Slovak) documented in this encounter Medications at Time [...] AM. Pt ambulated in hallway with Cardiac router tender. Incision site on right wrist and right groin clean, dry and intact. No bleeding or hematoma noted. Discharge education and AVS, including medications and post cath instructions, discussed with patient andspouse. No questions at this time. Stent card given to pt prior to discharge. Given ride home in private car. * Carlos Levi MD - 04/06/2019 10:02 AM EDT Images from the original note were not included. 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 Lab Comments: Recent Labs 04/06/19 05004/05/1941604/04/19 0255 WBC 7.5 9.4 7.8 HGB 16.3 16.5 16.5 HCT 49.5* 49.2* 48.7* PLATELET 156 171 159 Recent Labs 04/03/19 215 INR 1.1 Recent Labs 04/06/19 0505 04/05/197 04/04/19 0255 NA 140 141 140 K 4.1 4.2 4.1 CL 108* 104 106 CO2 25 27 26 BUN 21* 19 19 CREATININE 1.09 0.93 0.92 Recent Labs 04/03/192154 AST 22 ALT 22 ALKPHOS 68 BILITOT 0.4 BILIDIR 0.1 Recent Labs 04/06/19 0505 04/05/197 04/03/19 215 CALCIUM 8.7 9.2 8.9 MAGNESIUM -- -- 0.86 Recent Labs 04/06/19 0505 04/05/197 04/04/19 1652 CK 123 122 131 TROPONINT [...] was sent here for cardiac cath from [place], [place]. His biomarkers are negative, he was not given plavix and he is chest pain free at this time. He is s/p stent to mid LAD and PTCA of ostial D2. Stable. Plan: Chest pain, NC ruled out Telemetry monitoring Serial enzymes negative [...] Code Patient seen and discussed with Dr. Levi. MILTON Duke 04/06/2019 Pager [phone] MILTON DONOVAN 04/06/2019 Addendum: Cardiology Staff Progress Note This patient was seen and examined on rounds with MILTON Swanson. I agree with her findings andplan of care. Nelson aspects of care and updates include the followin63 year old male admitted with unstable angina #CAD -cardiac cath with CONVEYOR BELT INSTALLER of high-mid LAD, collaterals from RCA high [...] to a local cardiac rehab program at [facility]. 2. LVEF: Echo with normal LVEF. ASA, plavix, BB, and high intensity statin. SL NTG prn. 3. Dispo: d/c home today, follow-up at [facility]. 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 Refer for cardiac rehab. I don't think this was an NC - positive Tn only after the PCI and may have been procedural related. Hopefully opening the LAD with improve his exercise capacity. * Carlos Levi MD - 04/05/2019 9:37 AM EDT Images from the original note were not included. 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 Lab Comments: Recent Labs 0841604/04/195 04/03/192154 WBC 9.4 7.8 9.3 HGB 16.5 16.5 15.9 HCT 49.2* 48.7* 46.2 PLATELET 171 159 170 Recent Labs 04/03/192154 INR 1.1 Recent Labs 04/05/197 04/04/195 04/03/192154 NA 141 140 139 K 4.2 [...] was sent here for cardiac cath from [place], [place]. His biomarkers are negative, he was not given plavix and he is chest pain free at this time. He is s/p stent to mid LAD and PTCA of ostial D2. Stable. Plan: Chest pain, NC ruled out Telemetry monitoring Serial enzymes negative [...] Code Patient seen and discussed with Dr. Levi. MILTON Duke 04/05/2019 Pager [phone] MILTON DONOVAN 04/05/2019 Addendum: Cardiology Staff Progress [...] like to follow-up closer to home at [facility] (Darren Doe MD). * Natalie Bonilla PA - 04/04/2019 8:01 AM EDT Images from the original note were not included. 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 Lab Comments: Recent Labs 04/04/19 0255 04/03/19 2155 WBC 7.8 9.3 HGB 16.5 15.9 HCT 48.7* 46.2 PLATELET 159 170 Recent Labs 04/03/192154 INR 1.1 Recent Labs 04/04/19 0255 04/03/192154 NA 140 139 K 4.1 4.0 CL 106 105 CO2 26 24 BUN 19 19 CREATININE 0.92 1.06 Recent Labs 04/03/192154 AST 22 ALT 22 ALKPHOS 68 BILITOT 0.4 BILIDIR 0.1 Recent Labs 04/03/192154 CALCIUM 8.9 MAGNESIUM 0.86 Recent Labs 04/04/19 0255 04/03/192154 TROPONINT <0.01 <0.01 Pertinent Radiographic/Diagnostic Results: Cardiac Cath: Assessment: Jade Burris is a 63 y.o. male with multiple cardiac risk factors including age, gender, HTN, Dyslipidemia, JUSTIN, GERD, and obesity who had chest pain that was relieved with NTG and Morphine and had a RBBB and reversible apical wall defect seen on nuclear was sent here for cardiac cath from [place], [place]. His biomarkers are negative, he was not given plavix and he is chest pain free at this time. Stable. Plan: Chest pain, NC ruled out Telemetry monitoring Serial enzymes negative [...] Code Patient seen and discussed with Dr. Levi. MILTON Duke 04/04/2019 Pager [phone] MILTON DONOVAN 04/04/2019 documented in this encounter H&P Notes * Ashutosh Morelos MD - 04/03/2019 10:16 PM EDT Cardiology Admission H&P Patient Name: Jade Burris Date of : 1955 Age: 63 y.o. Hospital Admit Date: 04/03/2019 Inpatient Attending: Carlos Levi MD PCP: Jadiel Gregorio DO Presenting Diagnosis/Chief [...] fundoplication, BPH, depression who was transferred from [facility] with progressively worsening chest pain, positive stress [...] office recently. He was scheduled to see manager heavy duty. He was recommended to be seen in the ED if he develop any significant chest pain. Patient developed chest pain when he woke up on 04/01/2019. It was continuous. Pain was 3-4/10 in intensity. Nonradiating. Presented to [facility] ED. Was given nitroglycerin sublingual x1 with [...] when he walked to bathroom while at [facility]. Currently he denies any chest pain. No recent history of fevers. No cough. No history of GI symptoms. No dysuria. No abdominal pain. No swelling of the joints. No one-sided weakness. Patient was on aspirin prior to admission. He was started on beta-blockers, statins. He was startedon heparin gtt. prior to transfer. Review of patient's records from [facility] that shows enoxaparin as an allergy. Reported as severe thrombocytopenia. Patient is not aware of this. I contacted [facility] to clarify what exactly was the allergy. I could not get any information if he had HIT. He did get heparin subcutaneously previously for last2 days. Past Medical History: Past Medical History: Diagnosis Date ??? Depression ??? GERD (gastroesophageal reflux disease) ??? Hypertension ??? Sleep apnea with use of continuous positive airway pressure (CPAP) Previous Diagnostics: At [facility] H: Stress: 1. There is moderate sized, moderately [...] file Gets together: Not on file Attends latter day service: Not on file Active member of [...] edema . Pulses palpable, no calf tenderness Neuro/MOUNTAIN BIKE GUIDE: AAO x 3, No evident deficits Skin/Integumentary: [...] 25 - 37 sec Laboratory data from [facility]: CBC on 04/03/2019 WBC 5.66, hemoglobin 16.1, [...] fundoplication, BPH, depression who was transferred from [facility] with progressively worsening chest pain, positive stress test. 1. Chest pain: -Patient has progressively worsening anginal symptoms. Patient also has chest pain at rest recently. This is concerning for unstable angina. -Patient had been on aspirin 325 mg p.o. daily. Change aspirin to 81 mg p.o. Daily. -Patient was started on heparin gtt. at [facility]. Due to concerns for heparin- induced thrombocytopenia, I am switching to argatroban. I did discuss with staff at [facility] who could not help me with the [...] factor modification. 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 He has bad knees and was anticipating a replacement until this heart issue came up. He has a stationary bike. Given parameters for home exercise. Reviewed managing angina /use of sl nitroglycerin. Mediterranean diet guidelines briefly reviewed. Phase II Referral: Participation in the outpatient cardiac rehabilitation program at [facility] was discussed. Patient agrees to a referral [...] Admission order reviewed. Primary Insurance on file: [employer] [place] Secondary Insurance on file: N/A Primary care provider on file: Jadiel Gregorio DO [phone] Advance Directive on file and Code Status: , Full Code, patient has a copy at home and will have his bring it in. 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 Living Situation:lives with his in a 1 story home. [address] [place] [address] Supports: his spouse Assessment: Patient with no apparent RNCM/SW needs at this time. No housing, transportation, insurance, resources concerns identified at this time. Supports in place to achieve a safe post-hospital transition. No identified barriers to accessing necessary care and/or follow-up after discharge. Plan: Patient to d/c to home via spouse/private vehicle when medically ready. [employer] school principal/Compensation And Benefits Manager will continue to follow patient???s progress and remain available if situation changes for coordination of care, psychosocial support and/or discharge planning. Benito Agarwal, RN Pager [phone] * Plan of Care - Te Sullivan RN - 04/05/2019 5:15 PM EDT Problem: Patient Care Overview Goal: Plan of Care Review Outcome: Ongoing (Interventions Implemented as Appropriate) 04/05/19 0403 04/05/19 1714 Coping/Psychosocial Plan Of Care Reviewed With -- patient;spouse;daughter Plan of Care Review Progress improving -- Goal: Fall Prevention-Safe Patient Handling Outcome: Ongoing (Interventions Implemented as Appropriate) 04/04/19201804/05/19 0768 Restraint Interventions Safety Promotion/Fall Prevention -- fall [...] Rico had an uneventful night. Sinus rhythm/sinus daryn on tele with very little ectopy. Denied [...] Outcome: Ongoing (Interventions Implemented as Appropriate) 04/04/19 2845 Coping/Psychosocial Plan Of Care Reviewed With patient;spouse;daughter Goal: Fall Prevention-Safe Patient Handling Outcome: Ongoing (Interventions Implemented as Appropriate) 04/03/19209904/04/1951204/04/19 06 Restraint Interventions Safety Promotion/Fall Prevention -- -- [...] Control Outcome: Ongoing (Interventions Implemented as Appropriate) 04/03/19209904/04/19512 Safety Interventions Isolation Precautions -- standard precautions [...] occluded.Pt c/o CP when arrived back to [facility] 11/02. Sublingual nitro relieved some of [...] Procedure Note: Patient Name: Jade Burris : [id number] MR#: [id number] Case Date: 04/04/2019 Creative Writer: Surgeon(s) and Role: * Balwinder Black MD - Primary * James Garza PA - Physician Chief Dispatcher Preoperative diagnosis: acs Postoperative diagnosis: * ASCVD * Procedure(s) performed: Coronary angio Stent insertion Bilateral injection Access: right radial, right HEEL ROOM SUPERVISOR (Perclosed) A time-out was conducted prior to the start of the procedure to verify the correct patient and procedure, procedure location, and all relevant critical information. Preliminary findings: 1. CONVEYOR BELT INSTALLER of the mid LAD; crossed with CONVEYOR BELT INSTALLER techniques and dual injections 2. Left dominant, [...] for further details. MILTON DONOVAN 04/04/2019 Pager [phone] * Plan of Care - Andi Stuart [...] Control Outcome: Ongoing (Interventions Implemented as Appropriate) 04/03/19209904/04/19 0513 Safety Interventions Isolation Precautions -- standard precautions maintained Infection Prevention -- rest/sleep promoted;environmental surveillance performed Coping Strategies Supportive Measures active listening utilized;self-care encouraged;verbalization of feelings encouraged -- documented in this encounter Plan of Treatment Upcoming Encounters Date Type Department Care Team (Late st Contact Info) Description 04/20/2025 9:00 AM EDT Office Visit Cardiology at [address] [phone] Jerzy Espinal MD [facility] [address] [place] [address] Scheduled Referrals Name Type Priority Associated Diagnoses [...] 2:55 AM EDT DIFFERENTIAL, AUTOMATED Routine 04/04/20 2:55 AM EDT CREATININE Routine 04/04/2019 2:55 [...] 9:55 PM EDT DIFFERENTIAL, AUTOMATED Routine 04/03/20 9:55 PM EDT APTT STAT 04/03/2019 9:55 [...] AM EDT Procedure: ?Transthoracic Echocardiogram Patient: ?FATUMA HANSEN L ? (Age): 1955(63y) Med Rec#: ? [id number] ?Sex: ?M ? Site Loc: ? [facility] ?Ht / Wt: ??167(cm)/112(kg) Pt. Loc: ?Adult Floor ? BSA: ?2.18 Study Date: ?? 04/06/2019 ?Pt. Type: Outpatient Tape: ? Referring: OVIDIO PAZ A Reading: Felipe Porras ??([id number]) Conductor Pullman: Jonatan Lombardo RDCS Diagnosis: *Unstable angina (I20.0) [...] E-wave Vmax ?0.8 ?m/sec ? MV deceleration [id number] ?msec ? MV A-wave Vmax ?0.5 ?m/sec [...] ? Mid-Inferior ?Normal ? Mid-Inferoseptal ?Normal ? [place]-Septal ? Normal ? [place]-Anterior ? Normal ? [place]-Lateral ?Normal ? [place]-Inferior ? Normal ? [place]-Tip ?Normal ? This report has been electronically signed by: Felipe Porras MD ? 04/06/2019 09:13:38 Images reviewed and interpretation verified [facility] Cardiac Ultrasound Laboratory Procedure Note Felipe Porras MD - 04/06/2019 Procedure: Transthoracic Echocardiogram Patient: FATUMA Chase DOB(Age): 1955(63y) Med Rec#: [id number] Sex: M Site Loc: [facility] Ht / Wt: 167(cm)/112(kg) Pt. Loc: Adult Floor BSA: 2.18 Study Date: 04/06/2019 Pt. Type: Outpatient Tape: Referring: OVIDIO PAZ A Reading: Felipe Porras ([id number]) Conductor Pullman: Jonatan Lombardo [facility] [...] MV E-wave Vmax 0.8 m/sec MV deceleration [id number] msec MV A-wave Vmax 0.5 m/sec MV [...] Normal Mid-Posterolateral Normal Mid-Inferior Normal Mid-Inferoseptal Normal [place]-Septal Normal [place]-Anterior Normal [place]-Lateral Normal [place]-Inferior Normal [place]-Tip Normal This report has been electronically signed by: Felipe Porras MD 04/06/2019 09:13:38 Images reviewed and interpretation verified [facility] Cardiac Ultrasound Laboratory Carlos Levi MD ECHO ORDERABLES * (ABNORMAL) Differential, Automated (04/06/2019 5:05 AM EDT) Neutrophil % 62.4 % [facility] Neutrophil Absolute 4.69 1.70 - 6.10 x10(3)/mc L [facility] Lymph % 23.1 % [facility] Lymphocytes Abs 1.7 0.9 - 3.2 x10(3)/mc L [facility] Monocyte % 10.5 % [facility] Monocyte Abs 0.8 0.3 - 0.9 x10(3)/mc L [facility] Eos % 1.7 % [facility] Eosinophils Abs 0.1 0.0 - 0.4 x10(3)/mc L [facility] Basophil % 0.8 % [facility] Baso Absolute 0.1 0.0 - 0.1 x10(3)/mc L [facility] Immature Gran % 1.50 % [facility] Comment: Immature granulocytes(IG's)percentage and absolute count will include metamyelocytes, myelocytes, and promyelocytes. Blood smears from CBCs yielding IG's will be scanned manually for concordance. If this scan disagrees with the automated IG or if promyelocytes are noted, a manual differential will be performed. Immature Gran Absolute 0.11(H) 0.00 - 0.04 x10(3)/ L [facility] Blood specimen (specimen) 04/06/2019 5:05 AM EDT 04/06/2019 5:34 AM EDT Narrative Resulting Agency Comment Spec In Lab Ashutosh Morelos MD HEMATOLOGY [facility] [place] [address] * (ABNORMAL) Hemogram (04/06/2019 5:05 AM EDT) White Blood Cell 7.5 4.0 - 9.5 x10(3)/ L [facility] Red Blood Cell 5.19 4.58 - 5.54 x10(6)/mc L [facility] Hemoglobin 16.3 13.7 - 16.5 gm/dL [facility] Hematocrit 49.5(H) 40.5 - 48.5 % [facility] Mean Cell Volume 95.4(H) 82.9 - 93.1 fL [facility] Mean Cell Hemoglobin 31.4 27.5 - 32.1 pg [facility] Mean Cell Hemoglobin Concentration 32.9 32.0 - 35.7 gm/dL [facility] Platelet 156 145 - 357 x10(3)/ L [facility] RDW Standard Deviation 47.3(H) 36.0 - 45.0 fL [facility] RDW coefficient of variation 13.3 11.4 - 13.8 % [facility] Mean Platelet Volume 9.5 7.6 - 12.9 fL [facility] NRBC% auto 0.0 % [facility] NRBC Absolute 0.000 0.000 - 0.000 x10(3)/mc L [facility] Blood specimen (specimen) 04/06/2019 5:05 AM EDT 04/06/2019 5:34 AM EDT Narrative Resulting Agency Comment Spec In Lab Ashutosh Morelos MD HEMATOLOGY [place] [facility] [facility] [place] [address] * (ABNORMAL) BMP w/fasting Glucose (04/06/2019 5:05 AM EDT) Glucose Fasting 95 65 - 99 mg/dL [facility] Comment: ?Fasting* Glucose Interpretive Criteria [...] of Diabetes Mellitus, Position Statement from the [place] [employer]. ??Diabetes Care, Volume 33, Supplement 1, Aug 2009 Blood Urea Nitrogen 21(H) 10 - 20 mg/dL [facility] Creatinine 1.09 0.80 - 1.50 mg/dL [facility] Sodium 140 135 - 145 mmol/L [facility] Potassium 4.1 3.5 - 5.0 mmol/L [facility] Comment: Please note: ??Patients with WBC >100,000 may have falsely elevated Potassium levels. ??For accurate Potassium quantification in these patients send serum separator tube (gold top) for subsequent determinations. ??Contact the Clinical Chemistry Laboratory if there are any questions. Chloride 108(H) 98 - 107 mmol/L [facility] Carbon Dioxide 25 22 - 31 mmol/L [facility] Anion Gap 7 5 - 15 mmol/L [facility] Calcium 8.7 8.5 - 10.5 mg/dL [facility] Est Glomerular Filtration Rate 71 >=60 mL/min/1. 73 m?? [facility] Comment: The eGFR was calculated using the CKD-EPI equation. As with all creatinine based estimates of kidney function, eGFR values calculated with the CKD-EPI equation are not accurate in patients with acute kidney failure, extremes of body mass or the acutely ill. [email or web address] [email or web address] eGFR 83 >=60 mL/min/1. 73 m?? [facility] Comment: The eGFR was calculated using the CKD-EPI equation. As with all creatinine based estimates of kidney function, eGFR values calculated with the CKD-EPI equation are not accurate in patients with acute kidney failure, extremes of body mass or the acutely ill. [email or web address] [email or web address] Blood specimen (specimen) 04/06/2019 5:05 AM EDT 04/06/2019 5:34 AM EDT Narrative Resulting Agency Comment Spec In Lab Carlos Levi MD CHEMISTRY ORDERABLE S Performing Organization Address City/[facility]/ZIP Co de Phone Number [facility] [place] [address] * CK (04/06/2019 5:05 AM EDT) Creatine Kinase 123 0 - 200 unit/L [facility] Blood specimen (specimen) 04/06/2019 5:05 AM EDT 04/06/2019 5:34 AM EDT Narrative Resulting Agency Comment Spec In Lab Carlos Levi MD CHEMISTRY ORDERABLE S Performing Organization Address City/[facility]/ZIP Co de Phone Number [facility] [place] [address] * (ABNORMAL) Troponin (04/06/2019 5:05 AM EDT) [facility] Troponin-T 0.05(H) 0.00 - 0.00 ng/mL [facility] Comment: The 99th percentile for Troponin T is less than 0.01 ng/mL, any detectable cTnT concentration using this assay should be considered elevated. According to the third universal definition of myocardial infarction the following criteria with a clinical presentation consistent with acute myocardial ischemia meets the diagnosis for a myocardial infarction (NC). Detection of a rise and/or fall of cTnT, with at least one value greater than the 99th percentile (> or = 0.01) and with at least one of the following ?? Symptoms of ischemia ?? New or presumed new significant HX-uryfaak-X wave (ST-T) changes or new left bundle [...] additional sample may be indicated. Reference: Third Stinnett Definition of Myocardial Infarction. Journal of the [place] College of [employer]iology 2012;60:1581-98 Blood specimen (specimen) 04/06/2019 5:05 AM EDT 04/06/2019 5:34 AM EDT Narrative Resulting Agency Comment Spec In Lab Carlos Levi MD CHEMISTRY ORDERABLE S [facility] [place] [address] * (ABNORMAL) Differential, Automated (04/05/2019 4:17 AM EDT) [facility] Neutrophil % 66.6 % [facility] Neutrophil Absolute 6.24(H) 1.70 - 6.10 x10(3)/mc L [facility] Lymph % 20.8 % [facility] Lymphocytes Abs 2.0 0.9 - 3.2 x10(3)/[facility] Monocyte % 10.1 % [facility] Monocyte Abs 1.0(H) 0.3 - 0.9 x10(3)/[facility] Eos % 1.4 % [facility] Eosinophils Abs 0.1 0.0 - 0.4 x10(3)/[facility] Basophil % 0.4 % [facility] Baso Absolute 0.0 0.0 - 0.1 x10(3)/[facility] Immature Gran % 0.70 % [facility] Comment: Immature granulocytes(IG's)percentage and absolute count will include metamyelocytes, myelocytes, and promyelocytes. Blood smears from CBCs yielding IG's will be scanned manually for concordance. If this scan disagrees with the automated IG or if promyelocytes are noted, a manual differential will be performed. Immature Gran Absolute 0.07(H) 0.00 - 0.04 x10(3)/[facility] Blood specimen (specimen) 04/05/2019 4:17 AM EDT 04/05/2019 4:45 AM EDT Narrative Resulting Agency Comment Spec In Lab Ashutosh Morelos MD HEMATOLOGY GARRETT GIRARD [facility] [place] [address] * (ABNORMAL) Hemogram (04/05/2019 4:17 AM EDT) White Blood Cell 9.4 4.0 - 9.5 x10(3)/[facility] Red Blood Cell 5.22 4.58 - 5.54 x10(6)/[facility] Hemoglobin 16.5 13.7 - 16.5 gm/dL [facility] Hematocrit 49.2(H) 40.5 - 48.5 % [facility] Mean Cell Volume 94.3(H) 82.9 - 93.1 fL [facility] Mean Cell Hemoglobin 31.6 27.5 - 32.1 pg [facility] Mean Cell Hemoglobin Concentration 33.5 32.0 - 35.7 gm/dL [facility] Platelet 171 145 - 357 x10(3)/mc L [facility] RDW Standard Deviation 45.9(H) 36.0 - 45.0 fL [facility] RDW coefficient of variation 13.2 11.4 - 13.8 % [facility] Mean Platelet Volume 9.5 7.6 - 12.9 fL [facility] NRBC% auto 0.0 % [facility] NRBC Absolute 0.000 0.000 - 0.000 x10(3)/mc L [facility] Blood specimen (specimen) 04/05/2019 4:17 AM EDT 04/05/2019 4:45 AM EDT Narrative Resulting Agency Comment Spec In Lab Ashutosh Morelos MD HEMATOLOGY GARRETT GIRARD [facility] [place] [address] * BMP w/fasting Glucose (04/05/2019 4:17 AM EDT) Glucose Fasting 97 65 - 99 mg/dL [facility] Comment: ?Fasting* Glucose Interpretive Criteria [...] of Diabetes Mellitus, Position Statement from the [place] Diabetes Association. ??Diabetes Care, Volume 33, Supplement 1, Aug 2009 Blood Urea Nitrogen 19 10 - 20 mg/dL [facility] Creatinine 0.93 0.80 - 1.50 mg/dL [facility] Sodium 141 135 - 145 mmol/L [facility] Potassium 4.2 3.5 - 5.0 mmol/L [facility] Comment: Please note: ??Patients with WBC >100,000 may have falsely elevated Potassium levels. ??For accurate Potassium quantification in these patients send serum separator tube (gold top) for subsequent determinations. ??Contact the Clinical Chemistry Laboratory if there are any questions. Chloride 104 98 - 107 mmol/L [facility] Carbon Dioxide 27 22 - 31 mmol/L [facility] Anion Gap 10 5 - 15 mmol/L [facility] Calcium 9.2 8.5 - 10.5 mg/dL [facility] Est Glomerular Filtration Rate 86 >=60 mL/min/1. 73 m?? [facility] Comment: The eGFR was calculated using the CKD-EPI equation. As with all creatinine based estimates of kidney function, eGFR values calculated with the CKD-EPI equation are not accurate in patients with acute kidney failure, extremes of body mass or the acutely ill. [email or web address] eGFR 100 >=60 mL/min/1. 73 m?? [facility] Comment: The eGFR was calculated using the CKD-EPI equation. As with all creatinine based estimates of kidney function, eGFR values calculated with the CKD-EPI equation are not accurate in patients with acute kidney failure, extremes of body mass or the acutely ill. [email or web address] Blood specimen (specimen) 04/05/2019 4:17 AM EDT 04/05/2019 4:45 AM EDT Narrative Resulting Agency Comment Spec In Lab Carlos Levi MD CHEMISTRY ORDERABLE S [facility] [place] [address] * CK (04/05/2019 4:17 AM EDT) Creatine Kinase 122 0 - 200 unit/L [facility] Blood specimen (specimen) 04/05/2019 4:17 AM EDT 04/05/2019 4:45 AM EDT Narrative Resulting Agency Comment Spec In Lab Carlos Levi MD CHEMISTRY ORDERABLE S [facility] [place] [address] * (ABNORMAL) Troponin (04/05/2019 4:17 AM EDT) Troponin-T 0.03(H) 0.00 - 0.00 ng/mL [facility] Comment: The 99th percentile for Troponin T is less than 0.01 ng/mL, any detectable cTnT concentration using this assay should be considered elevated. According to the third universal definition of myocardial infarction the following criteria with a clinical presentation consistent with acute myocardial ischemia meets the diagnosis for a myocardial infarction (NC). Detection of a rise and/or fall of cTnT, with at least one value greater than the 99th percentile (> or = 0.01) and with at least one of the following ?? Symptoms of ischemia ?? New or presumed new significant KO-lzdaetf-G wave (ST-T) changes or new left bundle [...] additional sample may be indicated. Reference: Third Stinnett Definition of Myocardial Infarction. Journal of the [place] College of Cardiology 2012;60:1581-98 Blood specimen (specimen) 04/05/2019 4:17 AM EDT 04/05/2019 4:45 AM EDT Narrative Resulting Agency Comment Spec In Lab Carlos Levi MD CHEMISTRY ORDERABLE S Performing Organization Address City/[facility]/ZIP Co de Phone Number [facility] [place] [address] * CK (04/04/2019 4:52 PM EDT) Creatine Kinase 131 0 - 200 unit/L [facility] Blood specimen (specimen) 04/04/2019 4:52 PM EDT 04/04/2019 4:57 PM EDT Narrative Resulting Agency Comment Spec In Lab Carlos Levi MD CHEMISTRY ORDERABLE S Performing Organization Address [facility] Co de Phone Number [facility] [place] [address] * Troponin (04/04/2019 4:52 PM EDT) Pathologist [facility] Troponin-T <0.01 0.00 - 0.00 ng/mL [facility] Comment: The 99th percentile for Troponin T is less than 0.01 ng/mL, any detectable cTnT concentration using this assay should be considered elevated. According to the third universal definition of myocardial infarction the following criteria with a clinical presentation consistent with acute myocardial ischemia meets the diagnosis for a myocardial infarction (NC). Detection of a rise and/or fall of cTnT, with at least one value greater than the 99th percentile (> or = 0.01) and with at least one of the following ?? Symptoms of ischemia ?? New or presumed new significant DW-dilhecn-E wave (ST-T) changes or new left bundle [...] additional sample may be indicated. Reference: Third Stinnett Definition of Myocardial Infarction. Journal of the [place] College of Cardiology 2012;60:1581-98 Blood specimen (specimen) 04/04/2019 4:52 PM EDT 04/04/2019 4:57 PM EDT Narrative Resulting Agency Comment Spec In Lab Carlos Levi MD CHEMISTRY ORDERABLE S Performing Organization Address [facility] Co de Phone Number [facility] [place] [address] * EKG 12 Lead (04/04/2019 1:10 PM EDT) Ventricular rate 52 BPM MUSE SYSTEM Atrial Rate 52 BPM MUSE SYSTEM P-R Interval 168 ms MUSE SYSTEM QRS Duration 126 ms MUSE SYSTEM Q-T Interval 454 ms MUSE SYSTEM QTC Calculated (Bezet) 422 ms MUSE SYSTEM Calculated P [place] 8 degrees MUSE SYSTEM Calculated R [place] -40 degrees MUSE SYSTEM Calculated T [place] -2 degrees MUSE SYSTEM INTERPRETATION Sinus bradycardia Left axis deviation Right bundle branch block Abnormal ECG When compared with ECG of 04-APR-2019 12:38, No significant change was found Confirmed by MD Franklyn, Ryan Reed ([id number]) on 04/05/2019 11:43:16 AM MUSE SYSTEM 04/04/2019 1:10 PM EDT 04/05/2019 11:43 AM EDT Ashutosh Morelos MD ECG ORDERABLES Performing Organization Address [facility] Co de Phone Number MUSE SYSTEM * CARDIAC CATHETERIZATION (04/04/2019 12:50 PM EDT) Anatomical Region Laterality Modality Other Narrative 04/04/2019 12:49 PM EDT ?[facility] ? Cardiac Catheterization/Intervention Report ? Patient Name: Jade Burris ? Procedure Date: 04/04/2019 ? A #: [id number] ? Primary Physician: Wayne, Balwinder T ? Case #: [id number] ? File Name: [id number] ? Catheterization Order Number: [id number] ? [facility] ? Final Report [place], [place] ? Patient Name: ? Jade Fatuma ?ID#: ?[id number] ? : ?1955 ? Procedure Date: ? April 04, 2019 ?Case #: ? [id number] ? Room: ? 5 ? Case Physician: ? Balwinder Black M.D. ?Start: ?11:28 ? Admission: ??04/03/2019 ? Referring Physician: ??Ovidio Paz M.D. ?Discharge: ??04/06/2019 ? Procedures: ?* Coronary Angiography ?* Coronary Angioplasty ?* Coronary Stent Insertion ?* Vascular Closure Device Deployment ?* Access Site Angiography ? History ?Jade Fatuma is a 63 year old man. He has hypertension and a family ?history of coronary artery disease. The patient's smoking status is ?Never. He has hypercholesterolemia managed by diet and lipid therapy. The ?patient is also status post an acute non-ST elevation myocardial ?infarction. Prior to the initiation of this procedure, the patient was ?designated as ASA Class III. The [facility] clinical frailty scale is 5: Mildly [...] procedure was Urgent. 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 Chest pain symptom [...] that medical ?therapy be considered. ? 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 ? Balwinder Black M.D. ? Electronically Signed by: Balwinder Black M.D. ? Report Finalized: 04/04/2019 ??12:43 ? Report Last Ammended: 08/06/2019 ??10:54 ? Procedure Note Balwinder Black MD - 08/06/2019 [facility] Cardiac Catheterization/Intervention Report Patient Name: Jade Burris Procedure Date: 04/04/2019 A #: [id number] Primary Physician: Balwinder Black Case #: [id number] File Name: [id number] Catheterization Order Number: [id number] [facility] FinalReport [place], [place] Patient Name: Jade Burris ID#:[id number] :1955 Procedure Date: April 04, 2019 Case [...] patientwas designated as ASA Class III. The [facility] clinical frailty scale is 5:Mildly Frail. Diagnostic Tests: Prior Coronary Angiography: LV ejection fraction within 6 months is 60%. Electrocardiography: EKG was assessed by ECG. EKG was Abnormal. EKG showed other abnormality. Medications Prior to Procedure: ASA, Beta Tate and Statin. Indications for Diagnostic Cath: The priority of the diagnostic procedure was Urgent. 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 Chest pain symptomassessment [...] was recommended thatmedical therapy be considered. 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 [...] (Bezet) 414 ms MUSE SYSTEM Calculated P [place] 12 degrees MUSE SYSTEM Calculated R [place] -51 degrees MUSE SYSTEM Calculated T [place] -5 degrees MUSE SYSTEM INTERPRETATION Sinus bradycardia Right bundle branch block Left anterior fascicular block Bifascicular block Cannot rule out Inferior infarct (masked by fascicular block?) , age undetermined Abnormal ECG When compared with ECG of 03-APR-2019 22:56, No significant change was found Confirmed by MD LEVI SALVATORE ([id number]) on 04/04/2019 12:51:40 PM MUSE SYSTEM 04/04/2019 12:3 8 PM EDT 04/04/2019 12:51 PM EDT Carlos Levi MD ECG ORDERABLES Performing Organization Address City/[facility]/ZIP Co de Phone Number MUSE SYSTEM * (ABNORMAL) APTT (04/04/2019 7:00 AM EDT) Partial Thromboplastin Time 60(H) 25 - 37 sec [facility] Comment: The PTT is NOT appropriate for heparin monitoring. Use the Anti-Xa level for heparin monitoring (HEP UFH) or LMWH monitoring (HEP LMW). A PTT less than 37 seconds generally indicates adequate hemostasis. Blood specimen (specimen) 04/04/2019 7:00 AM EDT 04/04/2019 7:12 AM EDT Narrative Resulting Agency Comment Spec In Lab Carlos Levi MD HEMATOLOGY ORDERABL ES Performing Organization Address [facility] Co de Phone Number [facility] [place] [address] * Troponin (04/04/2019 2:55 AM EDT) Pathologist [facility] Troponin-T <0.01 0.00 - 0.00 ng/mL [facility] Comment: The 99th percentile for Troponin T is less than 0.01 ng/mL, any detectable cTnT concentration using this assay should be considered elevated. According to the third universal definition of myocardial infarction the following criteria with a clinical presentation consistent with acute myocardial ischemia meets the diagnosis for a myocardial infarction (NC). Detection of a rise and/or fall of cTnT, with at least one value greater than the 99th percentile (> or = 0.01) and with at least one of the following ?? Symptoms of ischemia ?? New or presumed new significant EE-eecogto-Q wave (ST-T) changes or new left bundle [...] additional sample may be indicated. Reference: Third Stinnett Definition of Myocardial Infarction. Journal of the [place] College of Cardiology 2012;60:1581-98 Blood specimen (specimen) 04/04/2019 2:55 AM EDT 04/04/2019 3:05 AM EDT Narrative Resulting Agency Comment Spec In Lab Ashutosh Morelos MD CHEMISTRY ORDER LOU [facility] [place] [address] * (ABNORMAL) Differential, Automated (04/04/2019 2:55 AM EDT) Neutrophil % 57.6 % [facility] Neutrophil Absolute 4.52 1.70 - 6.10 x10(3)/mc L [facility] Lymph % 27.3 % [facility] Lymphocytes Abs 2.1 0.9 - 3.2 x10(3)/mc L [facility] Monocyte % 10.2 % [facility] Monocyte Abs 0.8 0.3 - 0.9 x10(3)/mc L [facility] Eos % 3.1 % [facility] Eosinophils Abs 0.2 0.0 - 0.4 x10(3)/mc L [facility] Basophil % 0.9 % [facility] Baso Absolute 0.1 0.0 - 0.1 x10(3)/mc L [facility] Immature Gran % 0.90 % [facility] Comment: Immature granulocytes(IG's)percentage and absolute count will include metamyelocytes, myelocytes, and promyelocytes. Blood smears from CBCs yielding IG's will be scanned manually for concordance. If this scan disagrees with the automated IG or if promyelocytes are noted, a manual differential will be performed. Immature Gran Absolute 0.07(H) 0.00 - 0.04 x10(3)/ L [facility] Blood specimen (specimen) 04/04/2019 2:55 AM EDT 04/04/2019 3:05 AM EDT Narrative Resulting Agency Comment Spec In Lab Ashutosh Morelos MD HEMATOLOGY GARRETT GIRARD [facility] [place] [address] * (ABNORMAL) Hemogram (04/04/2019 2:55 AM EDT) White Blood Cell 7.8 4.0 - 9.5 x10(3)/[facility] Red Blood Cell 5.12 4.58 - 5.54 x10(6)/[facility] Hemoglobin 16.5 13.7 - 16.5 gm/dL [facility] Hematocrit 48.7(H) 40.5 - 48.5 % [facility] Mean Cell Volume 95.1(H) 82.9 - 93.1 fL [facility] Mean Cell Hemoglobin 32.2(H) 27.5 - 32.1 pg [facility] Mean Cell Hemoglobin Concentration 33.9 32.0 - 35.7 gm/dL [facility] Platelet 159 145 - 357 x10(3)/ L [facility] RDW Standard Deviation 46.9(H) 36.0 - 45.0 fL [facility] RDW coefficient of variation 13.2 11.4 - 13.8 % [facility] Mean Platelet Volume 9.4 7.6 - 12.9 fL [facility] NRBC% auto 0.0 % [facility] NRBC Absolute 0.000 0.000 - 0.000 x10(3)/mc L [facility] Blood specimen (specimen) 04/04/2019 2:55 AM EDT 04/04/2019 3:05 AM EDT Narrative Resulting Agency Comment Spec In Lab Ashutosh Morelos MD HEMATOLOGY ORDE RABLES Performing Organization Address [facility]/ZIP Co de Phone Number [facility] [place] [address] * (ABNORMAL) APTT (04/04/2019 2:55 AM EDT) Partial Thromboplastin Time 66(H) 25 - 37 sec [facility] Comment: The PTT is NOT appropriate for heparin monitoring. Use the Anti-Xa level for heparin monitoring (HEP UFH) or LMWH monitoring (HEP LMW). A PTT less than 37 seconds generally indicates adequate hemostasis. Blood specimen (specimen) 04/04/2019 2:55 AM EDT 04/04/2019 3:05 AM EDT Narrative Resulting Agency Comment Spec In Lab Carlos Levi MD HEMATOLOGY ORDERABL ES Performing Organization Address [facility] Co de Phone Number [facility] [place] [address] * Creatinine (04/04/2019 2:55 AM EDT) Creatinine 0.92 0.80 - 1.50 mg/dL [facility] Est Glomerular Filtration Rate 88 >=60 mL/min/1.7 3 m?? [facility] Comment: The eGFR was calculated using the CKD-EPI equation. As with all creatinine based estimates of kidney function, eGFR values calculated with the CKD-EPI equation are not accurate in patients with acute kidney failure, extremes of body mass or the acutely ill. [email or web address] eGFR 102 >=60 mL/min/1.7 3 m?? [facility] Comment: The eGFR was calculated using the CKD-EPI equation. As with all creatinine based estimates of kidney function, eGFR values calculated with the CKD-EPI equation are not accurate in patients with acute kidney failure, extremes of body mass or the acutely ill. [email or web address] Blood specimen (specimen) 04/04/2019 2:55 AM EDT 04/04/2019 3:05 AM EDT Narrative Resulting Agency Comment Spec In Lab Ashutosh Morelos MD CHEMISTRY ORDER LOU Performing Organization Address City/[facility] Co de Phone Number [facility] [place] [address] * BUN (04/04/2019 2:55 AM EDT) Blood Urea Nitrogen 19 10 - 20 mg/dL [facility] LABORATORY Blood specimen (specimen) 04/04/2019 2:55 AM EDT 04/04/2019 3:05 AM EDT Narrative Resulting Agency Comment Spec In Lab Ashutosh Morelos MD CHEMISTRY ORDER LOU Performing Organization Address [facility] Co de Phone Number [facility] [place] [address] * Electrolytes panel (04/04/2019 2:55 AM EDT) Sodium 140 135 - 145 mmol/L [facility] Potassium 4.1 3.5 - 5.0 mmol/L [facility] Comment: Please note: ??Patients with WBC >100,000 may have falsely elevated Potassium levels. ??For accurate Potassium quantification in these patients send serum separator tube (gold top) for subsequent determinations. ??Contact the Clinical Chemistry Laboratory if there are any questions. Chloride 106 98 - 107 mmol/L [facility] Carbon Dioxide 26 22 - 31 mmol/L [facility] Anion Gap 8 5 - 15 mmol/L [facility] Blood specimen (specimen) 04/04/2019 2:55 AM EDT 04/04/2019 3:05 AM EDT Narrative Resulting Agency Comment Spec In Lab Ashutosh Morelos MD CHEMISTRY ORDER LOU [facility] [place] [address] * Hemoglobin A1c (04/04/2019 2:55 AM EDT) Hemoglobin A1c 5.3 4.3 - 5.6 % [facility] Comment: Reference Range: 4.3 - [...] Mellitus, Diabetes Care 2013; 36: Suppl. 1, M27-48 Estimated Average Glucose 106 mg/dL [facility] Comment: eAG equivalents for HbA1c [...] into estimated average glucose values. ??Diabetes Care 2008:31(8):3803-4428. Blood specimen (specimen) 04/04/2019 2:55 AM EDT 04/04/2019 3:05 AM EDT Narrative Resulting Agency Comment Spec In Lab Ashutosh Morelos MD CHEMISTRY ORDER LOU Performing Organization Address City/[facility] Co de Phone Number [facility] [place] [address] * EKG 12 Lead (04/03/2019 10:56 PM EDT) Ventricular rate 55 BPM MUSE SYSTEM Atrial Rate 55 BPM MUSE SYSTEM P-R Interval 172 ms MUSE SYSTEM QRS Duration 130 ms MUSE SYSTEM Q-T Interval 454 ms MUSE SYSTEM QTC Calculated (Bezet) 434 ms MUSE SYSTEM Calculated P [place] 16 degrees MUSE SYSTEM Calculated R [place] -49 degrees MUSE SYSTEM Calculated T [place] 8 degrees MUSE SYSTEM INTERPRETATION Sinus bradycardia Right bundle branch block Left anterior fascicular block Bifascicular block Abnormal ECG No previous ECGs available Confirmed by MD Espinal Daniel ([id number]) on 04/04/2019 12:40:14 PM MUSE SYSTEM 04/03/2019 10:5 6 PM EDT 04/04/2019 12:40 PM EDT Ashutosh Morelos MD ECG ORDERABLES Performing Organization Address [facility] Co de Phone Number MUSE SYSTEM * (ABNORMAL) APTT (04/03/2019 9:55 PM EDT) Partial Thromboplastin Time 59(H) 25 - 37 sec [facility] Comment: The PTT is NOT appropriate for heparin monitoring. Use the Anti-Xa level for heparin monitoring (HEP UFH) or LMWH monitoring (HEP LMW). A PTT less than 37 seconds generally indicates adequate hemostasis. Blood specimen (specimen) Venous Draw / Unknown 04/03/2019 9:55 PM EDT 04/03/2019 10:00 PM EDT Narrative Resulting Agency Comment Spec In Lab Ashutosh Morelos MD HEMATOLOGY ORDE MADELINEDANIELA Performing Organization Address City/[facility] Co de Phone Number [facility] [place] [address] * Prothrombin Time (04/03/2019 9:55 PM EDT) [facility] Prothrombin Time 12.3 9.4 - 12.5 sec [facility] International Normalization Ratio 1.1 [facility] Comment: An INR <2.0 indicates [...] MD HEMATOLOGY ORDKatherin GIRARD Performing Organization Address [facility] Co de Phone Number [facility] [place] [address] * Troponin (04/03/2019 9:55 PM EDT) [facility] Troponin-T <0.01 0.00 - 0.00 ng/mL [facility] Comment: The 99th percentile for Troponin T is less than 0.01 ng/mL, any detectable cTnT concentration using this assay should be considered elevated. According to the third universal definition of myocardial infarction the following criteria with a clinical presentation consistent with acute myocardial ischemia meets the diagnosis for a myocardial infarction (NC). Detection of a rise and/or fall of cTnT, with at least one value greater than the 99th percentile (> or = 0.01) and with at least one of the following ?? Symptoms of ischemia ?? New or presumed new significant UC-wtsdeok-I wave (ST-T) changes or new left bundle [...] additional sample may be indicated. Reference: Third [place] Definition of Myocardial Infarction. Journal of the [place] [employer] 2012;60:1581-98 Blood specimen (specimen) Venous Draw / Unknown 04/03/2019 9:55 PM EDT 04/03/2019 10:00 PM EDT Narrative Resulting Agency Comment Spec In Lab Ahsutosh Morelos MD CHEMISTRY ORDER LOU [facility] [place] [address] * (ABNORMAL) Differential, Automated (04/03/2019 9:55 PM EDT) Neutrophil % 64.7 % [facility] Neutrophil Absolute 5.98 1.70 - 6.10 x10(3)/mc L [facility] Lymph % 22.1 % [facility] Lymphocytes Abs 2.0 0.9 - 3.2 x10(3)/mc L [facility] Monocyte % 9.6 % [facility] Monocyte Abs 0.9 0.3 - 0.9 x10(3)/mc L [facility] Eos % 2.5 % [facility] Eosinophils Abs 0.2 0.0 - 0.4 x10(3)/mc L [facility] Basophil % 0.6 % [facility] Baso Absolute 0.1 0.0 - 0.1 x10(3)/mc L [facility] Immature Gran % 0.50 % [facility] Comment: Immature granulocytes(IG's)percentage and absolute count will include metamyelocytes, myelocytes, and promyelocytes. Blood smears from CBCs yielding IG's will be scanned manually for concordance. If this scan disagrees with the automated IG or if promyelocytes are noted, a manual differential will be performed. Immature Gran Absolute 0.05(H) 0.00 - 0.04 x10(3)/ L [facility] Blood specimen (specimen) 04/03/2019 9:55 PM EDT 04/03/2019 10:00 PM EDT Narrative Resulting Agency Comment Spec In Lab Ashutosh Morelos MD HEMATOLOGY GARRETT GIRARD [facility] [place] [address] * (ABNORMAL) Hemogram (04/03/2019 9:55 PM EDT) White Blood Cell 9.3 4.0 - 9.5 x10(3)/[facility] Red Blood Cell 4.96 4.58 - 5.54 x10(6)/[facility] Hemoglobin 15.9 13.7 - 16.5 gm/dL [facility] Hematocrit 46.2 40.5 - 48.5 % [facility] Mean Cell Volume 93.1 82.9 - 93.1 [facility] Mean Cell Hemoglobin 32.1 27.5 - 32.1 pg [facility] Mean Cell Hemoglobin Concentration 34.4 32.0 - 35.7 gm/dL [facility] Platelet 170 145 - 357 x10(3)/[facility] RDW Standard Deviation 45.5(H) 36.0 - 45.0 [facility] RDW coefficient of variation 13.3 11.4 - 13.8 % [facility] Mean Platelet Volume 9.5 7.6 - 12.9 [facility] NRBC% auto 0.0 % [facility] NRBC Absolute 0.000 0.000 - 0.000 x10(3)/ L [facility] Blood specimen (specimen) 04/03/2019 9:55 PM EDT 04/03/2019 10:00 PM EDT Narrative Resulting Agency Comment Spec In Lab Ashutosh Morelos MD HEMATOLOGY GARRETT GIRARD Performing Organization Address City/[facility]/ZIP Co de Phone Number [facility] [place] [address] * Hepatic Function Panel (04/03/2019 9:55 PM EDT) Protein, Total 6.5 6.1 - 8.0 gm/dL [facility] Albumin 3.5 3.2 - 5.2 gm/dL [facility] Aspartate Aminotransferase 22 0 - 39 unit/L [facility] Alanine Aminotransferase 22 0 - 55 unit/L [facility] Alkaline Phosphatase 68 40 - 130 unit/L [facility] Bilirubin, Total 0.4 0.2 - 1.3 mg/dL [facility] Bilirubin, Direct 0.1 0.0 - 0.3 mg/dL [facility] Blood specimen (specimen) 04/03/2019 9:55 PM EDT 04/03/2019 10:00 PM EDT Narrative Resulting Agency Comment Spec In Lab Ashutosh Morelos MD CHEMISTRY ORDER LOU Performing Organization Address [facility] Co de Phone Number [facility] [place] [address] * (ABNORMAL) pro-Brain Natriuretic Peptide (04/03/2019 9:55 PM EDT) NT-proBNP 198(H) <=125 pg/mL [facility] Blood specimen (specimen) 04/03/2019 9:55 PM EDT 04/03/2019 10:00 PM EDT Narrative Resulting Agency Comment Spec In Lab Ashutosh Morelos MD CHEMISTRY ORDER LOU Performing Organization Address City/[facility]/ZIP Co de Phone Number [facility] [place] [address] * Magnesium (04/03/2019 9:55 PM EDT) Magnesium 0.86 0.69 - 1.07 mmol/L [facility] Blood specimen (specimen) 04/03/2019 9:55 PM EDT 04/03/2019 10:00 PM EDT Narrative Resulting Agency Comment Spec In Lab Ashutosh Morelos MD CHEMISTRY ORDER LOU [facility] [place] [address] * Basic Metabolic Panel (non-fasting) (04/03/2019 9:55 PM EDT) Pathologist [facility] Glucose 104 65 - 199 mg/dL [facility] Comment:Diabetes: >=200 mg/d L plus symptoms Blood Urea Nitrogen 19 10 - 20 mg/dL [facility] Creatinine 1.06 0.80 - 1.50 mg/dL [facility] Sodium 139 135 - 145 mmol/L [facility] Potassium 4.0 3.5 - 5.0 mmol/L [facility] Comment: Please note: ??Patients with WBC >100,000 may have falsely elevated Potassium levels. ??For accurate Potassium quantification in these patients send serum separator tube (gold top) for subsequent determinations. ??Contact the Clinical Chemistry Laboratory if there are any questions. Chloride 105 98 - 107 mmol/L [facility] Carbon Dioxide 24 22 - 31 mmol/L [facility] Anion Gap 10 5 - 15 mmol/L [facility] Calcium 8.9 8.5 - 10.5 mg/dL [facility] Est Glomerular Filtration Rate 74 >=60 mL/min/1. 73 m?? [facility] Comment: The eGFR was calculated using the CKD-EPI equation. As with all creatinine based estimates of kidney function, eGFR values calculated with the CKD-EPI equation are not accurate in patients with acute kidney failure, extremes of body mass or the acutely ill. [email or web address] eGFR 86 >=60 mL/min/1. 73 m?? [facility] Comment: The eGFR was calculated using the CKD-EPI equation. As with all creatinine based estimates of kidney function, eGFR values calculated with the CKD-EPI equation are not accurate in patients with acute kidney failure, extremes of body mass or the acutely ill. [email or web address] Blood specimen (specimen) 04/03/2019 9:55 PM EDT 04/03/2019 10:00 PM EDT Narrative Resulting Agency Comment Spec In Lab Ashutosh Morelos MD CHEMISTRY ORDER LOU [facility] [place] [address] * Heparin (unfractionated) Level (04/03/2019 9:55 PM EDT) UF Heparin 0.34 IU/mL [facility] Comment: Guidelines for therapeutic unfractionated heparin [...] Lab Ashutosh Morelos MD HEMATOLOGY GARRETT GIRARD [facility] [place] [address] documented in this encounter Visit Diagnoses Not on filedocumented in this encounter Administered Medications Inactive Administered [...] Given 04/03/2019 11:01 PM EDT 650 mg alum-mag hydroxide-simeth (Maalox) (40 mg-40 mg-4 mg/mL) oral liquid ONCE PRN, Starting on 04/04/19 at 1229, Until 04/04/19 at 1246, Cath (Intra-Procedure), Routine Given 04/04/2019 12:29 PM EDT 30 mLs aspirin chewable tablet 81 mg 81 mg, Oral, DAILY, First dose on 04/04/19 at 0900, Until Discontinued, Routine Given 04/06/2019 [...] Given 04/03/2019 10:01 PM EDT 80 mg bivalirudin (ANGIOMAX) 250 mg (ELECTRONIC SYSTEM ENGINEER) in sodium chloride 0.9% 50 mL infusion CONTINUOUS PRN, Starting on 04/04/19 at 1153, Until 04/04/19 at 1246, Cath (Intra-Procedure), Routine New Bag 04/04/2019 11:53 AM EDT 199.5 mg/hr 39.9 mL/hr bivalirudin (ANGIOMAX) bolus from bag ONCE PRN, Starting on 04/04/19 at 1152, Until 04/04/19 at 1246, Intra-Operative (Intra-Procedure), Routine Given 04/04/2019 11:52 AM EDT 85.5 mg citalopram (CeleXA) tablet 10 mg 10 [...] Given 04/05/2019 8:29 AM EDT 75 mg clopidogrel (PLAVIX) tablet ONCE PRN, Starting on 04/04/19 at 1210, Until 04/04/19 at 1246, Intra-Operative (Intra-Procedure), Routine Given 04/04/2019 12:10 PM EDT 600 mg fentaNYL 50 mcg/mL multi-dose injection ONCE PRN, Starting on 04/04/19 at 1129, Until 04/04/19 at 1246, Intra-Operative (Intra-Procedure), Routine Given 04/04/2019 12:21 PM EDT 25 mcg Given 04/04/2019 11:29 AM EDT 50 mcg fluticasone propionate (FLOVENT) 220 mcg/actuation inhaler 2 [...] Unit), Routine iohexol (OMNIPAQUE) 350 mg/mL solution ONCE PRN, Starting on 04/04/19 at 1233, Until 04/04/19 at 1246, Cath (Intra-Procedure), Routine Given 04/04/2019 12:33 PM EDT 268 mLs metoprolol succinate (TOPROL-XL) XL tablet 50 mg 50 mg, Oral, DAILY, First dose on Sat04/06/19 at 1200, Until Discontinued, DO NOT CRUSH OR OPEN, Routine Given 04/06/2019 11:08 AM EDT 50 mg midazolam (PF) (VERSED) multi-dose injection ONCE PRN, Starting on 04/04/19 at 1129, Until 04/04/19 at 1246, Cath (Intra-Procedure), Routine Given 04/04/2019 11:29 AM EDT 1 mg nitroGLYcerin 100 mcg/mL intracoronary dilution ONCE PRN, Starting on 04/04/19 at 1129, Until 04/04/19 at 1246, Cath (Intra-Procedure), Routine Given 04/04/2019 12:18 PM EDT 150 mcg Given 04/04/2019 11:29 AM EDT 150 mcg sodium chloride 0.9 % (flush) flush 5 [...] Given 04/03/2019 10:07 PM EDT 5 mLs verapamil (ISOPTIN) injection ONCE PRN, Starting on 8/10/19 at 1129, Until 04/04/19 at 1246, Administer over 2 Minutes, Cath (Intra-Procedure) Given 04/04/2019 11:29 AM EDT 2.5 mg documented in this encounter Active and Recently Administered Medications Times are shown in EDT. Scheduled Medication Order 04/04/2019 04/05/2019 04/06/2019 aspirin chewable tablet 81 mg 81 mg, Oral, DAILY, First dose on Sat04/04/19 at 0900, Until Discontinued, Routine 0841 (Given - Provider: Te Sullivan RN)1226 ([facility] Hold - Provider: Admin Adt - Reason: Transfer to a Procedural area)1303 ([facility] Unhold - Provider: Admin Adt) 0829 (Given - Provider: Te Sullivan RN) 0815 (Given - Provider: Roxana Lamb, ANGELA) atorvastatin (LIPITOR) tablet 80 mg 80 mg, Oral, EVERY EVENING, First dose on Sat04/03/19 at 2200, Until Discontinued, Routine 1226 ([facility] Hold - Provider: Admin Adt - Reason: Transfer to a Procedural area)1303 ([facility] Unhold - Provider: Admin Adt)1700 (Given - Provider: Te Sullivan RN) 1700 (Given - Provider: Te Sullivan RN) citalopram (CeleXA) tablet 10 mg 10 mg, Oral, NIGHTLY, First dose on Sat04/03/19 at 2200, Until Discontinued, Routine 1226 ([facility] Hold - Provider: Admin Adt - Reason: Transfer to a Procedural area)1303 ([facility] Unhold - Provider: Admin Adt)2024 (Given - Provider: Love García RN) 2030 (Given - Provider: Love García RN) clopidogrel (PLAVIX) tablet 75 mg 75 mg, Oral, DAILY, First dose on Sat04/05/19 at 0900, Until Discontinued, Recovery (Recovery-Hospital Unit), Routine 0829 (Given - Provider: Te Sullivan RN) 0815 (Given - Provider: Roxana Lamb, ANGELA) fluticasone propionate (FLOVENT) 220 mcg/actuation inhaler 2 puff 2 puff, Inhalation, 2 TIMES DAILY, First dose on Sat04/03/19 at 2300, Until Discontinued, Shake well; Rinse mouth after administration., Routine 0900 (Given - Provider: Te Sullivan RN)1226 ([facility] Hold - Provider: Admin Adt - Reason: Transfer to a Procedural area)1303 ([facility] Unhold - Provider: Admin Adt)2025 (Given - Provider: Love García RN) 0900 (Given - Provider: Te Sullivan RN)2030 (Given - Provider: Love García RN) 0814 (Given - Provider: Roxana Lamb, ANGELA) metoprolol succinate (TOPROL-XL) XL tablet 50 mg 50 mg, Oral, DAILY, First dose on 04/06/19 at 1200, Until Discontinued, DO NOT CRUSH OR OPEN, Routine 1108 (Given - Provider: Roxana Lamb RN) metoprolol tartrate (LOPRESSOR) tablet 25 mg (CANCELED) [...] Reason: See comment - Comment: HR 56)1226 ([facility] Hold - Provider: Admin Adt - Reason: Transfer to a Procedural area)1303 ([facility] Unhold - Provider: Admin Adt)1701 (Given - [...] 0900 (Given - Provider: Te Sullivan RN)1226 ([facility] Hold - Provider: Admin Adt - Reason: Transfer to a Procedural area)1303 ([facility] Unhold - Provider: Admin Adt)2100 (Given - Provider: Love García RN) 0900 (Given - Provider: Te Sullivan RN)2100 (Not Given - Provider: Love García RN - Reason: See comment - Comment: IV site appears phelbitic. IV team paged.) 0900 (Given - Provider: Roxana Lamb RN) sodium chloride 0.9 % (flush) flush [...] Sat04/03/19 at 2133, Until Sat04/06/19 at 1423, Pain, Headaches, Maximum dose of [...] Guadalupe Sue, ANGELA) bivalirudin (ANGIOMAX) 250 mg (ELECTRONIC SYSTEM ENGINEER) in sodium chloride 0.9% 50 mL infusion (CANCELED) CONTINUOUS PRN, Starting on 04/04/19 at 1153, Until 04/04/19 at 1246, Cath (Intra-Procedure), Routine 1153 (New Bag - Provider: Vincent Wallis RN)1220 (Stopped - Provider: Maria Guadalupe Sue RN) bivalirudin (ANGIOMAX) bolus from bag (CANCELED) ONCE PRN, Starting on 04/04/19 at 1152, Until 04/04/19 at 1246, Intra-Operative (Intra-Procedure), Routine 1152 (Given - Provider: Vincent Wallis RN) clopidogrel (PLAVIX) tablet (CANCELED) ONCE PRN, Starting on 04/04/19 at 1210, Until 04/04/19 at 1246, Intra-Operative (Intra-Procedure), Routine 1210 (Given - Provider: Vincent Wallis RN) fentaNYL 50 mcg/mL multi-dose injection (CANCELED) ONCE PRN, Starting on 04/04/19 at 1129, Until 04/04/19 at 1246, Intra-Operative (Intra-Procedure), Routine 1129 (Given - Provider: Vincent Wallis RN)1221 (Given - Provider: Vincent Wallis RN) HYDROmorphone (DILAUDID) tablet 2 mg 2 [...] for discomfort with PIV insertion, Routine 1226 ([facility] Hold - Provider: Admin Adt - Reason: Transfer to a Procedural area)1303 ([facility] Unhold - Provider: Admin Adt) midazolam (PF) (VERSED) multi-dose injection (CANCELED) ONCE PRN, Starting on 04/04/19 at 1129, Until 04/04/19 at 1246, Cath (Intra-Procedure), Routine 1129 (Given - Provider: Vincent Wallis RN) nitroGLYcerin (NITROSTAT) SL tablet 0.4 mg 0.4 mg, Sublingual, EVERY 5 MIN PRN, Starting on Sat04/03/19 at 2133, Until 04/06/19 at 1423, Chest pain, May repeat every 5 minutes for a total of three doses. Notify provider if chest pain not relieved with nitroglycerin. Do not administer nitroglycerin if the patient has received or taken phosphodiesterase (PDE-5) inhibitors such as sildenafil, tadalafil or vardenafil within the last 24 to 72 hours., Routine 1226 ([facility] Hold - Provider: Admin Adt - Reason: Transfer to a Procedural area)1303 ([facility] Unhold - Provider: Admin Adt) nitroGLYcerin 100 [...] provided on this medication record., Routine 1226 ([facility] Hold - Provider: Admin Adt - Reason: Transfer to a Procedural area)1303 ([facility] Unhold - Provider: Admin Adt) sodium chloride 0.9 % (flush) flush 5-20 mL 5-20 mL, Intravenous, EVERY 1 MIN PRN, Starting on 04/03/19 at 2133, Until 04/06/19 at 1423, flush, [...] MD) documented in this encounter Care Teams Aircraft Inspector Relationship Specialty Start Date End Date Jadiel Gregorio DO [address] [facility] [address] [place] [address] PCP - General 10/17/10 06/25/22 documented as of this encounter
--- OUTSIDE RECORDS SUMMARY | 2024-07-06 13:09 | XMS_ITS | Encounter Summary ---
Author Organization [facility] [place] [address] Care Team Providers Care Battery Container Inspector Name Role Phone JgJadiel hernandes Primary Care Provider [phone] Reason for Visit * Reason Comments Obstructive Sleep Apnea Encounter Details Date Type Department Care Team (Late st Contact Info) Description 03/19/2011 1:00 PM EDT Office Visit Sleep Medicine [place] [id number] Damien Richmond MD [facility] [place] [address] JUSTIN (obstructive sleep apnea) (Primary Dx) Social History Tobacco Use Types Packs/Day Years Used Date Smoking Tobacco: Never Assessed Sex and Gender Information Value Date Recorded Sex Assigned at Not on file Gender Identity Not on file Sexual Orientation Not on file documented as of this encounter Last Filed Vital Signs Vital Sign Reading Time Taken Comments Blood Pressure 147/93 03/19/2011 12:58 PM EDT Pulse 70 03/19/2011 12:58 PM EDT Temperature - - Respiratory Rate - - Oxygen Saturation - - Inhaled Oxygen Concentration - - Weight 99.3 kg (219 lb) 03/19/2011 12:58 PM EDT Height 171.5 cm (5' 7.5) 03/19/2011 12:58 PM ED T Body Mass Index 33.79 03/19/2011 12:58 PM EDT documented in this encounter Progress Notes * Damien Richmond MD - 03/19/2011 1:39 PM EDTAddended by: DAMIEN [place] on: 03/19/2011 Modules accepted: Orders * Damien Richmond MD - 03/19/2011 1:33 PM EDT Sleep Medicine Follow-Up Note IDENTIFYING INFORMATION Patient's Name: Cj De Los Santos Date of : 1955 REFERRING PHYSICIAN: None PRIMARY CARE PHYSICIAN: JADIEL GREGORIO DO Date of Service: 03/19/2011 History of Present Illness: Cj De Los Santos is a 55 y.o. male seen for treatment follow-up of obstructive sleep apnea. Treatment: Device: CPAP Pressure: 14 CWP Interface: medium Quattro FF mask Chin strap: no Ongoing Complaints While Using PAP: Snoring: None Observed apneas: No Mouth breathing: Yes Dry mouth: yes Nocturnal Gasping: None Pressure intolerance: No Mask comfort: moderate mask discomfort reported. Mask leak:: mild leak is reported around cheeks Aerophagia: None Nasal obstruction: None Daytime Symptoms: Hammond: 4/24 Upon Awakening: Refreshed Daytime naps: 1 time a week, of approximately 2-3 h duration Involuntary Dozing: Rarely Cognitive Symptoms: None Driving: No difficulty with drowsiness or dozing at the wheel Close calls related to sleepiness: no Accidents related to sleepiness: no Sleep Pattern: Bedtime: 7:30- 8:30 A.M. Rise time: 2-4 p.M. On days off: bed 9-10 PM, up 6-8 AM Shift Work: yes Location: Bed shared with partner on weekends Head of Bed: flat Preferred Position: All positions Initial insomnia complaint: No Unexplained arousals: No Nocturia: Yes, on average 1 time a night Middle or terminal insomnia complaint: No Patient Perceived Overall Treatment Outcome: The patient reports marked overall improvement since initiation of treatment. Compliance Card Data: Date Range: 01/05/11- 03/18/11 Settin CWP % Nights used: 98.6 % Nights used 4 or more hours: 86.3 Average usage for days used: 6 h 11 min. Time in Large Leak per Night: 41 min Residual AHI: 14.8 Review of Systems: ENT: Nasal Obstruction: None CONSTITUTIONAL: Weight: Stable Medications: Current outpatient prescriptions:citalopram (CELEXA) 10 mg/5 mL suspension, Take 10 mg by mouth daily., Disp: , Rfl: Physical Exam: Wt Readings from Last 3 Encounters: 03/19/11 99.338 kg (219 lb) 11/30/10 96.163 kg (212 lb) Body mass index is 33.79 kg/(m^2). BP Readings from Last 3 Encounters: 03/19/11 147/93 11/30/10 146/96 Pulse Readings from Last 3 Encounters: 03/19/11 70 11/30/10 66 1.715 m (5' 7.5) Alert, cooperative male in no distress. Gait and station are normal Respirations are unlabored No unusual mannerisms or behaviors Speech coherent and logical Mood is euthymic Assessment: Cj De Los Santos is a 55 y.o. male who is seen for follow-up of obstructive sleep apnea. Diagnostic Codes: Obstructive sleep apnea (final) 327.23. Time spent face to face: 30 min. Time spent devoted to counseling and discussion: 15 min. Plan: 1. CPAP at 14 CWP; mask refitting to minimize leak. 2. Follow up in 1 year or sooner, if needed. documented in this encounter Plan of Treatment Upcoming Encounters Date Type Department Care Team (Late st Contact Info) Description 04/20/2025 9:00 AM EDT Office Visit Cardiology at [address] [place] [address] Jerzy Espinal MD [facility] [place] [address] documented as of this encounter Visit Diagnoses Diagnosis JUSTIN (obstructive sleep apnea)- Primary Obstructive sleep apnea (adult) (pediatric) documented in this encounter Care Teams Battery Container Inspector Relationship Specialty Start Date End Date Jadiel Gregorio DO [address] [facility] [address] [place] [address] PCP - General 10/17/10 06/25/22 documented as of this encounter
--- OUTSIDE RECORDS SUMMARY | 2024-07-06 13:09 | XMS_ITS | Encounter Summary ---
Author Organization [facility] [place] [address] Care Team Providers Care Golf Caddie Name Role Phone Jadiel Gregorio DO Primary Care Provider [phone] Reason for Visit * Reason Onset Date Comments Medication Refill 06/03/2019 Encounter Details Date Type Department Care Team (Late st Contact Info) Description 06/03/2019 Refill Cardiology at [address] [address] Tammy Salomon V stripper printed circuit boards Refill Social History Tobacco Use Types Packs/Day [...] 9:00 AM EDT Office Visit Cardiology at [address] [place] [id number] Jerzy Espinal MD [facility] [place] [address] documented as of this encounter Visit Diagnoses Diagnosis Atherosclerosis of [place] coronary artery of [place] heart, angina presence unspecified documented in this encounter Care Teams Golf Caddie Relationship Specialty Start Date End Date Jadiel Gregorio DO [facility] [address] [place] [address] PCP - General 10/17/10 06/25/22 documented as of this encounter
--- OUTSIDE RECORDS SUMMARY | 2024-07-06 13:09 | XMS_ITS | Clinical Summary ---
Author Organization [facility] Address [address] [place] [address] Care Team Providers Care Pill Packer Name Role Phone JgJadiel barone DO Primary Care Provider [phone] Social History Tobacco Use Types Packs/Day Years Used Date Smoking Tobacco: Never Assessed Sex and Gender Information Value Date Recorded Sex Assigned at Not on file Legal Sex Male 18:21 EST Gender Identity Not on file Sexual Orientation Not on file Plan of Treatment Health Maintenance Due Date Last Done Comments RSV Immunization ( o r 60+ Years) (1 - 1-dose 60+ series) 2014 Fall Risk Screening 11/23/2019 COVID-19 Vaccine ( season) 2023 Hepatitis C Screen Completed 03/01/2022 Procedures Procedure Name Priority Date/Time Associated Diagnosis Comments HEPATITIS C AB W REFLEX TO HCV RNA BY PCR Routine 03/01/2022 11:43 EDT from Last 3 Months or Most Recently Relevant to Health Maintenance Results * HEPATITIS C AB W REFLEX TO HCV RNA BY PCR (03/01/2022 11:43 EDT) Hep C Antibody Negative Negative 03/02/2022 10:10 EDT [facility] Blood VENOUS BLOOD / Unknown 03/01/2022 11:43 EDT 03/01/2022 21:17 EDT us Provider Outr Resulting Lab CHEMISTRY & BLOOD GA S ORDERABLES Final Result [facility] [address] [place] [address] from Last 3 Months or Most Recently Relevant to Health Maintenance Care Teams Pill Packer Relationship Specialty Start Date End Date Jadiel Gregorio, [address] [place] [address] [place] [address] PCP - General 03/14/10
--- OUTSIDE RECORDS SUMMARY | 2024-07-06 13:10 | XMS_ITS | Encounter Summary ---
Author Organization [facility] Address [address] [place] [address] Care Team Providers Care Wagon Person Name Role Phone Jadiel Gregorio DO Primary Care Provider [phone] Encounter Details Date Type Department Care Team (Late st Contact Info) Description 03/01/2022 Lab Requisition [facility] Pathology & Laboratory Medicine - [address] [id number] Outr Resulting Lab, Provider Social History Tobacco Use Types Packs/Day Years Used Date Smoking Tobacco: Never Assessed Sex and Gender Information Value Date Recorded Sex Assigned at Not on file Legal Sex Male 18:21 EST Gender Identity Not on file Sexual Orientation Not on file documented as of this encounter Plan of Treatment Not on file documented as of this encounter Procedures Procedure Name Priority Date/Time Associated Diagnosis Comments HOLD SST Today 03/01/2022 11:43 EDT HIV 1/2 ANTIGEN AND ANTIBODY, 4TH GENERATION Today 03/01/2022 11:43 EDT documented in this encounter Results * HOLD SST (03/01/2022 11:43 EDT) Hold Hold 03/01/2022 22:31 EDT [facility] Blood VENOUS BLOOD / Unknown 03/01/2022 11:43 EDT 03/01/2022 21:16 EDT us Provider Outr Resulting Lab LAB INFO SERVICE AND SUPPORT & PHONE RESULT Final Result Performing Organization Address [facility] Co de Phone Number [facility] [address] [place] [address] * HIV 1/2 ANTIGEN AND ANTIBODY, 4TH GENERATION (03/01/2022 11:43 EDT) HIV 1 and 2 Antibody/p24 Antigen, 4th Generation Negative Negative 03/02/2022 9:50 EDT [facility] Comment:If acute HIV-1 infec tion is suspected in a high risk patient, submit plasma specimen for HIV-1 RNA quantitation test. Blood VENOUS BLOOD / Unknown 03/01/2022 11:43 EDT 03/01/2022 21:16 EDT Narrative [facility] - 03/02/2022 9:50 EDT Fourth Generation assay performed on the Siemens Centaur XPT. us Provider Outr Resulting Lab IMMUNOLOGY AND SEROL OGY ORDERABLES Final Result Performing Organization Address [facility] Co de Phone Number [facility] [address] [place] [address] documented in this encounter Visit Diagnoses Not on filedocumented in this encounter Care Teams Wagon Person Relationship Specialty Start Date End Date Jadiel Gregorio DO [address] [place], [place] [address] [address] PCP - General 03/14/10 documented as of this encounter
--- OUTSIDE RECORDS SUMMARY | 2024-07-06 13:10 | XMS_ITS | Encounter Summary ---
Author Organization [facility] Address [address] [place] [address] Care Team Providers Care Senior Validation Engineer Name Role Phone Jadiel Gregorio DO Primary Care Provider [phone]- [phone] Encounter Details Date Type Department Care Team (Late st Contact Info) Description 04/28/2020 Lab Requisition [facility] Pathology & Laboratory Medicine - [address] [address] Outr Resulting Lab, Provider Social History Tobacco [...] Procedure Name Priority Date/Time Associated Diagnosis Comments PSA TOTAL, DIAGNOSTIC Routine 04/27/2020 12:30 EDT documented in this encounter Results * PSA TOTAL, DIAGNOSTIC (04/27/2020 12:30 EDT) PSA 0.3 0.0 - 4.5 ng/mL 04/28/2020 18:03 EDT [facility] Blood VENOUS BLOOD / Unknown 04/27/2020 12:30 EDT 04/28/2020 16:29 EDT Narrative [facility] - 04/28/2020 18:03 EDT NOTE: Serum PSA concentration should not be interpreted as absolute evidence for the presence or absence of malignant disease. Assayed on Siemens [employer] XPT using chemiluminescent technology.??Values obtained by using different assay methods cannot be used interchangeably. us Provider Outr Resulting Lab CHEMISTRY & BLOOD GA S ORDERABLES Final Result [facility] [address] [place] [address] documented in this encounter Visit Diagnoses Not on filedocumented in this encounter Care Teams Senior Validation Engineer Relationship Specialty Start Date End Date Jadiel Gregorio DO [address] [place] [address] PCP - General 03/14/10 documented as of this encounter
--- OUTSIDE RECORDS SUMMARY | 2024-07-06 13:10 | XMS_ITS | Encounter Summary ---
Author Organization [facility] Address [address] [place] [address] Care Team Providers Care Automation Application Engineer Name Role Phone Jadiel Gregorio DO Primary Care Provider +1- [phone] Encounter Details Date Type Department Care Team (Late st Contact Info) Description 03/01/2022 Lab Requisition [facility] Pathology & Laboratory Medicine - [address] [address] Outr Resulting Lab, Provider Social History Tobacco [...] RNA BY PCR Routine 03/01/2022 11:43 EDT PSA TOTAL, DIAGNOSTIC Routine 03/01/2022 11:43 EDT documented in this encounter Results * PSA TOTAL, DIAGNOSTIC (03/01/2022 11:43 EDT) PSA 0.3 <=4.5 ng/mL 03/01/2022 22:44 EDT [facility] Blood VENOUS BLOOD / Unknown 03/01/2022 11:43 EDT 03/01/2022 21:17 EDT Narrative [facility] - 03/01/2022 22:44 EDT NOTE: Serum PSA concentration should not be interpreted as absolute evidence for the presence or absence of malignant disease. Assayed on Siemens [employer] XPT using chemiluminescent technology.??Values obtained by using different assay methods cannot be used interchangeably. us Provider Outr Resulting Lab CHEMISTRY & BLOOD GA S ORDERABLES Final Result Performing Organization Address [facility]/ZIP Co de Phone Number [facility] [address] [place] [address] * HEPATITIS C AB W REFLEX TO HCV RNA BY PCR (03/01/2022 11:43 EDT) Hep C Antibody Negative Negative 03/02/2022 10:10 EDT [facility] Blood VENOUS BLOOD / Unknown 03/01/2022 11:43 EDT 03/01/2022 21:17 EDT Provider Outr Resulting Lab CHEMISTRY & BLOOD GA S ORDERABLES Final Result Performing Organization Address [facility] de Phone Number [facility] [address] [place] [address] documented in this encounter Visit Diagnoses Not on filedocumented in this encounter Care Teams Automation Application Engineer Relationship Specialty Start Date End Date Jadiel Gregorio DO [address] [place] [address] [place] [address] PCP - General 03/14/10 documented as of this encounter
--- OUTSIDE RECORDS SUMMARY | 2024-07-06 13:10 | XMS_ITS | Encounter Summary ---
Author Organization [facility] Address [address] [place] [address] Care Team Providers Care Audio Video Tech Name Role Phone Unknown, Provider Primary Care Provider Chance mendoza Encounter Details Date Type Department Care Team (Late st Contact Info) Description 03/10/2010 Results Only [facility] - [facility] [address] [place], [place] [id number] Isaiah Torres MD [address] [place] [address] Social History Tobacco Use Types Packs/Day Years [...] Procedure Name Priority Date/Time Associated Diagnosis Comments SURGICAL PATHOLOGY Routine 03/10/2010 0:00 EDT documented in this encounter Results * SURGICAL PATHOLOGY (03/10/2010 0:00 EDT) Pathology Report: SURGICAL PATHOLOGY REPORT ? Reports generated via electronic interface contain original data; ? however they are lacking the format of the original report. ? Caution should be taken when reading/interpreti ng unformatted reports. ? Name: ? FATUMA, LIZA L ? Accession #: ? [id number] ? : ? 1955 (Age: 54) ??M ? Collect Date: ? 03/10/2010 ? Location: ? [facility] ? Receive Date: ? 03/11/2010 ? Provider: ISAIAH TORRES MD ? Copy to: SEBAS F GUZMAN DO ? Final Pathologic Diagnosis: ? A. ?Ileocecal valve, biopsy: ? 1. ?Focal mildly active ileitis. ??See comment. ? B. ?Colon, cecum, polypectomy: ? 1. ?? Sessile serrated adenoma. ? Comment: ? Deeper levels have been examined. ??(Dr. Roy)/mms ? Document reviewed and electronically signed by: ? Dago Mancini, MBChB ? Report ??Date: 03/15/2010 15:22 ? By the signature above, the attending physician certifies that he/she has ? personally conducted a gross and/or microscopic examination of the described ? specimens and rendered or confirmed the above diagnosis. ? Specimen(s) Received: ? A. ? Ileocecal valve polyp ? B. ? Cecal polyp ? Clinical History: ? Screening colonoscopy ? Gross Description: ? Received in Neftali's fixative labelled Liza De Los Santos and ? ileocecal valve polyp are three pink-chatterjee, irregular soft tissues ranging from ?? 0.2 x 0.1 x 0.1 cm to 0.3 x 0.3 x 0.2 cm, submitted in toto as (A). ? Received in Eltone's fixative labelled Fatuma, Cj and cecal polyp is a 0.6 x 0.5 x 0.3 cm, chatterjee-red, polypoid tissue. ??The resection margin is inked ?? blue, the specimen is bisected and submitted entirely as (B). ??(Vinh Nguyen)/[facility] ? End of Report ? LOL[facility] 03/10/2010 03/11/2010 10: 39 EDT us Isaiah Torres MD PATHOLOGY ORDERABLES Final Resul t [facility] [address] [place] [address] documented in this encounter Visit Diagnoses Not on filedocumented in this encounter Care Teams Audio Video Tech Relationship Specialty Start Date End Date Unknown, Provider, PCP - General 03/13/10 03/13/10 documented as of this encounter
== END 2024-07-06 13:05 | disposition home or self-care (01) ==
LOC: LBO 13:07
PROVIDERS: PCP Nurse Practitioner Family; Visit Provider Student in an Organized Health Care Education/Training Program
DX: Z01.818 Encounter for other preprocedural examination (principal); M17.11 Unilateral primary osteoarthritis, right knee; Z96.652 Presence of left artificial knee joint
CPT/HCPCS: 36415; 80048; 85027; 99024

== ENCOUNTER 2024-08-10 03:01 | Outpatient (CLI) | payer MEDICARE, SELFPAY ==
[2024-08-10 11:04] LABS: HCT 49.7 % (40.0-50.0); HGB 16.4 g/dL (13.5-17.5); MCH 31.2 pg (27.0-33.0); MCV 95 fL (80-95); MPV 9.3 fL (8.0-11.0); Platelet Count 186 10^3/uL (130-400); RBC 5.25 10^6/uL (4.36-5.78); RDW 13.1 % (11.8-14.1); WBC 7.01 10^3/uL (4.4-10.8)
[2024-08-10 11:13] LABS: Anion Gap 10.2 mmol/L (3-11); BUN 21 mg/dL (7-18); CO2 25.8 mmol/L (21.0-32.0); CREATININE 1.4 mg/dL (0.70-1.30); Calcium 9.3 mg/dL (8.5-10.1); Chloride 104 mmol/L (98-107); Estimated GFR 54.41 (mL/min/1.73m2); Glucose 155 mg/dL (74-106); Potassium 3.5 mmol/L (3.5-5.1); Sodium 140 mmol/L (136-145)
== END 2024-08-10 03:02 | disposition home or self-care (01) ==
LOC: LBO 03:01
PROVIDERS: PCP Nurse Practitioner Family; Visit Provider Student in an Organized Health Care Education/Training Program
DX: M17.11 Unilateral primary osteoarthritis, right knee (principal); Z01.818 Encounter for other preprocedural examination
CPT/HCPCS: 36415; 80048; 85027

== ENCOUNTER 2024-08-25 06:01 | Day surgery (SDC) | payer MEDICARE, SELFPAY ==
[2024-08-25] VITALS (44 sets, daily range): BP systolic 134–183; BP diastolic 58–88; PULSE 59–97; RESP 12–26; TEMP 36.2–36.7; O2SAT 91–96; BMI 45.6
[2024-08-25] MEDS: Acetaminophen 500 MG TAB 1000 MG PO (06:25)
[2024-08-25] MEDS: Celecoxib 200 MG CAP 400 MG PO (06:25)
[2024-08-25] MEDS: Gabapentin 300 MG CAP PO (06:25)
[2024-08-25] MEDS: Lactated Ringers 1,000 ML 80 ML IV (07:00)
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
--- NOTE | 2024-08-25 07:18 | W.PM.DSUDISC ---
Date of service: 08/25/24 Discharge Plan Disposition Patient Disposition: Home Condition: Good Discharge Details Reason For Visit: right knee DJD Attending Provider: Corey Jama Primary Care Provider: Octaviano Dumont Home Meds and New Rx's Prescriptions: New meloxicam 15 mg tablet 15 mg PO DAILY Qty: 30 1RF Rx Instructions: Take one tablet daily for pain and inflammation aspirin 81 mg tablet,delayed release (DR/EC) 81 mg PO BID 30 Days Qty: 60 0RF acetaminophen 500 mg tablet 1,000 mg PO Q8H PRN Qty: 90 0RF Rx Instructions: Take two tablets up to every 8 hours as needed for pain pantoprazole 40 mg tablet,delayed release (DR/EC) 40 mg PO DAILY Qty: 14 0RF dexamethasone 4 mg tablet 4 mg PO DAILY Qty: 2 0RF Rx Instructions: Take one tablet once daily for two days docusate sodium [Colace] 100 mg capsule 100 mg PO BID Qty: 30 0RF gabapentin 300 mg capsule 300 mg PO QHS Qty: 14 0RF Rx Instructions: Take one tablet at bedtime oxycodone 5 mg tablet 5 mg PO Q4H PRNQty: 18 0RF Rx Instructions: Take one tablet up to every 4 hours as needed for severe postoperative pain Continued multivitamin [Daily Multi-Vitamin] 1 EACH tablet 1 ea PO DAILY albuterol sulfate 90 mcg/actuation HFA aerosol inhaler 2 puff inhalation Q6H PRN (Reason: shortness of breath or wheezing) Qty: 8.5 3RF citalopram [Celexa] 10 mg tablet 10 mg PO DAILY Qty: 90 4RF amlodipine 2.5 mg tablet 2.5 mg PO HS Qty: 90 4RF hydrochlorothiazide 25 mg tablet 25 mg PO QAM Qty: 90 3RF nitroglycerin [Nitrostat] 0.4 mg tablet, sublingual 0.4 mg SL Q5-15M PRN (Reason: chest pain) Qty: 20 0RF Rx Instructions: until response; do not exceed 3 doses per episode. No response after 3 doses- call 911. atorvastatin 20 mg tablet 20 mg PO HS Qty: 90 3RF metoprolol succinate 50 mg tablet extended release 24 hr 50 mg PO DAILY Qty: 90 3RF Discontinued acetaminophen 500 mg tablet 1,000 mg PO Q8H PRN Qty: 90 0RF Rx Instructions: Take two tablets up to every 8 hours as needed for pain meloxicam 15 mg tablet 15 mg PO DAILY Qty: 30 1RF Rx Instructions: Take one tablet daily for pain and inflammation Discharge Instructions Additional Instructions: Total Knee Discharge Instructions Activity: The most important activity is to walk and to work on gentle motion (both flexion and extension). You should try to take short walks a few times a day. It is important that when resting you work on keeping the knee straight. Avoid putting a pillow behind the knee as this will encourage flexion. Work on range of motion exercises as provided by Physical Therapy. - Start outpatient physical therapy within 2 weeks. - You should wear the MICHAEL hose on both legs for 2 weeks. You may remove these at night. You may also use any compression sock in place of the MICHAEL hose. - Utilize [employer] to review exercises, see videos on exercises and obtain basic information pertaining to your surgery and your recovery. Dressing: Remove the Joe wrap by 2 days after your surgery and put on the MICHAEL stocking given to you from the hospital. Keep the surgical dressing (underneath the JOE wrap) in place for at least one week. After the first week it may be removed and replaced with light gauze and tape or nothing. The wound and dressing may get wet after 3 days but avoid soaking the dressing or otherwise it will need to be changed. Many people prefer covering the dressing with cling wrap (saran wrap) to minimize it from getting soaked. If it gets wet, just pat dry. If it starts to peel off then it will need to be changed. Medications: - You should take Tylenol and anti-inflammatory Meloxicam as your primary pain control medications. If the Meloxicam is too expensive or not covered, please call the office for another alternative (Advil/Ibuprofen or Naproxen/Aleve) - You have been prescribed a stronger pain medication Oxycodone for breakthrough pain, take as needed as prescribed. - You have also been prescribed a stomach acid reduction agent Pantoprozole to help reduce stomach acid and reflux. - You have been prescribed Gabapentin to take at night for restlessness and nerve pain. - You may take [id number] Benadryl at bedtime to help with sleep. Be cautious with taking Benadryl with your other medications especially Gabapentin and Oxycodone as this medications can cause sleepiness and grogginess. - You will be taking Aspirin 81mg twice a day for DVT prevention unless instructed otherwise. - You have also been prescribed Decadron to take to control post-operative nausea and pain. You will start this tomorrow. - If you have constipation you should take Colace (which has been prescribed) or Miralax (which is available [id number]). It takes most people 3-4 days to have a bowel movement. Follow-up: 2 weeks If you have any acute concerns or questions, please do not hesitate to contact the office at [phone]. You may contact Dr. Jama with any questions after hours through the hospital at [phone] or on his cell phone at [phone]. Stand Alone Forms: Anesthesia Discharge Inst., Chris.Nerve Block Instructions, Alta Brown ([facility]) Referrals: Corey Jama MD [ [facility] STAFF PHYSICIAN] - 09/07/24 1:15 pm Equipment/Supplies: Walker Activity:: Elevate Remove Dressings/Wound Care:: Do Not Remove Shower/Bathe:: Cover Diet:: As Tolerated Discharge Orders Discharge Orders: Discharge Order (Routine); Ordered 08/25/24 Ordered By: Giselle Green
--- NOTE | 2024-08-25 07:38 | W.ANESPRE ---
General Info Date of Service Date Performed: 08/25/24 Height: 5 ft 6 in Weight: 128.1 kg Body Mass Index (BMI): 45.6 Surgical Procedure: Operation Date: 08/25/24 07:40 Proposed Procedure Side Surgeon p Knee Total Arthroplasty w/OrthAlign, Cementless CR Right Corey Jama MD Actual Procedure Side Surgeon p Knee Total Arthroplasty w/OrthAlign, Cementless CR Right Corey Jama MD Meds Allergies and Home Medications Allergies Allergy/AdvReac Type Severity Reaction Status Date / Time cyclobenzaprine Allergy Unknown Itching Verified 08/25/24 06:14 enoxaparin AdvReac Severe Thrombocyto Verified 08/25/24 06:14 penia ropinirole AdvReac Severe severe Verified 08/25/24 06:14 twitching all over Home Medication ?Medication ?Instructions ?Recorded multivitamin (Daily Multi-Vitamin 1 ea PO DAILY 09/27/15 tablet) albuterol sulfate 90 mcg/actuation 2 puff inhalation Q6H PRN 08/22/23 aerosol inhaler shortness of breath or wheezing #8.5 grams citalopram 10 mg tablet (Celexa) 10 mg PO DAILY #90 tab-caps 11/11/23 amlodipine 2.5 mg tablet 2.5 mg PO HS #90 tabs 03/16/24 hydrochlorothiazide 25 mg tablet 25 mg PO QAM #90 tabs 03/19/24 nitroglycerin 0.4 mg sublingual 0.4 mg sublingual Q5-15M PRN chest 04/02/24 tablet (Nitrostat) pain #20 tabs atorvastatin 20 mg tablet 20 mg PO HS #90 tabs 06/08/24 metoprolol succinate 50 mg 50 mg PO DAILY #90 tabs 06/12/24 tablet,extended release 24 hr acetaminophen 500 mg tablet 1,000 mg (2 x 500 mg) PO Q8H PRN 08/25/24 pain #90 tabs aspirin 81 mg tablet,delayed 81 mg PO BID 30 days #60 tabs 08/25/24 release dexamethasone 4 mg tablet 4 mg PO DAILY #2 tabs 08/25/24 docusate sodium 100 mg capsule 100 mg PO BID #30 caps 08/25/24 (Colace) gabapentin 300 mg capsule 300 mg PO QHS #14 caps 08/25/24 meloxicam 15 mg tablet 15 mg PO DAILY #30 tabs 08/25/24 oxycodone 5 mg tablet 5 mg PO Q4H PRN #18 tabs 08/25/24 pantoprazole 40 mg tablet,delayed 40 mg PO DAILY #14 tabs 08/25/24 release Current Visit Medications: Current Medications Generic Name Dose Route Start Last Admin Trade Name Samq PRN Reason Stop Dose Admin Acetaminophen 1,000 mg 08/25/24 06:00 08/25/24 06:25 Acetaminophen 500 Mg Tab PO 08/25/24 23:59 1,000 mg PREOP TIM Administration Celecoxib 400 mg 08/25/24 06:00 08/25/24 06:25 Celecoxib 200 Mg Cap PO 08/25/24 23:59 400 mg PREOP TIM Administration Droperidol 0.625 mg 08/25/24 06:41 Droperidol 2.5 Mg/Ml Vial IVP 09/24/24 06:40 DIRECTED PRN Ephedrine Sulfate 0 mg 08/25/24 06:41 Ephedrine 25 Mg/5 Ml Syringe IVP 09/24/24 06:40 DIRECTED PRN Fentanyl 0 mcg 08/25/24 06:41 Fentanyl 100 Mcg/2 Ml Vial IVP 09/24/24 06:40 DIRECTED PRN Gabapentin 300 mg 08/25/24 06:00 08/25/24 06:25 Gabapentin 300 Mg Cap PO 08/25/24 23:59 300 mg PREOP TIM Administration Hydromorphone HCl 0 mg 08/25/24 06:41 Hydromorphone 1 Mg/Ml Syr IVP 09/24/24 06:40 DIRECTED PRN Hydromorphone HCl 0.5 mg 08/25/24 07:16 Hydromorphone 2 Mg/Ml Syr IVP 09/24/24 07:15 Q2H PRN PRN Ringer's Solution 1,000 mls @ 80 mls/hr 08/25/24 06:00 IV 08/25/24 23:59 INFUSION TIM Cefazolin Sodium 3,000 mg/ 100 mls @ 200 mls/hr 08/25/24 06:00 Sodium Chloride IV 08/25/24 23:59 PREOP TIM Tranexamic Acid/Sodium Chloride 1,000 mg in 100 mls @ 600 mls/hr 08/25/24 06:00 IVPB 08/25/24 23:59 PREOP TIM Cefazolin Sodium/Dextrose 1 gm in 50 mls @ 100 mls/hr 08/25/24 08:00 Ancef Duplex IVPB 08/26/24 00:29 Q8H TIM IV Miscellaneous Supplies 1 each 08/25/24 06:00 Iv Access IV 08/25/24 23:59 DIRECTED TIM Naloxone HCl 0 mg 08/25/24 06:41 Naloxone 0.4 Mg/Ml Vial IVP 09/24/24 06:40 PRN PRN Oxycodone HCl 0 mg 08/25/24 07:16 Oxycodone 5 Mg Tab PO 09/24/24 07:15 Q3H PRN PRN Pain Sodium Chloride 0 ml 08/25/24 06:00 Normal Saline Flush 10 Ml Syr IV 08/25/24 23:59 PRN PRN Sodium Chloride 0 ml 08/25/24 06:00 Normal Saline 10 Ml Vial IJ 08/25/24 23:59 DIRECTED PRN Sterile Water 0 ml 08/25/24 06:00 Water,Injection,Sterile 10 Ml Vial IJ 08/25/24 23:59 DIRECTED PRN PFSH Active Problems Active Problems: Problem Status Onset Code History of total left knee replacement Acute 05/12/24 Z96.652 Obesity, morbid, BMI 40.0-49.9 Acute E66.01 Abnormal blood creatinine level Acute R79.89 Benign localized prostatic hyperplasia with lower urinary tract symptoms (LUTS) Acute N40.1 Arthritis of right knee Chronic M17.11 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 Acute coronary syndromes Acute I24.9 Hyperuricemia Acute E79.0 Depressive disorder Acute F32.9 Dyspnea on effort Acute 05/08/16 R06.09 Fracture of right hip Acute 09/27/15 S72.001A Hypertension Acute I10 Iatrogenic pulmonary embolism and infarction Acute 07/25/79 T81.718A, I26.99 Microhematuria Acute 01/25/17 R31.29 Mild intermittent asthma without complication Acute 05/08/16 J45.20 Good's metatarsalgia Acute G57.60 Myoclonic jerking while sleeping Acute 09/27/15 G25.3 Polyp of colon Acute K63.5 Sleep apnea, unspecified Acute 01/25/17 G47.30 Medical History Medical History Hx of myocardial infarction 2019 History of herniated intervertebral disc patient reports 03/2008 Gastroesophageal reflux disease Hernia surgery and no more GERD. Polymyalgia rheumatica Does not bother him at this point. 10/18 Asthma HTN (hypertension) GERD (gastroesophageal reflux disease) Sleep apnea Medical History Comments:: 2 BP 160/92 Surgical History Surgical History Hx of total knee arthroplasty left History of surgery on left wrist carpal tunnel Hx of cataract surgery Vasectomy José Fundoplication (~11/1998) MPI (~12/2011) NEG Repair of inguinal hernia (~1999) LEFT Fracture, Open Treatment 12/06/14; FIRST METATARSAL 06/12/15; LEFT FEMUR FX Colonoscopy - MAC (05/31/17) 03/10/2010 Tobacco Smoking/Tobacco Use Status: Never Second hand exposure: Yes Alcohol Alcohol Intake: current Alcohol intake frequency: holidays/special occasions only Alcohol type: beer Substance Use Substance use: Never Substance use type: does not use Details: alcohol: about a week Vital Signs and Lab Results Vital Signs Most Recent Vital Signs in EMR: Most Recent Vital Signs Temp Pulse Resp BP Pulse Ox 36.6 C 78 20 183/88 H 93 08/25/24 06:22 08/25/24 06:22 08/25/24 06:22 08/25/24 06:22 08/25/24 06:22 Lab Results Blood Type / Crossmatch: No Data to Display Complete Blood Count: White Blood Count 7.01 10^3/uL (4.4-10.8) 08/10/24 10:56 Red Blood Count 5.25 10^6/uL (4.36-5.78) 08/10/24 10:56 Hemoglobin 16.4 g/dL (13.5-17.5) 08/10/24 10:56 Hematocrit 49.7 % (40.0-50.0) 08/10/24 10:56 Platelet Count 186 10^3/uL (130-400) 08/10/24 10:56 Complete Metabolic Panel: Sodium 140 mmol/L (136-145) 08/10/24 10:56 Potassium 3.5 mmol/L (3.5-5.1) 08/10/24 10:56 Chloride 104 mmol/L (98-107) 08/10/24 10:56 Carbon Dioxide 25.8 mmol/L (21.0-32.0) 08/10/24 10:56 BUN 21 mg/dL (7-18) H 08/10/24 10:56 Creatinine 1.4 mg/dL (0.70-1.30) H 08/10/24 10:56 Est GFR (CKD-EPI 2020) 54.41 (mL/min/1.73m2) 08/10/24 10:56 Calcium 9.3 mg/dL (8.5-10.1) 08/10/24 10:56 Glucose 155 mg/dL (74-106) H 08/10/24 10:56 Liver Function Panel: No Data to Display Coagulation Panel: No Data to Display Cardiac Panel: No Data to Display Arterial Blood Gas: No Data to Display Venous Blood Gas: No Data to Display Pancreas Panel: No Data to Display Thyroid Panel: No Data to Display Infectious Disease: No Data to Display Blood Cultures: No Data to Display Toxicology Panel: No Data to Display Imaging and Studies Imaging and Studies Study information below may be from another EMR and interpreted by another provider. Please see original notes in EMR for more complete details. EKG Summary: 03/30/21 Sinus rhythm...normal P axis, V-rate 60- 99 Right bundle branch block...QRSd>120, terminal axis(90,270 Stress Test Summary: Date: 05/05/24 No ischemia Inferolateral infarct pattern due to diaphragmatic attenuation: no true myocardial infarct Preserved global and regional LV systolic function Date of Exam: 05/09/20 Indications: Patient reports intermittent left sided chest ???aching??? pain with both rest and activity (lasting approximately 15 seconds), similar to symptoms prior to his stent placements. He also states he has been having episodes where he ???feels like my heart beat is up into my throat???, and he just feels odd when this happens. Stress ECG Conclusion 1. This is a pharmacological stress test. 2. There was no symptoms suggestive of ischemia. 3. The EKG portion of this exam is nondiagnostic. Echocardiogram Summary: Date of Exam: 04/03/19 Summary: 1. Left ventricle: The cavity size was normal. Wall thickness was increased in a pattern of mild LVH. Systolic function was normal. The estimated ejection fraction was 60-65%. Wall motion was normal; there were no regional wall motion abnormalities. 2. Right ventricle: The cavity size was normal. Systolic function was normal. 3. Pulmonary arteries: Pulmonary systolic pressure was increased, in the range of 40mm Hg to 45mm Hg. 4. Inferior vena cava: The vessel was patent and normal in size. The respirophasic diameter changes were in the normal range (greater than or equal to 50%), consistent with normal central venous pressure. Pulmonary Function Summary: DATE OF SERVICE: April 16, 2016 IMPRESSION: Mild obstructive airways disease with significant bronchodilator response. Elevated diffusion capacity sometimes can be seen with asthma. Therefore, clinical correlation recommended. If the diagnosis of asthma is in question and further clarification is needed, proceeding with methacholine challenge testing may prove to be useful. Anesthesia Assessment and Plan Anesthesia History Personal History: No History of Anesthesia Complications Family History: No Family History of Anesthesia Complications Exercise Tolerance Exercise Tolerance: Metabolic Equivalents>4 Pertinent Negatives Pertinent Negatives: No Symptoms of GERD Cardiac & Pulmonary Exam Cardiac Exam: Normal S1/S2 Heart Sounds Pulmonary Exam: Clear Bilateral Breath Sounds Implantable Cardiac Device Does patient have a Pacemaker or an ICD?: No Airway Exam Known Difficult Airway: No Mallampati Class: 2 Mouth Opening: Normal (> 3cm) Thyromental Distance: Greater than 3 cm Neck Range of Motion: Full ROM Neck Circumference: Normal Teeth Condition: Normal Dentition ASA Classification ASA Score: ASA 3 Emergency Case?: No NPO Status NPO Status: NPO Clears >2 hours, Solids >8 hours Anesthesia Plan Resuscitation Status: Full Code Anesthesia Technique: Spinal Anesthesia Airway Planned: Natural Airway Pain Management: Surgeon and patient request nerve block Monitors Used: Standard Monitors
--- NOTE | 2024-08-25 07:52 | W.PM.OP ---
Operative Note Operative Note PRE-OP DIAGNOSIS: Right Knee Osteoarthritis POST-OP DIAGNOSIS: same PROCEDURE: Right Total Knee Replacement with Intraoperative Navigation SURGEON: Corey Jama REEL SLITTER: Giselle Green ANESTHESIA TYPE: Spinal Refer to Anesthesia Record ESTIMATED BLOOD LOSS: 100 PATHOLOGY: none sent TOURNIQUET TIME: 0 COMPLICATIONS: None Patient was transported to: PACU Patient's condition: stable Implants: 1. Depuy Attune Cementless Cruciate Retaining Femoral Component, Size 7 2. Depuy Attune Cementless Fixed Bearing Tibial Component, Size 7 3. Depuy Attune 7x8mm CR/FB Poly 4. Depuy Attune Patellar Component, Size 38 Indications: I have seen Rico in clinic for symptoms of RIGHT knee arthritis, confirmed with radiographic findings. Rico has exhausted nonoperative methods and was having significant limitations in daily function and desired better function and less pain. I discussed the technical details of a knee replacement. He had a successful knee replacement on the left. I once again reviewed the risks of the procedure to include, but not limited to, bleeding, infection, pain, stiffness, fracture, damage to nerves and vessels, damage to muscles and tendons, loosening, need for repeat procedure, blood clot and cardiopulmonary demise. Despite these risks, Rico elected to proceed. Findings: There was significant signs of arthritis throughout the knee, worse in the medial compartment. Procedure Description: Rico was greeted in the preoperative holding area where the correct side was identified and marked. The consent was reviewed with the patient and signed. The history and physical was updated. All questions were answered. Preoperative mediacations were administered: Acetaminophen 1000mg, Celebrex 400mg, and Gabapentin 300mg. An adductor canal block was then administered by the anesthesia team in the DSU. Rico was taken back to the operating room. A spinal anesthestic was then administered. The patient was placed into the supine position on the operating room table. Posts were placed for positioning during the procedure. All bony prominences were well padded. Prophylactic antibiotics in the form of Cefazolin were administered. 1g of Tranxemic Acid was given intravenously within 30 minutes of incision. The right leg was then prepped with Chloraprep and draped in a standard fashion with impervious stockinette. A second prep with Chloraprep was performed prior to application of Iodine impregnated skin protection. A timeout to confirm correct identity, side and site, procedure, allergies, anesthesia, and medical concerns was performed. With the knee in some flexion, a midline incision was made overlying the knee. Full thickness skin flaps were raised once the extensor mechanism was encountered. These were raised medially and laterally. Any bleeding was controlled with electrocautery. Once the extensor mechanism was fully exposed, a medial parapatellar arthrotomy was performed in a flexed position. All bleeding from the arthrotomy and the geniculate arteries was coagulated. A medial subperiosteal peel was performed with electrocautery to the midcoronal plane. Due to the significant varus deformity the entire medial tibial plateau was exposed. The fat pad was removed while keeping the patellar tendon protected. The anterior distal femur synovium was removed for later visualization. The ACL and PCL were resected and the anterior horn of the lateral meniscus was transected. The knee was then flexed with the patella everted. Large osteophytes from the tibia were removed. Large osteophytes from the femur were removed. A single starting pin was then placed 1cm anterior to the PCL insertion and the notch in the direction of the femoral head. The OrthoAlign device was applied over the pin. It was oriented to be in line with the epicondylar axis and the trochlear groove. It was then pinned into place. The navigation computer was then turned on and calibrated. The distal femur cut was set at 1 degrees varus and 3.5 degrees flexion. The distal femur cutting guide then was positioned for a 9mm cut. The distal femur was cut with an oscillating saw while protecting the soft tissues. The tibia was then addressed. The OrthoAlign device was placed over the tibial tubercle and medial tibia and secured into position. Once again, OrthoAlign was calibrated and then set for a 2 degree varus cut and 5 degrees of posterior slope. With this locked into position, the cut thickness stylus was used to assess cut thickness. The medial side, most involved side, was set for a 4mm cut. This was then held in position and pinned into place with 2 additional pins and a cross pin for stability. The medial and lateral collateral ligaments were protected and the cut was performed. With this completed, it was assessed and noted to be of appropriate dimensions. The guide and OrthoAlign was removed. A spacer block was inserted and the knee was brought into extension to ensure enough space was present. . The Orthoalign gap balancing device was then placed in extension. This was used to ensure that the ligaments were properly balanced with up to 2 to 3 mm laxity laterally compared medially. The extension gap was measured as 20mm. The knee was then brought into 90 degrees of flexion and the ligament sagger preparer was once again placed. Under the same amount of force the flexion gap was measured. The Attune specific jig was placed and the flexion gap was made to match the extension gap. The femur was then sized as a size 7. The 4-in-1 cutting guide was the placed. An bianca wing was used to confirm appropriate position of the anterior cut to avoid notching. This cutting guide was ensured to be flush on the cut surface and then pinned into place with headed pins. While protecting the soft tissues, quad tendon, and collateral ligaments, the anterior and posterior cuts were performed with a saw. The central two pins were removed and the posterior and anterior chamfers were cut next. The notch-cutting guide was placed. This was pinned to lateralize the femoral component as much as possible while keeping it flush on the cut surface. This was then pinned into position. A saw was used to make the notch cut. A rasp smoothed the cut surfaces. The medial and lateral menisci were removed. A trial femoral component was then inserted, impacted down to the cut surfaces, and the lug holes were drilled. A provisional trial tibial component was placed and the knee was brought through range of motion. There was noted to be excellent extension and flexion. There was no significant instability. The patella was tracking without thumbs. A size 8mm polyethylene component provided the best range of motion and stability with less than 2mm gapping with medial and lateral stress and full extension without significant hyperextension. The tibial cut surface was fully exposed. The tibia was then sized as a 7. The tibia had been previously marked during trialing to correspond to the center of the tibial component to help with rotation. The trial was aligned to this maribell, approximately rotated to the medial 1/3rd of the tibial tubercle. The trial was pinned into place. The tibia was prepared with a reamer and a keel punch and lug holes. The knee was then brought into extension and the patella was measured as 26mm. Using the patellar clamp and cut guide, this was resected to a flat surface with at least 13mm of thickness remaining. The size 38 patella fit the best. This was oriented and then clamped into position. The lugs were drilled. The trial components were removed. The final components were opened on the back table. The periosteal and capsular tissues, especially posteriorly, around the knee were then systematically injected with a periarticular cocktail consisting of 246mg of Ropivacaine, 0.5mg of Epinephrine, 0.08mg of Clonidine, and 30mg of Ketorolac, diluted to 100cc. On the back table, with the implants opened, the cement was mixed. One batch of high viscosity cement was prepared with vacuum assistance. After the cement was ready a small amount was placed on the cut surface of the patella and the patellar button was clamped into position and held. While the cement was hardening, the cementless knee components were placed. Starting with the tibial component, the tibia was subluxed anteriorly and the lug holes of the component were lined up. The tibia was then impacted with an impactor and mallet until the tibial component was in contact with the tibia. Then, the femoral component was inserted. The lug holes were aligned and the component was impacted into position. The final polyethylene component was inserted. The knee was irrigated with Surgiphor Betadine solution. This was allowed to sit in the knee for 3 minutes and then it was thoroughly irrigated out with saline. After the cement had finally cured, approximately 15min, the clamp was removed from the patella and the knee was taken through range of motion. The patella was tracking with a no-thumbs technique. The capsule was then reapproximated with a No. 1 Vicryl at multiple locations. The capsule was finally closed with a No. 2 Stratafix, barbed suture. Deep tissues were then reapproximated with 0 Vicryl and 2-0 Vicryl. The skin was closed with a running 3-0 Monocryl in a subcuticular fashion. This was reinforced with skin glue. A Mepilex silver dressing was applied along with a [id number] DARA wrap. A CryoCuff was applied. Rico was transferred to the hospital bed without difficulty an suffering no apparent complication. He has a good prognosis. Physical therapy will start today and without restrictions, weight-bearing as tolerated. Aspirin 81mg BID will be used for DVT prophylaxis. Date of Procedure: 08/25/24
[2024-08-25] MEDS: ceFAZolin 3,000 MG in Normal Saline 100 ML 200 MG IV (08:00)
[2024-08-25] MEDS: TRANEXAMIC ACID/SOD. CHL. 1,000 MG/100 ML BAG 600 MG IVPB (08:05)
--- NOTE | 2024-08-25 08:28 | W.ANESNERVE ---
Nerve Block Single Injection Procedure Date and Time Date Performed: 08/25/24 Procedure Start: 07:33 Location Where Procedure Performed Procedure Location: Day Surgery Unit Reason Performed: Postoperative Analgesia Requesting Provider: Corey Jama Timeout Performed Timeout Performed: Yes Monitoring Used ECG, Blood Pressure, SpO2 and See EMR for corresponding vital signs Sterility Sterility: Hand Hygiene, Surgical Cap, Surgical Mask, Sterile Gloves, Eye Protection and Chlorhexidine Sedation Given During Procedure Sedation Given (Indicate Dose Given): Versed IV Dose:: 3mg IVP Patient Mental Status Patient Mental Status: Sedate with meaningful communication Nerve Block 1st Nerve Block: Laterality: Right Block Type: Adductor Canal Ultrasound Image Saved?: Yes Needle / Catheter Used: 120mm SonoPlex II Local Anesthetic Bolus (Indicate Dose Given): Lidocaine used for local infiltration of skin and Ropivacaine 0.5% Dose:: 0.5%/25cc (125mg) Additives (Indicate Dose Given): Epinephrine to make 1:200,000 (5mcg/ml) Dose:: 125mcg and Decadron Dose:: 10mg PF Ultrasound: Sterile probe cover and gel used Nerve Stimulator: Not Used Paresthesia: None Procedure Tolerated: No Complications and Patient tolerated well Procedure Outcome: Successful Performed By: Kevyn Soto
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
--- NOTE | 2024-08-25 13:28 | W.ANESPOSTOP ---
Postoperative Evaluation Date, Time and Location Date Performed: 08/25/24 Time Performed: 13:29 Patient Location: Day Surgery Unit Vital Signs Most Recent Imported Vital Signs: Most Recent Vital Signs Temp Pulse Resp BP Pulse Ox 36.3 C L 97 H 20 171/86 H 93 08/25/24 11:50 08/25/24 12:20 08/25/24 11:50 08/25/24 12:20 08/25/24 11:50 Pain Score Most Recent Pain Score: Most Recent Pain Score Pain Level 2 08/25/24 12:20 Assessment Mental Status: Awake (Alert & Oriented to Patient Baseline) Airway and Respiratory Function: Patent airway with normal (patient baseline) respiratory exam Cardiovascular Function: Hemodynamically Stable Hydration Status: Adequately Hydrated Nausea & Vomiting: No Nausea or Vomiting Pain: Pain is tolerable per patient Peripheral Nerve Block: Regional nerve block not resolved at time of post operative discharge Postoperative Comments:: Pt c/o pain in left foot after SAB resolved. Pt demonstrates full motor and sensory function of left foot but describes constant neuro pain. Pt placed on Gabapentin by ortho MD. Pt instructed to call ortho office if there is any change in motor or sensory function. Paul Soto CRNA
== END 2024-08-25 13:17 | disposition home or self-care (01) ==
PROVIDERS: PCP Nurse Practitioner Family; Visit Provider Student in an Organized Health Care Education/Training Program
PROC: (CPT 27447; principal; 2024-08-25 07:30)
DX: M17.11 Unilateral primary osteoarthritis, right knee (principal); M25.561 Pain in right knee; G89.18 Other acute postprocedural pain; E66.01 Morbid (severe) obesity due to excess calories; Z68.42 Body mass index [BMI] 45.0-49.9, adult
CPT/HCPCS: 20985; 27447; 64447; 97162; 97530; C1776; J0171; J0690; J1100; J2250; J2401; J2405; J2704; J2795

== ENCOUNTER 2024-09-07 15:30 | Outpatient (CLI) | payer MEDICARE, SELFPAY ==
--- NOTE | 2024-09-07 12:30 | DI.RAD_ITS ---
Exam(s) XR STANDING ALIGNMENT XR KNEE RT 1V EXAM: XR STANDING ALIGNMENT CLINICAL HISTORY: 1st post op s/p R TKA. TECHNIQUE: 2D digital imaging was performed. Standing AP views were performed from the pelvis throu gh the ankles. COMPARISON: CR XR STANDING ALIGNMENT from 05/25/2024 CR XR KNEE RT 1V from 09/07/2024 FINDINGS: BONES: No acute fracture is present. No bony destructive lesion is seen. Femoral amalia noted. Old mid tibial fracture on the left. Leg length discrepancy: The right femoral head projects approximately 15 millimeters superior to the left. JOINTS: Knees: Status post placement a right total knee prosthesis since the previous exam. The al ignment appears satisfactory. Stable appearance of left knee prosthesis. The ankle joints are unremarkable. Hardware in left foot. The hip joints are unremarkable. SOFT TISSUE: Normal. IMPRESSION: Satisfactory alignment of right total knee prosthesis. 15 millimeter overall leg length discrepancy. DATA REPOSITORY: RADIATION DOSE DELIVERED:
== END 2024-09-07 15:31 | disposition home or self-care (01) ==
LOC: DIORS 15:30
PROVIDERS: PCP Nurse Practitioner Family; Visit Provider Physician Assistant
DX: Z96.651 Presence of right artificial knee joint (principal); Z47.1 Aftercare following joint replacement surgery; R20.2 Paresthesia of skin
CPT/HCPCS: 99024; 73560; 77073

== ENCOUNTER 2024-10-01 14:35 | Outpatient (CLI) | payer MEDICARE, SELFPAY ==
--- NOTE | 2024-10-01 10:00 | DI.RAD_ITS ---
Exam(s) XR KNEE RT 2V AP,LAT EXAM: XR KNEE RT 2V AP,LAT INDICATION: knee pain s/p TKA. COMPARISON: CR XR KNEE RT 1V from 09/07/2024 TECHNIQUE: 2D digital imaging was performed. Two views. FINDINGS: Stable alignment of total knee prosthesis. No abnormal surrounding bony lucencies. DATA REPOSITORY: RADIATION DOSE DELIVERED:
== END 2024-10-01 14:36 | disposition home or self-care (01) ==
LOC: DIORS 14:35
PROVIDERS: PCP Nurse Practitioner Family; Referring Provider Nurse Practitioner Family; Visit Provider Student in an Organized Health Care Education/Training Program
DX: Z47.1 Aftercare following joint replacement surgery (principal); M70.51 Other bursitis of knee, right knee; Z96.651 Presence of right artificial knee joint
CPT/HCPCS: 20610; J1010; 73560

== ENCOUNTER → 2024-10-29 10:16 | Outpatient (BNVA) | payer MEDICARE, SELFPAY | PROVIDERS: PCP Nurse Practitioner Family; Referring Provider Nurse Practitioner Family; Visit Provider Student in an Organized Health Care Education/Training Program | DX: Z47.1 Aftercare following joint replacement surgery (principal); Z96.651 Presence of right artificial knee joint | CPT/HCPCS: 99024 ==

== ENCOUNTER → 2024-12-10 08:44 | Outpatient (BNVA) | payer MEDICARE, SELFPAY | PROVIDERS: PCP Nurse Practitioner Family; Referring Provider Nurse Practitioner Family; Visit Provider Student in an Organized Health Care Education/Training Program | DX: Z47.1 Aftercare following joint replacement surgery (principal); Z96.651 Presence of right artificial knee joint | CPT/HCPCS: 99213 ==

== ENCOUNTER 2025-05-22 11:48 | Emergency (ER) | payer MEDICARE, SELFPAY ==
[2025-05-22 11:54] VITALS: BP 155/74; PULSE 80; RESP 20; TEMP 36.7; O2SAT 94
[2025-05-22 11:57] VITALS: BP 155/74; PULSE 80; RESP 20; TEMP 36.7; O2SAT 94
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
[2025-05-22 13:35] LABS: Abs Immature Grans 0.08 10^3/uL (0.0-0.06); HCT 48.0 % (40.0-50.0); HGB 15.7 g/dL (13.5-17.5); Immature Grans % 0.8 %; MCH 30.4 pg (27.0-33.0); MCHC 32.7 % (32.0-36.0); MCV 93 fL (80-95); MPV 9.1 fL (8.0-11.0); Platelet Count 223 10^3/uL (130-400); RBC 5.16 10^6/uL (4.36-5.78); RDW 12.9 % (11.8-14.1); RDW-SD 44.2 fL; WBC 10.20 10^3/uL (4.4-10.8)
[2025-05-22 13:36] LABS: ESR 23 mm/hr (0-20)
[2025-05-22] MEDS: Ibuprofen 400 MG TAB PO (13:36)
[2025-05-22] MEDS: Acetaminophen 500 MG TAB 1000 MG PO (13:36)
[2025-05-22 13:44] VITALS: RESP 20
[2025-05-22 13:51] LABS: ALT 21 U/L (16-63); AST 17 U/L (15-37); Albumin 3.3 g/dL (3.4-5.0); Alkaline Phosphatase 114 U/L (46-116); Anion Gap 6.6 mmol/L (3-11); BUN 21 mg/dL (7-18); Bilirubin, Total 0.9 mg/dL (0.2-1.0); C-Reactive Protein 3.37 mg/dL (<or=0.5); CO2 29.4 mmol/L (21.0-32.0); Calcium 9.0 mg/dL (8.5-10.1); Chloride 105 mmol/L (98-107); Estimated GFR 65.06 (mL/min/1.73m2); Glucose 128 mg/dL (74-106); Potassium 3.7 mmol/L (3.5-5.1); Sodium 141 mmol/L (136-145); Total Protein 7.3 g/dL (6.4-8.2)
--- NOTE | 2025-05-22 14:49 | NUR.NOTE ---
Faxed to [facility] prior authorization for ketorolac tromethamine 10mg tab Nursing Note:
[2025-05-22] MEDS: predniSONE 10 MG, predniSONE 5 MG 15 MG PO (15:01)
[2025-05-22 15:10] VITALS: BP 132/82; PULSE 61; RESP 18; O2SAT 96
[2025-05-24 11:59] LABS: Lyme Ab w Rflx to Lyme Confirm Negative (Negative)
[2025-05-25 14:03] LABS: B. miyamotoi PCR Negative (Negative); Babesia divergens/MO-1 Negative (Negative); Ehrlichia muris eauclairensis Negative (Negative)
== END 2025-05-22 15:12 | disposition home or self-care (01) ==
PROVIDERS: Emergency Provider Physician Assistant; PCP Nurse Practitioner Family
DX: M35.3 Polymyalgia rheumatica (principal)
CPT/HCPCS: 99283 ×2; 36415; 80053; 85652; 87798; 85025; 86140; 86618; J7512